=== PATIENT | female | born 1960 | race Caucasian/White ===

== ENCOUNTER 2016-11-28 19:26 | Emergency (ER) | payer OTHER ==
[~2016-11-28] VITALS: Ht 165.1 cm; Wt 82.5 kg
[~2016-11-28 19:26] MED LIST: ADVAIR 100-501 EACH INH; ALENDRONATE SOD70 MG PO; AZATHIOPRINE50 MG PO; BUDESONIDE EC3 MG PO; DELZICOL400 MG PO; DICYCLOMINE HCL10 MG PO; FLUOXETINE HCL20 M1 PO; HYDROCODON-ACE1 EA10 PO; KEFLEX500 MG PO; MONTELUKAST SOD10 MG PO; NICODERM CQ1 EAC1 TD; NITROFURANTOIN100 M1 PO; NORCO 5-325 TA1 EACH PO; OMEPRAZOLE20 MG PO; PEG-3350 WITH4000 ML PO; PREDNISONE10 MG PO; PREDNISONE20 MG PO; PRILOSEC20 MG PO; PYRIDIUM100 MG PO; PYRIDIUM200 MG PO; SINGULAIR10 MG PO; VENTOLIN HFA18 GM INH; ZOFRAN ODT4 MG PO
[2016-11-28] MEDS ORDERED: BUDESONIDE EC3 MG PO (19:37)
[2016-11-28] MEDS ORDERED: AZATHIOPRINE50 MG PO (19:38)
[2016-11-28] MEDS ORDERED: NORCO 5-325 TA1 EACH PO (20:48)
== END 2016-11-28 21:19 | disposition home or self-care (01) ==
LOC: ED 19:26
DX: S82.61XA Displaced fracture of lateral malleolus of right fibula, initial encounter for closed fracture (principal); J44.9 Chronic obstructive pulmonary disease, unspecified; F31.9 Bipolar disorder, unspecified; F17.200 Nicotine dependence, unspecified, uncomplicated; Z90.710 Acquired absence of both cervix and uterus; Z90.49 Acquired absence of other specified parts of digestive tract; Z90.89 Acquired absence of other organs; Z91.048 Other nonmedicinal substance allergy status; Z79.899 Other long term (current) drug therapy; X58.XXXA Exposure to other specified factors, initial encounter
CPT/HCPCS: 73610; 99283

== ENCOUNTER 2018-11-17 10:20 | Inpatient (IN) | payer OTHER ==
[~2018-11-17] VITALS: Ht 165.1 cm; Wt 88.0 kg
[~2018-11-17 10:20] MED LIST changes: +ADVAIR 250-501 EACH INH; +ASACOL HD800 MG PO; +DICYCLOMINE HCL20 MG PO
[2018-11-25] MEDS ORDERED: D-20002000 UNIT PO (11:00)
[2018-11-25] MEDS ORDERED: VITAMIN B-121000 MCG PO (11:00)
[2018-11-25] MEDS ORDERED: DELZICOL400 M1 PO (11:03)
[2018-11-25] MEDS ORDERED: DICYCLOMINE HCL20 MG PO (11:04)
[2018-11-25] MEDS ORDERED: GAS RELIEF80 MG PO (11:05)
[2018-11-25] MEDS ORDERED: PROBIOTIC1 EAC1 PO (11:06)
[2018-11-25] MEDS ORDERED: OMEPRAZOLE20 MG PO (11:06)
[2018-11-25] MEDS ORDERED: VENTOLIN HFA18 GM INH (11:07)
--- NOTE | 2018-12-02 06:31 | OR ---
[facility] [address], [place] [address] Signed DATE OF OPERATION: 12/01/2018 SURGEON: Nazanin Champion MD PREOPERATIVE DIAGNOSES: 1. Crohn disease. 2. 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 POSTOPERATIVE DIAGNOSES: 1. Crohn disease. 2. Distal ileal stricture x2. PROCEDURES PERFORMED: Small bowel resection with end-to-end small bowel anastomosis, hand-sewn in 2 layers with Vicryl suture. ESTIMATED BLOOD LOSS: None. FINDINGS: Kevin has Crohn disease of her terminal ileum. The ileocecal valve and cecum were quite healthy. However, the distal ileum probably over 15 inches or so, has the classic thickened mesentery with the fat wrapping on the small bowel and then just on the proximal end at 15 cm, she had two sequential strictures. Small bowel was just slightly dilated proximal to that. These were all chronic. Chronically dilated small bowel had very little fat wrapping in the mesentery was not thickened. When we transected the ileum on the distal portion, there was still about 2 cm of stricture remaining, so we took an additional 2.5 to 3 cm length of the ileum to completely excise that stricture and then we performed our anastomosis, hand-sewn in 2 layers with absorbable Vicryl suture. INDICATIONS: Kevin is a 58-year-old female who feels like she probably had Crohn disease clear back to when she was a teenager. In 2014, she spent time in the hospital with inflammation of the terminal ileum. She was very close to having a right colectomy at that time. She has continued on her mesalamine and has overall been doing much better. However, the last 4 to 6 months, she has had tremendous left mid quadrant and left lower quadrant crampy abdominal pain. It is worse with solid foods. She cut down the pasta in liquids and it has been helping the last few months. She had been to her primary care provider. A CT scan with oral and IV contrast was performed. She has a 4 cm segment what was Electronically Signed By: NAZANIN CHAMPION MD 12/02/18 0631 PATIENT NAME: KEVIN ORNELAS OPERATIVE REPORT DATE OF : 64 REPORT #: [id number] PHYSICIAN: NAZANIN CHAMPION MD PCP: ROWAN BUCK MD REPORT IS CONFIDENTIAL AND NOT TO BE RELEASED WITHOUT AUTHORIZATION [facility] [address], [place] [address] Signed believed to be her jejunum in the left mid quadrant to the left lower quadrant of her abdomen. It was showed a thickened bowel wall and the lumen was only 5 mm in diameter. Small intestine was slightly dilated proximal to the stricture. This was all consistent with her symptoms. Consequently, her primary care provider asked to see me with respect to the above. I met with Kevin and her in the office. I had a long discussion regarding her current circumstances and the findings. We decided this was chronic and she needed to go the operating room for a small bowel resection. She also explained to me that her grandmother had Crohn disease. I reviewed with Kevin and her the anatomy of the small bowel in the office. We reviewed small bowel resections. We decided we would use absorbable suture given her Crohn disease. However, pertaining ollie are certainly acceptable. I explained to Kevin and her this would not relieve her of her Crohn disease completely. In fact, she could need additional resections in the future. We reviewed the expected intraoperative and postoperative course. There is risk to the surgery including, but not limited to bleeding, infection, scarring, change in contour of the skin, anastomotic stricture and/or leakage, incisional hernias, and other unforeseen comorbidities. They had expressed understanding and wished to proceed. I had met with Kevin and her in our preop area. We went through this once again. After this, we proceeded to surgery. PROCEDURE NOTE: Kevin was taken in the operating room and placed in the supine position under general endotracheal tube anesthesia. She was given a tap block by our anesthesia provider with ultrasound guidance. A Shore catheter was inserted without difficulty with return of clear yellow urine. She was given preoperative antibiotics along with subcutaneous heparin. SCDs were utilized. She was then prepped and draped in the usual sterile fashion. We then made a standard periumbilical incision with the help of the 20 blade knife. This was carried down through the tissues with the help of the cautery. We entered the abdomen without any difficulty whatsoever. She had little if any in the way of any adhesions that we could ascertain. We could easily see the slightly dilated small bowel came into the distal ileum and we could see the two sequential strictures 6 to 8 cm apart. As we traveled down the terminal ileum beyond that, then the chronic changes from the Crohn disease were more pronounced. There was thickening to the mesentery and fat wrapping around small bowel. This went all the way down next to the ileocecal valve. However, ileocecal valve seems to be actually very healthy. Cecum was quite healthy. The cecum was somewhat mobile. She does have a very healthy small noninvolved retrocecal appendix. We did leave that in place. Rather than to perform a formal right colectomy, we decided we would do a sequential small bowel resection. We used a MICAELA stapler to divide the ileum on the healthy proximal side and then what we thought was the beyond the stricture. We then divided the mesentery between Pean clamps and 0 Vicryl ties. We used several 2-0 Vicryl stick ties to control some bleeding on the edge of the mesentery which was common with the small bowel mesentery. We brought the two pieces of small bowel end-to-end and used 3-0 interrupted Vicryl sutures to Electronically Signed By: NAZANIN CHAMPION MD 12/02/18 0631 PATIENT NAME: KEVIN ORNELAS OPERATIVE REPORT DATE OF : 64 REPORT #: [id number] PHYSICIAN: NAZANIN CHAMPION MD PCP: ROWAN BUCK MD REPORT IS CONFIDENTIAL AND NOT TO BE RELEASED WITHOUT AUTHORIZATION [facility] [address], [place] [address] Signed bring the back wall of the serosa together. There was a bit of a size discrepancy between the slightly dilated proximal small bowel and slightly chronically smaller involved distal small bowel. We therefore removed the ollie and created a small Cheatle slit may be a centimeter or so in length. When we looked, we realized we still had a little bit of stricture left may be 2 cm at most in length. Consequently, we could not simply extend the Cheatle slit and we decided to go ahead and remove those Vicryl sutures with a #15 blade knife. We used a GI stapler for the third time to remove another 3 cm or so of the ileum and divided that mesentery with Pean clamps and 0 Vicryl ties once again. That was passed off the field. We did place a silk stitch on the proximal portion of the initial specimen. They were opened on the back table by our circulating nurse and pictures were taken for photodocumentation. After this, we once again proceeded with an end-to-end anastomosis with a 1 cm Cheatle slit. A back row was performed with interrupted 2-0 Vicryl sutures. The mucosa was then reapproximated circumferentially with running 2-0 Vicryl sutures. The anterior serosal layer was closed with interrupted 2-0 Vicryl sutures. This gave us an excellent circumferential anastomosis and was palpably patent between my index finger and thumb. The mesenteric rent was then closed with a running 0 Vicryl suture. The area was irrigated and suctioned out until clear. The bowel was returned to the abdomen. The mesentery was closed with interrupted [id number] #1 PDS sutures. The wound was irrigated and suctioned out until clear. We brought the dermis together with interrupted 3-0 subcuticular Monocryl sutures. The skin was reapproximated with ollie. Dry gauze and paper tape were used over the incision. After this, Kevin was awakened from her anesthesia, extubated in the OR, and taken to recovery room in stable condition. Nazanin Champion MD ALB/MODL /[id number] cc: MD Marshal Bhatia MD Andrew L Bower, MD Electronically Signed By: NAZANIN CHAMPION MD 12/02/18 0631 PATIENT NAME: KEVIN ORNELAS OPERATIVE REPORT DATE OF : 64 REPORT #: [id number] PHYSICIAN: NAZANIN CHAMPION MD PCP: ROWAN BUCK MD REPORT IS CONFIDENTIAL AND NOT TO BE RELEASED WITHOUT AUTHORIZATION [facility] [address], [place] [address] Signed Copies: ROWAN BUCK MD, JAMES MD BOWER, ANDREW L MD ~ Electronically Signed By: NAZANIN CHAMPION MD 12/02/18 0631 PATIENT NAME: KEVIN ORNELAS OPERATIVE REPORT DATE OF : 64 REPORT #: [id number] PHYSICIAN: NAZANIN CHAMPION MD PCP: ROWAN BUCK MD REPORT IS CONFIDENTIAL AND NOT TO BE RELEASED WITHOUT AUTHORIZATION
[2018-12-06] MEDS ORDERED: NORCO 5-325 TA1 EACH PO (12:03)
--- NOTE | 2018-12-06 16:10 | PATH ---
[facility] [address] [facility] [place] [address] Signed SPECIMEN(S): A MID JEJUNUM SPECIMEN(S): B DISTAL JEJUNUM SPECIMEN SOURCE: A. MID JEJUNUM B. DISTAL JEJUNUM CLINICAL HISTORY: Crohn's disease. FINAL PATHOLOGIC DIAGNOSIS: A. Mid jejunum, segmental excision: - Active chronic inflammatory bowel disease with ulceration consistent with Crohn's disease. - Proximal margin of excision: No microscopic pathologic diagnosis. - Distal margin of excision: Minimal to mild active chronic mucosal inflammation. B. Distal jejunum, segmental excision: - Mild to moderate active chronic Crohn's disease. - No perforation present. - Margins show focal mucosal inflammation and submucosal fibrosis without complete transmural involvement. LJA:cml:C2NR MICROSCOPIC EXAMINATION: A. Sections of distal resection margin reveal the mucosa surface to be un-ulcerated. There is minimal to mild active chronic mucosal inflammation. There is patchy extension of plasma cells, lymphocytes and infrequent eosinophils in the submucosa and the muscularis. No fibrosis is present. Sections of proximal margin are unremarkable. Sections of the ulcerated area reveal full-thickness mucosal necrosis with the base of the ulceration covered by fibrinous debris infiltrated with moderate numbers of acute inflammatory cells which extend down to, but not through the muscularis. Focal submucosal necrosis is present. There is no evidence of malignancy or atypia. B. Sections of distal jejunum reveal an area of ulceration and adjacent mucosa with mild to moderate active chronic inflammation extending down into submucosa, with a small focal submucosal abscess present along with areas of submucosal fibrosis consistent with Crohn's PATIENT NAME: KEVIN ORNELAS PATHOLOGY DATE OF : 64 REPORT #: [id number] PHYSICIAN: HUAN AREVALO PCP: ROWAN BUCK MD REPORT IS CONFIDENTIAL AND NOT TO BE RELEASED WITHOUT AUTHORIZATION [facility] [address] [place], [place] [address] Signed disease. No perforation is present. The margins show focal mild chronic and subacute inflammation in the mucosa, as well as mild submucosal fibrosis. The muscularis largely is not involved. LJA:cml GROSS DESCRIPTION: Two specimens are received in two containers, labeled "RC." A. The specimen, labeled "RC, mid jejunum," is received in formalin and consists of one unoriented segment of small bowel that has been previously opened and measures 10.5 cm in length and has an average internal circumference of 3.5 cm. A suture identifies the proximal margin. The serosal surface is pink and smooth with a red granular tissue at the distal resection margin. Upon opening the mucosal surface is yellow-prince and finely granular with focal pink ulcerations, which are collectively 1.6 cm from the proximal resection margin, and abuts the distal resection margin. The distal resection margin is inked blue. The bowel wall has an average thickness of 0.7 cm. No areas of perforation are grossly identified. Spiritual Advisor sections are submitted in four cassettes. Cassette summary: (A1) Distal resection margin, perpendicular (margin inked blue) (A2) Proximal resection margin, shave (A3-A4) Ulcerated areas of mucosa. B. The specimen, labeled "RC, distal jejunum," is received in formalin and consists of one previously opened segment of small bowel that is 3.6 cm in length and has an average internal circumference of 2.5 cm. The serosal surface is pink and focally congested. The mucosal surface is pink and finely granular with a 1.9 x 1.2 cm pink ulcerated area that is 0.6 cm from the closest resection margin. The closest resection margin is inked blue. The bowel wall ranges in thickness from 0.3 cm up to 0.9 cm. Spiritual Advisor sections are submitted in three cassettes. Cassette summary: (B1-B2) Ulcerated area to closest resection margin, perpendicular (margin inked blue) (B3) Opposite resection margin, shave. FB (under the direct supervision of a pathologist) The Gross Description was prepared using a voice recognition system. The report was reviewed for accuracy; however, sound-alike word errors, addition and/or deletions may occur. If there is any PATIENT NAME: KEVIN ORNELAS PATHOLOGY DATE OF : 64 REPORT #: [id number] PHYSICIAN: HUAN AREVALO PCP: ROWAN BUCK MD REPORT IS CONFIDENTIAL AND NOT TO BE RELEASED WITHOUT AUTHORIZATION [facility] [address] [place] [id number] Signed question about this report, please contact Client Services. PERFORMING LABORATORY: The technical component was performed by [employer], [address] [place] [id number] (Creative Writing Teacher: Judith Mcdonnell MD; CLIA# [id number]). [facility], [address] [address] (Creative Writing Teacher: Eduin Keys MD; CLIA# [id number]). Diagnostician: Eduin Keys MD Pathologist Electronically Signed 12/06/2018 Copies: ~ PATIENT NAME: KEVIN ORNELAS PATHOLOGY DATE OF : 64 REPORT #: [id number] PHYSICIAN: HUAN PATHOLOGY PCP: ROWAN BUCK MD REPORT IS CONFIDENTIAL AND NOT TO BE RELEASED WITHOUT AUTHORIZATION
--- NOTE | 2018-12-07 07:24 | DS ---
[facility] [address] [place], [place] [address] Signed ADMISSION DATE: 12/01/2018 DISCHARGE DATE: 12/06/2018 FINAL DIAGNOSES: 1. Distal ileal small bowel resection x1. 2. Chronic Crohn disease. PROCEDURE: Small bowel resection x1 (distal ileum). HISTORY OF PRESENT ILLNESS: Kevin is a 58-year-old female, who has had Crohn disease, probably back to when she was a teenager. However in 2014, she spent time in the hospital with quite a bit of inflammation in the terminal ileum. They got better and she has maintained herself quite nicely on her mesalamine. However, she developed a stricture in what was thought to be the jejunum. It was just to the left of the umbilicus on CT scan. The lumen was only about 5 mm in diameter. She was having very classic partial small bowel obstruction symptoms with crampy abdominal pain. She has learned to convert herself over to soft and liquid food that helped. However, the symptoms persisted, so she was asked to see me as a local general surgeon. HOSPITAL COURSE: We brought Kevin into the hospital on 12/01/2018, and underwent a small laparotomy and we found two sequential strictures in the terminal ileum. She has chronic fat wrapping in the terminal ileum, but the small bowel was actually pretty soft. We resected and sewed it end-to-end with absorbable Vicryl suture. She has done well both intraop and postop. She is now on a low residue diet and taking her chronic medications. She has had lots of flatus and several bowel movements. Abdominal exam is benign. The incisions are unremarkable. Due to her progress, we are going to be discharging her to home with her . DISCHARGE PLANS AND MEDICATIONS: Kevin will be discharged home with a prescription for Willard 5/325 tablets, 1 to 2 tablets p.o. q.6 hours p.r.n. for severe postop pain. We will dispense #25 tablets with no refills. She can use Tylenol, ibuprofen, or Naprosyn as needed for bzcu-oy-[id number] postoperative pain. She can purchase that [id number]. She can continue her chronic medications at home. I have advised her to stay on a low residue diet for the time being. We are going to remove one half the ollie today. We will see her back in the office in 5 to 7 days for followup. She should not do any heavy pushing, pulling, or lifting over about 20 pounds. She can certainly perform her activities of daily living including walking up and down stairs and showering and bathing as usual. She is Electronically Signed By: NAZANIN CHAMPION MD 12/07/18 0724 PATIENT NAME: KEVIN ORNELAS DISCHARGE SUMMARY DATE OF : 64 REPORT #: [id number] PHYSICIAN: NAZANIN CHAMPION MD PCP: ROWAN BUCK MD REPORT IS CONFIDENTIAL AND NOT TO BE RELEASED WITHOUT AUTHORIZATION [address] [address] Signed not to work currently and she should not drive while on narcotics. She and her have expressed understanding and agreed with above plan. Nazanin Champion MD ALB/MODL /[id number] cc: MD Marshal Hardwick, MD Rowan Buck MD Copies: NAZANIN CHAMPION MD, JAMES MD REDDY, LOHITH VEERAPPA MD ~ Electronically Signed By: NAZANIN CHAMPION MD 12/07/18 0724 PATIENT NAME: KEVIN ORNELAS DISCHARGE SUMMARY DATE OF : 64 REPORT #: [id number] PHYSICIAN: NAZANIN CHAMPION MD PCP: ROWAN BUCK MD REPORT IS CONFIDENTIAL AND NOT TO BE RELEASED WITHOUT AUTHORIZATION
== END 2018-12-06 12:45 | disposition home or self-care (01) | DRG 331 ==
LOC: DSVR 12-01 08:40 → MS 12-01 09:00
PROVIDERS: ADMIT Colon & Rectal Surgery
PROC: 0DTB0ZZ Resection of Ileum, Open Approach (ICD-10-PCS; principal; 2018-12-01 09:30)
PROC: 3E0T3BZ Introduction of Anesthetic Agent into Peripheral Nerves and Plexi, Percutaneous Approach (ICD-10-PCS; 2018-12-01 09:30)
DX: K50.018 Crohn's disease of small intestine with other complication (principal); G89.18 Other acute postprocedural pain; J44.9 Chronic obstructive pulmonary disease, unspecified; R73.03 Prediabetes; F17.210 Nicotine dependence, cigarettes, uncomplicated; E66.9 Obesity, unspecified; E53.8 Deficiency of other specified B group vitamins; E55.9 Vitamin D deficiency, unspecified; Z68.32 Body mass index [BMI] 32.0-32.9, adult; Z79.51 Long term (current) use of inhaled steroids; Z79.899 Other long term (current) drug therapy
CPT/HCPCS: 00790; 76942; 88307; 94640; 94760; 94762; 99406; C9113; J0131; J0690; J1100; J1170; J1644; J1650; J1885; J2405; J2704; J2795; J3010; J7120; J7121

== ENCOUNTER 2018-12-15 00:33 | Emergency (ER) | payer OTHER ==
[~2018-12-15] VITALS: Ht 165.1 cm; Wt 88.0 kg
[~2018-12-15 00:33] MED LIST changes: +D-20002000 UNIT PO; +DELZICOL400 M1 PO; +GAS RELIEF80 MG PO; +PROBIOTIC1 EAC1 PO; +VITAMIN B-121000 MCG PO
== END 2018-12-15 01:14 | disposition home or self-care (01) ==
LOC: ED 00:33
DX: M25.511 Pain in right shoulder (principal); M25.512 Pain in left shoulder; M54.2 Cervicalgia; F17.200 Nicotine dependence, unspecified, uncomplicated; Z91.048 Other nonmedicinal substance allergy status
CPT/HCPCS: 99283

== ENCOUNTER 2018-12-15 09:51 | Inpatient (IN) | payer OTHER ==
[~2018-12-15] VITALS: Ht 165.1 cm; Wt 93.4 kg
--- OUTSIDE RECORDS SUMMARY | 2018-12-15 10:44 | XMS ---
PreManage Notification: KEVIN ORNELAS Security Survey And Mapping Technician Events No recent Security Events currently on file CRITERIA MET - [facility] - 2 Visits in 30 Days CARE PROVIDERS Misbah Keys Treatment Current MD PHONE: Unknown Jose Luis has no Care Guidelines for this patient. ERe VISIT COUNT (12 MO.) 3 [facility] TOTAL 3 NOTE: Visits indicate total known visits. ED/UCC VISIT TRACKING (12 MO.) 12/15/2018 09:51 [facility] TYPE: Emergency 12/15/2018 00:34 [facility] TYPE: Emergency COMPLAINT: - BODY ACHES 10/15/2018 19:34 [facility] TYPE: Emergency COMPLAINT: - ABODMINAL PAIN DIAGNOSES: - Acquired absence of other specified parts of digestive tract - Other mcfp (current) drug therapy - Acquired absence of both cervix and uterus - Lower abdominal pain, unspecified - Other nonmedicinal substance allergy status - Nicotine dependence, unspecified, uncomplicated - Other chronic pain INPATIENT VISIT TRACKING (12 MO.) 12/01/2018 08:40 [facility] TYPE: Medical Surgical COMPLAINT: - LAPAROTOMY SMALL BOWEL RESECTION DIAGNOSES: - Body mass index (BMI) 32.0-32.9, adult - Prediabetes - Deficiency of other specified B group vitamins - Vitamin D deficiency, unspecified - Chronic obstructive pulmonary disease, unspecified - Other mcfp (current) drug therapy - Obesity, unspecified - Chronic obstructive pulmonary disease, unspecified - Obesity, unspecified - Other acute postprocedural pain - Body mass index (BMI) 32.0-32.9, adult - Nicotine dependence, cigarettes, uncomplicated - skilled nursing (current) use of inhaled steroids - Crohn's disease of small intestine with intestinal obstruction - Other rodent exterminator (current) drug therapy - skilled nursing (current) use of inhaled steroids - Nicotine dependence, cigarettes, uncomplicated - Crohn's disease of small intestine with other complication - Vitamin D deficiency, unspecified - Deficiency of other specified B group vitamins - Prediabetes - Other acute postprocedural pain [email or web address]
--- NOTE | 2018-12-15 17:58 | EKG ---
[facility] [address] [facility] [place] [address] Signed Sinus tachycardia Nonspecific ST abnormality Abnormal ECG When compared with ECG of 25-NOV-2018 11:28, Vent. rate has increased BY [address] now depressed in Anterior leads Confirmed by KASANDRA BENNETT MD ([id number]) on 12/15/2018 5:57:50 PM Electronically Signed By: KASANDRA BENNETT MD 12/15/18 1758 PATIENT NAME: KEVIN ORNELAS Electrocardiogram DATE OF : 64 PHYSICIAN: KASANDRA BENNETT MD REPORT #: [id number] REPORT IS CONFIDENTIAL AND NOT TO BE RELEASED WITHOUT AUTHORIZATION
--- NOTE | 2018-12-17 16:20 | PATH ---
[facility] [address] [place], [place] [address] Signed SPECIMEN(S): A TERMINAL ILEUM SPECIMEN(S): B ADDITIONAL ILEUM SPECIMEN SOURCE: A. TERMINAL ILEUM B. ADDITIONAL ILEUM CLINICAL HISTORY: History Crohn's, anastomosis leak, silk stitch proximal. Small bowel obstruction. FINAL PATHOLOGIC DIAGNOSIS: A. Terminal ileum, resection: - Anastomosis: Perforation with adjacent tissues with acute and chronic inflammation with features consistent with Crohn's disease. - Mucosa ileum proximal and distal to anastomosis: Crohn's disease with mucosal involvement, superficial ulceration, focal fibrosis and transmural inflammation. - Serosal surfaces: Peritonitis. - Two lymph nodes: Benign with reactive features. B. Ileum, additional resection: - "Transmural defect": - Mucosa: unremarkable. - Submucosa: Mild fibrosis and scattered acute and chronic inflammation. - Muscularis: Multiple areas of infiltration of acute and chronic inflammatory cells. - Serosa: Peritonitis. - Proximal and distal margins of excision: - Mucosa: Intact without significant inflammation. - Submucosa: Edema, mild fibrosis. - Muscularis: Scattered chronic inflammatory cells, rare acute inflammatory cells. - Serosa: Peritonitis. LJA:cml:C2NR MICROSCOPIC EXAMINATION: Histologic sections of all submitted blocks are examined by light microscopy. PATIENT NAME: KEVIN ORNELAS PATHOLOGY DATE OF : 64 REPORT #: [id number] PHYSICIAN: INCYTE PATHOLOGY PCP: ROWAN BUCK MD REPORT IS CONFIDENTIAL AND NOT TO BE RELEASED WITHOUT AUTHORIZATION [facility] [address] [place], [place] [address] Signed These findings, together with the gross examination, support the pathologic diagnosis. GROSS DESCRIPTION: Two specimens are received in two containers, labeled "RC." A. The specimen, labeled "RC, terminal ileum," is received in formalin and consists of a 38.2 cm in length segment of small bowel, with a 6.2 cm thick mesentery. There is a suture at one and that is designated as proximal. 14.2 cm from the proximal end there is an anastomosis. Proximal to the anastomosis the small bowel is approximately 7.5 cm in circumference, and distal to the anastomosis the small bowel is approximately 2.2 cm in circumference. The serosa proximal to the anastomosis is dusky and smooth, and the mucosa is prince-pink with regular unremarkable folds. The serosa distal to the anastomosis is prince-pink and smooth and the mucosa is prince-pink and smooth with focal hemorrhagic and ulcerated areas. The dusky area of the bowel abuts the proximal margin and the ulcerating mucosa abuts the distal margin. At the anastomosis site there is a transmural defect that is surrounded by a prince-white serosal exudate. There are three dark brown possible lymph nodes identified, ranging from 0.5-0.8 cm in greatest dimension. Cassette summary: (A1) anastomosis with transmural defect and exudate. (A2) proximal margin en face. (A3) distal margin en face. (A4) mucosa proximal to anastomosis and one intact lymph node. (A5-A6) mucosa distal to anastomosis with one lymph node per cassette. B. The specimen, labeled "RC, additional ileum," is received in formalin and consists of a 9.1 cm in length x 5.8 cm in circumference segment of small bowel, with a suture at one end that is designated as proximal. Attached to the specimen is an up to 3.3 cm thick mesentery. 1.1 cm from the proximal margin there is a 3.7 x 0.4 cm transmural defect. The serosa of the specimen is dark brown, dusky and smooth. The mucosa is prince with regular unremarkable folds. No lesions or lymph nodes are grossly identified. Cassette summary: (B1) proximal margin en face (B2) distal margin en face (B3) transmural defect AM (under the direct supervision of a pathologist) PATIENT NAME: KEVIN ORNELAS PATHOLOGY DATE OF : 64 REPORT #: [id number] PHYSICIAN: HUAN AREVALO PCP: ROWAN BUCK MD REPORT IS CONFIDENTIAL AND NOT TO BE RELEASED WITHOUT AUTHORIZATION [facility] [address] [place], [place] [address] Signed The Gross Description was prepared using a voice recognition system. The report was reviewed for accuracy; however, sound-alike word errors, addition and/or deletions may occur. If there is any question about this report, please contact Client Services. PERFORMING LABORATORY: The technical component was performed by [facility], [address] [place] [id number] (Bit Bender: Judith Mcdonnell MD; CLIA# [id number]). [facility] [address] [address] (Bit Bender: Eduin Keys MD; CLIA# [id number]). Diagnostician: Eduin Keys MD Pathologist Electronically Signed 12/17/2018 Copies: ~ PATIENT NAME: KEVIN ORNELAS PATHOLOGY DATE OF : 64 REPORT #: [id number] PHYSICIAN: HUAN PATHOLOGY PCP: ROWAN BUCK MD REPORT IS CONFIDENTIAL AND NOT TO BE RELEASED WITHOUT AUTHORIZATION
[2018-12-22] MEDS ORDERED: NORCO 10-325 T1 EACH PO (07:51)
--- NOTE | 2018-12-22 10:56 | OR ---
[facility] [address] [place], [place] [address] Signed DATE OF OPERATION: 12/15/2018 SURGEON: Nazanin Champion MD PREOPERATIVE DIAGNOSES: 1. Small bowel perforation at anastomosis. 2. Partial small bowel obstruction anastomosis. 3. Chronic Crohn disease. 4. Mild acute malnutrition. POSTOPERATIVE DIAGNOSES: 1. Small bowel perforation at anastomosis. 2. Partial small-bowel obstruction anastomosis. 3. Chronic Crohn disease. 4. Mild acute malnutrition. PROCEDURES PERFORMED: 1. Placement of left femoral central venous catheter with ultrasound guidance. 2. Small bowel resection (terminal ileum-20 inches) with end ileostomy. INPUT AND OUTPUT: In was 4 of L of crystalloid, out was 150 mL of blood and 800 mL of urine over 2.5 hours. FINDINGS: Kevin had a micro perforation 1 cm up onto the side of the bowel away from the mesenteric side. INDICATIONS: Kevin is a 58-year-old female who has had years of Crohn disease affecting her terminal ileum. She has been maintained well on mesalamine. However, she developed a stricture, chronic this affected area of terminal ileum. We taken her to the operating room about 15 days ago for an elective small bowel resection involving two sequential strictures. We brought the bowel back together end-to-end with interrupted Vicryl suture given the fact she has Crohn disease. She did well both intraop and postop. In fact, I just saw her couple days ago in the office. She is doing quite well. However, last night, she had acute onset of abdominal pain and came to emergency room. She was evaluated and discharged back to home. Her pain was worsening, so they called the ambulance and came back to the emergency room. The new ER doctor coming on shift had called me and I explained to him her current situation. Our greatest concern obvious would be a perforation at the anastomosis. Consequently, we asked for laboratory work Electronically Signed By: NAZANIN CHAMPION MD 12/16/18 5426 Electronically Signed By: NAZANIN CHAMPION MD 12/21/18 0518 Electronically Signed By: NAZANIN CHAMPION MD 12/22/18 1108 PATIENT NAME: KEVIN ORNELAS OPERATIVE REPORT DATE OF : 64 REPORT #: [id number] PHYSICIAN: NAZANIN CHAMPION MD PCP: ROWAN BUCK MD REPORT IS CONFIDENTIAL AND NOT TO BE RELEASED WITHOUT AUTHORIZATION [facility] [address] [place], [place] [address] scan of abdomen and pelvis. Sure enough, the white count is normal but her neutrophils 82. The lactic acid was quite high at 7.7 with an albumin of 3.7. The CT scan of abdomen and pelvis showed a moderate amount of free air and fluid in the abdomen, some inflammatory changes concerning for a perforated small bowel. I was in the operating room, once I finished and went into the emergency room and I could tell that she had moderate abdominal distention and was septic. She has had some mottling in her legs. She already had two peripheral IVs and received 3 L of IV fluids along with the cefepime and Flagyl. We found that the potassium was low at 2.5 and we had ordered 40 mEq of the potassium. She finished that while we were in the OR and repeat potassium shows her at 2.9. I tried to place a right femoral triple-lumen catheter and I could easily feel the pulse. I actually entered the femoral vein three times. We never could get the wire to feed and we abandoned that approach and tried the left subclavian vein with Trendelenburg position and again we could not find the subclavian vein whatsoever. We therefore abandoned our attempts in the ER to place a central venous catheter. We checked a chest x-ray and there was no pneumothorax or other complication of the chest. I explained to Kevin and her obviously her current situation. With our plans, take her directly from the ER over the operating room. The plan was to repeat the laparotomy and most likely resect the small bowel and more than likely she would end up with at least an ileostomy temporarily until things get here, we can reverse at a later date. I explained to Kevin and her that she is quite sick and we were quite concerned. Kevin and her both agreed that she is a full code and if she were on the ventilator and so forth back, she would defer decision making to her . I explained them there is risk to the surgery including, but not limited to bleeding, infection, scarring, change in contour of the skin, damage to bowel, recurrent bowel leak or issues with the ileostomy as well as other unforeseen comorbidities including . They had expressed understanding and wished to proceed. PROCEDURE NOTE: Kevin was taken into the operating room and placed in the supine position. Our anesthesia staff placed a left arterial line with a good waveform. We were able to keep her mean arterial pressures in the 70s. A Shore catheter had been inserted in the emergency room with return of clear yellow urine. She had already had an NG tube placed in the emergency room over 500 mL of bilious gastric fluid had been evacuated. After this, I used the ultrasound to place the left femoral triple-lumen catheter. The area had been prepped and draped in the usual sterile fashion. She was already placed under general endotracheal tube anesthesia at that point. Therefore, no local anesthetic was used. We were able to watch the needle passed directly underneath the skin into the vein itself. Even then it was a bit difficult, it took a few minutes before we finally got the nonpulsatile blood return with easy passage of the wire. We rechecked the position of the wire with the ultrasound and then dilated the tract without difficulty. The triple-lumen catheter was inserted and all three ports were able to draw and flush quite readily. The catheter was held down on the skin with interrupted silk sutures. Electronically Signed By: NAZANIN CHAMPION MD 12/16/18 1447 Electronically Signed By: NAZANIN CHAMPION MD 12/21/18 0518 Electronically Signed By: NAZANIN CHAMPION MD 12/22/18 1108 PATIENT NAME: KEVIN ORNELAS OPERATIVE REPORT DATE OF : 64 REPORT #: [id number] PHYSICIAN: NAZANIN CHAMPION MD PCP: ROWAN BUCK MD REPORT IS CONFIDENTIAL AND NOT TO BE RELEASED WITHOUT AUTHORIZATION [facility] [address] [place], [place] [address] Signed Dressing was applied per nursing staff. After this, I went out and completely rescrubbed and re-gowned as well as our nurse. The abdomen was then prepped and draped in the usual sterile fashion. We opened the midline incision sharply and then used the cautery to come through the fascia and remove her previous PDS sutures. We extended the incision about 3 cm cephalad. We entered the abdomen without difficulty and of course it was full of the typical turbid fluid consistent with a bowel perforation. We brought up the small bowel and I looked at the anastomosis and she had a very tiny perforation 1 or 2 mm about a centimeter up onto the side of the small bowel away from the mesenteric side. We then took some time to copiously irrigate and suction out the abdomen with warm antibiotic saline solution until clear. Initially pushed a little bit of the small bowel contents back in the stomach, but we felt this is going to be too much and since we could feel particulate matter in the small bowel, we felt this was not going to suction well through her NG tube. Consequently, went back and I divided the terminal ileum right next to the ileocecal valve with our linear stapler. We then chose an area proximal to the anastomosis on the ileum and we divided that also with a linear stapler. The mesentery to the dissection of small bowel was divided between Pean clamps and 0 Vicryl ties. We used several 2-0 Vicryl stick ties to over-sew some small bleeders. We found that the mesentery was a bit short and we really did not feel comfortable we could bring up the ileostomy at that point. We went ahead and took an additional short section of ileum and again we divided the mesentery between Pean clamps and 0 Vicryl ties. That then gave us sufficient length to bring the ileum up through the abdominal wall. We went ahead and removed the corner of the staple line and we placed that into our kidney basin and we very carefully and slowly evacuated the full length of that small bowel from the ligament of Treitz all the way down and all the liquid light brown particulate stool matter was evacuated along with multiple small pills that apparently she takes after every meal according to her and all the air was evacuated. We then oversewed that with a couple of interrupted pntgyo-op-vnrgo silk sutures. We then copiously irrigated out the abdomen again with warm antibiotic saline solution and felt that was quite secure. The course of her appendix remained in place. We then used a Esme clamp just lateral slightly inferior to the umbilicus over the rectus muscle and we grabbed the skin and we used our 20 blade knife to remove a [place] of skin. No more than 2 cm in diameter, probably less than that. Some of the subcutaneous fat was excised with a cautery and then we simply made a vertical slit on the anterior fascia, the muscle and then made a similar vertical slit in the posterior fascia, so we could bring the small bowel up through this. We brought the small bowel down on its natural sweep and brought it up vertically straight above the area of the mesentery that we divided and it came to quite nicely without any tension whatsoever. We then returned the rest of small bowel to the abdomen and brought the omentum down and over that area. The midline fascia was then closed with interrupted rgosjk-cx-efiub #1 PDS sutures. The wound was irrigated and suctioned out until clear. We brought the dermis together with interrupted 3-0 Monocryl subcuticular stitches. The skin edges were reapproximated with ollie. After this, the ileostomy was matured with a three-point stitch technique Electronically Signed By: NAZANIN CHAMPION MD 12/16/18 1447 Electronically Signed By: NAZANIN CHAMPION MD 12/21/18 0518 Electronically Signed By: NAZANIN CHAMPION MD 12/22/18 1108 PATIENT NAME: KEVIN ORNELAS OPERATIVE REPORT DATE OF : 64 REPORT #: [id number] PHYSICIAN: NAZANIN CHAMPION MD PCP: ROWAN BUCK MD REPORT IS CONFIDENTIAL AND NOT TO BE RELEASED WITHOUT AUTHORIZATION [facility] [address] [place], [place] [address] Signed using 3-0 Vicryl sutures. This gave a nice [place] to the ileostomy. We had divided that off sharply with the scissors and it was quite pink and healthy in bled quite nicely from the edges. We then placed our ostomy appliance over this. Dry gauze and tape were applied over the incision. Kevin was left intubated in stable but serious condition and we transported over to the ICU currently. In the meantime, I have reviewed all this with her as well. Nazanin Champion MD ALB/MODL /[id number] cc: MD Rowan Hardwick MD Copies: NAZANIN CHAMPION MD, LOHITH VEERAPPA MD ~ Electronically Signed By: NAZANIN CHAMPION MD 12/16/18 1447 Electronically Signed By: NAZANIN CHAMPION MD 12/21/18 0518 Electronically Signed By: NAZANIN CHAMPION MD 12/22/18 1108 PATIENT NAME: KEVIN ORNELAS OPERATIVE REPORT DATE OF : 64 REPORT #: [id number] PHYSICIAN: NAZANIN CHAMPION MD PCP: ROWAN BUCK MD REPORT IS CONFIDENTIAL AND NOT TO BE RELEASED WITHOUT AUTHORIZATION
--- NOTE | 2018-12-22 15:36 | DS ---
[facility] [address] [place] [address] Signed ADMISSION DATE: 12/15/2018 DISCHARGE DATE: 12/22/2018 FINAL DIAGNOSES: 1. Small bowel perforation. 2. Crohn disease. PROCEDURES: 1. Small bowel resection. 2. Ileostomy. HISTORY OF PRESENT ILLNESS: Kevin is a 58-year-old female who came 2 weeks prior to this admission due to 2 sequential strictures DICTATION ENDS HERE Nazanin Champion MD ALB/MODL /[id number] Copies: ~ Electronically Signed By: NAZANIN CHAMPION MD 12/22/18 1536 PATIENT NAME: KEVIN ORNELAS DISCHARGE SUMMARY DATE OF : 64 REPORT #: [id number] PHYSICIAN: NAZANIN CHAMPION MD PCP: ROWAN BUCK MD REPORT IS CONFIDENTIAL AND NOT TO BE RELEASED WITHOUT AUTHORIZATION
--- NOTE | 2018-12-22 15:36 | DS ---
[facility] [address] [place], [place] [address] Signed ADMISSION DATE: 12/15/2018 DISCHARGE DATE: 12/22/2018 FINAL DIAGNOSES: 1. Small bowel perforation. 2. Crohn disease. PROCEDURE: Small bowel resection and ileostomy. HISTORY OF PRESENT ILLNESS: Kevin is a 58-year-old female with a long history of Crohn disease. She is maintained on mesalamine. She is known to have a fairly long stricture in the terminal ileum, probably 20 cm long. She developed two sequential strictures on the proximal end of that requiring small bowel resection about 2 weeks prior to this admission. She has been doing well, in fact had been in office followup 2 days prior to this admission, and was doing fine. However, she developed abrupt pain and ended up coming to emergency room and had a small bowel perforation next to the anastomosis. Whether that was simply not healed or the Vicryl suture dissolved is hard to know for sure. She had been admitted as above. HOSPITAL COURSE: Kevin was admitted as above and started on her resuscitation and her IV fluids. We took her to the operating room directly from the emergency room for her small bowel resection. We took out the 20 cm or so of the terminal ileum. We then created an ileostomy in the right lower quadrant. Her abdomen was copiously irrigated out until clear DICTATION ENDS HERE MD EUSEBIO Hardwick/AMBIKAL /[id number] Electronically Signed By: NAZANIN CHAMPION MD 12/22/18 1536 PATIENT NAME: KEVIN ORNELAS DISCHARGE SUMMARY DATE OF : 64 REPORT #: [id number] PHYSICIAN: NAZANIN CHAMPION MD PCP: ROWAN BUCK MD REPORT IS CONFIDENTIAL AND NOT TO BE RELEASED WITHOUT AUTHORIZATION [address] [address] Signed Copies: ~ Electronically Signed By: NAZANIN CHAMPION MD 12/22/18 1536 PATIENT NAME: KEVIN ORNELAS DISCHARGE SUMMARY DATE OF : 64 REPORT #: [id number] PHYSICIAN: NAZANIN CHAMPION MD PCP: ROWAN BUCK MD REPORT IS CONFIDENTIAL AND NOT TO BE RELEASED WITHOUT AUTHORIZATION
--- NOTE | 2018-12-22 15:36 | DS ---
[facility] [address] [place], [place] [address] Signed ADMISSION DATE: 12/15/2018 DISCHARGE DATE: 12/22/2018 FINAL DIAGNOSES: 1. Small bowel perforation. 2. Crohn disease. PROCEDURES: 1. Small bowel resection. 2. Ileostomy. HISTORY OF PRESENT ILLNESS: Kevin is a 58-year-old female with a long history of Crohn disease, maintained on mesalamine. She had two sequential strictures in the ileum requiring a resection about 2 weeks prior to this admission. She office followup and then she developed significant acute abdominal pain, came to our emergency room. She had what appeared to be a small bowel perforation with air and fluid in the abdomen. HOSPITAL COURSE: I met with Kevin and her in the ER and we started her resuscitation, antibiotics, and so forth. She was taken directly to the operating room and underwent resection of the terminal ileum and creation of an ileostomy. We washed out her entire abdomen. We maintained her on cefepime and Flagyl throughout the hospital stay. She came through an expected postoperative course and has done quite well. Her fevers have resolved, white counts resolved, and she is now eating a regular diet. We have had the nurses help her several times now with the ileostomy care. We have made arrangements for Home Health as well. Her incision is healing nicely and we are going to remove all the ollie today. The abdomen is completely benign and the ileostomy is pink, moist, and functioning. DISCHARGE PLANS AND MEDICATIONS: Kevin is going to be discharged to home with a prescription for [place] 10/325 one tablet p.o. q.6 hours p.r.n. pain; we will dispense 30 tablets with no refills. She is welcome to use some Tylenol, ibuprofen, or Naprosyn for xpdb-od-wdhbywtp pain; she can purchase that vjeg-htz-uhiuuzk. She is going to resume all her chronic medications as she has done here in the hospital. She can continue a regular diet. She can perform her activities of daily living including walking up and down stairs and showering and bathing as usual. We have made arrangements for the [facility] care team to come out and see her because she is a new ileostomy patient. [place] 25 [place] from the hospital and for her to come in out of town would be excessive. I will see her back in Electronically Signed By: NAZANIN CHAMPION MD 12/22/18 1536 PATIENT NAME: KEVIN ORNELAS DISCHARGE SUMMARY DATE OF : 64 REPORT #: [id number] PHYSICIAN: NAZANIN CHAMPION MD PCP: ROWAN BUCK MD REPORT IS CONFIDENTIAL AND NOT TO BE RELEASED WITHOUT AUTHORIZATION [address] [address] Signed my office in about 5-7 days for followup. She has expressed her understanding and agrees to above plan. MD EUSEBIO Hardwick/AMBIKAL /[id number] cc: MD Nazanin Mendoza MD Lohith Veerappa Reddy, MD Copies: JAIME LAM MD,ROWAN ZAIDI MD, MD ~ Electronically Signed By: NAZANIN CHAMPION MD 12/22/18 1536 PATIENT NAME: KEVIN ORNELAS DISCHARGE SUMMARY DATE OF : 64 REPORT #: [id number] PHYSICIAN: NAZANIN CHAMPION MD PCP: ROWAN BUCK MD REPORT IS CONFIDENTIAL AND NOT TO BE RELEASED WITHOUT AUTHORIZATION
== END 2018-12-22 12:30 | disposition home health service (06) | DRG 853 ==
LOC: ED 09:51 → DSVR 13:23 → CCU 16:43 → MS 12-18 18:00
PROVIDERS: ADMIT Colon & Rectal Surgery
PROC: 0DBB0ZZ Excision of Ileum, Open Approach (ICD-10-PCS; principal; 2018-12-15 14:00)
PROC: 0D1B0Z4 Bypass Ileum to Cutaneous, Open Approach (ICD-10-PCS; 2018-12-15 14:00)
PROC: 02HV33Z Insertion of Infusion Device into Superior Vena Cava, Percutaneous Approach (ICD-10-PCS; 2018-12-18)
PROC: 3E02340 Introduction of Influenza Vaccine into Muscle, Percutaneous Approach (ICD-10-PCS; 2018-12-18)
DX: A41.4 Sepsis due to anaerobes (principal); K65.9 Peritonitis, unspecified; K63.1 Perforation of intestine (nontraumatic); K50.012 Crohn's disease of small intestine with intestinal obstruction; E87.2 Acidosis; E44.1 Mild protein-calorie malnutrition; J44.9 Chronic obstructive pulmonary disease, unspecified; F31.9 Bipolar disorder, unspecified; E83.51 Hypocalcemia; F17.210 Nicotine dependence, cigarettes, uncomplicated; M19.90 Unspecified osteoarthritis, unspecified site; R73.9 Hyperglycemia, unspecified; Z23 Encounter for immunization; E87.6 Hypokalemia; E83.42 Hypomagnesemia; E83.39 Other disorders of phosphorus metabolism; T50.905A Adverse effect of unspecified drugs, medicaments and biological substances, initial encounter; Y92.239 Unspecified place in hospital as the place of occurrence of the external cause; Z68.32 Body mass index [BMI] 32.0-32.9, adult; Z79.899 Other long term (current) drug therapy
CPT/HCPCS: 00790; 31720; 36569; 36600; 36620; 71045; 74177; 80048; 80053; 80061; 81001; 82803; 83036; 83605; 83735; 84100; 84134; 85025; 85610; 85730; 87040; 87076; 87077; 87185; 88307; 90688; 93005; 93010; 94002; 94003; 94640; 94760; 96361; 97110; 97116; 97162; 97530; 99285-25; 99406; C9113; J0610; J0692; J1100; J1170; J1644; J1815; J1885; J2250; J2370; J2405; J2704; J3010; J3430; J3475; J3480; J7030; J7060; J7120; J7121; Q9967

== ENCOUNTER 2019-01-08 17:13 | Observation (INO) | payer OTHER ==
[~2019-01-08] VITALS: Ht 165.1 cm; Wt 77.1 kg
[~2019-01-08 17:13] MED LIST changes: +NORCO 10-325 T1 EACH PO
--- OUTSIDE RECORDS SUMMARY | 2019-01-08 17:18 | XMS ---
PreManage Notification: KEVIN ORNELAS Security Authorization Nurse Events No recent Security Events currently on file CRITERIA MET - [facility] - Has Care Guidelines - PDMP - [facility] - 2 Visits in 30 Days CARE PROVIDERS ROWAN BUCK Internal Medicine 12/16/2018-[facility] STACI PHONE: [phone] Misbah Keys MD PHONE: Unknown Jose Luis has no Care Guidelines for this patient. Care History Medical/Surgical 12/16/2018 [facility] - Patient is currently established with [facility]. If patient is seen in the ED during business hours. Please contact CHWs at [facility]. Care Recommendation: This patient has had 5 or more Emergency Department visits in the last 12 months.\T\nbsp; Patient requires education on the scope and purpose of the ED as an acute care provider not a Primary Care Provider and should not be utilized for chronic conditions.\T\nbsp; These are guidelines and the provider should exercise clinical judgment when providing care. E.D. VISIT COUNT (12 MO.) [address] [facility] TOTAL 4 NOTE: Visits indicate total known visits. ED/UCC VISIT TRACKING (12 MO.) 01/08/2019 17:15 [facility] [place] TYPE: Emergency COMPLAINT: - MULTIPLE COMPLAINTS 12/15/2018 09:51 [facility] [place] TYPE: Emergency 12/15/2018 00:34 [facility] [place] TYPE: Emergency COMPLAINT: - BODY ACHES DIAGNOSES: - Pain in left shoulder - Nicotine dependence, unspecified, uncomplicated - Pain in right shoulder - Other nonmedicinal substance allergy status - Cervicalgia - Lower abdominal pain, unspecified 10/15/2018 19:34 [facility] [place] TYPE: Emergency COMPLAINT: - ABODMINAL PAIN DIAGNOSES: - Acquired absence of other specified parts of digestive tract - Other care home (current) drug therapy - Acquired absence of both cervix and uterus - Lower abdominal pain, unspecified - Other nonmedicinal substance allergy status - Nicotine dependence, unspecified, uncomplicated - Other chronic pain INPATIENT VISIT TRACKING (12 MO.) 12/15/2018 13:23 [facility] [place] TYPE: Medical Surgical COMPLAINT: - SMALL BOWEL OBSTRUCTION DIAGNOSES: - Other care home (current) drug therapy - Perforation of intestine (nontraumatic) - Encounter for immunization - Sepsis due to anaerobes Sepsis du - Unsp intestnl obst, unsp as to partial versus complete obst - Nicotine dependence, unspecified, uncomplicated - Hypocalcemia - Adverse effect of unsp drug/meds/biol subst, init - Adverse effect of unsp drug/meds/biol subst, init - Nicotine dependence, cigarettes, uncomplicated - Hyperglycemia, unspecified - Unspecified osteoarthritis, unspecified site - Unspecified osteoarthritis, unspecified site - Hypomagnesemia - Other disorders of phosphorus metabolism - Bipolar disorder, unspecified - Other care home (current) drug therapy - Encounter for immunization - Acidosis - Crohn's disease of small intestine w intestinal obstruction - Hypokalemia - Mild protein-calorie malnutrition - Hypocalcemia - Peritonitis, unspecified - Other disorders of phosphorus metabolism - Sepsis due to anaerobes Sepsis du - Body mass index (BMI) 32.0-32.9, adult - Peritonitis, unspecified - Chronic obstructive pulmonary disease, unspecified - Hyperglycemia, unspecified - Unsp place in hospital as place - Nicotine dependence, cigarettes, uncomplicated - Bipolar disorder, unspecified - Mild protein-calorie malnutrition - Body mass index (BMI) 32.0-32.9, adult - Perforation of intestine (nontraumatic) - Unsp place in hospital as place - Crohn's disease of small intestine w intestinal obstruction - Chronic obstructive pulmonary disease, unspecified - Hypokalemia - Hypomagnesemia - Acidosis 12/01/2018 08:40 [facility] [place] TYPE: Medical Surgical COMPLAINT: - LAPAROTOMY SMALL BOWEL RESECTION DIAGNOSES: - Body mass index (BMI) 32.0-32.9, adult - Prediabetes - Deficiency of other specified B group vitamins - Vitamin D deficiency, unspecified - Chronic obstructive pulmonary disease, unspecified - Other care home (current) drug therapy - Obesity, unspecified - Chronic obstructive pulmonary disease, unspecified - Obesity, unspecified - Other acute postprocedural pain - Body mass index (BMI) 32.0-32.9, adult - Nicotine dependence, cigarettes, uncomplicated - care home (current) use of inhaled steroids - Crohn's disease of small intestine w intestinal obstruction - Other care home (current) drug therapy - 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
--- NOTE | 2019-01-08 21:05 | NUR ---
PT ARRIVED VIA STRETCHER, VS TAKEN AND ENTERED. PT IS ORIENTED TO THE ROOM AND CALL LIGHT. COMPLETING ADMISSION HX WITH PT AT THIS TIME.
--- NOTE | 2019-01-08 21:29 | NUR ---
got pt bowl of soup
--- NOTE | 2019-01-08 21:57 | NUR ---
PATIENT ARRIVED TO THE FLOOR VIA STRETCHER. JONG RN IN ROOM TO COMPLETE ADMISSION. ASSESEMENT COMPLETED. PATIENT DENIES ANY COMMENTS, QUESTIONS OR CONCERNS. SUZANNAT IS REQUESTING SOUP. PATIENT PROVIDED WITH SOUP BY CONFIGURATION TECHNICIAN. PATIENT DENIES ANY PAIN OR NAUSEA. CALL LIGHT IN REACH.
--- NOTE | 2019-01-08 21:59 | NUR ---
ENTERED ROOM TO FIX BEEPING IV PUMP, IT IS NOW INFUSING FINE. SBA PT TO RESTROOM AND BACK TO BED. SHE DENIES FURTHER NEEDS. CALL LIGHT IS CLOSE.
--- NOTE | 2019-01-08 23:26 | NUR ---
RT PLACED PATIENT ON CPOX PER THIS RNS REQUEST. PATIENT IS RESTING IN BED. PATIENT DENIES ANY PAIN OR SOB. NO NEEDS NOTED. CALL LIGHT IN REACH.
--- NOTE | 2019-01-08 23:32 | NUR ---
SBA PT FROM TOILET AND BK TO BED, REFILLED WATER, PUT I.V. WRIST BRACES ON, TURNED OUT LIGHT,
--- NOTE | 2019-01-09 01:45 | NUR ---
ASST C/ 2AM VITALS/I&Os, EMPTIED PTs OSTIMY BAG, SBA PT TO TOILET/BK TO BED
--- NOTE | 2019-01-09 01:50 | NUR ---
PATIENTS VITALS TAKEN AND RECORDED. PATIENT DENIES ANY PAIN OR SOB. PATIENT REMAINS ON RA. PATIENTS INTAKE AND OUPUT RECORDED. PATIENT ASSISTED TO THE RESTROOM BYT DIRECTOR OF NUCLEAR MEDICINE. PATIENT IS A SBA. PATIENT DENIES ANY SOB WITH ACTIVITY. PATIENT WAS ABLE TO VOID. PATIENT IS BACK IN BED RESTING. NO FURTHER NEEDS NOTED. CALL LIGHT IN REACH.
--- NOTE | 2019-01-09 02:10 | NUR ---
PATIENT IS RESTING IN BED WATCHING TV. PATIENT GIVEN JELLO PER ORDER. PATIENT DENIES ANY SOB. 96 OXYGEN SATURATION AND 95 HR NOTED. PATIENT DENIES ANY SOB. NO NEEDS NOTED. CALL LIGHT REACH.
--- NOTE | 2019-01-09 02:45 | NUR ---
PROVIDED PT WITH CRANBERRY JUICE FROM THE KITCHEN
--- NOTE | 2019-01-09 03:47 | NUR ---
PATIENT IS RESTING IN BED WATCHING TV. PATIENT DENIES ANY NEEDS. CPOX READINGS ARE WNL. CALL LIGHT IN REACH.
--- NOTE | 2019-01-09 05:13 | NUR ---
PATIENT RESTED ON AND OFF SINCE ARRIVING TO THE FLOOR. PATIENT IS ON A REGULAR DIET TOLERATING IT WELL, AND NO NAUSEA NOTED. PATIENT IS A SBA. PATIENT IS ON RA AND CPOX IN USE. PATIENT HAS DENIED ANY SOB. PATIENT HAS OSTOMY BAG TO MID LOWER RIGHT QUADRANT. PATIENT HAS MID ABD INCISION THAT IS C/D/I, OPEN TO AIR AND WELL APPROXIMATED. PATIENT IS AAOX3 AND USES CALL LIGHT APPROPRIATELY.
--- NOTE | 2019-01-09 05:45 | NUR ---
ASST RN IN OSTIMY CHANGE, SBA PT FROM TOILET TO BED, VITALS/I&Os ARE DONE
--- NOTE | 2019-01-09 06:02 | NUR ---
PATIENTS VITALS TAKEN AND RECORDED. PATIENTS OSTOMY BAG HAS COME LOOSE. PATIENTS OSTOMY BAG REPLASED AND SITE CLEANED. PATIENTS VITALS TAKEN AND RECORDED. INTAKE AND OUTPUT RECORDED. MORNING MEDICATIONS GIVEN PER ORDER. PATIENT DENIES ANY FURTHER NEEDS CALL LIGHT IN REACH.
--- NOTE | 2019-01-09 07:46 | NUR ---
PT A&OX4. PT ON RA, RESP EVEN AND NON LABORED. PT DENIES PAIN AT THIS TIME. COLOSTOMY BAG INTACT. OLD MIDLINE INCISION IS HEALED. PT DENIES NEEDS AT THIS TIME. PT REPORTING SHE IS READY TO GO HOME. PERSONAL SUPPLIES AND CALL LIGHT WITHIN REACH.
--- NOTE | 2019-01-09 07:50 | NUR ---
CALL LIGHT ANSWERED. PATIENT RESTING IN BED. IN ROOM. PATIENT'S BREAKFAST ORDERED. COFFEE GIVEN. CALL LIGHT WITHIN REACH. NO OTHER NEEDS AT THIS TIME
--- NOTE | 2019-01-09 08:28 | NUR ---
PATIENT IS IN SBA WENT TO RESTROOM, PATIENT EMPTIED HER OSTOMY BAG
--- NOTE | 2019-01-09 10:01 | NUR ---
PATIENT SITTING UP IN BED. IN ROOM. VITAL SIGNS AND I&O DONE. CALL LIGHT WITHIN REACH. NO OTHER NEEDS AT THIS TIME
[2019-01-09] MEDS ORDERED: ELIQUIS5 MG PO (11:41)
--- NOTE | 2019-01-09 12:50 | NUR ---
Patient is discharged with new RX for Eliquis, called in to [facility]. We are sending home tonight & tomorrow mornings doses, as [facility] will not be able to fill in full until tomorrow morning. Patient is now taking 10mg BID & she understands when she is to decrease dose to 5mg BID. Dr Glover authorized one month of Eliquis, patient will follow-up with PCP for additional fill.
== END 2019-01-09 13:45 | disposition home or self-care (01) ==
LOC: ED 17:13 → MS 19:15
PROVIDERS: ADMIT Student in an Organized Health Care Education/Training Program
DX: I26.99 Other pulmonary embolism without acute cor pulmonale (principal); K50.90 Crohn's disease, unspecified, without complications; F31.9 Bipolar disorder, unspecified; J44.9 Chronic obstructive pulmonary disease, unspecified; F17.210 Nicotine dependence, cigarettes, uncomplicated; R73.03 Prediabetes; R00.0 Tachycardia, unspecified; E83.52 Hypercalcemia; R91.1 Solitary pulmonary nodule; Z93.2 Ileostomy status; Z79.899 Other long term (current) drug therapy; Z79.891 Long term (current) use of opiate analgesic; Z79.51 Long term (current) use of inhaled steroids
CPT/HCPCS: 36415; 71046; 71260; 80048; 80053; 81001; 82306; 82310; 82652; 83735; 83880; 83970; 84484; 85025; 85379; 94640; 94760; 94762; 96360; 96361; 96374; 97161; 99285-25; G0378; J3475; J7040; J7121; Q9967

== ENCOUNTER 2019-01-18 15:11 | Emergency (ER) | payer OTHER ==
[~2019-01-18] VITALS: Ht 165.1 cm; Wt 74.4 kg
[~2019-01-18 15:11] MED LIST changes: +ELIQUIS5 MG PO
--- OUTSIDE RECORDS SUMMARY | 2019-01-18 15:14 | XMS ---
PreManage Notification: KEVIN ORNELAS Security Router Machine Operator Events No recent Security Events currently on file CRITERIA MET - [facility] - Has Care Guidelines - [facility] - 2 Visits in 30 Days CARE PROVIDERS ROWAN BUCK Internal Medicine 12/16/2018-[facility] PHONE: [phone] Misbah Keys Current PHONE: Unknown Jose Luis has no Care Guidelines for this patient. Care History Medical/Surgical 01/10/2019 [facility] Patient has scheduled appt with PCP 01/14/2019 at 4:00pm. 12/16/2018 [facility] - Patient is currently established with [facility]. If patient is seen in the ED during business hours. Please contact CHWs at [facility]. Care Recommendation: This patient has had 5 or more Emergency Department visits in the last 12 months.\T\nbsp; Patient requires education on the scope and purpose of the ED as an acute care provider not a Primary Care Provider and should not be utilized for chronic conditions.\T\nbsp; These are guidelines and the provider should exercise clinical judgment when providing care. Chas VISIT COUNT (12 MO.) 5 [facility] TOTAL 5 NOTE: Visits indicate total known visits. ED/UCC VISIT TRACKING (12 MO.) 01/18/2019 15:12 [facility] [place] TYPE: Emergency COMPLAINT: - FAST HEART RATE, LABORED BREATHING 01/08/2019 17:15 [facility] [place] TYPE: Emergency COMPLAINT: - MULTIPLE COMPLAINTS 12/15/2018 09:[address] [facility] [place] [facility]: Emergency 12/15/2018 00:[address] [facility] [place] TYPE: Emergency COMPLAINT: - BODY ACHES DIAGNOSES: - Pain in left shoulder - Nicotine dependence, unspecified, uncomplicated - Pain in right shoulder - Other nonmedicinal substance allergy status - Cervicalgia - Lower abdominal pain, unspecified 10/15/2018 19:[address] [facility] [place] TYPE: Emergency COMPLAINT: - ABODMINAL PAIN DIAGNOSES: - Acquired absence of other specified parts of digestive tract - Other nursing education consultant (current) drug therapy - Acquired absence of both cervix and uterus - Lower abdominal pain, unspecified - Other nonmedicinal substance allergy status - Nicotine dependence, unspecified, uncomplicated - Other chronic pain INPATIENT VISIT TRACKING (12 MO.) 01/08/2019 19:15 [facility] [place] TYPE: Observation COMPLAINT: - PULMONARY EMBOLISM DIAGNOSES: - Nicotine dependence, cigarettes, uncomplicated - Tachycardia, unspecified - Other nursing education consultant (current) drug therapy - Bipolar disorder, unspecified - Ileostomy status - Prediabetes - Chronic obstructive pulmonary disease, unspecified - Solitary pulmonary nodule - market consultant (current) use of opiate analgesic - Crohn's disease, unspecified, without complications - Palpitations - Other pulmonary embolism without acute cor pulmonale - Hypercalcemia - market consultant (current) use of inhaled steroids 12/15/2018 13:23 [facility] [place] TYPE: Medical Surgical COMPLAINT: - SMALL BOWEL OBSTRUCTION DIAGNOSES: - Other m[facility]p (current) drug therapy - Perforation of intestine [...] metabolism - Bipolar disorder, unspecified - Other [facility] (current) drug therapy - Encounter for immunization [...] Chronic obstructive pulmonary disease, unspecified - Other nursing education consultant (current) drug therapy - Obesity, unspecified - Chronic obstructive pulmonary disease, unspecified - Obesity, unspecified - Other acute postprocedural pain - Body mass index (BMI) 32.0-32.9, adult - Nicotine dependence, cigarettes, uncomplicated - [facility] (current) use of inhaled steroids - Crohn's disease of small intestine w intestinal obstruction - Other nursing education consultant (current) drug therapy - market consultant (current) use of inhaled steroids - Nicotine dependence, cigarettes, uncomplicated - Crohn's disease of small intestine with other complication - Vitamin D deficiency, unspecified - Deficiency of other specified B group vitamins - Prediabetes - Other acute postprocedural pain [email or web address]
--- NOTE | 2019-01-18 20:21 | EKG ---
[facility] [address] [place], [place] [address] Signed Sinus tachycardia Otherwise normal ECG When compared with ECG of 15-DEC-2018 10:02, ST no longer depressed in Anterior leads Confirmed by ROWAN BUCK MD ([id number]) on 01/18/2019 8:21:02 PM Electronically Signed By: ROWAN BUCK MD 01/18/192020 PATIENT NAME: KEVIN ORNELAS ANAT Electrocardiogram DATE OF : 64 PHYSICIAN: ROWAN BUCK MD REPORT #: [id number] REPORT IS CONFIDENTIAL AND NOT TO BE RELEASED WITHOUT AUTHORIZATION
== END 2019-01-18 17:27 | disposition home or self-care (01) ==
LOC: ED 15:11
DX: R00.0 Tachycardia, unspecified (principal); F31.9 Bipolar disorder, unspecified; F17.200 Nicotine dependence, unspecified, uncomplicated; J44.9 Chronic obstructive pulmonary disease, unspecified; Z91.048 Other nonmedicinal substance allergy status; Z79.899 Other long term (current) drug therapy
CPT/HCPCS: 80053; 81001; 85025; 93005; 93010; 99285-25; J7030

== ENCOUNTER 2019-08-10 11:14 | Inpatient (IN) | payer OTHER ==
[~2019-08-10] VITALS: Ht 165.1 cm; Wt 70.8 kg
--- OUTSIDE RECORDS SUMMARY | ~2019-08-10 | XMS | Encounter Summary ---
Demographics + + + | Address | [address] | | | [place] [address] | + + + | Home Phone | | + + + | Preferred Language | Unknown | + + + | Marital Status | | + + + | Confucianist Affiliation | 1027 | + + + | Race | Unknown | + + + | Ethnic Group | Unknown | + + + Author + + + | Author | [facility] | | | and [place] | + + + | Organization | [facility] | | | and [place] | + + + | Address | Unknown | + + + | Phone | Unavailable | + + + Support + + +---------+ + | Name | Relationship | Address | Phone | + + +---------+ + | Bang Pineda | ECON | Unknown | | + + +---------+ + Care Team Providers + +------+ + | Care Logistics Vice President Name | Role | Phone | + +------+ + | Merle Meng MD | PCP | | + +------+ + Encounter Details +--------+ + + + + | Date | Type | Department | Care Team | Description | +--------+ + + + + | 09/01/ | Imaging | [facility] | Provider, | | | 2019 | Exam | [facility] | MD [facility] [address] | | | | | IMAGING [address] | | | | | [place] | [place] [address] | | | | | [place] [address] | | | | | | [phone] | | | +--------+ + + + + Social History + + + +--------+------+ | Tobacco Use | Types | Packs/Day | Years | Date | | | | | Used | | + + + +--------+------+ | Current Every Day | Cigarettes | 0.5 | | | | Smoker | | | | | + + + +--------+------+ + +---+---+---+ | Smokeless Tobacco: | | | | | Never Used | | | | + +---+---+---+ + + +---------+ + | Alcohol Use | Drinks/Week | oz/Week | Comments | + + +---------+ + | No | | | | + + +---------+ + + + + | Sex Assigned at | Date Recorded | | | | + + + | Not on file | | + + + documented as of this encounter Plan of Treatment +--------+---------+ + + + | Date | Type | Specialty | Care Team | Description | +--------+---------+ + + + | 11/01/ | Office | Pulmonology | Kannan, | | | 2020 | Visit | | Anushka Shook, | | | | | | MD [address] | | | | | | [place], | | | | | | [place] [address] | | | | | | [phone] | | | | | | | | +--------+---------+ + + + documented as of this encounter Procedures + +--------+ + + + | Procedure Name | Priori | Date/Time | Associated Diagnosis | Comments | | | ty | | | | + +--------+ + + + | XR CHEST 2 VIEWS | Routin | 08/09/2019 | | Results for this | | | e | 12:00 AM | | procedure are in the | | | | PDT | | results section. | + +--------+ + + + documented in this encounter Results XR Chest 2 Vws (08/09/2019 12:00 AM PDT) + + | Specimen | + + | | + + + + + | Narrative | Performed At | + + + | External films for comparison only | [facility] | | | | | No results will be in the chart. | | + + + + +---------+ + + | Performing | Address | City/State/Zipcode | Phone Number | | Organization | | | | + +---------+ + + | [facility] | | | | + +---------+ + + documented in this encounter Visit Diagnoses Not on filedocumented in this encounter"
--- OUTSIDE RECORDS SUMMARY | ~2019-08-10 | XMS | Encounter Summary ---
Demographics + + + | Address | [address] | | | [place] [address] | + + + | Home Phone | | + + + | Preferred Language | Unknown | + + + | Marital Status | | + + + | Episcopalian Affiliation | 1027 | + + + | Race | Unknown | + + + | Ethnic Group | Unknown | + + + Author + + + | Author | [facility] | | | and [place] | + + + | Organization | [facility] | | | and [...] Team Providers + +------+ + | Care Party Plan Demonstrator Name | Role | Phone | + +------+ + | Merle Meng MD | PCP | | + +------+ + Reason for Visit + + + | Reason | Comments | + + + | Medication Refill | | + + + Encounter Details +--------+--------+ + + + | Date | Type | Department | Care Team | Description | +--------+--------+ + + + | 11/11/ | Refill | [facility] [place] | [place], | Medication Refill | | 2015 | | GASTROENTEROLOGY | BREN [address] | | | | | [address] [place] | [address] | | | | | [address] [place], [place] | [place], [place] | | | | | [address] | [address] | | | | | [phone] | | | +--------+--------+ + + + Social History + + + +--------+------+ | Tobacco Use | Types | Packs/Day | Years | Date | | | | | Used | | + + + +--------+------+ | Current Every Day | Cigarettes | | | | | Smoker | | [...] Shook, | | | | | | [address] | | | | | | [place], | | | | | | [place] [id number] | | | | | | [phone] | | | | | | | | +--------+---------+ + + + documented as of this encounter Visit Diagnoses Not on filedocumented in this encounter"
--- OUTSIDE RECORDS SUMMARY | ~2019-08-10 | XMS | Encounter Summary ---
Demographics + + + | Address | [address] | | | [place] [address] | + + + | Home Phone | | + + + | Preferred Language | Unknown | + + + | Marital Status | | + + + | Amish Affiliation | 1027 | + + + | Race | Unknown | + + + | Ethnic Group | Unknown | + + + Author + + + | Author | [facility] | | | and [place] | + + + | Organization | [facility] | | | and [...] Team Providers + +------+ + | Care High School Social Studies Tutor Name | Role | Phone | + +------+ + PCP | Unavailable | + +------+ + Encounter Details +--------+ + + + + | Date | Type | Department | Care Team | Description | +--------+ + + + + | 05/21/ | Hospital | [facility] | Fatemeh Louis MD | | | 2011 | Encounter | [facility] | [address] [place] [address] | | | | | [address] [place] | [place] | | | | | [place] | [address] | | | | | [address] | | | | | | [phone] | | | +--------+ + + + + Social History + +-------+ +--------+------+ | Tobacco Use | Types | Packs/Day | Years | Date | | | | | Used | | + +-------+ +--------+------+ | Never Assessed | | | | | + +-------+ +--------+------+ + + + | Sex Assigned at [...] | Pulmonology | Kannan, | | | 2019 | Visit | | Anushka Shook, | | | | | | [address] | | | | | | [place], | | | | | | [place] [address] | | | | | | [phone] | | | | | | | | +--------+---------+ + + + documented as of this encounter Visit Diagnoses Not on filedocumented in this encounter"
--- OUTSIDE RECORDS SUMMARY | ~2019-08-10 | XMS | Encounter Summary ---
Demographics + + + | Address | [address] | | | [place] [address] | + + + | Home Phone | | + + + | Preferred Language | Unknown | + + + | Marital Status | | + + + | Jew Affiliation | 1027 | + + + | Race | Unknown | + + + | Ethnic Group | Unknown | + + + Author + + + | Author | [facility] | | | and [place] | + + + | Organization | [facility] | | | [...] Team Providers + +------+ + | Care Wigs Salesperson Name | Role | Phone | + +------+ + | Shanthi Nelson MD | PCP | | + +------+ + Reason for Visit + + + | Reason | Comments | + + + | Medication Refill | | + + + Encounter Details +--------+--------+ + + + | Date | Type | Department | Care Team | Description | +--------+--------+ + + + | 09/14/ | Refill | [facility] [place] | [facility], | Medication Refill | | 2015 | | GASTROENTEROLOGY | [address]EN [address] | | | | | [address] [place] | [address] | | | | | [address] [place], [place] | [place], [place] | | | | | [address] | [address] | | | | | [phone] | | | +--------+--------+ + + + [...] + + documented as of this encounter Miscellaneous Notes Telephone Encounter - Sailaja Ryan RN - 09/14/2014 3:10 PM PDTReceived electronic requ est for Delzicol 400 mg 2 cap 3 times per day before meals. Last refill:04/03/14, #180, 2 refills Last office visit:03/20/14 Charisse (06/05/14 no show) Next office visit:not scheduled at this time. documented in this en counter Plan of Treatment +--------+---------+ + + + | Date | Type | Specialty | Care Team | Description | +--------+---------+ + + + | 11/01/ | Office | Pulmonology | Kannna, | | | 2019 | Visit | | Anushka Shook, | | | | | | MD [address] | | | | | | [place], | | | | | | [place] [address] | | | | | | [phone] | | | | | | | | +--------+---------+ + + + documented as of this encounter Visit Diagnoses Not on filedocumented in this encounter"
--- OUTSIDE RECORDS SUMMARY | ~2019-08-10 | XMS | Encounter Summary ---
Demographics + + + | Address | [address] | | | [place] [address] | + + + | Home Phone | | + + + | Preferred Language | Unknown | + + + | Marital Status | | + + + | Orthodoxy Affiliation | 1027 | + + + | Race | Unknown | + + + | Ethnic Group | Unknown | + + + Author + + + | Author | [facility] | | | and [place] | + + + | Organization | [facility] | | | [...] Team Providers + +------+ + | Care Processing Archivist Name | Role | Phone | + +------+ + PCP | Unavailable | + +------+ + Encounter Details +--------+ + + + + | Date | Type | Department | Care Team | Description | +--------+ + + + + | 08/19/ | Hospital | [facility] | Dyan, | | | 2011 | Encounter | HOSPITAL MED SURG | Dawit Rubio, | | | | | [address] [place] | [address] | | | | | [place] | [place] | | | | | [address] | [address] | | | | | [phone] | | | | | | | | +--------+ + + + [...] documented as of this encounter Miscellaneous Notes Op Note - Dawit Kelsey MD - 2011 12:31 PM PDT PROCEDURE REPORT DATE OF PROCEDURE: 2011. PREOP DIAGNOSIS: History of Crohn's disease. POSTOP DIAGNOSIS: History of Crohn's disease. PROCEDURE PERFORMED: Colonoscopy with random biopsies. SURGEON: Dawit Kelsey MD. INDICATIONS: A 50-year-old female in need of followup colonoscopy due to the history of Crohn's disease. Plan was made for elective exam. FINDINGS: Essentially no gross evidence of Crohn's disease or any colitis. Terminal ileum could not be intubated. ANESTHESIA: Conscious sedation. BLOOD LOSS: Minimal. COMPLICATIONS: None. SPECIMENS: Multiple colon biopsies. PROCEDURE: With the patient in the left lateral recumbent position under IV sedation the scope was pas sed easily up to the entire length of the colon to the cecal pit which was confirmed with id entification of left appendiceal orifice and ileocecal valve. I attempted to intubate the ileocecal valve but had significant difficulty. It did not appea r to be inflamed but just difficult in terms of anatomic positioning. Slow withdrawal of th e scope did not reveal any significant findings. There was no colitis grossly noted. I did take random biopsies throughout the colon. No polyps were seen. No diverticulosis or other issue was noted. The patient tolerated the procedure well. PLAN: Plan will be for routine followup colonoscopy with her history of Crohn's disease. Cc: Anni Moulton MD [facility] Signed and Approved by: DAWIT KELSEY MD 08/22/2011 11:15:00 documented in this encounter Plan of Treatment +--------+---------+ + + + | Date | Type | Specialty | Care Team | Description | +--------+---------+ + + + | 11/01/ | Office | Pulmonology | Kannan, | | | 2019 | Visit | | Anushka Shook, | | | | | | MD [address] | | | | | | [place], | | | | | | [place] [address] | | | | | | [phone] | | | | | | | | +--------+---------+ + + + documented as of this encounter Visit Diagnoses Not on filedocumented in this encounter"
--- OUTSIDE RECORDS SUMMARY | ~2019-08-10 | XMS | Encounter Summary ---
Demographics + + + | Address | [address] | | | [place] [address] | + + + | Home Phone | | + + + | Preferred Language | Unknown | + + + | Marital Status | | + + + | Religion Affiliation | 1027 | + + + | Race | Unknown | + + + | Ethnic Group | Unknown | + + + Author + + + | Author | [facility] | | | and [place] | + + + | Organization | [facility] | | | [...] Team Providers + +------+ + | Care Chucking And Boring Machine Operator Name | Role | Phone | + +------+ + PCP | Unavailable | + +------+ + Encounter Details +--------+ + + + + | Date | Type | Department | Care Team | Description | +--------+ + + + + | 07/27/ | Hospital | [facility] | Fatemeh Louis MD | | | 2011 | Encounter | HOSPITAL OBSTETRICS | [address] | | | | | [address] [place] | [place] | | | | | [place] | [address] | | | | | [address] | | | | | | [phone] | | | +--------+ + + + [...] [place], | | | | | | [place] [address] | | | | | | [phone] | | | | | | | | +--------+---------+ + + + documented as of this encounter Visit Diagnoses Not on filedocumented in this encounter"
--- OUTSIDE RECORDS SUMMARY | ~2019-08-10 | XMS | Encounter Summary ---
Demographics + + + | Address | [address] | | | [place] [address] | + + + | Home Phone | | + + + | Preferred Language | Unknown | + + + | Marital Status | | + + + | Oriental Orthodox Affiliation | 1027 | + + + | Race | Unknown | + + + | Ethnic Group | Unknown | + + + Author + + + | Author | [facility] | | | and [place] | + + + | Organization | [facility] | | | and [...] Team Providers + +------+ + | Care Motor Power Connector Name | Role | Phone | + +------+ + | Shanthi Nelson MD | PCP | | + +------+ + Encounter Details +--------+ + + + + | Date | Type | Department | Care Team | Description | +--------+ + + + + | 12/09/ | Abstract | [facility] | [facility], | | | 2013 | | GASTROENTEROLOGY | BREN [address] | | | | | [address] | [address] | | | | | [address] [place] | [place] | | | | | [address] | [address] | | | | | [phone] | | | +--------+ + + + + Social History + + + +--------+------+ | Tobacco Use | Types | Packs/Day | Years | Date | | | | | Used | | + + + +--------+------+ | Current Every Day | Cigarettes | | | | | Smoker | | | | | + + + +--------+------+ + + +---------+ + | Alcohol Use | Drinks/Week | oz/Week | Comments | + + +---------+ + | Not Asked | | | | + + +---------+ [...] | | | | | | [place] [address] | | | | | | [phone] | | | | | | | | +--------+---------+ + + + documented as of this encounter Procedures + +--------+ + + + | Procedure Name | Priori | Date/Time | Associated Diagnosis | Comments | | | ty | | | | + +--------+ + + + | EXTERNAL LAB: CBC | Routin | 11/10/2013 | | Results for this | | | e | 10:00 PM | | procedure are in the | | | | PDT | | results section. | + +--------+ + + + | EXTERNAL LAB: AST | Routin | 11/10/2013 | | Results for this | | | e | 10:00 PM | | procedure are in the | | | | PDT | | results section. | + +--------+ + + + | EXTERNAL LAB: ALT | Routin | 11/10/2013 | | Results for this | | | e | 10:00 PM | | procedure are in the | | | | PDT | | results section. | + +--------+ + + + | EXTERNAL LAB: EGFR | Routin | 11/10/2013 | | Results for this | | | e | 10:00 PM | | procedure are in the | | | | PDT | | results section. | + +--------+ + + + | EXTERNAL LAB: | Routin | 11/10/2013 | | Results for this | | CREATININE | e | 10:00 PM | | procedure are in the | | | | PDT | | results section. | + +--------+ + + + | CBC WITH | Routin | 11/10/2013 | | Results for this | | DIFFERENTIAL | e | 10:00 PM | | procedure are in the | | | | PDT | | results section. | + +--------+ + + + | COMPREHENSIVE | Routin | 11/10/2013 | | Results for this | | METABOLIC PANEL | e | 10:00 PM | | procedure are in the | | | | PDT | | results section. | + +--------+ + + + documented in this encounter Results CBC with Differential (11/10/2013 10:00 PM PDT) + + + + + + | Component | Value | Ref Range | Performed | Pathologist | | | | | At | Signature | + + + + + + | RBC | 4.69 | 10*6/uL | | | + + + + + + | MCV | 94.0 | fL | | | + + + + + + | MCH | 34.1 (A) | 27.1 - 32.3 pg | | | + + + + + + | MCHC | 36.4 | % | | | + + + + + + | RDW-CV | 13.3 | % | | | + + + + + + | Absolute | 3.93 | 10*3/uL | | | | Neutrophils | | | | | + + + + + + | Absolute | 1.71 | 10*3/uL | | | | Lymphocytes | | | | | + + + + + + | Absolute | 0.55 | 10*3/uL | | | | Monocytes | | | | | + + + + + + | Absolute | 0.08 | 10*3/uL | | | | Eosinophils | | | | | + + + + + + | Absolute | 0.10 | 10*3/uL | | | | Basophils | | | | | + + + + + + | % Segmented | 62.5 (A) | 29.0 - 49.0 % | | | | | | | | | | Neutrophils | | | | | + + + + + + | % | 27.2 (A) | 3.0 - 13.0 % | | | | Lymphocytes | | | | | + + + + + + | % Monocytes | 8.8 | % | | | + + + + + + | % | 1.3 | % | | | | Eosinophils | | | | | + + + + + + | % Basophils | 0.2 | % | | | + + + + + + | Erythrocyte | 13 | 0 mm/hr | | | | | | | | | | Sedimentati | | | | | | on Rate | | | | | + + + + + + + + | Specimen | + + | Blood specimen | | (specimen) | + + Comprehensive Metabolic Panel (11/10/2013 10:00 PM PDT) + +---------+ + + + | Component | Value | Ref Range | Performed | Pathologist | | | | | At | Signature | + +---------+ + + + | Albumin | 4.0 | g/dL | [facility] | | | | | [facility] | [facility] | [facility] | | | | [facility] - | | | | | | [facility]ORY | | + +---------+ + + + | Alkaline | 203 (A) | 33 - 151 U/L | [facility] | | | Phosphatase | | | [facility] | | | [facility] | | [facility] | | | | | | [facility] - | | | | | | LABORATORY | | + +---------+ + + + | Na | 137 | mmol/L | [facility] | | | | | [facility] | | | | | | [facility] | | | | | [facility] - | | | | | | LAB[facility]ATORY | | + +---------+ + + + | K | 4.0 | mmol/L | [facility] | | | [facility] | [facility] | | | | | | [facility] | | | | | [facility] - | | | | | | LAB[facility]ATORY | | + +---------+ + + + | Cl | 104 | mmol/L | [facility] | | | | | [facility] | | | | | | [facility] | | | | | [facility] - | | | | | | LAB[facility]ATORY | | + +---------+ + + + | CO2 | 28 | mmol/L | [facility] | | | | | [facility] | | | | | | [facility] | | | | | | [facility] - | | | | | | LAB[facility]ATORY | | + +---------+ + + + | Anion Gap | 5 (A) | 7 - 16 mmol/L | [facility] | | | | | [facility] | | | | | | [facility] | | | | | [facility] - | | | | | | LAB[facility]ATORY | | + +---------+ + + + | Glucose | 100 | mg/dL | [facility] | | | | | | [facility] | | | | | | [facility] | | | | | [facility] - | | | | | | LAB[facility]ATORY | | + +---------+ + + + | Calcium | 10.6 | 5.0 - 26.0 | [facility] | | | | | mg/dL | [facility] | | | [facility] | | [facility] | | | | | | [facility] - | | | | | | LABORATORY | | + +---------+ + + + | BUN | 6 | mg/dL | [facility] | | | | | | [facility] | | | | | | [facility] | | | | | | [facility] - | | | | | | LAB[facility]ATORY | | + +---------+ + + + | BUN/Creatin | 7.5 | | [facility] | | | ine Ratio | | | [facility] | | | | | | [facility] | | | | | | [facility] - | | | | | | LABORATORY | | + +---------+ + + + | Bilirubin | 0.4 | mg/dL | [facility] | | | Total | | | [facility] | | | | | | [facility] | | | | | | [facility] - | | | | | | LAB[facility]ATORY | | + +---------+ + + + | Total | 7.5 | g/dL | [facility] | | | Protein | | | [facility] | | | | | | [facility] | | | | | | [facility] - | | | | | | LABORATORY | | + +---------+ + + + | Lipase | 127 | U/L | [facility] | | | | | | [facility] | | | | | | [facility] | | | | | [facility] - | | | | | | LABORATORY | | + +---------+ + + + + + | Specimen | + + | Blood specimen | | (specimen) | + + + + + + + | Performing | Address | City/State/Zipcode | Phone Number | | Organization | | | | + + + + + | [facility] | [address] | [place] | | | [facility] | | [address], [facility] | | | - LABORATORY | | | | + + + + + External Lab: CBC (11/10/2013 10:00 PM PDT) + + + + + + | Component | Value | Ref Range | Performed | Pathologist | | | | | At | Signature | + + + + + + | WBC, | 6.3 | 4.3 - 10.4 | EXTERNAL | | | External | | | LAB | | + + + + + + | HGB, | 16.0 (A) | 12.4 - 15.7 | EXTERNAL | | | External | | | LAB | | + + + + + + | HCT, | 43.9 | 37.7 - 47 | EXTERNAL | | | External | | | LAB | | + + + + + + | PLT, | 154 | 150 - 450 | EXTERNAL | | | External | | | LAB | | + + + + + + + + | Resulting Agency Comment | + + | [facility] | + + + +---------+ + + | Performing | Address | City/State/Zipcode | Phone Number | | Organization | | | | + +---------+ + + | EXTERNAL LAB | | | | + +---------+ + + External Lab: PEDRO (11/10/2013 10:00 PM PDT) + +-------+ + + + | Component | Value | Ref Range | Performed | Pathologist | | | | | At | Signature | + +-------+ + + + | AST, | 17 | 38 | EXTERNAL | | | External | | | LAB | | + +-------+ + + + + + | Specimen | + + | Blood specimen | | (specimen) | + + + + | Resulting Agency Comment | + + | [facility] | + + + +---------+ + + | Performing | Address | City/State/Zipcode | Phone Number | | Organization | | | | + +---------+ + + | EXTERNAL LAB | | | | + +---------+ + + External Lab: ALT (11/10/2013 10:00 PM PDT) + +-------+ + + + | Component | Value | Ref Range | Performed | Pathologist | | | | | At | Signature | + +-------+ + + + | ALT, | 30 | 14 - 59 | EXTERNAL | | | External | | | LAB | | + +-------+ + + + + + | Specimen | + + | Blood specimen | | (specimen) | + + + + | Resulting Agency Comment | + + | [facility] | + + + +---------+ + + | Performing | Address | City/State/Zipcode | Phone Number | | Organization | | | | + +---------+ + + | EXTERNAL LAB | | | | + +---------+ + + External Lab: eGFR (11/10/2013 10:00 PM PDT) + +-------+ + + + | Component | Value | Ref Range | Performed | Pathologist | | | | | At | Signature | + +-------+ + + + | eGFR, | >60 | 60 - 99,999 | EXTERNAL | | | External | | | LAB | | + +-------+ + + + | eGFR, | | | EXTERNAL | | | | | | LAB | | | [place]ese, | | | | | | External | | | | | + +-------+ + + + + + | Specimen | + + | Blood specimen | | (specimen) | + + + + | Resulting Agency Comment | + + | [facility] | + + + +---------+ + + | Performing | Address | City/State/Zipcode | Phone Number | | Organization | | | | + +---------+ + + | EXTERNAL LAB | | | | + +---------+ + + External Lab: Creatinine (11/10/2013 10:00 PM PDT) + +-------+ + + + | Component | Value | Ref Range | Performed | Pathologist | | | | | At | Signature | + +-------+ + + + | Creatinine, | 0.8 | 0.6 - 1.3 | EXTERNAL | | | External | | | LAB | | + +-------+ + + + + + | Specimen | + + | Blood specimen | | (specimen) | + + + + | Resulting Agency Comment | + + | [facility] | + + + +---------+ + + | Performing | Address | City/State/Zipcode | Phone Number | | Organization | | | | + +---------+ + + | EXTERNAL LAB | | | | + +---------+ + + documented in this encounter Visit Diagnoses Not on filedocumented in this encounter"
--- OUTSIDE RECORDS SUMMARY | ~2019-08-10 | XMS | Encounter Summary ---
Demographics + + + | Address | [address] | | | [place] [address] | + + + | Home Phone | | + + + | Preferred Language | Unknown | + + + | Marital Status | | + + + | Anabaptist Affiliation | 1027 | + + + | Race | Unknown | + + + | Ethnic Group | Unknown | + + + Author + + + | Author | [facility] | | | and [place] | + + + | Organization | [facility] | | | [...] Team Providers + +------+ + | Care Counter Former Name | Role | Phone | + +------+ + PCP | Unavailable | + +------+ + Encounter Details +--------+ + + + + | Date | Type | Department | Care Team | Description | +--------+ + + + + | 02/17/ | [facility] | [facility] | [place], | | | 2011 | Encounter | [facility] | Anni Cleaning MD [address] | | | | | [facility] [address] | [facility] [address] | | | | | [address] [facility], | [place] | | | | | [place] [address] | [address] | | | | | [phone] | [phone] | | | | | | | [...] [place], | | | | | | [place] [address] | | | | | | [phone] | | | | | | | | +--------+---------+ + + + documented as of this encounter Visit Diagnoses Not on filedocumented in this encounter"
--- OUTSIDE RECORDS SUMMARY | ~2019-08-10 | XMS | Encounter Summary ---
Demographics + + + | Address | [address] | | | [place] [address] | + + + | Home Phone | | + + + | Preferred Language | Unknown | + + + | Marital Status | | + + + | Anabaptist Affiliation | 1027 | + + + | Race | Unknown | + + + | Ethnic Group | Unknown | + + + Author + + + | Author | [facility] | | | and [place] | + + + | Organization | [facility] | | | [...] Team Providers + +------+ + | Care Senior System Operator Name | Role | Phone | + +------+ + | Merle Meng MD | PCP | | + +------+ + Encounter Details +--------+ + + + + | Date | Type | Department | Care Team | Description | +--------+ + + + + | 11/07/ | Orders Only | [facility] | Michelle, | | | 2016 | | CARDIOLOGY [place] | MD [address] | | | | | [address] | [place], | | | | | [place] | [place] [address] | | | | | [place] | [phone] | | | | | [address] | | | | | | [phone] | | | +--------+ + + + [...] | | | | | | [place] [address] | | | | | | [phone] | | | | | | | | +--------+---------+ + + + documented as of this encounter Procedures + +--------+ + + + | Procedure Name | Priori | Date/Time | Associated Diagnosis | Comments | | | ty | | | | + +--------+ + + + | NM MYOCARDIAL | Routin | 11/08/2015 | | Results for this | | PERFUSION MULT SPECT | e | 3:36 PM | | procedure are in the | | | | PDT | | results section. | + +--------+ + + + documented in this encounter Results NM Myocardial Perfusion Mult SPECT (11/08/2015 3:36 PM PDT) + + | Specimen | + + | | + + + + + | Impressions | Performed At | + + + | Probably normal study. No evidence of ischemia or infarction. Area | | | in the inferior lateral wall is more likely artifact in the absence of | | | wall motion abnormalities LVEF 71 % Average exercise tolerance. No | | | chest pain. Evidence of No ischemic ECG changes Sellers Treadmill | | | Score is 5.5 ( low risk) No previous test for comparison | | | | | + + + + + + | Narrative | Performed At | + + + | [facility] [address], [address], [place], [place] | | | [phone] NUCLEAR TREADMILL STRESS TEST ? Test Date: | | | 11/08/2015 Name: Noy Pineda : 1960 | | | Ordering MD: Young Oconnell MD History: 55 year old female being | | | evaluated for chest pain Rest Data: HR: 65 bmp BP: 113/82 | | | Patient's predicted maximum HR: 167 bmp Patient's predicted 85% | | | maximum HR: 142 bmp Baseline ECG: Normal ECG. Sinus rhythm, heart | | | rate 65. Stress Data: Exercise time: 05:31 METS: 7.00 Peak HR: | | | 150 bpm Peak BP: 111/80 RPP: [id number] Patient stopped due to: fatigue | | | and shortness of breath Chest pain: none Stress ECG: Evidence of no | | | ischemic ECG changes Myocardial Perfusion: Images are sub-optimal | | | (but interpretable) for interpretation. Sub-optimal due to motion | | | Moderate sized perfusion defect in the inferior lateral wall, moderate | | | in severity, extending from the apex to the base, fixed. More likely | | | related to diaphragmatic attenuation. SSS: 7 SRS: 7 SDS: 0 TID: 0.90 | | | Gated Images: Rest EDV: 77 mL Rest ESV: 30 mL Rest EF: 61 % | | | Stress EDV: 68 mL Stress ESV: 20 mL Stress EF: 71 % No evidence of | | | regional wall motion abnormality Procedure: Martín protocol. 11.3 | | | mCi of 99m Tc Myoview was given intravenously for rest images. 34.4 | | | mCi of 99m Tc Myoview was given intravenously for stress images at | | | 04:21minutes. Effective Dose Equivalent 15.7 mSv | | + + + + + | Procedure Note | + + | Sidney Rad Conversion - 10/28/2018 10:35 PM PDT [facility] [id number] | | [address] , [place], [phone] NUCLEAR TREADMILL STRESS TEST?Test Date: | | 11/08/2015Name: Nato PinedaOB: 1960MRN: [id number] MD: Young Oconnell MD | | History:55 year old female being evaluated for chest pain Rest Data:HR: 65 bmp BP: | | 113/82Patient's predicted maximum HR: 167 bmpPatient's predicted 85% maximum HR: 142 | | bmpBaseline ECG: Normal ECG. Sinus rhythm, heart rate 65. Stress Data:Exercise time: | | 05:31 METS: 7.00Peak HR: 150 bpm Peak BP: 111/80 RPP: [id number] stopped due to: | | fatigue and shortness of breathChest pain: noneStress ECG: Evidence of no ischemic ECG | | changes Myocardial Perfusion:Images are sub-optimal (but interpretable) for | | interpretation.Sub-optimal due to motionModerate sized perfusion defect in the inferior | | lateral wall, moderate in severity, extending from the apex to the base, fixed. More | | likely related to diaphragmatic attenuation.SSS: 7 SRS: 7 SDS: 0 TID: 0.90 Gated | | Images:Rest EDV: 77 mL Rest ESV: 30 mL Rest EF: 61 %Stress EDV: 68 mL Stress ESV: 20 mL | | Stress EF: 71 %No evidence of regional wall motion abnormality Procedure: Martín | | protocol.11.3 mCi of 99m Tc Myoview was given intravenously for rest images.34.4 mCi of | | 99m Tc Myoview was given intravenously for stress images at 04:21minutes.Effective Dose | | Equivalent 15.7 mSv IMPRESSION: Probably normal study.No evidence of ischemia or | | infarction. Area in the inferior lateral wall is more likely artifact in the absence of | | wall motion abnormalitiesLVEF 71 %Average exercise tolerance.No chest pain.Evidence of | | No ischemic ECG changesDuke Treadmill Score is 5.5 ( low risk)No previous test for | | comparison | |Stress Data: | |Exercise time: 05:31 METS: 7.00 | |Peak HR: 150 bpm Peak BP: 111/80 RPP: [id number] | |Patient stopped due to: fatigue and shortness of breath | |Chest pain: none | |Stress ECG: Evidence of no ischemic ECG changes | | | |Myocardial Perfusion: | |Images are sub-optimal (but interpretable) for interpretation. | |Sub-optimal due to motion | |Moderate sized perfusion defect in the inferior lateral wall, moderate in severity, extendi ng from the apex to the base, fixed. More likely related to diaphragmatic attenuation. | |SSS: 7 SRS: 7 SDS: 0 TID: 0.90 | | | |Gated Images: | |Rest EDV: 77 mL Rest ESV: 30 mL Rest EF: 61 % | |Stress EDV: 68 mL Stress ESV: 20 mL Stress EF: 71 % | |No evidence of regional wall motion abnormality | | | |Procedure: Martín protocol. | |11.3 mCi of 99m Tc Myoview was given intravenously for rest images. | |34.4 mCi of 99m Tc Myoview was given intravenously for stress images at 04:21minutes. | |Effective Dose Equivalent 15.7 mSv | | | |IMPRESSION: | |Probably normal study. | |No evidence of ischemia or infarction. Area in the inferior lateral wall is more likely art ifact in the absence of wall motion abnormalities | |LVEF 71 % | |Average exercise tolerance. | |No chest pain. | |Evidence of No ischemic ECG changes | |Sellers Treadmill Score is 5.5 ( low risk) | |No previous test for comparison | | | | | + + documented in this encounter Visit Diagnoses Not on filedocumented in this encounter"
--- OUTSIDE RECORDS SUMMARY | ~2019-08-10 | XMS | Encounter Summary ---
Demographics + + + | Address | [address] | | | [place] [address] | + + + | Home Phone | | + + + | Preferred Language | Unknown | + + + | Marital Status | | + + + | Buddhism Affiliation | 1027 | + + + | Race | Unknown | + + + | Ethnic Group | Unknown | + + + Author + + + | Author | [facility] | | | and [place] | + + + | Organization | [facility] | | | and [...] Team Providers + +------+ + | Care Fruit Worker Name | Role | Phone | + +------+ + | Merle Meng MD | PCP | | + +------+ + Reason for Referral Diagnostic/Screening (Emergency) +--------+--------+ + + + + | Status | Reason | Specialty | Diagnoses / | Referred By | Referred To | | | | | Procedures | Contact | Contact | +--------+--------+ + + + + | Closed | | Radiology | Diagnoses | Kannan, | [facility] [address] | | | | | Incidental | Anushka | [address] | | | | | pulmonary | MD Bouchra | [place] | | | | | nodule, | 1100 | [address] | | | | | greater than | [address] | Phone: | | | | | or equal to | [place] | [phone] | | | | | 8mm | [place] | Fax: | | | | | Procedures | [address] | [phone] | | | | | CT Guided | Phone: | | | | | | Biopsy Lung | [phone] | | | | | | Or | Fax: | | | | | | Mediastinum | [phone] | | +--------+--------+ + + + + Reason for Visit +---------+--------+ + | Reason | Onset | Comments | | | Date | | +---------+--------+ + | Results | 08/15/ | | | | 2020 | | +---------+--------+ + Encounter Details +--------+ + + + + | Date | Type | Department | Care Team | Description | +--------+ + + + + | 08/15/ | Telephone | [facility] | Kannan, | Results | | 2019 | | PULMONOLOGY [address] | Anushka Shook, | | | | | [address] | [address] | | | | | [facility] [place] | [place], | | | | | [address] | [place] [address] | | | | | [phone] | [phone] | | | | | | | [...] this encounter Miscellaneous Notes Telephone Encounter - Anushka Brunner MD - 08/16/2019 10:[address] of the chest with her -ZOË nodule has increased in size compared to last image, and given he r clinical history, is suspicious for malignancy. CT guided biopsy will be next step. She un derstands this, and is agreeable to get this done. However, she will also undergo ileostomy repair/takedown on August 25. Will send referral to IR to see if this can be done before her major surgery. Of note, she is NOT on anticoagulation anymore (stopped Apixiban in June). Anushka Brunner MD Pulmonary and Critical Care Medicine [facility] [address], [facility] [place] [address] documente d in this encounter Plan of Treatment +--------+---------+ [...] | | | | | | [place] [address] | | | | | | [phone] | | | | | | | | +--------+---------+ + + + documented as of this encounter Results CT Guided Biopsy Lung Or Mediastinum (08/25/2019 10:03 AM PDT) + + | Specimen | + + | | + + + + + | Impressions | Performed At | + + + | Successful left upper lobe pulmonary nodule biopsy. The patient | [facility] | | will be admitted observation. There is a small asymptomatic left | | | apical pneumothorax at the end of the procedure. Signed by: | | | Dilcia Balderas, [place] Sign Date/Time: 08/25/2019 11:18 AM | | + + + + + + | Narrative | Performed At | + + + | CT GUIDED LUNG MASS BIOPSY CLINICAL INFORMATION: Enlarging | [facility] | | left upper lung nodule, suspicious for malignancy COMPARISON: | | | [facility] (04/27/2019); [facility] (01/08/2019); PROCEDURE: The risks, | | | benefits and alternatives were discussed with the patient; consent | | | was obtained and placed in the patient's chart. The risks included | | | but were not limited to bleeding, infection, non-diagnostic sample | | | and pneumothorax. The patient was placed in the CT scanner and | | | imaging was obtained through the chest. A reproducible target was | | | demonstrated. The skin overlying the lung mass was localized and | | | marked. The skin was sterilely prepped and draped in the usual | | | fashion. Local lidocaine was administered in the skin and underlying | | | tissues, and a tiny dermatotomy was made. Under CT guidance, a 20 | | | gauge coaxial needle system was used to obtain 4 core biopsies of the | | | target lesion. An on-site pathologist the patient tolerated the | | | procedure well without complication. Conscious sedation was | | | administered. The nurse administered fentanyl and Versed during the | | | examination and monitored blood pressure, heart rate, and pulse | | | oximeter. Physician intraservice time of 20 minutes. At least one | | | of the following CT dose optimization techniques were used: Automated | | | exposure control; Adjustment of mA and/or kV according to patient | | | size; Use of iterative reconstruction technique. FINDINGS: | | | Initial CT examination again demonstrates spiculated left upper lobe | | | pulmonary nodule. Subsequent images demonstrate biopsy device | | | positioned within the nodule. Final image shows expected | | | postprocedural hemorrhage with small pneumothorax. | | + + + + + | Procedure Note | + + | Sidney, Rad Results In - 08/25/2019 11:22 AM PDT | | CT GUIDED LUNG MASS BIOPSY | | | | CLINICAL INFORMATION: | | Enlarging left upper lung nodule, suspicious for malignancy | | | | COMPARISON: | | [facility] (04/27/2019); [facility] (01/08/2019); | | | | PROCEDURE: | | The risks, benefits and alternatives were discussed with the patient; | | consent was obtained and placed in the patient's chart. The risks | | included but were not limited to bleeding, infection, non-diagnostic | | sample and pneumothorax. | | | | The patient was placed in the CT scanner and imaging was obtained | | through the chest. A reproducible target was demonstrated. The skin | | overlying the lung mass was localized and marked. The skin was | | sterilely prepped and draped in the usual fashion. Local lidocaine was | | administered in the skin and underlying tissues, and a tiny dermatotomy | | was made. Under CT guidance, a 20 gauge coaxial needle system was used | | to obtain 4 core biopsies of the target lesion. An on-site pathologist | | the patient tolerated the procedure well without complication. | | | | Conscious sedation was administered. The nurse administered fentanyl | | and Versed during the examination and monitored blood pressure, heart | | rate, and pulse oximeter. Physician intraservice time of 20 minutes. | | | | At least one of the following CT dose optimization techniques were | | used: Automated exposure control; Adjustment of mA and/or kV according | | to patient size; Use of iterative reconstruction technique. | | | | FINDINGS: | | Initial CT examination again demonstrates spiculated left upper lobe | | pulmonary nodule. Subsequent images demonstrate biopsy device | | positioned within the nodule. Final image shows expected | | postprocedural hemorrhage with small pneumothorax. | | | | IMPRESSION: | | Successful left upper lobe pulmonary nodule biopsy. | | | | The patient will be admitted observation. There is a small | | asymptomatic left apical pneumothorax at the end of the procedure. | | | | | | | | Signed by: [place], [place] Ha | | Sign Date/Time: 08/25/2019 11:18 AM | + + + +---------+ + + | Performing | Address | City/State/Zipcode | Phone Number | | Organization | | | | + +---------+ + + | [facility] | | | | + +---------+ + + documented in this encounter Visit Diagnoses + + | Diagnosis | + + | Incidental pulmonary nodule, greater than or equal to 8mm - Primary Solitary | | pulmonary nodule | + + documented in this encounter"
--- OUTSIDE RECORDS SUMMARY | ~2019-08-10 | XMS | Encounter Summary ---
Demographics + + + | Address | [address] | | | [place] [address] | + + + | Home Phone | | + + + | Preferred Language | Unknown | + + + | Marital Status | | + + + | Alevism Affiliation | 1027 | + + + | Race | Unknown | + + + | Ethnic Group | Unknown | + + + Author + + + | Author | [facility] | | | and [place] | + + + | Organization | [facility] | | | and [...] Team Providers + +------+ + | Care Limerock Tower Loader Name | Role | Phone | + +------+ + | Shanthi Nelson MD | PCP | | + +------+ + Encounter Details +--------+ + + + + | Date | Type | Department | Care Team | Description | +--------+ + + + + | 12/09/ | Abstract | [facility] [place] | [facility], | | | 2013 | | GASTROENTEROLOGY | [address] | | | | | [address] | [address] | | | | | [address] [place] | [place] | | | | | [address] | [address] | | | | | [phone] | | | +--------+ + + + [...] | | | | | | [place] [address] | | | | | | [phone] | | | | | | | | +--------+---------+ + + + documented as of this encounter Visit Diagnoses Not on filedocumented in this encounter"
--- OUTSIDE RECORDS SUMMARY | ~2019-08-10 | XMS | Encounter Summary ---
Demographics + + + | Address | [address] | | | [place] [address] | + + + | Home Phone | | + + + | Preferred Language | Unknown | + + + | Marital Status | | + + + | Scientologist Affiliation | 1027 | + + + | Race | Unknown | + + + | Ethnic Group | Unknown | + + + Author + + + | Author | [facility] | | | and [place] | + + + | Organization | [facility] | | | and [...] Team Providers + +------+ + | Care Bed Placement Coordinator Name | Role | Phone | + +------+ + PCP | Unavailable | + +------+ + Encounter Details +--------+ + + + + | Date | Type | Department | Care Team | Description | +--------+ + + + + | 10/25/ | Hospital | [facility] | Fatemeh Louis MD | | | 2012 | Encounter | HOSPITAL LABORATORY | [address] [place] | | | | | [address] [place] | [place] | | | | | [place] | [address] | | | | | [address] | | | | | | [phone] | | | +--------+ + + + [...] [place], | | | | | | [place] [address] | | | | | | [phone] | | | | | | | | +--------+---------+ + + + documented as of this encounter Visit Diagnoses Not on filedocumented in this encounter"
--- OUTSIDE RECORDS SUMMARY | ~2019-08-10 | XMS | Encounter Summary ---
Demographics + + + | Address | [address] | | | [place] [address] | + + + | Home Phone | | + + + | Preferred Language | Unknown | + + + | Marital Status | | + + + | Hoahaoism Affiliation | 1027 | + + + | Race | Unknown | + + + | Ethnic Group | Unknown | + + + Author + + + | Author | [facility] | | | and [place] | + + + | Organization | [facility] | | [...] Team Providers + +------+ + | Care Elementary School Professional Name | Role | Phone | + [...] | MED CTR EXTERNAL | [address] | | | | | IMAGING [address] | [address] | | | | | [place] | [place] [address] | | | | | [place] [address] | | | | | | [phone] | | | +--------+ + + + [...] | | | | | | [place] [address] | | | | | | [phone] | | | | | | | | +--------+---------+ + + + documented as of this encounter Procedures + +--------+ + + + | Procedure Name | Priori | Date/Time | Associated Diagnosis | Comments | | | ty | | | | + +--------+ + + + | XR CHEST 1 VIEW | Routin | 12/16/2018 | | Results for this | | | e | 12:00 AM | | procedure are in the | | | | PDT | | results section. | + +--------+ + + + documented in this encounter Results XR Chest 1 Vw (12/16/2018 12:00 AM PDT) + + | Specimen [...]
--- OUTSIDE RECORDS SUMMARY | ~2019-08-10 | XMS | Encounter Summary ---
Demographics + + + | Address | [address] | | | [place] [address] | + + + | Home Phone | | + + + | Preferred Language | Unknown | + + + | Marital Status | | + + + | Anabaptist Affiliation | 1027 | + + + | Race | Unknown | + + + | Ethnic Group | Unknown | + + + Author + + + | Author | [facility] | | | and [place] | + + + | Organization | [facility] | | [...] Team Providers + +------+ + | Care Rn Otolaryngology Name | Role | Phone | + +------+ + PCP | Unavailable | + +------+ + Encounter Details +--------+ + + + + | Date | Type | Department | Care Team | Description | +--------+ + + + + | 05/01/ | [facility] | [facility] | Brian Stephen | | | 2013 | Encounter | HOSPITAL EMERGENCY | MD [address] | | | | | [address] | [facility] | | | | | [address] [place] | [place] [address] | | | | | [address] | [phone] | | | | | [phone] | | | +--------+ + + + [...] | | | | | | [place] [id number] | | | | | | [phone] | | | | | | | | +--------+---------+ + + + documented as of this encounter Visit Diagnoses Not on filedocumented in this encounter"
--- OUTSIDE RECORDS SUMMARY | ~2019-08-10 | XMS | Encounter Summary ---
Demographics + + + | Address | [address] | | | [place] [address] | + + + | Home Phone | | + + + | Preferred Language | Unknown | + + + | Marital Status | | + + + | Denominational Affiliation | 1027 | + + + | Race | Unknown | + + + | Ethnic Group | Unknown | + + + Author + + + | Author | [facility] | | | and [place] | + + + | Organization | [facility] | | [...] Team Providers + +------+ + | Care Assembler Installer General Name | Role | Phone | + +------+ + | Shanthi Nelson MD | PCP | | + +------+ + Reason for Visit +--------+--------+ + | Reason | Onset | Comments | | | Date | | +--------+--------+ + | Other | 05/16/ | | | | 2014 | | +--------+--------+ + Encounter Details +--------+--------+ + + + | Date | Type | Department | Care Team | Description | +--------+--------+ + + + | 05/16/ | Refill | [facility] [place] | [place], | Other | | 2014 | | GASTROENTEROLOGY | [address] | | | | | [address] [place] | [address] | | | | | [address] [place], [place] | [place], [place] | | | | | [address] | [address] | | | | | [phone] | | | +--------+--------+ + + + [...] this encounter Miscellaneous Notes Telephone Encounter - Kaylah Puente Master of Arts - 05/16/2014 4:40 PM PDTLeft mess age for patient to return call regarding Budesonide instructions. elephone Encounter - Queta Cruz ARNP - 05/16/2014 9:13 AM PDTPlease call to determine how patient is feeling. Thi s is not a permanent medication. If she should begin a taper of the medication. She is to ta ke 2 caps (6 mg) for 7 days then 1 cap (3 mg) for 7 days. She is then to stop medication. Co ntinue all other medications. Thank you documented in t his encounter Plan of Treatment +--------+---------+ + + + | Date | Type | Specialty | Care Team | Description | +--------+---------+ + + + | 11/01/ | Office | Pulmonology | Kannan, | | | 2019 | Visit | | Anushka hSook, | | | | | | MD [address] | | | | | | [place], | | | | | | [place] [address] | | | | | | [phone] | | | | | | | | +--------+---------+ + + + documented as of this encounter Visit Diagnoses Not on filedocumented in this encounter"
--- OUTSIDE RECORDS SUMMARY | ~2019-08-10 | XMS | Encounter Summary ---
Demographics + + + | Address | [address] | | | [place] [address] | + + + | Home Phone | | + + + | Preferred Language | Unknown | + + + | Marital Status | | + + + | Islam Affiliation | 1027 | + + + | Race | Unknown | + + + | Ethnic Group | Unknown | + + + Author + + + | Author | [facility] | | | and [place] | + + + | Organization | [facility] | | | and [...] Team Providers + +------+ + | Care Poultry Packer Name | Role | Phone | + [...] | MED CTR EXTERNAL | [address] | | | | | IMAGING [address] | [address] | | | | | [place] | [place] [address] | | | | | [place] [address] | | | | | | [phone] | | | +--------+ + + + [...] | | | | | | [place] [address] | | | | | | [phone] | | | | | | | | +--------+---------+ + + + documented as of this encounter Procedures + +--------+ + + + | Procedure Name | Priori | Date/Time | Associated Diagnosis | Comments | | | ty | | | | + +--------+ + + + | XR CHEST 1 VIEW | Routin | 12/15/2018 | | Results for this | | | e | 12:10 AM | | procedure are in the | | | | PDT | | results section. | + +--------+ + + + documented in this encounter Results XR Chest 1 Vw (12/15/2018 12:10 AM PDT) + + | Specimen | [...]
--- OUTSIDE RECORDS SUMMARY | ~2019-08-10 | XMS | Encounter Summary ---
Demographics + + + | Address | [address] | | | [place] [address] | + + + | Home Phone | | + + + | Preferred Language | Unknown | + + + | Marital Status | | + + + | Gnosticism Affiliation | 1027 | + + + | Race | Unknown | + + + | Ethnic Group | Unknown | + + + Author + + + | Author | [facility] | | | and [place] | + + + | Organization | [facility] | | [...] Team Providers + +------+ + | Care Tissue Rewinder Name | Role | Phone | + +------+ + | Shanthi Nelson MD | PCP | | + +------+ + Encounter Details +--------+ + + + + | Date | Type | Department | Care Team | Description | +--------+ + + + + | 08/17/ | [facility] | [facility] | Andreina Burroughs | | | 2014 | Encounter | HOSPITAL EMERGENCY | ROSELIA [address] | | | | | CENTER [address] | [address] [place], | | | | | [address] [place], [place] | [place] [address] | | | | | [address] | [phone] | | | | | [phone] | | | +--------+ + + + [...] + + documented as of this encounter Medications at Time of Discharge + + + +---------+ + + | Medication | Sig | Dispensed | Refills | Start | End Date | | | | | | Date | | + + + +---------+ + + | omeprazole | Take 1 capsule by | 60 | 2 | 01/26/20 | | | (PRILOSEC) 20 mg | mouth 2 times daily. | capsule | | 14 | | | capsule | | | | | | + + + +---------+ + + | albuterol | Inhale 2 puffs into | | 0 | | | | (VENTOLIN HFA) 90 | the lungs 4 times | | | | 9 | | mcg/puff inhaler | daily. | | | | | + + + +---------+ + + | alendronate | Take 70 mg by mouth | | 0 | | | | (FOSAMAX) 70 mg | every 7 days. | | | | 0 | | tablet | | | | | | + + + +---------+ + + | azaTHIOprine | TAKE ONE TABLET BY | 60 | 0 | 05/20/19 | | | (IMURAN) 50 mg | MOUTH DAILY FOR | tablet | | 15 | 0 | | tablet | SEVEN DAYS. HAVE | | | | | | | LABS DRAWN THEN | | | | | | | INCREASE TO TWO | | | | | | | TABLETS DAILY( | | | | | | | LONG NO EVIDENCE | | | | | | | OF PANCREATITIS) | | | | | + + + +---------+ + + | beclomethasone | Inhale 1 puff into | | 0 | | | | (QVAR) 80 mcg/puff | the lungs 2 times | | | | 0 | | inhaler | daily. | | | | | + + + +---------+ + + | budesonide | Take 2 capsules by | 21 | 0 | 05/17/19 | | | (ENTOCORT EC) 3 mg | mouth every morning. | capsule | | 15 | 0 | | 24 hr capsule | | | | | | + + + +---------+ + + | DELZICOL [address] | TAKE TWO CAPSULES BY | 180 | 2 | 04/03/19 | | | capsule | MOUTH THREE TIMES | capsule | | 15 | 5 | | | DAILY BEFORE MEALS | | | | | + + + +---------+ + + | dicyclomine | TAKE ONE CAPSULE BY | 120 | 2 | 05/01/19 | | | (BENTYL) 10 mg | MOUTH FOUR TIMES | capsule | | 15 | 0 | | capsule | DAILY | | | | | + + + +---------+ + + | montelukast | Take 10 mg by mouth | | 0 | | | | (SINGULAIR) 10 mg | nightly. | | | | 0 | | tablet | | | | | | + + + +---------+ + + | ondansetron | Take 4 mg by mouth | | 0 | | | | (ZOFRAN) 4 mg tablet | every 8 hours as | | | | 0 | | | needed. | | | | | + + + +---------+ + + documented as of this encounter [...] | | | | | | [place] [address] | | | | | | [phone] | | | | | | | | +--------+---------+ + + + documented as of this encounter Procedures + +--------+ + + + | Procedure Name | Priori | Date/Time | Associated Diagnosis | Comments | | | ty | | | | + +--------+ + + + | XR FOOT RIGHT 3 + VW | Routin | 08/17/2014 | | Results for this | | | e | 6:15 PM | | procedure are in the | | | | PDT | | results section. | + +--------+ + + + documented in this encounter Results XR Foot Right 3 + Vw (08/17/2014 6:15 PM PDT) + + | Specimen | + + | | + + + + + | Narrative | Performed At | + + + | ORIGINAL FOOT, THREE-VIEW RIGHT: CLINICAL | | | STATEMENT: Foot pain, fell. REPORT: On the oblique view and | | | lateral projection the cuboid bone demonstrates an atypical | | | configuration. Somewhat of an overlap appearance is noted on the | | | obliue and lateral projection. The remaining visualized bony | | | structures appear within normal limits. IMPRESSION: Atypical | | | appearance of the cuboid bone which could relate to overlap of normal | | | anatomy although a fracture could result in similar appearance. | | | Recommend correlation with clinical evaluation. If there is | | | concern for midfoot acute process, CT or MRI recommended. Findings | | | discussed with Dr. Mason at the time of dictation. The study is | | | dictated at 0701 hours. Read | | | By: CLAUDE BARBOSA MD Released By: CLAUDE BARBOSA MD Date: | | | 08/18/2014 14:03 | | + + + + + | Procedure Note | + + | Sidney, Rad Results In - 01/14/2017 7:33 PM PST ORIGINAL FOOT, THREE-VIEW RIGHT: | | CLINICAL STATEMENT:Foot pain, fell. REPORT:On the oblique view and lateral projection | | the cuboid bone demonstrates an atypical configuration. Somewhat of an overlap | | appearance is noted on the obliue and lateral projection. The remaining visualized bony | | structures appear within normal limits. IMPRESSION:Atypical appearance of the cuboid | | bone which could relate to overlap of normal anatomy although a fracture could result in | | similar appearance. Recommend correlation with clinical evaluation. If there is | | concern for midfoot acute process, CT or MRI recommended. Findings discussed with | | Isabella at the time of dictation. The study is dictated at 0701 hours. Job | | #: [id number] Read By: CLAUDE BARBOSA MD Released By: GLORIA WALTONate: | | 08/18/2014 14:03 | |IMPRESSION: | |Atypical appearance of the cuboid bone which could relate to overlap of normal anatomy alth ough a fracture could result in similar appearance. Recommend correlation with clinical wilberto luation. If there is concern for midfoot acute process, CT or MRI | |recommended. Findings discussed with Dr. Mason at the time of dictation. The study is dict ated at 0701 hours. | | | | | | | | | | | |Read By: CLAUDE BARBOSA MD | | | |Released By: CLAUDE BARBOSA MD | |Date: 08/18/2014 14:03 | | | | | + + documented in this encounter Visit Diagnoses Not on filedocumented in this encounter"
--- OUTSIDE RECORDS SUMMARY | ~2019-08-10 | XMS | Encounter Summary ---
Demographics + + + | Address | [address] | | | [place] [address] | + + + | Home Phone | | + + + | Preferred Language | Unknown | + + + | Marital Status | | + + + | Rastafari Affiliation | 1027 | + + + | Race | Unknown | + + + | Ethnic Group | Unknown | + + + Author + + + | Author | [facility] | | | and [place] | + + + | Organization | [facility] | | | and [place] | + [...] Team Providers + +------+ + | Care Gravity Manager Name | Role | Phone | + +------+ + PCP | Unavailable | + +------+ + Encounter Details +--------+ + + + + | Date | Type | Department | Care Team | Description | +--------+ + + + + | 05/18/ | Hospital | [facility] | Fatemeh Louis MD | | | 2012 | Encounter | HOSPITAL OBSTETRICS | [address] [place] | | | | | [address] [place] | [place] | | | | | [place] | [address] | | | | | [address] | | | | | | [phone] | | | +--------+ + + + [...] [place], | | | | | | [place] [address] | | | | | | [phone] | | | | | | | | +--------+---------+ + + + documented as of this encounter Visit Diagnoses Not on filedocumented in this encounter"
--- OUTSIDE RECORDS SUMMARY | ~2019-08-10 | XMS | Encounter Summary ---
Demographics + + + | Address | [address] | | | [place] [address] | + + + | Home Phone | | + + + | Preferred Language | Unknown | + + + | Marital Status | | + + + | Anglican Affiliation | 1027 | + + + | Race | Unknown | + + + | Ethnic Group | Unknown | + + + Author + + + | Author | [facility] | | | and [place] | + + + | Organization | [facility] | | | and [...] Team Providers + +------+ + | Care Ambulatory Care Coordinator Name | Role | Phone | + +------+ + PCP | Unavailable | + +------+ + Encounter Details +--------+ + + + + | Date | Type | Department | Care Team | Description | +--------+ + + + + | 02/17/ | Hospital | [facility] | [place], | | | 2011 | Encounter | HOSP[facility] XRAY [address] | Anni Cleaning MD [address] | | | | | [address] [place] | Located Within [facility] | | | | | [place] | [place] | | | | | [address] | [address] | | | | | [phone] | [phone] | | | | | | | [...] [place], | | | | | | [place] [address] | | | | | | [phone] | | | | | | | | +--------+---------+ + + + documented as of this encounter Visit Diagnoses Not on filedocumented in this encounter"
--- OUTSIDE RECORDS SUMMARY | ~2019-08-10 | XMS | Encounter Summary ---
Demographics + + + | Address | [address] | | | [place] [address] | + + + | Home Phone | | + + + | Preferred Language | Unknown | + + + | Marital Status | | + + + | Episcopal Affiliation | 1027 | + + + | Race | Unknown | + + + | Ethnic Group | Unknown | + + + Author + + + | Author | [facility] | | | and [place] | + + + | Organization | [facility] | | | and [...] Team Providers + +------+ + | Care Catering Manager Name | Role | Phone | + +------+ + PCP | Unavailable | + +------+ + Encounter Details +--------+ + + + + | Date | Type | Department | Care Team | Description | +--------+ + + + + | 07/01/ | Hospital | [facility] | Fatemeh Louis MD | | | 2012 | Encounter | HOSPITAL OBSTETRICS | [address] | | | | | [address] [place] | [place] | | | | | [place] | [address] | | | | | [address] | | | | | | [phone] | | | +--------+ + + + [...] [place], | | | | | | [place] [address] | | | | | | [phone] | | | | | | | | +--------+---------+ + + + documented as of this encounter Visit Diagnoses Not on filedocumented in this encounter"
--- OUTSIDE RECORDS SUMMARY | ~2019-08-10 | XMS | Encounter Summary ---
Demographics + + + | Address | [address] | | | [place] [address] | + + + | Home Phone | | + + + | Preferred Language | Unknown | + + + | Marital Status | | + + + | Mormon Affiliation | 1027 | + + + | Race | Unknown | + + + | Ethnic Group | Unknown | + + + Author + + + | Author | [facility] | | | and [place] | + + + | Organization | [facility] | | | [...] Team Providers + +------+ + | Care Hops Farmworker Name | Role | Phone | + +------+ + | Merle Meng MD | PCP | | + +------+ + Reason for Visit + + + | Reason | Comments | + + + | Crohn's Disease | | + + + Evaluate & Treat (Routine) +--------+ + + + + + | Status | Reason | Specialty | Diagnoses / | Referred By | Referred To | | | | | Procedures | Contact | Contact | +--------+ + + + + + | Closed | Specialty | Gastroenterol | Diagnoses | Meng, | Michaela, | | | Services | ogy | Crohn's | Merle Hernandez MD | Niranjan Evans MD | | | Required | | disease of | [address] | [address] | | | | | small | [address] | [address] | | | | | intestine | [place], | [place], [place] | | | | | without | [place] [address] | [address] Phone: | | | | | complication | Phone: | [phone] | | | | | s ([facility]) | [phone] | Fax: | | | | | | Fax: | [phone] | | | | | | [phone] | | +--------+ + + + + + Encounter Details +--------+---------+ + + + | Date | Type | Department | Care Team | Description | +--------+---------+ + + + | 04/05/ | Office | [facility] | Niranjan Jennings | Gastroesophageal | | 2020 | Visit | GASTROENTEROLOGY | MD Nathan [address] | reflux disease, | | | | [address] | [place] [address] | esophagitis presence | | | | [place] | [phone] | not specified | | | | [address] | | (Primary Dx); | | | | [phone] | | Crohn's disease with | | | | | | other complication, | | | | | | unspecified | | | | | | gastrointestinal | | | | | | tract location (HCC) | +--------+---------+ + + + Social History + + [...] + + documented as of this encounter Last Filed Vital Signs + + + + + | Vital Sign | Reading | Time Taken | Comments | + + + + + | Blood Pressure | 115/78 | 04/05/2019 3:13 PM | | | | | PST | | + + + + + | Pulse | 62 | 04/05/2019 3:13 PM | | | | | PST | | + + + + + | Temperature | - | - | | + + + + + | Respiratory Rate | - | - | | + + + + + | Oxygen Saturation | - | - | | + + + + + | Inhaled Oxygen | - | - | | | Concentration | | | | + + + + + | Weight | 66.7 kg (147 lb) | 04/05/2019 3:13 PM | | | | | PST | | + + + + + | Height | 165.1 cm (5' 5") | 04/05/2019 3:13 PM | | | | | PST | | + + + + + | Body Mass Index | 24.46 | 04/05/2019 3:13 PM | | | | | PST | | + + + + + documented in this encounter Progress Notes Niranjan Jennings MD - 04/05/2019 3:20 PM PST Subjective: Chief Complaint Patient presents with Crohn's Disease Patient ID: Noy Pineda is a 58 y.o. female who presents for initiation of care in this [facility] for Crohn's disease. Patient was diagnosed with Crohn's over 40 years ago. She reports disease has been confined to the terminal ileum and not in the colon. She was previously o n Asacol. However, the last few months she had to have surgical resection. She had a right hemicolectomy and had to have emergency revision of this because of sepsis. She now has an ileostomy. Plan for the ileostomy, per the patient, is to reverse it in about 6 months. S he states that her effluent from her ostomy been stable. No blood. No significant abdomina l pain. She denies any rashes, joint issues, or jaundice. HPI Past Medical History: Diagnosis Date Abdominal pain Anxiety Asthma Bipolar disorder (HCC) Cholelithiasis Colitis COPD (chronic obstructive pulmonary disease) (HCC) Crohn disease (HCC) 1991 Crohn's disease of large intestine with unspecified complications (HCC) Excessive or frequent menstruation Gait disturbance GERD (gastroesophageal reflux disease) Iron deficiency anemia secondary to blood loss (chronic) Memory loss Neuropathy Restless legs syndrome (RLS) Seasonal allergies Small bowel obstruction (HCC) secondary to crohn's ileitis-2005; small bowel obstruction-11/2014 Vitamin D deficiency Patient Active Problem List Diagnosis Date Noted POA Attention to ileostomy 03/15/2019 Unknown 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/2019 Unknown Chest pain 10/12/2015 Unknown Dental abscess 07/02/2015 Unknown Health care maintenance 02/08/2015 Unknown Tobacco dependence 02/08/2015 Unknown Dysphagia 12/26/2013 Unknown Crohn's disease 12/22/2013 Unknown GERD (gastroesophageal reflux disease) 12/22/2013 Unknown Tobacco use 12/22/2013 Unknown Regional enteritis of unspecified site 12/22/2013 Unknown Esophageal reflux 12/22/2013 Unknown Tobacco use disorder 12/22/2013 Unknown Dysmenorrhea 08/10/2012 Unknown Abnormal vaginal bleeding 02/18/2012 Unknown COPD (chronic obstructive pulmonary disease) 02/18/2012 Unknown Crohn's disease of small and large intestines with complication 02/18/2012 Unknown Iron deficiency anemia 02/18/2012 Unknown Bronchitis 01/02/2012 Unknown Past Surgical History: Procedure Laterality Date ADENOIDECTOMY BLADDER SUSPENSION 08/17/2012 CHOLECYSTECTOMY 1998 COLONOSCOPY 04/02/2015 low grade inflammatory change of the colon and rectum unable to intubate ileum, Dr. Lucero DEXA BONE DENSITY APPENDICULAR SKELETON 12/2013 Emmanuel Rhonde DILATION AND CURETTAGE OF UTERUS 09/2011 EGD AND COLONOSCOPY 12/26/2013 EGD / COLONOSCOPY; Laterality: N/A; Surgeon: Karan Toledo MD; Location: [facility] CIRILO AND BSO 08/17/2012 TONSILLECTOMY 1968 Family History Problem Relation Age of Onset Heart disease Mother No known problems Father Cancer Paternal Grandfather Diabetes Maternal Grandmother Hypertension Maternal Grandmother Crohn's disease Maternal Grandmother Bipolar disorder Other No known problems Maternal Grandfather No known problems Paternal Grandmother Social History Socioeconomic History Marital status: Spouse name: Bang Pineda Number of children: Not on file Years of education: Not on file Highest education level: Not on file Occupational History Comment: Not Employed Tobacco Use Smoking status: Current Every Day Smoker Packs/day: 0.50 Types: Cigarettes Smokeless tobacco: Never Used Substance and Sexual Activity Alcohol use: No Drug use: No Current Outpatient Medications Medication Sig Dispense Refill albuterol (VENTOLIN HFA) 90 mcg/puff inhaler Inhale 2 puffs into the lungs every 4 hour s as needed. beclomethasone (QVAR) 80 mcg/puff inhaler Inhale 1 puff into the lungs 2 times daily. cholestyramine (QUESTRAN) 4 g packet cyanocobalamin (VITAMIN B-12) 1000 MCG tablet dicyclomine (BENTYL) 10 mg capsule TAKE ONE CAPSULE BY MOUTH FOUR TIMES DAILY 120 capsu le 2 ELIQUIS 5 MG tablet fluticasone-salmeterol (ADVAIR, WIXELA INHUB) 250-50 mcg/puff diskus inhaler Inhale 1 p uff into the lungs 2 times daily. omeprazole (PRILOSEC) 20 mg capsule Take 1 capsule by mouth 2 times daily. (Patient javi ing differently: Take 40 mg by mouth every morning (before breakfast).) 60 capsule 2 ondansetron (ZOFRAN) 4 mg tablet Take 4 mg by mouth every 8 hours as needed. probiotic capsule Take 1 capsule by mouth 2 times daily. No current facility-administered medications for this visit. Current Outpatient Medications on File Prior to Visit Medication Sig Dispense Refill albuterol (VENTOLIN HFA) 90 mcg/puff inhaler Inhale 2 puffs into the lungs every 4 hour s as needed. beclomethasone (QVAR) 80 mcg/puff inhaler Inhale 1 puff into the lungs 2 times daily. cholestyramine (QUESTRAN) 4 g packet cyanocobalamin (VITAMIN B-12) 1000 MCG tablet dicyclomine (BENTYL) 10 mg capsule TAKE ONE CAPSULE BY MOUTH FOUR TIMES DAILY 120 capsu le 2 ELIQUIS 5 MG tablet fluticasone-salmeterol (ADVAIR, WIXELA INHUB) 250-50 mcg/puff diskus inhaler Inhale 1 p uff into the lungs 2 times daily. omeprazole (PRILOSEC) 20 mg capsule Take 1 capsule by mouth 2 times daily. (Patient javi ing differently: Take 40 mg by mouth every morning (before breakfast).) 60 capsule 2 ondansetron (ZOFRAN) 4 mg tablet Take 4 mg by mouth every 8 hours as needed. probiotic capsule Take 1 capsule by mouth 2 times daily. No current facility-administered medications on file prior to visit. Allergies Allergen Reactions Adhesive & Tape Other (See Comments) Review of Systems Constitutional: Positive for fatigue. Negative for activity change, appetite change, chills , diaphoresis, fever and unexpected weight change. HENT: Negative for ear pain, mouth sores, nosebleeds, sore throat, trouble swallowing and v oice change. Eyes: Negative for pain, redness and visual disturbance. Respiratory: Negative for cough, choking, chest tightness, shortness of breath and wheezing . Cardiovascular: Negative for chest pain, palpitations and leg swelling. Gastrointestinal: Positive for abdominal distention and abdominal pain. Negative for anal b leeding, blood in stool, constipation, diarrhea, nausea, rectal pain and vomiting. Endocrine: Positive for polydipsia. Negative for cold intolerance and heat intolerance. Genitourinary: Negative for difficulty urinating, dysuria, frequency, hematuria, urgency an d vaginal bleeding. Musculoskeletal: Negative for arthralgias, back pain, gait problem, joint swelling, myalgia s, neck pain and neck stiffness. Skin: Negative for color change, rash and wound. Allergic/Immunologic: Negative for environmental allergies, food allergies and immunocompro mised state. Neurological: Negative for dizziness, tremors, seizures, syncope, weakness, light-headednes s and headaches. Hematological: Negative for adenopathy. Does not bruise/bleed easily. Psychiatric/Behavioral: Negative for agitation, behavioral problems, confusion, dysphoric m ood, hallucinations and suicidal ideas. The patient is not nervous/anxious. Objective: Physical Exam Vitals: 04/05/19 1513 BP: 115/78 Pulse: 62 Weight: 66.7 kg (147 lb) Height: 1.651 m (5' 5") Body mass index is 24.46 kg/m. Gen: NAD, appears well-developed CV: Regular Lungs: Upper airway congestion, No respiratory distress. Abd: Ileostomy right lower, mild abdominal tenderness, +BS, no masses or organomegaly, no r ebound, no guarding Extremities: Within normal limits, no amputations, normal range of motion Head: Normocephalic. Mouth/Throat: Oropharynx is clear and moist and mucous membranes are normal Eyes: Conjunctivae and EOM are normal Skin: Warm, moist, intact Neuro: Intact and symmetric grossly Psychiatric: Normal mood and affect, behavior is normal, judgment and thought content shabbir l. Lab Results Component Value Date WBC 6.2 03/20/2014 HGB 16.4 (H) 03/20/2014 HCT 47.9 (H) 03/20/2014 MCV 99.6 03/20/2014 PLT 138 (L) 03/20/2014 Lab Results Component Value Date NA 136 02/27/2014 ALKPHOS 170 02/27/2014 BILITOT 0.4 11/10/2013 CREA 0.8 02/27/2014 LIPASE 132 02/27/2014 ALBUMIN 3.6 02/27/2014 No results found for: INR, PROTIME Assessment and Plan: Crohn's disease -Diagnosed over 40 years ago -Located in the terminal ileum -Recent ileocecectomy with end ileostomy -She is currently doing fairly well after her recent surgical interventions -She is having a lot of pain with Asacol because it is not dissolving before passing throug h the ileostomy. -Recommend switch to budesonide 3 mg daily. Prescription sent -She reports it is been quite a while since her last colonoscopy -Rather than perform it now, I recommend that we performed in about 3 months. This will be around the time that they are planning ostomy reversal and this will give him a better idea of her disease at the time of reversal. -Natural history, treatment options, etc. of Crohn's disease discussed -Discussed preventative measures including flu shot and multivitamin Thank you for allowing me to participate in the care of this patient. Please don't hesitat e to call with any questions. Niranjan Jennings MD [facility] Gastroenterology 04/05/2019 This progress note was dictated using emoquo voice recognition software. Document was revie wed at time of dictation but [id number] errors may be present. Please call with any quest ions or clarifications. documented in is encounter Plan of Treatment +--------+---------+ + + + | Date | Type | Specialty | Care Team | Description | +--------+---------+ + + + | 11/01/ | Office | Pulmonology | [facility], | | | 2019 | Visit | | Anushka Shook, | | | | | | MD [address] | | | | | | [place], | | | | | | [place] [address] | | | | | | [phone] | | | | | | | | +--------+---------+ + + + documented as of this encounter Visit Diagnoses + + | Diagnosis | + + | Gastroesophageal reflux disease, esophagitis presence not specified - Primary | + + | Crohn's disease with other complication, unspecified gastrointestinal tract location | | (HCC) | + + documented in this encounter
--- OUTSIDE RECORDS SUMMARY | ~2019-08-10 | XMS | Encounter Summary ---
Demographics + + + | Address | [address] | | | [place] [address] | + + + | Home Phone | | + + + | Preferred Language | Unknown | + + + | Marital Status | | + + + | Evangelical Affiliation | 1027 | + + + | Race | Unknown | + + + | Ethnic Group | Unknown | + + + Author + + + | Author | [facility] | | | and [place] | + + + | Organization | [facility] | | [...] Team Providers + +------+ + | Care Army Senior Officer Name | Role | Phone | + [...] | MED CTR EXTERNAL | MD [address] | | | | | IMAGING [address] | [address] | | | | | [address] | [place] [address] | | | | | [place] [address] | | | | | | [phone] | | | +--------+ + + + [...] | | | | | | [place] [address] | | | | | | [phone] | | | | | | | | +--------+---------+ + + + documented as of this encounter Procedures + +--------+ + + + | Procedure Name | Priori | Date/Time | Associated Diagnosis | Comments | | | ty | | | | + +--------+ + + + | XR CHEST 1 VIEW | Routin | 12/18/2018 | | Results for this | | | e | 12:05 AM | | procedure are in the | | | | PDT | | results section. | + +--------+ + + + documented in this encounter Results XR Chest 1 Vw (12/18/2018 12:05 AM PDT) + + | Specimen | [...]
--- OUTSIDE RECORDS SUMMARY | ~2019-08-10 | XMS | Encounter Summary ---
Demographics + + + | Address | [address] | | | [place] [address] | + + + | Home Phone | | + + + | Preferred Language | Unknown | + + + | Marital Status | | + + + | Episcopal Affiliation | 1027 | + + + | Race | Unknown | + + + | Ethnic Group | Unknown | + + + Author + + + | Author | [facility] | | | and [place] | + + + | Organization | [facility] | | | [...] Providers + +------+ + | Care Poultry Service Technician Name | Role | Phone | + +------+ + | Merle Meng MD | PCP | | + +------+ + Reason for Visit Evaluate & Treat (Routine) + +--------+ + + + + | Status | Reason | Specialty | Diagnoses / | Referred By | Referred To | | | | | Procedures | Contact | Contact | + +--------+ + + + + | Authorizatio | | Pulmonology | Diagnoses | [place], | [place], | | n not | | | Solitary | Merle Hernandez MD | Anushka | | Required | | | pulmonary | [address] | MD Bouchra | | | | | nodule | [address] | [address] | | | | | | [place] | [address] | | | | | | [place] [address] | [place], [place] | | | | | | Phone: | [address] Phone: | | | | | | [phone] | [phone] | | | | | | Fax: | Fax: | | | | | | [phone] | [phone] | + +--------+ + + + + Encounter Details +--------+---------+ + + + | Date | Type | Department | Care Team | Description | +--------+---------+ + + + | 04/06/ | Office | [facility] | [place]annan, | Incidental pulmonary | | 2020 | Visit | PULMONOLOGY [address] | Anushka Shook, | nodule, greater | | | | [place] | MD [address] | than or equal to 8mm | | | | [place] | [place], | (Primary Dx); | | | | [address] | [place] [address] | Asthma with COPD | | | | [phone] | [phone] | (chronic obstructive | | | | | | pulmonary disease) | | | | | | ([facility]); Personal | | | | | | history of tobacco | | | | | | use, presenting | | | | | | hazards to health; | | | | | | History of pulmonary | | | | | | embolism; Crohn's | | | | | | disease of small and | | | | | | large intestines | | | | | | with complication | | | | | | ([facility]) | +--------+---------+ + + + Social History [...] + + + | Blood Pressure | 110/77 | 04/06/2019 2:24 PM | | | | | PST | | + + + + + | Pulse | 83 | 04/06/2019 2:24 PM | | | | | PST | | + + + + + | Temperature | 36.3 C (97.3 F) | 04/06/2019 2:24 PM | | | | | PST | | + + + + + | Respiratory Rate | - | - | | + + + + + | Oxygen Saturation | 99% | 04/06/2019 2:24 PM | | | | | PST | | + + + + + | Inhaled Oxygen | - | - | | | Concentration | | | | + + + + + | Weight | 66.2 kg (146 lb) | 04/06/2019 2:24 PM | | | | | PST | | + + + + + | Height | 165.1 cm (5' 5") | 04/06/2019 2:24 PM | | | | | PST | | + + + + + | Body Mass Index | 24.3 | 04/06/2019 2:24 PM | | | | | PST | | + + + + + documented in this encounter Progress Anushka Landry MD - 04/06/2019 2:30 PM PSTFormatting of this note might be d ifferent from the original. Subjective Patient ID: Noy Pineda is a 58 y.o. female with anxiety, bipolar disorder, GERD, R LS, history of bowel obstruction due to Crohn's post ileocecetomy and ileostomy insertion, h istory of post surgical PE on Eliquis, chronic allergic rhinitis, COPD, referred to us due t o pulmonary nodules. HPI Ms Pineda is sent to our clinic for a ZOË nodule concerning for malignancy. This was noted o n a CT of the chest done for the purpose of monitoring a recent history of acute post surgic al PE. She had a recent history of PE after undergoing a colectomy and ileostomy formation. She has Crohn's disease, and this was thought to be the reason for her perforated bowel. She is not usually short of breath, but has cough and phlegm daily. Sputum is clear these days, and she denies hemoptysis. She reports that she has had respiratory issues since she was a child, and was thought to have asthma. She also had chronic seasonal allergies, as well as h ay fever. She has had dysphagia in the past but denies overt aspiration. She denies active r eflux. She has no chest pains, orthopnea, PNDs, or pedal edema. She is active at home, and t ypically exercises during good weather. She has good energy usually, and she denies signific ant weight loss (had weight loss associated with surgery). She is on Advair 250-50 mcg BID, prn albuterol HFA. She is not on oxygen supplementation. SOCIAL HISTORY She is an active smoker, less than a pack a day for 42 years. She has always been a housewi fe. She has dogs, and no other animals at home. The following elements of the patient's history were reviewed and updated as appropriate. T hey are available elsewhere in the patient record. allergies, current medications, past fam rosanna history, past medical history, past social history, past surgical history and problem li st Review of Systems Constitutional: Negative for fatigue, fever and unexpected weight change. HENT: Positive for congestion, postnasal drip and rhinorrhea. Negative for sore throat, tro uble swallowing and voice change. Respiratory: Positive for cough and wheezing. Negative for apnea, choking, shortness of serena ath and stridor. Cardiovascular: Negative for chest pain, palpitations and leg swelling. Gastrointestinal: Negative for abdominal pain, constipation, diarrhea, nausea and vomiting. Genitourinary: Negative for difficulty urinating. Musculoskeletal: Positive for arthralgias. Negative for back pain, gait problem, joint swel ling, myalgias and neck pain. Skin: Negative for rash. Neurological: Negative for dizziness. Psychiatric/Behavioral: Negative for sleep disturbance. All other systems reviewed and are negative. Past Medical History: Diagnosis Date Abdominal pain [...] ileitis-2005; small bowel obstruction-11/2014 Vitamin D deficiency Past Surgical History: Procedure Laterality Date ADENOIDECTOMY BLADDER SUSPENSION 08/17/2012 CHOLECYSTECTOMY 1998 COLONOSCOPY 04/02/2015 low grade inflammatory change of the colon and rectum unable to intubate ileum, Dr. Lucero DEXA BONE DENSITY APPENDICULAR SKELETON 12/2013 Emmanuel Rhonde DILATION AND CURETTAGE OF UTERUS 09/2011 EGD AND COLONOSCOPY 12/26/2013 EGD / COLONOSCOPY; Laterality: N/A; Surgeon: Karan Toledo MD; Location: [facility] MEDICAL PROCEDURE UNIT [facility] 08/17/2012 TONSILLECTOMY 1968 Objective BP 110/77 | Pulse 83 | Temp 36.3 C (97.3 F) (Oral) | Ht 1.651 m (5' 5") | Wt 66.2 k g (146 lb) | SpO2 99% | BMI 24.30 kg/m Physical Exam Vital signs reviewed. Oxygen saturation noted at 99% on ambient air GENERAL: pleasant, cooperative, oriented, not in distress, smells of tobacco. HEENT: pink conjunctiva, anicteric sclerae, moist oral mucosae and without any lesions, nor mal appearing nasal mucosae; no JVD; MALAMPATTI 3; no thyromegaly; no cervicolymphadenopathi es CVS: PMI non displaced, NRRR, S1 and S2, no murmurs/gallops/rubs CHEST: Examination of the chest showed a mild kyphosis. LUNGS: Normal effort, Equal in expansion, resonant to percussion, decreased breath sounds d iffusely, with scattered wheezing today ABDOMEN: Flabby abdomen with an intact ostomy in place, NABS, non-tender on palpation, Trau be's space intact, liver span normal, no masses palpated EXTREMITIES: good distal pulses, no cyanosis, no edema, no clubbing, no nail abnormalities NEURO: awake and oriented, gait normal, no focal neurologic deficits LABORATORY AND IMAGING Pulmonary Function Test: None to review FEV1 FVC FEV1/FVC TLC RV/TLC DLCO PET CT done on 02/02/19 Mild FDG upatake within ZOË nodule that measures 11 mm. No adenopathy. Assessment /Plan 1. Incidental pulmonary nodule, greater than or equal to 8mm Ms Pineda is a 58 yr old woman who was found to have a 11 mm nodule in the ZOË. A PET CT don e in Jan 2019 did not show any avid uptake. However, given her increased risk for lung cance r, it is important to continue watching this closely. I will request for a repeat CT of the chest through [facility] this Apr. I will call them once I have reviewed the images. If th e nodule is bigger, I would then recommend pursuing a CT guided biopsy, as this would then b e more reflective of a malignancy. - CT Chest wo Contrast; Future 2. Asthma with COPD (chronic obstructive pulmonary disease) (HCC) Continue Advair 250-50 mcg BID, and prn albuterol. She is not symptomatic apart from a fadia y cough. 3. Personal history of tobacco use, presenting hazards to health I have encouraged her to completely stop smoking. Risk for lung cancer is elevated and we w ould have to continue being vigilant about this. 4. History of pulmonary embolism She is on anticoagulation for a history of PE. Her post surgical state and active smoking i ncrease her risk for clotting. In addition, occult malignancy can predispose to clotting. 5. Crohn's disease of small and large intestines with complication (HCC) She is under the care of Dr Jennings. Started recently on Budesonide. Thank you for allowing us to participate in this patient's care. A return visit has been re quested/scheduled in 3 months for routine follow up. I will be in touch with them once I hav e the CT images which will be done this Apr. The patient was instructed to call our clinic f or any questions, and for any concerns regarding worsening dyspnea, cough or change in sputu m production. We will see the patient sooner than the recommended follow up date, if with a ny worsening of symptoms. Anushka Brunner MD Pulmonary and Critical Care Medicine [facility] [address] [facility] [place] [address] documente d in this encounter Plan of Treatment +--------+---------+ + + + | Date | Type | Specialty | Care Team | Description | +--------+---------+ + + + | 11/01/ | Office | Pulmonology | [place], | | | 2019 | Visit | | Anushka Shook, | | | | | | MD [address] | | | | | | [facility] | | | | | | [place] [address] | | | | | | [phone] | | | | | | | | +--------+---------+ + + + documented as of this encounter Visit Diagnoses + + | Diagnosis | + + | Incidental pulmonary nodule, greater than or equal to 8mm - Primary Solitary | | pulmonary nodule | + + | Asthma with COPD (chronic obstructive pulmonary disease) (HCC) Chronic obstructive | | asthma, unspecified | + + | Personal history of tobacco use, presenting hazards to health | + + | History of pulmonary embolism Personal history of pulmonary embolism | + + | Crohn's disease of small and large intestines with complication (HCC) | + + documented in this encounter
--- OUTSIDE RECORDS SUMMARY | ~2019-08-10 | XMS | Encounter Summary ---
Demographics + + + | Address | [address] | | | [place] [address] | + + + | Home Phone | | + + + | Preferred Language | Unknown | + + + | Marital Status | | + + + | Yazidi Affiliation | 1027 | + + + [...] Team Providers + +------+ + | Care Foundation Engineer Name | Role | Phone | + +------+ + PCP | Unavailable | + +------+ + Encounter Details +--------+ + + + + | Date | Type | Department | Care Team | Description | +--------+ + + + + | 01/21/ | Hospital | [facility] | Fatemeh Louis MD | | | 2012 | Encounter | [facility] | [address] | | | | | [address] | [place] | | | | | [place] | [address] | | | | | [address] | | | | | | [phone] | | | +--------+ + + + [...] | | | | | | [place] [address] | | | | | | [phone] | | | | | | | | +--------+---------+ + + + documented as of this encounter Visit Diagnoses Not on filedocumented in this encounter"
--- OUTSIDE RECORDS SUMMARY | ~2019-08-10 | XMS | Encounter Summary ---
Demographics + + + | Address | [address] | | | [place] [address] | + + + | Home Phone [...] + | Author | [facility] | | | and [place] | + + + | Organization | [facility] | | | and [...] Team Providers + +------+ + | Care Electrician Journeyman Wireman Name | Role | Phone | + +------+ + PCP | Unavailable | + +------+ + Encounter Details +--------+ + + + + | Date | Type | Department | Care Team | Description | +--------+ + + + + | 07/14/ | Hospital | [facility] | Fatemeh Louis MD | | | 2012 | Encounter | [facility] X[facility] | [address] | | | | | [address] | [place] | | | | | [place] | [address] | | | | | [address] | | | | | | [phone] | | | +--------+ + + + [...] [place], | | | | | | [place] [address] | | | | | | [phone] | | | | | | | | +--------+---------+ + + + documented as of this encounter Visit Diagnoses Not on filedocumented in this encounter"
--- OUTSIDE RECORDS SUMMARY | ~2019-08-10 | XMS | Encounter Summary ---
Demographics + + + | Address | [address] | | | [place] [address] | + + + | Home Phone | | + + + | Preferred Language | Unknown | + + + | Marital Status | | + + + | Catholic Affiliation | 1027 | + + + | Race | Unknown | + + + | Ethnic Group | Unknown | + + + Author + + + | Author | [facility] | | | and [place] | + + + | Organization | [facility] | | | and [...] Team Providers + +------+ + | Care Fare Register Repairer Name | Role | Phone | + +------+ + | Merle Meng MD | PCP | | + +------+ + Reason for Referral Diagnostic/Screening (Routine) + +--------+ + + + + | Status | Reason | Specialty | Diagnoses / | Referred By | Referred To | | | | | Procedures | Contact | Contact | + +--------+ + + + + | Authorizatio | | | Diagnoses | [place], | [facility] | | n not | | | Asthma with | Anushka | HOSPITAL | | Required | | | COPD | MD [address]ouch[address] | [address] | | | | | (chronic | [address] | | | | | obstructive | [address] | [place] | | | | | pulmonary | [place] | [address] | | | | | disease) | [place], [place] | Phone: | | | | | (HCC) | [address] | [phone] | | | | | Procedures | Phone: | Fax: | | | | | Pulmonary | [phone] | [phone] | | | | | function | Fax: | | | | | | test | [phone] | | + +--------+ + + + + Diagnostic/Screening (Emergency) +--------+--------+ + + + + | Status | Reason | Specialty | Diagnoses / | Referred By | Referred To | | | | | Procedures | Contact | Contact | +--------+--------+ + + + + | Closed | | | Diagnoses | [place], | [facility] | | | [facility] | [facility] | MD [address] | [address] | | | | | nodule, | [address] | [address] [place] | | | | | greater than | [address] | [place], [place] | | | | | or equal to | [place] | [address] | | | | | 8mm | [place], [place] | Phone: | | | | | Procedures | [address] | [phone] | | | | | CT Chest wo | Phone: | Fax: | | | | | Contrast | [phone] | [phone] | | | | | | Fax: | | | | | | | [phone] | | +--------+--------+ + + + + Reason for Visit Evaluate & Treat [...] | | | | | nodule | [address] | [address] | | | | | | [address] | | | | | | [place] [address] | [place] | | | | | | Phone: | [address] Phone: | | | | | | [phone] | [phone] | | | | | | Fax: | Fax: | | | | | | [phone] | [phone] | + +--------+ + + + + Encounter Details +--------+ + + + + | Date | Type | Department | Care Team | Description | +--------+ + + + + | 07/13/ | Virtual | [facility] | [place]an, | Incidental pulmonary | | 2019 | Office | PULMONOLOGY [address] | Anushka Shook, | nodule, greater | | | Visit | [place] [address] | MD [address] | than or equal to 8mm | | | | [place] | [place], | (Primary Dx); | | | | [address] | [place] [address] | Asthma with COPD | | | | [phone] | [phone] | (chronic obstructive | | | | | | pulmonary disease) | | | | | | ([facility]); Personal | | | | | [...] complication | | | | | | (HCC) | +--------+ + + + + Social [...] | | | + +---+---+---+ + + | Tobacco Cessation: Ready to Quit: Yes; Counseling Given: Yes | + + + + +---------+ + | Alcohol Use | Drinks/Week | oz/Week | Comments | + + +---------+ + | No | | | | + + +---------+ + + + + | Sex Assigned at | Date Recorded | | | | + + + | Not on file | | + + + documented as of this encounter Progress Anushka Landry MD - 07/14/2019 2:30 PM PDTFormatting of this note might be d ifferent from the original. This exam was initially conducted via a secure 256-bit AES encrypted bidirectional video Shizzlron. Service was provided [id number] with the patient via interactive videoconferencing Video start time 1440 Video end time 1500 Total time (in minutes) including non [id number] time (reviewing records, documentation, etc..) 30 You have chosen to receive care through the use of telemedicine. Telemedicine enables healt care providers at different locations to provide safe, effective and convenient care throu gh the use of technology. As with any health care service, there are risks associated with t he use of telemedicine, including equipment failure, poor image resolution and information s ecurity issues. Do you understand the risks and benefits of telemedicine as I have explained them to you? " Yes" Have your questions regarding telemedicine been answered? "Yes" Participant is currently at home Do you consent to the use of telemedicine in your medical care today? Yes. Last question, I need to confirm where are you physically located right now? Answer: Patient confirms they are located in a state where Anushka Lanza M D am licensed. Subjective Patient ID: Noy Pineda is a [...] HFA. She is not on oxygen supplementation. Interval History Noy is here via a video visit. She reports that she has done well, and has not had any wo rsening of her cough. She also denies being short of breath. She has adhered to social dista ncing, and has only left her home to do the groceries, about every 2 weeks. She denies chest pains, orthopnea, or PNDs. She has eaten well and has denied weight loss. Her energy is goo d. She is on Advair 250-50 mcg BID, and prn albuterol -she has been compliant with this. She c ontinues to smoke about a half a pack a day. She says that she is trying. She reportedly has been taken off oral anticoagulation last week of June. SOCIAL HISTORY She is an active smoker, [...] Small bowel obstruction (HCC) secondary to crohn's ileitis-2006; small bowel obstruction-11/2014 Vitamin D deficiency Past Surgical History: Procedure Laterality Date ADENOIDECTOMY BLADDER SUSPENSION 08/17/2012 CHOLECYSTECTOMY 1999 COLONOSCOPY 04/02/2015 low grade inflammatory change of the colon and rectum unable to intubate ileum, Dr. Lucero DEXA BONE DENSITY APPENDICULAR SKELETON 12/2013 Emmanuel Rhondkristin DILATION AND CURETTAGE OF UTERUS 09/2011 EGD AND COLONOSCOPY 12/26/2013 EGD / COLONOSCOPY; Laterality: N/A; Surgeon: Karan Toledo MD; Location: [facility] MEDICAL PROCEDURE UNIT [facility] 08/17/2012 TONSILLECTOMY 1968 Objective There were no vitals taken for this visit. Physical Exam GENERAL: pleasant, cooperative, oriented, not in distress, speaks in full sentences NEURO: awake and oriented, no focal neurologic deficits LABORATORY AND IMAGING Pulmonary Function Test: None to review FEV1 FVC FEV1/FVC TLC RV/TLC DLCO PET CT done on 02/02/19 Mild FDG upatake within ZOË nodule that measures 11 [address]. [address] chest done on 04/27/19 reviewed Unchanged ZOË spiculated nodule 11x13 mm in size, slight tethering of the pleura. NO eviden ce of hilar or mediastinal nodules. Assessment /Plan 1. Incidental pulmonary nodule, greater than or equal to 8mm Ms Pineda is a 59 yr old woman who was found to have a 11 mm nodule in the ZOË pm a CT done in January 2019. A PET CT also done in Jan 2019 did not show any avid uptake. Repeat CT don e in Apr 2019 did not show any increase in size, and no evidence of lymph node metastases. G iven its size and how she is at high risk for developing pulmonary malignancy, I have recomm ended that she undergoes another CT of the chest this month (sent as stat to [facility]), for a 3 month follow up. If this shows that it continues to not grow, we can lengthen survei llance imaging to six months. - CT Chest wo Contrast; Future 2. Asthma with COPD (chronic obstructive pulmonary disease) (HCC) Continue Advair 250-50 mcg BID, and prn albuterol. She is not symptomatic apart from a fadia y cough. A baseline PFT was requested today (also through [facility]). - Pulmonary function test; Future 3. Personal history of tobacco use, presenting hazards to health I have encouraged her to completely stop smoking. Risk for lung cancer is elevated and we w ould have to continue being vigilant about this. 4. History of pulmonary embolism She is off anticoagulation now. Continue to be vigilant about its recurrence. 5. Crohn's disease of small and large intestines with complication (HCC) She is under the care of Dr Jennings. Currently without signs of active disease -she has been taken off oral Budesonide. Thank you for allowing us to participate in this patient's care. A return visit has been re quested/scheduled in 3-4 months for routine follow up. I will be in touch with them once I h ave the CT images which will be done this Apr. The patient was instructed to call our clinic for any questions, and for any concerns regarding worsening dyspnea, cough or change in spu sonia production. We will see the patient sooner than the recommended follow up date, if with any worsening of symptoms. Anushka Brunner MD Pulmonary and Critical Care Medicine [facility]/[address] , [place] [address] documente d in this encounter Miscellaneous Notes Addendum Note - Anushka Brunner MD - 07/14/2019 2:30 PM PDT Addended by: ANUSHKA UMANZOR on: 08/10/2019 04:16 PM Modules accepted: Orders documen robert in this encounter Plan of Treatment +--------+---------+ [...] [place], | | | | | | [place] [address] | | | | | | [phone] | | | | | | | | +--------+---------+ + + + + +---------+--------+ + + | Name | Type | Priori | Associated Diagnoses | Order Schedule | | | | ty | | | + +---------+--------+ + + | CT Chest wo Contrast | Imaging | STAT | Incidental | Expected: | | | | | pulmonary nodule, | 07/14/2019, Expires: | | | | | greater than or | 07/13/2020 | | | | | equal to 8mm | | + +---------+--------+ + + | Pulmonary function | PFT | Routin | Asthma with COPD | Expected: | | test | | e | (chronic obstructive | 08/11/2019, Expires: | | | | | pulmonary disease) | 08/09/2020 | | | | | (HCC) | | + +---------+--------+ + + documented as of this encounter [...]
--- OUTSIDE RECORDS SUMMARY | ~2019-08-10 | XMS | Encounter Summary ---
Demographics + + + | Address | [address] | | | [place] [address] | + + + | Home Phone | | + + + | Preferred Language | Unknown | + + + | Marital Status | | + + + | Taoism Affiliation | 1027 | + + + | Race | Unknown | + + + | Ethnic Group | Unknown | + + + Author + + + | Author | [facility] | | | and [place] | + + + | Organization | [facility] | | [...] Team Providers + +------+ + | Care Audio/Video Engineer Name | Role | Phone | + +------+ + | Shanthi eNlson MD | PCP | | + +------+ + Reason for Visit +--------+--------+ + | Reason | Onset | Comments | | | Date | | +--------+--------+ + | Other | 02/27/ | | | | 2013 | | +--------+--------+ + Encounter Details +--------+ + + + + | Date | Type | Department | Care Team | Description | +--------+ + + + + | 02/27/ | Telephone | [facility] [place] | [place], | Other | | 2013 | | GASTROENTEROLOGY | [facility] [address] [address] | | | | | [address] | [address] | | | | | [address] [place], [place] | [place], [place] | | | | | [address] | [address] | | | | | [phone] | | | +--------+ + + + [...] Telephone Encounter - Kaylah Puente Master of [employer] - 02/27/2014 4:35 PM PSTSpoke to patient, told her labs and imaging are normal. She can start taking 2 Imuran a day. Patient verbalized understanding.Electronically signed by Master Liu of [employer] at 02/27 4:37 PM PSTTelephone Encounter - Kaylah Puente Master of [employer] - 02/27/2014 4:2 5 PM PSTSpoke to patient, she is feeling the same as she did when she was in the office. No fever, chills or any more pain than she was already having. We received the labs, I will lelo Mcqueen with results and get back to patient. elephone Encounter - Kaylah Puente, Master of Art [employer] - 02/27/2014 3:20 PM PSTSpoke to patient, told her we haven't received labs yet. Will lelo l her when we have results. Patient verbalized understanding. elephone Encounter - Monica Carlyn - 02/27/2014 3:11 PM PSTPatient called in stating she had her labs done today and would like to know if Charisse got the results. She is wanting to know if she needs to keep taking the pill s that Charisse prescribed. Please give her a call back. documented in this encounter Plan of Treatment +--------+---------+ + + + | Date | Type | Specialty | Care Team | Description | +--------+---------+ + + + | 11/01/ | Office | Pulmonology | [facility], | | | 2019 | Visit | | Anushka Shook, | | | | | | MD [address] | | | | | | [place], | | | | | | [place] [address] | | | | | | [phone] | | | | | | | | +--------+---------+ + + + documented as of this encounter Visit Diagnoses Not on filedocumented in this encounter"
--- OUTSIDE RECORDS SUMMARY | ~2019-08-10 | XMS | Encounter Summary ---
Demographics + + + | Address | [address] | | | [place] [address] | + + + | Home Phone | | + + + | Preferred Language | Unknown | + + + | Marital Status | | + + + | Church Affiliation | 1027 | + + + | Race | Unknown | + + + | Ethnic Group | Unknown | + + + Author + + + | Author | [facility] | | | and [place] | + + + | Organization | [facility] | | [...] Team Providers + +------+ + | Care Supervisor [place] Name | Role | Phone | + +------+ + | Shanthi Nelson MD | PCP | | + +------+ + Encounter Details +--------+ + + + + | Date | Type | Department | Care Team | Description | +--------+ + + + + | 02/27/ | Hospital | [facility] | [facility], | | | 2013 | Encounter | HOSPITAL LABORATORY | [facility] [address] | | | | | [address] [place] | [place] [facility] [address] | | | | | [place] | [place] | | | | | [address] | [address] | | | | | [phone] | | | +--------+ + + + [...] + +---------+ + + | azaTHIOprine | Take 1 tab daily for | 60 | 2 | 02/21/20 | | | (IMURAN) 50 mg | 7 days. Have labs | tablet | | 14 | 5 | | tablet | drawn. Then increase | | | | | | | to 2 tabs daily (as | | | | | | | long as no evidence | | | | | | | of pancreatitis) | | | | | + + + +---------+ + + | beclomethasone | Inhale 1 puff into | | 0 | | | | (QVAR) 80 mcg/puff | the lungs 2 times | | | | 0 | | inhaler | daily. | | | | | + + + +---------+ + + | budesonide | Take 3 capsules by | 90 | 2 | 02/21/20 | | | (ENTOCORT EC) 3 mg | mouth Daily. | capsule | | 14 | 5 | | 24 hr capsule | | | | | | + + + +---------+ + + | dicyclomine | Take 1 capsule by | 120 | 2 | 01/26/20 | | | (BENTYL) 10 mg | mouth 4 times daily. | capsule | | 14 | 5 | | capsule | | | | | | + + + +---------+ + + | mesalamine | Take 2 capsules by | 180 | 2 | 12/14/19 | | | (DELZICOL) [address] | mouth 3 times daily | capsule | | 14 | 5 | | capsule | (before meals). | | | | | + + [...] | | | | | | [place] [address] | | | | | | [phone] | | | | | | | | +--------+---------+ + + + documented as of this encounter Procedures + +--------+ + + + | Procedure Name | Priori | Date/Time | Associated Diagnosis | Comments | | | ty | | | | + +--------+ + + + | LIPASE | Routin | 02/27/2014 | | Results for this | | | e | 1:27 PM | | procedure are in the | | | | PST | | results section. | + +--------+ + + + | AMYLASE | Routin | 02/27/2014 | | Results for this | | | e | 1:27 PM | | procedure are in the | | | | PST | | results section. | + +--------+ + + + | COMPREHENSIVE | Routin | 02/27/2014 | | Results for this | | METABOLIC PANEL | e | 1:27 PM | | procedure are in the | | | | PST | | results section. | + +--------+ + + + documented in this encounter Results Amylase (02/27/2014 1:27 PM PST) + +-------+ + + + | Component | Value | Ref Range | Performed | Pathologist | | | | | At | Signature | + +-------+ + + + | Amylase | 30 | 25 - 115 U/L | EXTERNAL | | | | | | LAB | | + +-------+ + + + + + | Specimen | + + | | + + + +---------+ + + | Performing | Address | City/State/Zipcode | Phone Number | | Organization | | | | + +---------+ + + | EXTERNAL LAB | | | | + +---------+ + + Lipase (02/27/2014 1:27 PM PST) + +-------+ + + + | Component | Value | Ref Range | Performed | Pathologist | | | | | At | Signature | + +-------+ + + + | Lipase | 132 | 73 - 393 U/L | EXTERNAL | | | | | | LAB | | + +-------+ + + + + + | Specimen | + + | | + + + +---------+ + + | Performing | Address | City/State/Zipcode | Phone Number | | Organization | | | | + +---------+ + + | EXTERNAL LAB | | | | + +---------+ + + Comprehensive Metabolic Panel (02/27/2014 1:27 PM PST) + +-------+ + + + | Component | Value | Ref Range | Performed | Pathologist | | | | | At | Signature | + +-------+ + + + | Sodium | 136 | 132 - 143 | EXTERNAL | | | | | mmol/L | LAB | | + +-------+ + + + | Potassium | 3.8 | 3.3 - 4.9 | EXTERNAL | | | | | mmol/L | LAB | | + +-------+ + + + | Cl | 105 | 95 - 108 mmol/L | EXTERNAL | | | | | | LAB | | + +-------+ + + + | CO2 | 24 | 23 - 34 mmol/L | EXTERNAL | | | | | | LAB | | + +-------+ + + + | Anion Gap | 7 | 7 - 16 | EXTERNAL | | | | | | LAB | | + +-------+ + + + | Calcium | 10.3 | 8.3 - 10.0 | EXTERNAL | | | | | mg/dL | LAB | | + +-------+ + + + | Glucose | 149 | 70 - 110 mg/dL | EXTERNAL | | | | | | LAB | | + +-------+ + + + | BUN, Bld | 7 | 5 - 26 mg/dL | EXTERNAL | | | | | | LAB | | + +-------+ + + + | Creatinine | 0.8 | 0.6 - 1.3 mg/dL | EXTERNAL | | | | | | LAB | | + +-------+ + + + | BUN/Creatin | 8.8 | 7.0 - 24.0 | EXTERNAL | | | ine Ratio | | RATIO | LAB | | + +-------+ + + + | GFR | 60 | >=60 | EXTERNAL | | | ESTIMATE | | mL/min/1.73m2 | LAB | | | (REF) | | | | | + +-------+ + + + | Bilirubin, | 0.3 | <=1.2 mg/dL | EXTERNAL | | | Total | | | LAB | | + +-------+ + + + | Protein, | 7.3 | 6.6 - 8.5 g/dL | EXTERNAL | | | Total | | | LAB | | + +-------+ + + + | Albumin | 3.6 | 3.0 - 4.5 g/dL | EXTERNAL | | | | | | LAB | | + +-------+ + + + | Alkaline | 170 | 46 - 116 U/L | EXTERNAL | | | Phosphatase | | | LAB | | + +-------+ + + + | ALT, | 25 | 14 - 59 U/L | EXTERNAL | | | External | | | LAB | | + +-------+ + + + | AST, | 12 | <=38 U/L | EXTERNAL | | | External | | | LAB | | + +-------+ + + + + + | Specimen | + + | | + + + +---------+ + + | Performing | Address | City/State/Zipcode | Phone Number | | Organization | | | | + +---------+ + + | EXTERNAL LAB | | | | + +---------+ + + documented in this encounter Visit Diagnoses Not on filedocumented in this encounter"
--- OUTSIDE RECORDS SUMMARY | ~2019-08-10 | XMS | Encounter Summary ---
Demographics + + + | Address | [address] | | | [place] [address] | + + + | Home Phone | | + + + | Preferred Language | Unknown | + + + | Marital Status | | + + + | Moravian Affiliation | 1027 | + + + | Race | Unknown | + + + | Ethnic Group | Unknown | + + + Author + + + | Author | [facility] | | | and [place] | + + + | Organization | [facility] | | | [...] Team Providers + +------+ + | Care Dot Compliance Manager Name | Role | Phone | [...] Description | +--------+--------+ + + + | 05/01/ | Refill | [facility] [place] | [place], | Medication Refill | | 2015 | | GASTROENTEROLOGY | [facility] [address] [address] | | | | | [address] [place] | [address] | | | | | [address] [place], [place] | [place], [place] | | | | | [address] | [address] | | | | | [phone] | | | +--------+--------+ + + + [...] [place], | | | | | | [place] [address] | | | | | | [phone] | | | | | | | | +--------+---------+ + + + documented as of this encounter Visit Diagnoses Not on filedocumented in this encounter"
--- OUTSIDE RECORDS SUMMARY | ~2019-08-10 | XMS | Encounter Summary ---
Demographics + + + | Address | [address] | | | [place] [address] | + + + | Home Phone | | + + + | Preferred Language | Unknown | + + + | Marital Status | | + + + | Cheondoism Affiliation | 1027 | + + + | Race | Unknown | + + + | Ethnic Group | Unknown | + + + Author + + + | Author | [facility] | | | and [place] | + + + | Organization | [facility] | | [...] Team Providers + +------+ + | Care Car Checker Name | Role | Phone | + +------+ + | Merle Meng MD | PCP | | + +------+ + Reason for Referral Diagnostic/Screening (Routine) +--------+--------+ + + + + | Status | Reason | Specialty | Diagnoses / | Referred By | Referred To | | | | | Procedures | Contact | Contact | +--------+--------+ + + + + | Closed | | | Diagnoses | David, | [facility] | | | | | Malignant | MD Eron | [facility] | | | | | neoplasm of | [address] | | | | | upper lobe, | ST | MEDICAL | | | | | left | [place], | C[address] | | | | | bronchus or | [place] [address] | [place] | | | | | lung (HCC) | Phone: | Saqib Cerrato, | | | | | Procedures | [phone] | [place] [address] | | | | | PET CT Skull | Fax: | Phone: | | | | | Base To Mid | [phone] | [phone] | | | | | Thigh | | Fax: | | | | | | | [phone] | +--------+--------+ + + + + Reason for Visit Diagnostic/Screening (Routine) +--------+--------+ + + + + | Status | Reason | Specialty | Diagnoses / | Referred By | Referred To | | | | | Procedures | Contact | Contact | +--------+--------+ + + + + | Closed | | | Diagnoses | David, | [facility] | | | | | Malignant | MD Eron | [facility] | | | | | neoplasm of | [address] [place] | | | | | upper lobe, | ST | MEDICAL | | | | | left | [place], | CENTER [address] | | | | | bronchus or | [place] [address] | [place] | | | | | lung (HCC) | Phone: | Saqib Cerrato, | | | | | Procedures | [phone] | [place] [address] | | | | | PET CT Skull | Fax: | Phone: | | | | | Base To Mid | [phone] | [phone] | | | | | Thigh | | Fax: | | | | | | | [phone] | +--------+--------+ + + + + Encounter Details +--------+ + + + + | Date | Type | Department | Care Team | Description | +--------+ + + + + | 09/07/ | Hospital | [facility] | Eron Hernandez MD | Malignant neoplasm | | 2020 | Encounter | MED CTR PET SCAN | [address] | of upper lobe, left | | | | [address] [place] | [place] [address] | bronchus or lung | | | | [place] [address] | [phone] | (HCC) | | | | [phone] | | | +--------+ + + + [...] + + documented as of this encounter Functional Status + + + + | Functional Status | Response | Date of Assessment | + + + + | Are you deaf or do you have serious | No | 08/26/2019 | | difficulty hearing? | | | + + + + | Are you blind or do you have serious | No | 08/26/2019 | | difficulty seeing, even when wearing | | | | glasses? | | | + + + + | Do you have serious difficulty walking or | No | 08/26/2019 | | climbing stairs? (5 years old or older) | | | + + + + | Do you have difficulty dressing or bathing? | No | 08/26/2019 | | (5 years old or older) | | | + + + + | Because of a physical, mental, or emotional | No | 08/26/2019 | | condition, do you have difficulty doing | | | | errands alone such as visiting a doctor's | | | | office or shopping? [15 years old or | | | | older)] | | | + + + + + + + + | Cognitive Status | Response | Date of Assessment | + + + + | Because of a physical, mental, or emotional | No | 08/26/2019 | | condition, do you have serious difficulty | | | | concentrating, remembering, or making | | | | decisions? (5 years old or older) | | | + + + + documented as of this encounter Medications at Time of Discharge + + + +---------+ + + | Medication | Sig | Dispensed | Refills | Start | End Date | | | | | | Date | | + + + +---------+ + + | albuterol | Inhale 2 puffs into | | 0 | 10/11/ | | | (VENTOLIN HFA) 90 | the lungs every 4 | | | 16 | | | mcg/puff inhaler | hours as needed. | | | | | + + + +---------+ + + | budesonide | Take 1 capsule by | 30 | 11 | 04/05/19 | | | (ENTOCORT EC) 3 mg | mouth every morning. | capsule | | 20 | 1 | | 24 hr | | | | | | | capsuleIndications: | | | | | | | Crohn's disease with | | | | | | | other complication, | | | | | | | unspecified | | | | | | | gastrointestinal | | | | | | | tract location (HCC) | | | | | | + + + +---------+ + + | cyanocobalamin | | | 0 | 07/13/19 | | | (VITAMIN B-12) 1,000 | | | | 20 | | | mcg/mL injection | | | | | | + + + +---------+ + + | | Inhale 1 puff into | | 0 | | | | fluticasone-salmeter | the lungs 2 times | | | | | | ol (ADVAIRABIELA | daily. | | | | | | INHUB) 250-50 | | | | | | | mcg/puff diskus | | | | | | | inhaler | | | | | | + + + +---------+ + + | [id number] 64 MG EC | 3 times daily. | | 0 | 07/12/19 | | | tablet | | | | 20 | | + + + +---------+ + + | omeprazole | Take 1 capsule by | 60 | 2 | 01/26/20 | | | (PRILOSEC) 20 mg | mouth 2 times daily. | capsule | | 14 | | | capsule | | | | | | + + + +---------+ + + | potassium chloride | 2 times daily. | | 0 | 07/13/19 | | | (MICRO-K) 10 mEq CR | | | | 20 | | | capsule | | | | | | + + + +---------+ + + | probiotic capsule | Take 1 capsule by | | 0 | | | | | mouth 2 times daily. | | | | | + [...] | | | | | | [place] [address] | | | | | | [phone] | | | | | | | | +--------+---------+ + + + documented as of this encounter Procedures + +--------+ + + + | Procedure Name | Priori | Date/Time | Associated Diagnosis | Comments | | | ty | | | | + +--------+ + + + | PET CT SKULL BASE TO | Routin | 09/08/2019 | Malignant neoplasm | Results for this | | MID THIGH | e | 11:30 AM | of upper lobe, left | procedure are in the | | | | PDT | bronchus or lung | results section. | | | | | (HCC) | | + +--------+ + + + documented in this encounter Results PET CT Skull Base To Mid Thigh (09/08/2019 11:30 AM PDT) + + | Specimen | + + | | + + + + + | Impressions | Performed At | + + + | There is a spiculated, mildly hypermetabolic nodule in the left | [facility] | | apex corresponding to the known malignancy. No evidence for | | | metastatic disease. Electronically signed by Marshal Liz MD | | | 09/08/2019 2:29 PM | | + + + + + + | Narrative | Performed At | + + + | Exam: PET CT | [facility] | | SKULL BASE TO MID THIGH dated 09/08/2019 8:30 AM History: Malignant | | | neoplasm of upper lobe, left bronchus or lung (HCC) Comparison: PET/CT | | | from an outside institution 02/02/2019. Chest CT08/15/2019. Technique: | | | PET/CT imaging was performed from the skull base throughthe proximal | | | thighs following the uneventful intravenousadministration of 11.45 | | | millicuries of F-18 FDG. The glucose at thetime of injection is 94 | | | mg/dL. Injection time is 9:23 AM and scanstart time is 10:22 AM. | | | Attenuation corrected, nonattenuationcorrected, and PET/CT fused | | | data are reviewed on a multiple modalityworkstation. A low-dose CT | | | is utilized for attenuation correction andlocalization. This should | | | not substitute for a diagnostic CT whenclinically warranted. Dose: CT | | | DI = 5.29 mGy; DLP = 467.81 mGy-cm Findings: PET/CT: Mediastinal | | | background max SUV = 2.63 (image 81). Liver background max SUV = 3.7 | | | (image 132). There is hypermetabolic activity associated with the | | | biopsiedspiculated nodule in the left upper lobe. This has a maximum | | | SUV of4.06 (image 66). The remainder of the metabolic activity is | | | physiologic as seen withinthe base of the brain, oropharyngeal soft | | | tissues, heart, mediastinum,liver, spleen, kidneys and collecting | | | system. Additional activity isalso seen non focally throughout the | | | musculoskeletal system andgastrointestinal tract. INCIDENTALS: There | | | is a right lower quadrant ileostomy. There is a aninfraumbilical area | | | of rectus diastases and a fat-containing hernia. | | |Mediastinal background max SUV = 2.63 (image 81). | | | | | |Liver background max SUV = 3.7 (image 132). | | | | | |There is hypermetabolic activity associated with the biopsied | | |spiculated nodule in the left upper lobe. This has a maximum SUV of | | |4.06 (image 66). | | | | | | The remainder of the metabolic activity is physiologic as seen within | | |the base of the brain, oropharyngeal soft tissues, heart, mediastinum, | | |liver, spleen, kidneys and collecting system. Additional activity is | | |also seen non focally throughout the musculoskeletal system and | | |gastrointestinal tract. | | | | | |INCIDENTALS: There is a right lower quadrant ileostomy. There is a an | | |infraumbilical area of rectus diastases and a fat-containing hernia. | | | | | + + + + + | Procedure Note | + + | [place], [id number] - 09/08/2019 2:34 PM PDT Exam: PET CT SKULL BASE TO MID THIGH dated | | 09/08/2019 8:30 AMHistory: Malignant neoplasm of upper lobe, left bronchus or lung | | (HCC)Comparison: PET/CT from an outside institution 02/02/2019. Chest | | CT08/15/2019.Technique: PET/CT imaging was performed from the skull base throughthe | | proximal thighs following the uneventful intravenousadministration of 11.45 millicuries | | of F-18 FDG. The glucose at thetime of injection is 94 mg/dL. Injection time is 9:23 | | AM and scanstart time is 10:22 AM. Attenuation corrected, nonattenuationcorrected, and | | PET/CT fused data are reviewed on a multiple modalityworkstation. A low-dose CT is | | utilized for attenuation correction andlocalization. This should not substitute for a | | diagnostic CT whenclinically warranted.Dose: CT DI = 5.29 mGy; DLP = 467.81 | | mGy-cmFindings:PET/CT: Mediastinal background max SUV = 2.63 (image 81).Liver background | | max SUV = 3.7 (image 132).There is hypermetabolic activity associated with the | | biopsiedspiculated nodule in the left upper lobe. This has a maximum SUV of4.06 (image | | 66). The remainder of the metabolic activity is physiologic as seen withinthe base of | | the brain, oropharyngeal soft tissues, heart, mediastinum,liver, spleen, kidneys and | | collecting system. Additional activity isalso seen non focally throughout the | | musculoskeletal system andgastrointestinal tract.INCIDENTALS: There is a right lower | | quadrant ileostomy. There is a aninfraumbilical area of rectus diastases and a | | fat-containing hernia.IMPRESSION: There is a spiculated, mildly hypermetabolic nodule in | | the left apexcorresponding to the known malignancy.No evidence for metastatic | | disease.Electronically signed by Marshal Liz MD 09/08/2019 2:29 PM | |PET/CT: | | | |Mediastinal background max SUV = 2.63 (image 81). | | | |Liver background max SUV = 3.7 (image 132). | | | |There is hypermetabolic activity associated with the biopsied | |spiculated nodule in the left upper lobe. This has a maximum SUV of | |4.06 (image 66). | | | | The remainder of the metabolic activity is physiologic as seen within | |the base of the brain, oropharyngeal soft tissues, heart, mediastinum, | |liver, spleen, kidneys and collecting system. Additional activity is | |also seen non focally throughout the musculoskeletal system and | |gastrointestinal tract. | | | |INCIDENTALS: There is a right lower quadrant ileostomy. There is a an | |infraumbilical area of rectus diastases and a fat-containing hernia. | | | |IMPRESSION: | | | |There is a spiculated, mildly hypermetabolic nodule in the left apex | |corresponding to the known malignancy. | | | |No evidence for metastatic disease. | | | |Electronically signed by Marshal Liz MD 09/08/2019 2:29 PM | + + + +---------+ + + | Performing | Address | City/State/Zipcode | Phone Number | | Organization | | | | + +---------+ + + | [facility] | | | | + +---------+ + + documented in this encounter Visit Diagnoses + + | Diagnosis | + + | Malignant neoplasm of upper lobe, left bronchus or lung (HCC) | + + documented in this encounter Administered Medications + +--------+ + +------+------+ | Medication Order | MAR | Action | Dose | Rate | Site | | | Action | Date | | | | + +--------+ + +------+------+ | fluorine-18 FDG injection 11.45 | Given | 09/08/19 | 11.45 | | | | millicurie 11.45 millicurie, | | 20 9:23 | millicur | | | | Intravenous, ONCE, [facility] 09/08/19 at | | AM PDT | ies | | | | 0930, For 1 dose | | | | | | + +--------+ + +------+------+ +---+---+ | | | +---+---+ documented in this encounter"
--- OUTSIDE RECORDS SUMMARY | ~2019-08-10 | XMS | Encounter Summary ---
Demographics + + + | Address | [address] | | | [place] [address] | + + + | Home Phone | | + + + | Preferred Language | Unknown | + + + | Marital Status | | + + + | Anabaptist Affiliation | 1027 | + + + | Race | Unknown | + + + | Ethnic Group | Unknown | + + + Author + + + | Author | [facility] | | | and [place] | + + + | Organization | [facility] | | | [...] Team Providers + +------+ + | Care Sky Line Yarder Name | Role | Phone | + +------+ + | Merle Meng MD | PCP | | + +------+ + Encounter Details +--------+ + + + + | Date | Type | Department | Care Team | Description | +--------+ + + + + | 12/13/ | Abstract | [facility] [place] | Provider, | | | 2018 | | PHYSIATRY [address] | [address] | | | | | [address] | [address] [place] | | | | | [place] | [place] [address] | | | | | [address] | | | | | | [phone] | | | +--------+ + + + [...] | 2019 | Visit | | Anushka Sohok, | | | | | | MD [address] | | | | | | [place], | | | | | | [place] [address] | | | | | | [phone] | | | | | | | | +--------+---------+ + + + documented as of this encounter Visit Diagnoses Not on filedocumented in this encounter"
--- OUTSIDE RECORDS SUMMARY | ~2019-08-10 | XMS | Encounter Summary ---
Demographics + + + | Address | [address] | | | [place] [address] | + + + | Home Phone | | + + + | Preferred Language | Unknown | + + + | Marital Status | | + + + | Synagogue Affiliation | 1027 | + + + | Race | Unknown | + + + | Ethnic Group | Unknown | + + + Author + + + | Author | [facility] | | | and [place] | + + + | Organization | [facility] | | [...] Team Providers + +------+ + | Care Hydrometeorological Technician Name | Role | Phone | + +------+ + | Merle Meng MD | PCP | | + +------+ + Reason for Visit Diagnostic/Screening (Emergency) +--------+--------+ + + + + | Status | Reason | Specialty | Diagnoses / | Referred By | Referred To | | | | | Procedures | Contact | Contact | +--------+--------+ + + + + | Closed | | Radiology | Diagnoses | Kannan, | [facility] [address] | | | | | Incidental | Anushka | [address] | | | | | pulmonary | MD Bouchra | [place] | | | | | nodule, | [address] | [address] | | | | | greater than | [address] | Phone: | | | | | or equal to | [place] [address] | [phone] | | | | | 8mm | [place] | Fax: | | | | | Procedures | [address] | [phone] | | | | | CT Guided | Phone: | | | | | | Biopsy Lung | [phone] | | | | | | Or | Fax: | | | | | | Mediastinum | [phone] | | +--------+--------+ + + + + Encounter Details +--------+ + + + + | Date | Type | Department | Care Team | Description | +--------+ + + + + | 08/21/ | Hospital | [facility] | Kannan, | Canceled (OTHER) | | 2020 | Encounter | [facility] | Anushka Shook, | | | | | [address] | MD [address] | | | | | [place], [place] | [place], | | | | | [address] | [place] [address] | | | | | [phone] | [phone] | | | | | | | | | | | | Roosevelt Balderas | | | | | | MD [address] | | | | | | [address] | | | | | | [place] [address] | | | | | | [phone] | | | | | | | | | | | | 3, [facility] Rad Nurse | | +--------+ + + + + [...] | | | | | | [address] | | | | | | [place], | | | | | | [place] [address] | | | | | | [phone] | | | | | | | | +--------+---------+ + + + documented as of this encounter Visit Diagnoses Not on filedocumented in this encounter"
--- OUTSIDE RECORDS SUMMARY | ~2019-08-10 | XMS | Clinical Summary ---
Demographics + + + | Address | [address] | | | [place] [address] | + + + | Home Phone | | + + + | Preferred Language | Unknown | + + + | Marital Status | | + + + | Synagogue Affiliation | 1027 | + + + | Race | Unknown | + + + | Ethnic Group | Unknown | + + + Author + + + | Author | [facility] | | | and [place] | + + + | Organization | [facility] | | | [...] Team Providers + +------+ + | Care Hardware Designer Name | Role | Phone | + +------+ + | Merle Meng MD | PCP | | + +------+ + Allergies + + + + + + | Active Allergy | Reactions | Severity | Noted | Comments | | | | | Date | | + + + + + + | Adhesive & Tape | Other (See Comments) | High | 02/11/20 | | | | | | 19 | | + + + + + + Medications + + + +---------+------+------+-------+ | Medication | Sig | Dispensed | Refills | Star | End | Statu | | | | | | t | Date | s | | | | | | Date | | | + + + +---------+------+------+-------+ | omeprazole | Take 1 capsule by | 60 | 2 | 01/07 | | Activ | | (PRILOSEC) 20 mg | mouth 2 times daily. | capsule | | 11/26 | | e | | capsule | | | | 14 | | | + + + +---------+------+------+-------+ +---+ + | | Additional | | | InformationPatient | | | taking differently: | | | 40 mg Oral DAILY | | | BEFORE BREAKFAST, | | | Informant: Other, | | | Reported on | | | 12/13/2018 5:10 PM | +---+ + + + +---------+----+------+------+-------+ | probiotic capsule | Take 1 capsule by | | 0 | | | Activ | | | mouth 2 times daily. | | | | | e | + + +---------+----+------+------+-------+ | | Inhale 1 puff into | | 0 | | | Activ | | fluticasone-salmeter | the lungs 2 times | | | | | e | | ol (ADVAIRABIELA | daily. | | | | | | | INHUB) 250-50 | | | | | | | | mcg/puff diskus | | | | | | | | inhaler | | | | | | | + + +---------+----+------+------+-------+ | albuterol | Inhale 2 puffs into | | 0 | 08/0 | | Activ | | (VENTOLIN HFA) 90 | the lungs every 4 | | | 5/20 | | e | | mcg/puff inhaler | hours as needed. | | | 16 | | | + + +---------+----+------+------+-------+ | budesonide | Take 1 capsule by | 30 | 11 | 01/2 | 01/2 | Activ | | (ENTOCORT EC) 3 mg | mouth every morning. | capsule | | 8/20 | 7/20 | e | | 24 hr | | | | 20 | 21 | | | capsuleIndications: | | | | | | | | Crohn's disease with | | | | | | | | other complication, | | | | | | | | unspecified | | | | | | | | gastrointestinal | | | | | | | | tract location (HCC) | | | | | | | + + +---------+----+------+------+-------+ | cyanocobalamin | | | 0 | 05/0 | | Activ | | (VITAMIN B-12) 1,000 | | | | 6/20 | | e | | mcg/mL injection | | | | 20 | | | + + +---------+----+------+------+-------+ | potassium chloride | 2 times daily. | | 0 | 05/0 | | Activ | | (MICRO-K) 10 mEq CR | | | | 6/20 | | e | | capsule | | | | 20 | | | + + +---------+----+------+------+-------+ | [id number] 64 MG EC | 3 times daily. | | 0 | 05/0 | | Activ | | tablet | | | | 5/20 | | e | | | | | | 20 | | | + + +---------+----+------+------+-------+ | ondansetron | Take 4 mg by mouth | | 0 | | 06/1 | Disco | | (ZOFRAN) 4 mg tablet | every 8 hours as | | | | 9/20 | ntinu | | | needed. | | | | 20 | ed | + + +---------+----+------+------+-------+ | ELIQUIS 5 MG | | | 0 | 12/0 | 06/1 | Disco | | tablet | | | | 3/20 | 9/20 | ntinu | | | | | | 19 | 20 | ed | + + +---------+----+------+------+-------+ | cholestyramine | | | 0 | 12/0 | 06/1 | Disco | | (QUESTRAN) 4 g | | | | 4/20 | 9/20 | ntinu | | packet | | | | 19 | 20 | ed | + + +---------+----+------+------+-------+ Active Problems + + + | Problem | Noted Date | + + + | Incidental pulmonary nodule, greater than or equal to 8mm | 04/06/2019 | + + + | History of pulmonary embolism | 04/06/2019 | + + + | Attention to ileostomy | 03/15/2019 | + + + | Stricture of small intestine | 02/10/2019 | + + + | Chest pain | 10/12/2015 | + + + + + | Overview: Last Assessment & Plan: | | ER records reviewed. Will set patient up for a stress test. | + + + + + | Dental abscess | 07/02/2015 | + + + + + | Overview: Last Assessment & Plan: Have filled out paperwork | | for tooth extraction. I see no red flags for patient to proceed | | with this surgery. | + + + + + | Health care maintenance | 02/08/2015 | + + + + + | Overview: Last Assessment & Plan: Immunizations UTD after | | today. Have ordered mammogram. Patient to follow up in 6 months | | given chronic conditions, or sooner if other concerns arise. | + + + + + | Tobacco dependence | 02/08/2015 | + + + + + | Overview: Last Assessment & Plan: Doing well with chantix. | | Continue at higher dose and follow up in 1-2 months. | + + + + + | Dysphagia | 12/26/2013 | + + + | Crohn's disease | 12/22/2013 | + + + | GERD (gastroesophageal reflux disease) | 12/22/2013 | + + + | Tobacco use | 12/22/2013 | + + + | Regional enteritis of unspecified site | 12/22/2013 | + + + + + | Overview: ICD-10 Record update | + + + + + | Esophageal reflux | 12/22/2013 | + + + | Personal history of tobacco use, presenting hazards to health | 12/22/2013 | + + + | Dysmenorrhea | 08/10/2012 | + + + | Abnormal vaginal bleeding | 02/18/2012 | + + + | Asthma with COPD (chronic obstructive pulmonary disease) | 02/18/2012 | + + + | Crohn's disease of small and large intestines with complication | 02/18/2012 | + + + + + | Overview: Last Assessment & Plan: | | Patient to follow up with specialist | + + + + + | Iron deficiency anemia | 02/18/2012 | + + + | Bronchitis | 01/02/2012 | + + + Encounters +--------+ + + + + | Date | Type | Specialty | Care Team | Description | +--------+ + + + + | 09/07/ | Hospital | Radiology | Eron Hernandez MD | Malignant neoplasm | | 2020 | Encounter | | | of upper lobe, left | | | | | | bronchus or lung | | | | | | (HCC) | +--------+ + + + + | 09/01/ | Imaging | Radiology | Provider, | | | 2019 | Exam | | HistoricalMD | | +--------+ + + + + | 09/01/ | Imaging | Radiology | Provider, | | | 2019 | Exam | | MD Kulwinder | | +--------+ + + + + | 09/01/ | Imaging | Radiology | Provider, | | | 2019 | Exam | | MD Kulwinder | | +--------+ + + + + | 08/31/ | Imaging | Radiology | Provider, | | | 2019 | Exam | | MD Kulwinder | | +--------+ + + + + | 08/29/ | Telephone | Pulmonology | Kannan, | Results, Pathology | | 2019 | | | Anushka Shook, | | | | | | | | +--------+ + + + + | 08/24/ | Hospital | Internal Medicine | Kannan, | Incidental pulmonary | | 2019 - | Encounter | | Anushka Shook, | nodule, greater | | | | | Shoaib Muñoz | than or equal to 8mm | | 08/25/ | | | MD Delonte | | 2019 | | | Roosevelt Balderas | | | | | | MD [address], [facility] | | | | | | Rad Nurse | | | | | | Radiologist, [facility] [address] | | +--------+ + + + + | 08/21/ | Hospital | Radiology | Kannan, | Canceled (OTHER) | 2019 | Encounter | | Anushka Shook, | | | | | | Roosevelt Tavares | | | | | | MD [address], [facility] [place] [facility] | | | | | | Iker Keenan | | +--------+ + + + + | 08/18/ | Telephone | Radiology | Eboni Arreola, | | 2019 | | | RN | | +--------+ + + + + | 08/15/ | Telephone | Radiology | Hiwot Iqbal | | 2019 | | | JEAN-PIERRE Mo | | +--------+ + + + + | 08/15/ | Telephone | Pulmonology | Olivier Brunner Results | 2019 | | | Anushka Shook, | | | | | | | | +--------+ + + + + | 07/13/ | Virtual | Pulmonology | Kannan, | Incidental pulmonary | | 2020 | Office | | Anushka Shook, | nodule, greater | | | Visit | | MD | than or equal to 8mm | | | | | | (Primary Dx); | | | | | | Asthma with COPD | | | | | | (chronic obstructive | | | | | | pulmonary disease) | | | | | | ([facility]); Personal | | | | | | [...] complication | | | | | | ([facility]) | +--------+ + + + + from Last 3 Months Immunizations + + + + | Name | Administration Dates | Next Due | + + + + | INFLUENZA PF | 12/18/2018 | | | QUAD(PED/ADOL/ADULT) | | | | ,PSKT or VIAL | | | + + + + | INFLUENZA PF | 04/23/2016 | | | TRIVALENT(PED/ADOL/A | | | | DULT), PSKT | | | + + + + | INFLUENZA TRIV | 02/21/2015 | | | W/PRES(PED/ADOL/ADUL | | | | T),MULTIDOSE | | | + + + + | PNEUMOCOCCAL | 04/23/2016 | | | CONJUGATE 13-VALENT | | | | (PCV13) | | | + + + + | PNEUMOCOCCAL | 02/21/2015, 04/04/2011 | | | POLYSACCHARIDE | | | | 23-VALENT (PPSV23) | | | + + + + | TDAP, (ADOL/ADULT) | 02/21/2015 | | + + + + Family History + + +------+ + | Medical History | Relation | Name | Comments | + + +------+ + | No known problems | Father | | | + + +------+ + | No known problems | Maternal | | | | | Grandfath | | | | | er | | | + + +------+ + | Crohn's disease | Maternal | | | | | Grandmoth | | | | | er | | | + + +------+ + | Diabetes | Maternal | | | | | Grandmoth | | | | | er | | | + + +------+ + | Hypertension | Maternal | | | | | Grandmoth | | | | | er | | | + + +------+ + | Heart disease | Mother | | | + + +------+ + | Bipolar disorder | Other | | | + + +------+ + | Cancer | Paternal | | | | | Grandfath | | | | | er | | | + + +------+ + | No known problems | Paternal | | | | | Grandmoth | | | | | er | | | + + +------+ + + +------+ + + | Relation | Name | Status | Comments | + +------+ + + | Father | | | | + +------+ + + | Maternal Grandfather | | | | + +------+ + + | Maternal Grandmother | | | | + +------+ + + | Mother | | | | + +------+ + + | Other | | | Children | + +------+ + + | Paternal Grandfather | | | | + +------+ + + | Paternal Grandmother | | | | + +------+ + + Social History + + + [...] on file | | + + + Last Filed Vital Signs + + + + + | Vital Sign | Reading | Time Taken | Comments | + + + + + | Blood Pressure | 110/74 | 08/26/2019 4:24 PM | | | | | PDT | | + + + + + | Pulse | 83 | 08/26/2019 4:24 PM | | | | | PDT | | + + + + + | Temperature | 36.7 C (98 F) | 08/26/2019 4:24 PM | | | | | PDT | | + + + + + | Respiratory Rate | 18 | 08/26/2019 4:24 PM | | | | | PDT | | + + + + + | Oxygen Saturation | 95% | 08/26/2019 4:24 PM | | | | | PDT | | + + + + + | Inhaled Oxygen | - | - | | | Concentration | | | | + + + + + | Weight | 70.6 kg (155 lb 10.3 | 08/26/2019 4:12 AM | | | | oz) | PDT | | + + + + + | Height | 165.1 cm (5' 5") | 08/25/2019 6:04 PM | | | | | PDT | | + + + + + | Body Mass Index | 25.9 | 08/25/2019 6:04 PM | | | | | PDT | | + + + + + Plan of Treatment +--------+---------+ + + + [...] | | | | | | [place] [id number] | | | | | | [phone] | | | | | | | | +--------+---------+ + + + + + + + + | Health Maintenance | Due Date | Last | Comments | | | | Done | | + + + + + | Hepatitis C | | | | | Screening | 3 | | | + + + + + | Cervical Cancer | | | | | Screening (Pap) | 3 | | | + + + + + | Vaccine: Zoster (1 | | | | | of 2) | 3 | | | + + + + + | Breast Cancer | | | | | Screening | 8 | | | + + + + + | Vaccine: Influenza | | 12/19/19 | | | (#1) | 0 | 19, | | | | | 04/23/19 | | | | | 17, | | | | | 02/22/20 | | | | | 15 | | + + + + + | Colorectal Cancer | | 12/27/19 | | | Screening | 4 | 14, | | | (Colonoscopy) | | 12/27/19 | | | | | 14 | | + + + + + | Vaccine: | | 02/22/20 | | | Dtap/Tdap/Td (2 - | 5 | 15 | | | Td) | | | | + + + + + | Vaccine: | Completed | 04/23/19 | | | Pneumococcal 19-64 | | 17, | | | | | 02/22/20 | | | | | 15, | | | | | 04/04/19 | | | | | 12 | | + + + + + Procedures + +--------+ + + + | [...] +--------+ + + + | XR CHEST EXPIRATION | [facility] | 08/26/2019 | | Results for this | | ONLY | | 2:01 PM | | procedure are in the | | | | PDT | | results section. | + +--------+ + + + | XR CHEST EXPIRATION | [facility] | 08/26/2019 | | Results for this | | ONLY | | 9:44 AM | | procedure are in the | | | | PDT | | results section. | + +--------+ + + + | XR CHEST EXPIRATION | Routin | 08/26/2019 | | Results for this | | ONLY | e | 7:50 AM | | procedure are in the | | | | PDT | | results section. | + +--------+ + + + | XR CHEST EXPIRATION | Routin | 08/25/2019 | | Results for this | | ONLY | e | 8:29 PM | | procedure are in the | | | | PDT | | results section. | + +--------+ + + + | CT GUIDED CHEST TUBE | Routin | 08/25/2019 | | Results for this | | PLACEMENT | e | 3:35 PM | | procedure are in the | | | | PDT | | results section. | + +--------+ + + + | XR CHEST EXPIRATION | STAT | 08/25/2019 | | Results for this | | ONLY | | 12:43 PM | | procedure are in the | | | | PDT | | results section. | + +--------+ + + + | XR CHEST EXPIRATION | STAT | 08/25/2019 | | Results for this | | ONLY | | 11:08 AM | | procedure are in the | | | | PDT | | results section. | + +--------+ + + + | CT GUIDED BIOPSY | STAT | 08/25/2019 | Incidental | Results for this | | LUNG OR MEDIASTINUM | | 10:03 AM | pulmonary nodule, | procedure are in the | | | | PDT | greater than or | results section. | | | | | equal to 8mm | | + +--------+ + + + | SURGICAL PATHOLOGY | Routin | 08/25/2019 | | Results for this | | EXAM | e | 9:44 AM | | procedure are in the | | | | PDT | | results section. | + +--------+ + + + | PROTIME INR | STAT | 08/25/2019 | | Results for this | | | | 8:24 AM | | procedure are in the | | | | PDT | | results section. | + +--------+ + + + | CBC WITH | STAT | 08/25/2019 | | Results for this | | DIFFERENTIAL | | 8:11 AM | | procedure are in the | | | | PDT | | results section. | + +--------+ + + + | CT GUIDED BIOPSY | Routin | 08/25/2019 | | Results for this | | LUNG OR MEDIASTINUM | e | 12:00 AM | | procedure are in the | | | | PDT | | results section. | + +--------+ + + + | IMAGING REPORT - | | 08/15/2019 | | Results for this | | EXTERNAL SCAN | | 12:00 AM | | procedure are in the | | | | PDT | | results section. | + +--------+ + + + | CT CHEST WO CONTRAST | Routin | 08/15/2019 | | Results for this | | | e | 12:00 AM | | procedure are in the | | | | PDT | | results section. | + +--------+ + + + | XR CHEST 2 VIEWS | Routin | 08/11/2019 | | Results for this | | [...] section. | + +--------+ + + + from Last [address] Skull Base To Mid [...] Procedure Note | + + | Sidney, [id number] - 09/08/2019 2:34 PM PDT Exam: PET [...] | | | + +---------+ + + XR Chest Expiration Only (08/26/2019 2:01 PM PDT)Only the most recent of 6 results within the time period is included. + + | Specimen | + + | | + + + + + | Impressions | Performed At | + + + | 1. Stable 7 mm left apical pneumothorax post removal of the pigtail | [facility] | | catheter post left upper lobe lung nodule biopsy. Signed | | | by: Dilcia Huertas, Vj Sign Date/Time: 08/26/2019 2:37 PM | | + + + + + + | Narrative | Performed At | + + + | CHEST INSPIRATION OR EXPIRATION ONLY CLINICAL INFORMATION: | [facility] | | Post chest tube removal. COMPARISON: XR CHEST EXPIRATION ONLY | | | (08/26/2019); XR CHEST EXPIRATION ONLY (08/26/2019); XR CHEST | | | EXPIRATION ONLY (08/25/2019); FINDINGS: AP portable expiration | | | film at 1354 hours, compared with 0936 hours same day. Removal of | | | the pigtail catheter. Persistent 7 mm left apical pneumothorax. | | | Nodule in nodular infiltrate in the lateral left upper lobe again | | | noted. Perhaps minimal strandy atelectasis in the lateral left | | | costophrenic sulcus. Right lung is clear. Heart size is normal. | | + + + + + | Procedure Note | + + | Sidney, Rad Results In - 08/26/2019 2:40 PM PDT | | CHEST INSPIRATION OR EXPIRATION ONLY | | | | CLINICAL INFORMATION: | | Post chest tube removal. | | | | COMPARISON: | | XR CHEST EXPIRATION ONLY (08/26/2019); XR CHEST EXPIRATION ONLY | | (08/26/2019); XR CHEST EXPIRATION ONLY (08/25/2019); | | | | FINDINGS: | | AP portable expiration film at 1354 hours, compared with 0936 hours | | same day. | | | | Removal of the pigtail catheter. Persistent 7 mm left apical | | pneumothorax. Nodule in nodular infiltrate in the lateral left upper | | lobe again noted. Perhaps minimal strandy atelectasis in the lateral | | left costophrenic sulcus. Right lung is clear. Heart size is normal. | | | | IMPRESSION: | | 1. Stable 7 mm left apical pneumothorax post removal of the pigtail | | catheter post left upper lobe lung nodule biopsy. | | | | | | | | | | Signed by: Dilcia Huertas, Vj | | Sign Date/Time: 08/26/2019 2:37 PM | + + + +---------+ + + | Performing | Address | City/[facility] | Phone Number | | Organization | | | | + +---------+ + + | [facility] | | | | + +---------+ + + CT Guided Chest Tube Placement (08/25/2019 3:35 PM PDT) + + | Specimen | + + | | + + + + + | Impressions | Performed At | + + + | Successful CT-guided left chest tube placement. The patient's | [facility] | | chest tube should remain on wall suction overnight. A chest | | | radiograph be obtained on the morning of 08/26/2019. Signed | | | by: Dilcia Balderas, [place] Sign Date/Time: 08/25/2019 4:17 PM | | + + + + + + | Narrative | Performed At | + + + | CT GUIDED LEFT CHEST TUBE PLACEMENT CLINICAL INFORMATION: | [facility] | | Enlarging, symptomatic, post-biopsy left pneumothorax COMPARISON: | | | XR CHEST EXPIRATION ONLY (08/25/2019); XR CHEST EXPIRATION ONLY | | | (08/25/2019); CT GUIDED BIOPSY LUNG OR MEDIASTINUM (08/25/2019); | | | PROCEDURE: The risks, benefits and alternatives were discussed with | | | the patient; consent was obtained and placed in the patient's chart. | | | The risks included but were not limited to bleeding, infection, organ | | | injury, lung collapse and . The patient was then brought to | | | the procedure room and placed in the supine position where the chest | | | wall was sterilely prepped and draped in the usual fashion. Maximum | | | sterile barrier techniques taken and all staff present in the room | | | performed hand hygiene prior to the procedure. Local anesthetic was | | | administered. A small incision was then made with an 11 blade. An | | | 18 gauge Hawkin's needle was then utilized to puncture the pleural | | | cavity. A 0.035 wire was then positioned into the pleural space | | | through the catheter. Serial dilatation was performed to 10 [place]ian | | | and a 10 [place]ian locking pigtail catheter was then formed in the | | | pleural space and secured to the skin. Fluid was obtained and the | | | catheter was withdrawn after completing the drainage. There were no | | | immediate complications following the procedure. At least one of | | | the following CT dose optimization techniques were used: Automated | | | exposure control; Adjustment of mA and/or kV according to patient | | | size; Use of iterative reconstruction technique. FINDINGS: CT | | | demonstrated the pneumothorax. Post procedure imaging showed | | | complete resolution of the pneumothorax. | | + + + + + | Procedure Note | + + | Sidney, Rad Results In - 08/25/2019 4:20 PM PDT | | CT GUIDED LEFT CHEST TUBE PLACEMENT | | | | CLINICAL INFORMATION: | | Enlarging, symptomatic, post-biopsy left pneumothorax | | | | COMPARISON: | | XR CHEST EXPIRATION ONLY (08/25/2019); XR CHEST EXPIRATION ONLY | | (08/25/2019); CT GUIDED BIOPSY LUNG OR MEDIASTINUM (08/25/2019); | | | | PROCEDURE: | | The risks, benefits and alternatives were discussed with the patient; | | consent was obtained and placed in the patient's chart. The risks | | included but were not limited to bleeding, infection, organ injury, | | lung collapse and . | | | | The patient was then brought to the procedure room and placed in the | | supine position where the chest wall was sterilely prepped and draped | | in the usual fashion. Maximum sterile barrier techniques taken and all | | staff present in the room performed hand hygiene prior to the | | procedure. Local anesthetic was administered. A small incision was then | | made with an 11 blade. An 18 gauge Hawkin's needle was then utilized | | to puncture the pleural cavity. A 0.035 wire was then positioned into | | the pleural space through the catheter. Serial dilatation was performed | | to 10 [place]ian and a 10 [place]ian locking pigtail catheter was then formed | | in the pleural space and secured to the skin. | | | | Fluid was obtained and the catheter was withdrawn after completing the | | drainage. There were no immediate complications following the procedure. | | | | At least one of the following CT dose optimization techniques were | | used: Automated exposure control; Adjustment of mA and/or kV according | | to patient size; Use of iterative reconstruction technique. | | | | FINDINGS: | | CT demonstrated the pneumothorax. Post procedure imaging showed | | complete resolution of the pneumothorax. | | | | IMPRESSION: | | Successful CT-guided left chest tube placement. | | | | The patient's chest tube should remain on wall suction overnight. A | | chest radiograph be obtained on the morning of 08/26/2019. | | | | | | | | Signed by: Dilcia Balderas Matthew | | Sign Date/Time: 08/25/2019 4:17 PM | + + + +---------+ + + | Performing | Address | City/State/Zipcode | Phone Number | | Organization | | | | + +---------+ + + | [facility] | | | | + +---------+ + + CT Guided Biopsy Lung Or Mediastinum (08/25/2019 10:03 AM PDT)Only the most recent of 2 res ults within the time period is included. + + | Specimen | + + [...] | | | | | Signed by: Dilcia Balderas Matthew | | Sign Date/Time: 08/25/2019 11:18 AM | + + + +---------+ + + | Performing | Address | City/State[facility] | Phone Number | | Organization | | | | + +---------+ + + | [facility] | | | | + +---------+ + + Surgical Pathology Exam (08/25/2019 9:44 AM PDT) + + | Specimen | + + | Tissue - Entire | | upper lobe of left | | lung (body | | structure) | + + + + + | Narrative | Performed At | + + + | SPECIMEN(S): A | [facility] | | LEFT UPPER LOBE NODULE LUNG SPECIMEN SOURCE:A. LEFT UPPER LOBE NODULE | [facility] | | LUNG CLINICAL HISTORY:Left upper lobe nodule. 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 See comment. Results of | | | immunohistochemical stains reveal the following:- POSITIVE: TTF-1, | | | Napsin A, CK7.- NEGATIVE: P63. COMMENT:The results of | | | immunohistochemical stains are those of a primary pulmonary | | | adenocarcinoma. Control slides stained appropriately positive. Case | | | discussed with Dr. Merle Meng on 08/30/2019. As part of [facility] | [facility]' Quality Improvement Program, this case was reviewed by | | | another member of our pathology staff. TWK:DDF:emb:C1NR MICROSCOPIC | | | EXAMINATION:Histologic sections of all submitted blocks are examined | | | by light microscopy. These findings, together with the gross | | | examination, support the pathologic diagnosis. GROSS DESCRIPTION:The | | | specimen, labeled "RC, left upper lobe nodule," is received fresh for | | | intraprocedural consult and consists of five core fragments of | | | brown-prince tissue measuring up to 0.3 cm. Intraprocedural touchprep | | | was performed by Dr. Brunson to assess specimen adequacy. The results | | | were communicated to the radiologist as follows: Core #1: Appears | | | adequate The cores are inked blue and submitted in cassettes | | | (A1-A2).AC (under the direct supervision of a pathologist) The Gross | | | Description was prepared using a voice recognition system. The | | | report was reviewed for accuracy; however, sound-alike word errors, | | | addition and/or deletions may occur. If there is anyquestion about | | | this report, please contact Client Services. ADDITIONAL | | | NOTES:Immunohistochemical and/or in situ hybridization studies were | | | performed on this case with the appropriate positive controls that | | | react as expected. This test was developed and its | | | performancecharacteristics determined by [facility]. It has | | | not been cleared or approved by the U.S. Food and Drug Administration. | | | The FDA has determined that such clearance or approval is | | | notnecessary. This test is used for clinical purposes. It should | | | not be regarded as investigational or for research. [facility] | | [facility] is certified under the Clinical Laboratory | | | ImprovementAmendments of 1988 (CLIA) as qualified to perform high | | | complexity clinical laboratory testing. PERFORMING LABORATORY:The | | | technical component was performed by [facility], [address] [place] [address] | | | [place] [address] (Clarifier Operator: Judith Mcdonnell MD; CLIA# | | | [id number]).Professional interpretation was performed by [facility] | | | [facility], | | | [place] [address] (Clarifier Operator: Ben Tracey M.D.; CLIA#: | | | [id number]). Diagnostician: Rudy Brunson | | | MDPathologistElectronically Signed 08/30/2019 | | |The technical component was performed by [facility], [address] [place] [address] (Clarifier Operator: Judith Mcdonnell MD; CLIA# [id number]). | | |Professional interpretation was performed by [facility], [address] [address] (Clarifier Operator: Ben Tracey M.D.; CLIA#: [id number]). | | | | | |Diagnostician: Rudy Brunson MD | | |Pathologist | | |Electronically Signed 08/30/2019 | | | | | | | | + + + + +---------+ + + | Performing | Address | City/State/Zipcode | Phone Number | | Organization | | | | + +---------+ + + | [facility] | | | | | [facility] | | | | + +---------+ + + Protime INR (08/25/2019 8:24 AM PDT) + + + + + + | Component | Value | Ref Range | Performed | Pathologist | | | | | At | Signature | + + + + + + | INR | 1.0Comment: REFERENCE | | [facility] | | | | RANGE:0.9 - 1.2 | | LABORATORY | | | | NON-ANTICOAGULATED2.0 | | | | | | - 3.0 ALL OTHER | | | | | | THERAPEUTIC | | | | | | INDICATIONS2.5 - 3.5 | | | | | | MECHANICAL HEART VALVES, | | | | | | RECURRENT OR SYSTEMIC | | | | | | EMBOLISMTesting | | | | | | performed at [facility] | | | | | | [address];[place] | | | | | | [address] | | | | + + + + + + + + | Specimen | + + | Blood | + + + + + + + | Performing | Address | City/State/Zipcode | Phone Number | | Organization | | | | + + + + + | [facility] | [address] | [place] [address] | [phone] | + + + + + CBC with Differential (08/25/2019 8:11 AM PDT) + + + + + + | Component | Value | Ref Range | Performed | Pathologist | | | | | At | Signature | + + + + + + | WBC | 4.92 | 3.80 - 11.00 | [facility] | | | | | K/uL | LABORATORY | | + + + + + + | Red Blood | 3.78 | 3.70 - 5.10 | [facility] | | | Cells | | M/uL | LABORATORY | | + + + + + + | Hemoglobin | 12.7 | 11.3 - 15.5 | [facility] | | | | | g/dL | LABORATORY | | + + + + + + | Hematocrit | 36.9 | 34.0 - 46.0 % | [facility] | | | | | | LABORATORY | | + + + + + + | MCV | 97.6 | 80.0 - 100.0 fl | [facility] | | | | | | LABORATORY | | + + + + + + | MCH | 33.6 | 27.0 - 34.0 pg | [facility] | | | | | | LABORATORY | | + + + + + + | MCHC | 34.4 | 32.0 - 35.5 | [facility] | | | | | g/dL | LABORATORY | | + + + + + + | RDW-SD | 45.3 | 37 - 53 fl | [facility] | | | | | | LABORATORY | | + + + + + + | Platelet | 139 (L) | 150 - 400 K/uL | [facility] | | | Count | | | LABORATORY | | + + + + + + | MPV | 9.5Comment: NO NORMAL | fl | [facility] | | | | RANGE ESTABLISHED | | LABORATORY | | + + + + + + | Diff Type | AUTOMATED | | [facility] | | | | | | LABORATORY | | + + + + + + | % nRBC | 0.0 | 0 /100WBC | [facility] | | | | | | LABORATORY | | + + + + + + | % | 52.90 | % | [facility] | | | Neutrophils | | | LABORATORY | | + + + + + + | IMMATURE | 0.20 | % | [facility] | | | GRANULOCYTE | | | LABORATORY | | + + + + + + | % | 36.60 | % | [facility] | | | Lymphocytes | | | LABORATORY | | + + + + + + | Monocyte % | 8.30 | % | [facility] | | | | | | LABORATORY | | + + + + + + | Eosinophils | 1.40 | % | [facility] | | | % | | | LABORATORY | | + + + + + + | Basophils % | 0.60 | % | [facility] | | | | | | LABORATORY | | + + + + + + | Neutrophils | 2.60 | 1.90 - 7.40 | [facility] | | | , Absolute | | K/uL | LABORATORY | | + + + + + + | IMMATURE | 0.01Comment: NOTE NEW | 0.00 - 0.07 | [facility] | | | GRANS AB | REFERENCE RANGE | K/uL | LABORATORY | | + + + + + + | Absolute | 1.80 | 1.00 - 3.90 | [facility] | | | Lymphocytes | | K/uL | LABORATORY | | + + + + + + | Absolute | 0.41 | 0.00 - 0.80 | [facility] | | | Monocytes | | K/uL | LABORATORY | | + + + + + + | Eosinophils | 0.07 | 0.00 - 0.50 | [facility] | | | , Absolute | | K/uL | LABORATORY | | + + + + + + | Basophils, | 0.03Comment: Testing | 0.00 - 0.10 | [facility] | | | Absolute | performed at [facility] | K/uL | LABORATORY | | | | [address];[place], [place] | | | | | | [address] | | | | + + + + + + + + | Specimen | + + | Blood | + + + + + + + | Performing | Address | City/State/Zipcode | Phone Number | | Organization | | | | + + + + + | [facility] | [address] | [place] [address] | [phone] | + + + + + IMAGING REPORT - EXTERNAL SCAN (08/15/2019 12:00 AM PDT) + + + | Narrative | Performed At | + + + | Ordered by an | | | unspecified provider. | | + + + CT Chest wo Contrast (08/15/2019 12:00 AM PDT) + + | Specimen [...] | | | + +---------+ + + XR Chest 2 Vws (08/11/2019 12:00 AM PDT)Only the most recent of 2 results within the time rashad alexander is included. + + | Specimen | + + [...] | | | + +---------+ + + from Last 3 Months Insurance + +--------+ +--------+ +---------+--------+ | Payer | Benefi | Subscriber | Effect | Phone | Address | Type | | | t Plan | ID | jeronimo | | | | | | / | | Dates | | | | | | Group | | | | | | + +--------+ +--------+ +---------+--------+ | [employer] | [employer] | [id number] | 09/08/19 | [phone] | | Medica | | MEDICAID HMO | HEALTH | | 20-Pre | 1 | | id | | | MDCD | | sent | | | | | | [place] | | | | | | + +--------+ +--------+ +---------+--------+ | [employer] | [employer] | [id number] | 02/22/ | [phone] | | Medica | | MEDICAID HMO | HEALTH | | 2019-P | 1 | | id | | | MDCD | | resent | | | | | | [place] | | | | | | + +--------+ +--------+ +---------+--------+ + +--------+ +--------+ + + | Guarantor Name | Accoun | Relation to | Date | Phone | Billing Address | | | t Type | Patient | of | | | | | | | | | | + +--------+ +--------+ + + | Noy Pineda | Person | Self | [birth year] | [address] | | | al/Fam | | 1961 | [phone] | [place] [address] | | | [place] | | | 9 (Home) | | + +--------+ +--------+ + + | Noy Pineda | Person | Self | [birth year] | | [address] | | | al/Fam | | 1961 | [phone] | [place] [address] | | | [place] | | | 9 (Home) | | + +--------+ +--------+ + + Advance Directives + + + + + | Type | Date Recorded | Patient | Explanation | | | | Personal Vehicle Advisor | | + + + + + | Power of | | | | | Supervisor Instrument Maintenance | | | | + + + + + | Advance | 02/09/2014 10:39 | | | | Directive | AM | | | + + + + + + + + + + | Code Status | Date | Date | Comments | | | Activated | Inactivated | | + + + + + | Full Code | 08/25/2019 | 08/26/2019 | | | | 9:15 PM | 6:59 PM | | + + + + +
--- OUTSIDE RECORDS SUMMARY | ~2019-08-10 | XMS | Encounter Summary ---
Demographics + + + | Address | [address] | | | [place] [address] | + + + | Home Phone | | + + + | Preferred Language | Unknown | + + + | Marital Status | | + + + | Christian Affiliation | 1027 | + + + [...] Team Providers + +------+ + | Care Personal Property Assessor Name | Role | Phone | + +------+ + PCP | Unavailable | + +------+ + Encounter Details +--------+ + + + + | Date | Type | Department | Care Team | Description | +--------+ + + + + | 07/08/ | Hospital | [facility] | Fatemeh Louis MD | | | 2012 | Encounter | [facility]OSP[facility] GENER[facility] OP | [address] | | | | | CONVERSION | [address] [place] | | | | | [address] | [address] | | | | | [place] | | | | | | [place] | | | | | | [address] | | | | | | [phone] | | | +--------+ + + + [...] | | | | | | [place] [address] | | | | | | [phone] | | | | | | | | +--------+---------+ + + + documented as of this encounter Visit Diagnoses Not on filedocumented in this encounter"
--- OUTSIDE RECORDS SUMMARY | ~2019-08-10 | XMS | Encounter Summary ---
Demographics + + + | Address | [address] | | | [place] [address] | + + + | Home Phone | | + + + | Preferred Language | Unknown | + + + | Marital Status | | + + + | Amish Affiliation | 1027 | + + + | Race | Unknown | + + + | Ethnic Group | Unknown | + + + Author + + + | Author | [facility] | | | and [place] | + + + | Organization | [facility] | | | [...] Team Providers + +------+ + | Care Quality Control Technician Name | Role | Phone | + +------+ + PCP | Unavailable | + +------+ + Encounter Details +--------+ + + + + | Date | Type | Department | Care Team | Description | +--------+ + + + + | 11/10/ | Hospital | [facility] | [facility] | | | 2013 | Encounter | [facility] EMERGENCY | [address] | | | | | [address] | [address] [place] | | | | | [place] | [place] [address] | | | | | [address] | [phone] | | | | | [phone] | | | +--------+ + + + [...] | | | | | | [place], | | | | | | [place] [address] | | | | | | [phone] | | | | | | | | +--------+---------+ + + + documented as of this encounter Procedures + +--------+ + + + | Procedure Name | Priori | Date/Time | Associated Diagnosis | Comments | | | ty | | | | + +--------+ + + + | CBC W/AUTO | STAT | 11/10/2013 | | Results for this | | DIFFERENTIAL | | 9:49 PM | | procedure are in the | | | | PDT | | results section. | + +--------+ + + + | SEDIMENTATION RATE | STAT | 11/10/2013 | | Results for this | | | | 9:49 PM | | procedure are in the | | | | PDT | | results section. | + +--------+ + + + | LIPASE | STAT | 11/10/2013 | | Results for this | | | | 9:49 PM | | procedure are in the | | | | PDT | | results section. | + +--------+ + + + | COMPREHENSIVE | STAT | 11/10/2013 | | Results for this | | METABOLIC PANEL | | 9:49 PM | | procedure are in the | | | | PDT | | results section. | + +--------+ + + + documented in this encounter Results Sedimentation Rate (11/10/2013 9:49 PM PDT) + +-------+ + + + | Component | Value | Ref Range | Performed | Pathologist | | | | | At | Signature | + +-------+ + + + | Erythrocyte | 13 | <=30 mm/h | EXTERNAL | | | | | | LAB | | | Sedimentati | | | | | | on Rate | | | | | + +-------+ + + + + + | Specimen | + + | | + + + +---------+ + + | Performing | Address | City/State/Zipcode | Phone Number | | Organization | | | | + +---------+ + + | EXTERNAL LAB | | | | + +---------+ + + Lipase (11/10/2013 9:49 PM PDT) + +-------+ + + + | Component | Value | Ref Range | Performed | Pathologist | | | | | At | Signature | + +-------+ + + + | Lipase | 127 | 73 - 393 U/L | EXTERNAL [...] | | | + +---------+ + + CBC w/ Auto Differential (11/10/2013 9:49 PM PDT) + +-------+ + + + | Component | Value | Ref Range | Performed | Pathologist | | | | | At | Signature | + +-------+ + + + | WBC | 6.3 | 4.3 - 10.4 | EXTERNAL | | | | | 1000/mm3 | LAB | | + +-------+ + + + | RBC | 4.69 | 4.12 - 5.30 | EXTERNAL | | | | | mil/mm3 | LAB | | + +-------+ + + + | HGB, | 16 | 12.4 - 15.7 | EXTERNAL | | | External | | g/dL | LAB | | + +-------+ + + + | HCT, | 43.9 | 37.7 - 47.0 % | EXTERNAL | | | External | | | LAB | | + +-------+ + + + | MCV | 94 | 82 - 97 fl | EXTERNAL | | | | | | LAB | | + +-------+ + + + | MCH | 34.1 | 27.1 - 32.3 pg | EXTERNAL | | | | | | LAB | | + +-------+ + + + | MCHC | 36.4 | 32.0 - 36.9 | EXTERNAL | | | | | g/dL | LAB | | + +-------+ + + + | RDW-CV | 13.3 | <=17.0 % | EXTERNAL | | | | | | LAB | | + +-------+ + + + | RDW-SD | 44.2 | 34.0 - 57.0 fL | EXTERNAL | | | | | | LAB | | + +-------+ + + + | Platelet | 154 | 150 - 450 | EXTERNAL | | | Count | | 1000/mm3 | LAB | | | Plasma | | | | | + +-------+ + + + | MPV | 9.8 | 9.4 - 12.3 FL | EXTERNAL | | | | | | LAB | | + +-------+ + + + | % Segmented | 62.5 | 42.0 - 76.0 % | EXTERNAL | | | | | | LAB | | | Neutrophils | | | | | + +-------+ + + + | % | 27.2 | 29.0 - 49.0 % | EXTERNAL | | | Lymphocytes | | | LAB | | + +-------+ + + + | % Monocytes | 8.8 | 3.0 - 13.0 % | EXTERNAL | | | | | | LAB | | + +-------+ + + + | % | 1.3 | 0.0 - 7.0 % | EXTERNAL | | | Eosinophils | | | LAB | | + +-------+ + + + | % Basophils | 0.2 | 0.0 - 2.0 % | EXTERNAL | | | | | | LAB | | + +-------+ + + + | Absolute | 3.93 | 2.50 - 8.50 | EXTERNAL | | | Neutrophils | | 1000/mm3 | LAB | | + +-------+ + + + | Absolute | 1.71 | 1.00 - 3.80 | EXTERNAL | | | Lymphocytes | | 1000/mm3 | LAB | | + +-------+ + + + | Absolute | 0.55 | 0.00 - 0.80 | EXTERNAL | | | Monocytes | | 1000/mm3 | LAB | | + +-------+ + + + | Absolute | 0.08 | 0.00 - 0.70 | EXTERNAL | | | Eosinophils | | 1000/mm3 | LAB | | + +-------+ + + + | Absolute | 0.01 | 0.00 - 0.20 | EXTERNAL | | | Basophils | | 1000/mm3 | LAB | | + +-------+ + + + | SLIDE | NO | | EXTERNAL | | | REVIEWED | | | LAB | | + +-------+ + + + + + | Specimen | + + | | + + + +---------+ + + | Performing | Address | City/State/Zipcode | Phone Number | | Organization | | | | + +---------+ + + | EXTERNAL LAB | | | | + +---------+ + + Comprehensive Metabolic Panel (11/10/2013 9:49 PM PDT) + +-------+ + + + | Component | Value | Ref Range | Performed | Pathologist | | | | | At | Signature | + +-------+ + + + | Sodium | 137 | 132 - 143 | EXTERNAL | | | | | mmol/L | LAB | | + +-------+ + + + | Potassium | 4 | 3.3 - 4.9 | EXTERNAL | | | | | mmol/L | LAB | | + +-------+ + + + | Cl | 104 | 95 - 108 mmol/L | EXTERNAL | | | | | | LAB | | + +-------+ + + + | CO2 | 28 | 23 - 34 mmol/L | EXTERNAL | | | | | | LAB | | + +-------+ + + + | Anion Gap | 5 | 7 - 16 | EXTERNAL | | | | | | LAB | | + +-------+ + + + | Calcium | 10.6 | 8.3 - 10.0 | EXTERNAL | | | | | mg/dL | LAB | | + +-------+ + + + | Glucose | 100 | 70 - 110 mg/dL | EXTERNAL | | | | | | LAB | | + +-------+ + + + | BUN, Bld | 6 | 5 - 26 mg/dL | EXTERNAL | | | | | | LAB | | + +-------+ + + + | Creatinine | 0.8 | 0.6 - 1.3 mg/dL | EXTERNAL | | | | | | LAB | | + +-------+ + + + | BUN/Creatin | 7.5 | 7.0 - 24.0 | EXTERNAL | | | ine Ratio | | RATIO | LAB | | + +-------+ + + + | GFR | 60 | >=60 | EXTERNAL | | | ESTIMATE | | mL/min/1.73m2 | LAB | | | (REF) | | | | | + +-------+ + + + | Bilirubin, | 0.4 | <=1.2 mg/dL | EXTERNAL | | | Total | | | LAB | | + +-------+ + + + | Protein, | 7.5 | 6.6 - 8.5 g/dL | EXTERNAL | | | Total | | | LAB | | + +-------+ + + + | Albumin | 4 | 3.0 - 4.5 g/dL | EXTERNAL | | | | | | LAB | | + +-------+ + + + | Alkaline | 203 | 33 - 151 U/L | EXTERNAL | | | Phosphatase | | | LAB | | + +-------+ + + + | ALT, | 30 | 14 - 59 U/L | EXTERNAL | | | External | | | LAB | | + +-------+ + + + | AST, | 17 | <=38 U/L | EXTERNAL | | [...]
--- OUTSIDE RECORDS SUMMARY | ~2019-08-10 | XMS | Encounter Summary ---
Demographics + + + | Address | [address] | | | [place] [address] | + + + | Home Phone | | + + + | Preferred Language | Unknown | + + + | Marital Status | | + + + | Restorationist Affiliation | 1027 | + + + [...] Team Providers + +------+ + | Care Cashier Payments Received Name | Role | Phone | + +------+ + | Shanthi Nelson MD | PCP | | + +------+ + Reason for Visit +---------+--------+ + | Reason | Onset | Comments | | | Date | | +---------+--------+ + | Results | 03/20/ | lab | | | 2014 | | +---------+--------+ + Encounter Details +--------+ + + + + | Date | Type | Department | Care Team | Description | +--------+ + + + + | 03/20/ | Telephone | [facility] [place] | [facility], | Results (lab) | | 2014 | | GASTROENTEROLOGY | [address] | | | | | [address] [place] | [address] | | | | | [address] [place], [place] | [place], [place] | | | | | [address] | [address] | | | | | [phone] | | | +--------+ + + + [...] this encounter Miscellaneous Notes Telephone Encounter - Sunil Puente Master of Arts - 03/21/2014 8:56 AM PSTTried lelo ling again, can't get through. Will send a letter. elephone Encounter - Sunil Puente Master of Arts - 03/20/2014 4:55 PM PSTTried to call again, could not get through.Electronically s igned by Master Liu of Arts at 03/20/2014 4:56 PM PSTTelephone Encounter - Sunil Perdomo Master of Arts - 03/20/2014 2:50 PM PSTTried calling patient with result s. Could not get through. Will try later. elephone Encounter - Sunil Puente Master of Arts - 03/20/2014 2:49 PM PSTMessage copied by SUNIL PUENTE on ThuMar 20, 2014 6589 ------ Message from: FRANCISCO AREVALO Created: ThuMar 20, 2014 1240 Please call and advise inflammatory markers are within normal limits. Continued medic ation as prescribed. documented in this encounter Plan of Treatment [...] | | | | | | [place] [address] | | | | | | [phone] | | | | | | | | +--------+---------+ + + + documented as of this encounter Visit Diagnoses Not on filedocumented in this encounter"
--- OUTSIDE RECORDS SUMMARY | ~2019-08-10 | XMS | Encounter Summary ---
Demographics + + + | Address | [address] | | | [place] [address] | + + + | Home Phone [...] + + | Author | [facility] | | | and [place] | + + + | Organization | [facility] | | | [...] Team Providers + +------+ + | Care Applications Architect Name | Role | Phone | + +------+ + PCP | Unavailable | + +------+ + Encounter Details +--------+ + + + + | Date | Type | Department | Care Team | Description | +--------+ + + + + | 08/05/ | Hospital | [facility] | Andrea Reese | | | 2012 | Encounter | [facility] INFUSION | [address] | | | | | [address] | [address] [place] | | | | | [address] [place] | [place] | | | | | [address] | [address] | | | | | [phone] | [phone] | | | | | | | [...] [place], | | | | | | [place] [address] | | | | | | [phone] | | | | | | | | +--------+---------+ + + + documented as of this encounter Visit Diagnoses Not on filedocumented in this encounter"
--- OUTSIDE RECORDS SUMMARY | ~2019-08-10 | XMS | Encounter Summary ---
Demographics + + + | Address | [address] | | | [place] [address] | + + + | Home Phone | | + + + | Preferred Language | Unknown | + + + | Marital Status | | + + + | Rastafarian Affiliation | 1027 | + + + | Race | Unknown | + + + | Ethnic Group | Unknown | + + + Author + + + | Author | [facility] | | | and [place] | + + + | Organization | [facility] | | | [...] Team Providers + +------+ + | Care Fuel Efficient Aircraft Designer Name | Role | Phone | + +------+ + | Shanthi Nelson MD | PCP | | + +------+ + Encounter Details +--------+ + + + + | Date | Type | Department | Care Team | Description | +--------+ + + + + | 01/25/ | Hospital | [facility] | [facility], | Crohn's disease, | | 2013 | Encounter | [facility] | [address] | other complication | | | | [address] [place] | [address] [place] [address] | ([facility]) (Primary Dx) | | | | [place] | [place] | | | | | [address] | [id number] | | | | | [phone] | | | +--------+ + + + [...] | | | | | | [place] [address] | | | | | | [phone] | | | | | | | | +--------+---------+ + + + documented as of this encounter Procedures + +--------+ + + + | Procedure Name | Priori | Date/Time | Associated Diagnosis | Comments | | | ty | | | | + +--------+ + + + | LACTOFERRIN, FECAL, | Routin | 01/25/2014 | Crohn's disease, | Results for this | | QUAL | e | 10:21 AM | other complication | procedure are in the | | | | PST | ([facility]) | results section. | + +--------+ + + + | CAMPYLOBACTER | Routin | 01/25/2014 | Crohn's disease, | Results for this | | AG,QUAL | e | 10:18 AM | other complication | procedure are in the | | | | PST | ([facility]) | results section. | + +--------+ + + + | CULTURE, STOOL | Routin | 01/25/2014 | Crohn's disease, | Results for this | | RESULT | e | 10:18 AM | other complication | procedure are in the | | | | PST | ([facility]) | results section. | + +--------+ + + + | CALPROTECTIN, STOOL | Routin | 01/25/2014 | Crohn's disease, | Results for this | | | e | 10:18 AM | other complication | procedure are in the | | | | PST | ([facility]) | results section. | + +--------+ + + + | SHIGATOXIN 1 AND 2 | Routin | 01/25/2014 | Crohn's disease, | Results for this | | | e | 10:18 AM | other complication | procedure are in the | | | | PST | ([facility]) | results section. | + +--------+ + + + | OVA AND PARASITE | Routin | 01/25/2014 | Crohn's disease, | Results for this | | EXAMINATION | e | 10:18 AM | other complication | procedure are in the | | | | PST | ([facility]) | results section. | + +--------+ + + + | GIARDIA AG, EIA, | Routin | 01/25/2014 | Crohn's disease, | Results for this | | STOOL | e | 10:18 AM | other complication | procedure are in the | | | | PST | ([facility]) | results section. | + +--------+ + + + | CLOSTRIDIUM | Routin | 01/25/2014 | Crohn's disease, | Results for this | | DIFFICILE A AND B | e | 10:18 AM | other complication | procedure are in the | | EIA | | PST | ([facility]) | results section. | + +--------+ + + + | CULTURE, STOOL | Routin | 01/25/2014 | Crohn's disease, | Results for this | | | e | 10:18 AM | other complication | procedure are in the | | | | PST | ([facility]) | results section. | + +--------+ + + + documented in this encounter Results Lactoferrin, Fecal, Qual (01/25/2014 10:21 AM PST) + + + + + + | Component | Value | Ref Range | Performed | Pathologist | | | | | At | Signature | + + + + + + | Lactoferrin | Positive (A) | Negative | [facility] | | | , Qual | | | [facility] | | | | | | MEDICAL | | | | | | CENTER - | | | | | | LABORATORY | | + + + + + + + + | Specimen | + + | Stool - Stool | | specimen (specimen) | + + + + + + + | Performing | Address | City/State/Zipcode | Phone Number | | Organization | | | | + + + + + | [facility] | [address] | [place] | [phone] | | [facility] | | [address] | | | - LABORATORY | | | | + + + + + | [facility] | [address] | [place], [place] | | | [facility] | | [address], [facility] | | | - LABORATORY | | | | + + + + + Campylobactor AndersQual (01/25/2014 10:18 AM PST) + + + + + + | Component | Value | Ref Range | Performed | Pathologist | | | | | At | Signature | + + + + + + | Campylobact | Negative | | [facility] | | | er AG, Qual | | | [facility] | | | | | | MEDICAL | | | | | | CENTER - | | | | | | LABORATORY | | + + + + + + + + | Specimen | + + | Stool - Stool | | specimen (specimen) | + + + + + + + | Performing | Address | City/State/Zipcode | Phone Number | | Organization | | | | + + + + + | [facility] | [address] | [place] | [phone] | | [facility] | | [address] | | | - LABORATORY | | | | + + + + + | [facility] | [address] | [place], [place] | | | [facility] | | [address], [facility] | | | - LABORATORY | | | | + + + + + Culture, Stool Result (01/25/2014 10:18 AM PST) + + + + + + | Component | Value | Ref Range | Performed | Pathologist | | | | | At | Signature | + + + + + + | Culture | No Salmonella, Shigella, | | [facility] | | | | Aeromonas, Pleisiomonas | | [facility] | | | | or Yersinia isolated | | MEDICAL | | | | | | CENTER - | | | | | | LABORATORY | | + + + + + + | Culture | 4+ Usual FloraComment: | | [facility] | | | | Consistent with usual | | [facility] | | | | enteric javi. | | MEDICAL | | | | | | CENTER - | | | | | | LABORATORY | | + + + + + + + + | Specimen | + + | Stool - Stool | | specimen (specimen) | + + + + + + + | Performing | Address | City/State/Zipcode | Phone Number | | Organization | | | | + + + + + | [facility] | [address] | [place] | [phone] | | [facility] | | [address] | | | - LABORATORY | | | | + + + + + | [facility] | [address] | [place] | | | [facility] | | [address] | | | - LABORATORY | | | | + + + + + Shigatoxin 1 and 2 (01/25/2014 10:18 AM PST) + + + + + + | Component | Value | Ref Range | Performed | Pathologist | | | | | At | Signature | + + + + + + | Shigatoxin | Negative | Negative | [facility] | | | 1 | | | [facility] | | | | | | MEDICAL | | | | | | CENTER - | | | | | | LABORATORY | | + + + + + + | Shigatoxin | Negative | Negative | [facility] | | | 2 | | | [facility] | | | | | | MEDICAL | | | | | | CENTER - | | | | | | LABORATORY | | + + + + + + + + | Specimen | + + | Stool - Stool | | specimen (specimen) | + + + + + + + | Performing | Address | City/State/Zipcode | Phone Number | | Organization | | | | + + + + + | [facility] | [address] | [place], [place] | [phone] | | [facility] | | [address] | | | - LABORATORY | | | | + + + + + | [facility] | [address] | [place], [place] | | | [facility] | | [address], [facility] | | | - LABORATORY | | | | + + + + + Calprotectin, Stool (01/25/2014 10:18 AM PST) + + + + + + | Component | Value | Ref Range | Performed | Pathologist | | | | | At | Signature | + + + + + + | CALPROTECTI | 70 (H)Comment: | <51 ug/g | [facility] | | | N FECAL | Interpretive | | [facility] | | | | Information: | | | | | | Calprotectin, Fecal50 | | | | | | ug/g or less: | | | | | | Dkuyae18-852 ug/g: | | | | | | Borderline | | | | | | elevated, test should be | | | | | | re-evaluatedin 4-6 | | | | | | weeks.121 ug/g or | | | | | | greater: Abnormal, | | | | | | suggestive of | | | | | | inflammatory | | | | | | boweldisease | | | | | | (IBD).Testing Performed: | | | | | | [facility], [address], | | | | | | [place] [address] | | | | + + + + + + + + | Specimen | + + | Stool specimen | | (specimen) | + + + + + + + | Performing | Address | City/State/Zipcode | Phone Number | | Organization | | | | + + + + + | [facility] | [address] | [place] [address] | [phone] | + + + + + Ova and Parasite Examination (01/25/2014 10:18 AM PST) + + + + + + | Component | Value | Ref Range | Performed | Pathologist | | | | | At | Signature | + + + + + + | O/P IDENT | See CommentsComment: | | [facility] | | | | Accession No. | | [facility] | | | | | | | | | | [id number] | | | | | | Source | | | | | | StoolResult | | | | | | | | | | | | No Ova or | | | | | | Parasites seen | | | | | | | | | | | | This test | | | | | | will not detect | | | | | | Cyclospora, | | | | | | | | | | | | | | | | | | Cryptosporidium or | | | | | | Isospora. For | | | | | | | | | | | | those | | | | | | organisms refer to | | | | | | Coccidia | | | | | | | | | | | | Stain (test | | | | | | code CRYSM). | | | | + + + + + + | O/P REPORT | Report Status | | [facility] | | | STAT | Final | | [facility] | | | | 01/26/2014Comment: | | | | | | Testing Performed: | | | | | | [facility] | | | | | | [facility], [address] | | | | | | [place] [address] | | | | + + + + + + + + | Specimen | + + | Stool specimen | | (specimen) - Stool | + + + + + | Narrative | Performed At | + + + | Source: >stool | [facility] | | | [facility] | + + + + + + + + | Performing | Address | City/State/Zipcode | Phone Number | | Organization | | | | + + + + + | [facility] | [address] | [place] [address] | [phone] | + + + + + Giardia Ag, EIA, Stool (01/25/2014 10:18 AM PST) + + + + + + | Component | Value | Ref Range | Performed | Pathologist | | | | | At | Signature | + + + + + + | Giardia | Negative | Negative | [facility] | | | Antigen, | | | [facility] | | | Stool | | | MEDICAL | | | | | | CENTER - | | | | | | LABORATORY | | + + + + + + + + | Specimen | + + | Stool - Stool | | specimen (specimen) | + + + + + + + | Performing | Address | City/State/Zipcode | Phone Number | | Organization | | | | + + + + + | [facility] | [address] | [place] | [phone] | | [facility] | | [address] | | | - LABORATORY | | | | + + + + + | [facility] | [address] | [place], [place] | | | [facility] | | [address] | | | - LABORATORY | | | | + + + + + Clostridium difficile A and B EIA (01/25/2014 10:18 AM PST) + + + + + + | Component | Value | Ref Range | Performed | Pathologist | | | | | At | Signature | + + + + + + | Clostridium | Negative | Negative | [facility] | | | Diff | | | [facility] | | | | | | MEDICAL | | | | | | CENTER - | | | | | | LABORATORY | | + + + + + + + + | Specimen | + + | Stool - Stool | | specimen (specimen) | + + + + + | Narrative | Performed At | + + + | Test not recommended for infants less than 2 years of age due to | [facility] | | high asymptomatic carriage. | [facility] | | | MEDICAL CENTER | | | - LABORATORY | + + + + + + + + | Performing | Address | City/State/Zipcode | Phone Number | | Organization | | | | + + + + + | [facility] | [address] | [place], [place] | [phone] | | [facility] | | [address] | | | - LABORATORY | | | | + + + + + | [facility] | [address] | [place], [place] | | | [facility] | | [address] [place] [address] | | | - LABORATORY | | | | + + + + + documented in this encounter Visit Diagnoses + + | Diagnosis | + + | Crohn's disease, other complication - Primary | + + documented in this encounter"
--- OUTSIDE RECORDS SUMMARY | ~2019-08-10 | XMS | Encounter Summary ---
Demographics + + + | Address | [address] | | | [place] [address] | + + + | Home Phone | | + + + | Preferred Language | Unknown | + + + | Marital Status | | + + + | Cheondoism Affiliation | 1027 | + + + | Race | Unknown | + + + | Ethnic Group | Unknown | + + + Author + + + | Author | [facility] | | | and [place] | + + + | Organization | [facility] | | | [...] Team Providers + +------+ + | Care Streetcar Operator Name | Role | Phone | + +------+ + PCP | Unavailable | + +------+ + Encounter Details +--------+ + + + + | Date | Type | Department | Care Team | Description | +--------+ + + + + | 01/01/ | [facility] | [facility] | Conversion | | | 2011 | Encounter | [facility] | Transaction, | | | | | [facility] | Provider Unknown | | | | | [address] [facility], | | | | | | [place] [address] | (Fax) | | | | | [phone] | | | +--------+ + + + [...] Description | +--------+---------+ + + + | 08/26/ | Office | Pulmonology | Kannan, | | | 2019 | Visit | | Anushka Shook, | | | | | | MD [address] | | | | | | [place], | | | | | | [place] [address] | | | | | | [phone] | | | | | | | | +--------+---------+ + + + documented as of this encounter Visit Diagnoses Not on filedocumented in this encounter"
--- OUTSIDE RECORDS SUMMARY | ~2019-08-10 | XMS | Encounter Summary ---
Demographics + + + | Address | [address] | | | [place] [address] | + + + | Home Phone | | + + + | Preferred Language | Unknown | + + + | Marital Status | | + + + | Methodist Affiliation | 1027 | + + + | Race | Unknown | + + + | Ethnic Group | Unknown | + + + Author + + + | Author | [facility] | | | and [place] | + + + | Organization | [facility] | | | and [place] | + + + | Address | Unknown | + + + | Phone | Unavailable | + + + Support + + +---------+ + | Name | Relationship | Address | Phone | + + +---------+ + | Bagn Pineda | ECON | Unknown | | + + +---------+ + Care Team Providers + +------+ + | Care Plan Coordinator Name | Role | Phone | + +------+ + | Shanthi Nelson MD | PCP | | + +------+ + Reason for Visit +--------+--------+ + | Reason | Onset | Comments | | | Date | | +--------+--------+ + | Other | 07/18/ | | | | 2014 | | +--------+--------+ + Encounter Details +--------+ + + + + | Date | Type | Department | Care Team | Description | +--------+ + + + + | 07/18/ | Telephone | [facility] [place] | [place], | Other | | 2014 | | GASTROENTEROLOGY | [address] | | | | | [address] | [address] [place] | | | | | [address] [place], [place] | [place], [place] | | | | | [address] | [address] | | | | | [phone] | | | +--------+ + + + [...] Telephone Encounter - Kaylah Puente Master of [employer] - [facility]18[facility]2014 [facility]. Told them patient needs to be seen in office. She was a no show for last apt on 06/05/14. The apt was for review of medica tions. d ocumented in this encounter Plan of Treatment +--------+---------+ [...] [place], | | | | | | [place] [address] | | | | | | [phone] | | | | | | | | +--------+---------+ + + + documented as of this encounter Visit Diagnoses Not on filedocumented in this encounter"
--- OUTSIDE RECORDS SUMMARY | ~2019-08-10 | XMS | Encounter Summary ---
Demographics + + + | Address | [address] | | | [place] [address] | + + + | Home Phone [...] Team Providers + +------+ + | Care Mold Making Supervisor Name | Role | Phone | + +------+ + | Shanthi Nelson MD | PCP | | + +------+ + Reason for Referral Evaluate & Treat (Routine) +--------+ + + + + + | Status | Reason | Specialty | Diagnoses / | Referred By | Referred To | | | | | Procedures | Contact | Contact | +--------+ + + + + + | Closed | Specialty | Gastroenterol | Diagnoses | | Tre, | | | Services | ogy | Crohn's | Anthony, | Karan Ragsdale MD | | | Required | | disease, | [place], | [address] | | | | | other | TEAM [address] | [address] | | | | | complication | [address] | [address] [place] | | | | | GERD | [address] | [place], [place] | | | | | (gastroesoph | [place], | [address] Phone: | | | | | ageal reflux | [place] [address] | [phone] | | | | | disease) | Phone: | Fax: | | | | | Tobacco use | [phone] | [phone] | | | | | Procedures | Fax: | | | | | | [place] | [phone] | | | | | | ESOPHAGOGAST | | | | | | | RODUODENOSCO | | | | | | | PY TRANSORAL | | | | | | | DIAGNOSTIC | | | | | | | [place] EDG | | | | | | | TRANSORAL | | | | | | | BIOPSY | | | | | | | SINGLE/MULTI | | | | | | | PLE [place] | | | | | | | COLONOSCOPY, | | | | | | | DIAGNOSTIC | | | | | | | OK | | | | | | | COLONOSCOPY, | | | | | | | BIOPSY [place] | | | | | | | COLONOSCOPY, | | | | | | | REMV | | | | | | | LESN,SNARE | | | +--------+ + + + + + Reason for Visit +--------+ + | Reason | Comments | +--------+ + | Other | crohn's | +--------+ + Evaluate & Treat (Routine) +--------+--------+ + + + + | Status | Reason | Specialty | Diagnoses / | Referred By | Referred To | | | | | Procedures | Contact | Contact | +--------+--------+ + + + + | Closed | | Nurse | Diagnoses | Montee, | Anthony, | | | | Practitioner | Regional | Shanthi Romeo MD | [place], | | | | / | enteritis of | [address] | [address] | | | | Gastroenterol | unspecified | [address], | [address] | | | | ogy | site | [place] [address] | [address] | | | | | Crohns/pt/mo | Phone: | ADELINA SAHU, | | | | | da/yvette/ | [phone] | [place] [address] | | | | | Adán Raza in | Fax: | Phone: | | | | | loren | [phone] | [phone] | | | | | GI | | Fax: | | | | | Procedures | | [phone] | | | | | NEW PATIENT | | | +--------+--------+ + + + + Encounter Details +--------+---------+ + + + | Date | Type | Department | Care Team | Description | +--------+---------+ + + + | 12/13/ | Office | [facility] [place] | [place], | Crohn's disease, | | 2013 | Visit | GASTROENTEROLOGY | BREN Birch [address] | other complication | | | | [address] | [address] | (HCC) (Primary Dx); | | | | [address] [place], [place] | [place], [place] | GERD | | | | [address] | [address] | (gastroesophageal | | | | [phone] | | reflux disease); | | | | | | Tobacco use | +--------+---------+ + + + Social History [...] + | Tobacco Cessation: Ready to Quit: No; Counseling Given: Yes | + + + [...] + + + | Blood Pressure | 140/82 | 12/13/2013 9:25 AM | | | | | PDT | | + + + + + | Pulse | 72 | 12/13/2013 9:25 AM | | | | | PDT | | + + + + + | Temperature | 36.2 C (97.1 F) | 12/13/2013 9:25 AM | | | | | PDT | | + + + + + | Respiratory Rate | 16 | 12/13/2013 9:25 AM | | | | | PDT | | + + + + + | Oxygen Saturation | - | - | | + + + + + | Inhaled Oxygen | - | - | | | Concentration | | | | + + + + + | Weight | 91.6 kg (202 lb) | 12/13/2013 9:25 AM | | | | | PDT | | + + + + + | Height | 166.4 cm (5' 5.5") | 12/13/2013 9:25 AM | | | | | PDT | | + + + + + | Body Mass Index | 33.1 | 12/13/2013 9:25 AM | | | | | PDT | | + + + + + documented in this encounter Progress Notes Queta CruzBREN - 12/13/2013 9:38 AM PDTFormatting of this note might be differe nt from the original. Noy Pineda is a 53 y.o. female referred by Shanthi Nelson for evaluation and treatment of Crohn's disease. History of present illness: Patient was diagnosed with Crohn's disease about 20 years ago. She has been treated with Prednisone and was on Asacol. She stopped Asacol about 5 years ag o due to cost. Was recently placed on Prednisone 40 mg daily for 2 weeks prior to starting t o Asacol 800 mg bid due to recent symptoms. States that her "attacks" in the past were due to food getting stuck in the junction of sma ll and large intestines. This "flare" has been causing intermittent pain to low back. When " food is stuck" she states that her back vibrates and cramping sensation that is painful. Com plains of diarrhea all the time. Has about 5-10 BM daily. Has history of small bowel stricture not requiring surgery. Complains of increased joint pains and mouths sores behind front teeth. Denies rashes. Notes dysphagia. Has started choking on pills, food, and liquids. Feels like food and liqui ds get stuck in upper esophagus. Got severely anemic prior to hysterectomy in 08/2012. Denies further problems with anemia s blaze hysterectomy. Last colonoscopy was about 3 years ago in [place]. Notes some increased acid reflux. Reflux has worsened recently since "flare". No Known Allergies Past Medical History Diagnosis Date Crohn disease (HCC) 1991 GERD (gastroesophageal reflux disease) Seasonal allergies Restless legs syndrome (RLS) Iron deficiency anemia secondary to blood loss (chronic) Excessive or frequent menstruation Anxiety Past Surgical History Procedure Date Tonsillectomy Cholecystectomy 1998 Dilation and curettage of uterus 09/2011 Adenoidectomy Hysterectomy, total abdominal 08/17/2012 Bladder suspension 08/17/2012 Family History Problem Relation Age of Onset Cancer Paternal Grandfather Diabetes Maternal Grandmother Hypertension Maternal Grandmother Crohn's disease Maternal Grandmother Bipolar disorder Other children History Social History Marital Status: Spouse Name: N/A Number of Children: N/A Years of Education: N/A Occupational History Not on file. Social History Main Topics Smoking status: Current Every Day Smoker Types: Cigarettes Smokeless tobacco: Never Used Alcohol Use: No Drug Use: No Sexually Active: Not on file Other Topics Concern Not on file Social History Narrative No narrative on file Review of systems: Constitutional:Denies any fevers, chills, or unintentional weight loss. Eyes:Denies using glaucoma eye drops. Denies dry, burning, painful eyes Respiratory: Complains of constant coughing, wheezing, and shortness of breath. Gastrointestinal: Complains of diarrhea, bloody stools, nausea and vomiting, hemorrhoids, h eartburn, abdominal pain, and dysphagia. Denies constipation or hematemesis. Skin: Denies rashes Neurological: Complains of memory difficulties, numbness and tingling, muscle weakness, and frequent bothersome headaches. Denies paralysis or seizures. ENT: Complains of hearing loss, ringing in buzzing in ears, and hayfever. Denies the use o f hearing aids, constantly runny nose, nasal obstruction, dentures, or hoarseness for greate r than one month. Cardiovascular: Complains of bothersome ankle swelling. Denies chest pain pressure or hear t palpitations. : Complains of frequent nocturnal urination. Musculoskeletal:Denies swollen joints, painful back, or painful joints. Psychiatric:Denies depression and anxiety Endocrine:Denies enlarged thyroid Heme/lymph: Complains of anemia. Denies much lymph glands. Physical exam: General: well developed, well nourished, in no acute distress. Head: normocephalic and atraumatic Eyes: Sclera clear Mouth: MMM Lungs: Clear to auscultate bilaterally and throughout Heart: regular rate and rhythm Abdomen: Soft, diffusely tender to palpation, non distended, bowel tones positive times 4 quadra nts, negative Fitch's sign, negative rebound tenderness, no guarding, no hepatosplenomegaly palpated. Rectal: Will be done prior to procedure Msk: symmetrical with no deformity, with normal posture and gait, normal strength. Extremities: no clubbing, cyanosis, edema, or deformity noted Neurologic: no focal deficits, cranial nerves II-XII grossly intact Skin: intact without lesions or rashes. Psych: alert and cooperative; normal mood and affect; normal attention span and concentration. Abstract on 12/09/2013 Component Date Value Range Status Creatinine, External 11/10/2013 0.8 0.6 - 1.3 Final eGFR, External 11/10/2013 >60 60 - [id number] Final ALT, External 11/10/2013 30 14 - 59 Final AST, External 11/10/2013 17 38 Final WBC, External 11/10/2013 6.3 4.3 - 10.4 Final HGB, External 11/10/2013 16.0* 12.4 - 15.7 Final HCT, External 11/10/2013 43.9 37.7 - 47 Final PLT, External 11/10/2013 154 150 - 450 Final ALBUMIN 11/10/2013 4.0 Final ALK PHOS 11/10/2013 203* 33 - 151 U/L Final NA 11/10/2013 137 Final K 11/10/2013 4.0 Final CL 11/10/2013 104 Final CO2 11/10/2013 28 Final ANION GAP 11/10/2013 5* 7 - 16 mmol/L Final GLUCOSE 11/10/2013 100 Final CALCIUM 11/10/2013 10.6 5.0 - 26.0 mg/dL Final BUN 11/10/2013 6 Final BUN/Creatinine Ratio 11/10/2013 7.5 Final BILIRUBIN TOTAL 11/10/2013 0.4 Final Total protein 11/10/2013 7.5 Final LIPASE 11/10/2013 127 Final RBC 11/10/2013 4.69 Final MCV 11/10/2013 94.0 Final MCH 11/10/2013 34.1* 27.1 - 32.3 pg Final MCHC 11/10/2013 36.4 Final RDW 11/10/2013 13.3 Final NEUTROPHILS ABS 11/10/2013 3.93 Final LYMPHOCYTES ABS 11/10/2013 1.71 Final MONOCYTES ABS 11/10/2013 0.55 Final EOSINOPHILS ABS 11/10/2013 0.08 Final BASOPHILS ABS 11/10/2013 0.10 Final NEUTROPHILS % 11/10/2013 62.5* 29.0 - 49.0 % Final LYMPHOCYTES % 11/10/2013 27.2* 3.0 - 13.0 % Final MONOCYTES % 11/10/2013 8.8 Final EOSINOPHILS % 11/10/2013 1.3 Final BASOPHILS % 11/10/2013 0.2 Final ESR 11/10/2013 13 0 mm/hr Final Abdominal series with PA chest x-ray 11/10/2013: No acute abnormality is identified Colonoscopy with random biopsies by Dr. Zaidi 2011: Postoperative diagnosis: - History of Crohn's disease - No gross evidence of Crohn's disease or any colitis. - Terminal ileum could not be intubated. Pathology 2011: Random colon biopsies: - Focal hyperplastic change. - No chronic or active colitis. - No dysplasia. CT abdomen and pelvis with contrast 03/26/2011: Impression: 1 A dilated loop of small bowel is present with mild circumferential wall thickening evide nt at the small bowel loop. No distinct transition point is identified; however, there is a small amount of mesenteric edema adjacent to the small bowel. The finding is compatible wi th partial obstruction and/or delay in transit. The finding may relate to the patient's cli nical history of Crohn's disease. 2. Transitional vertebrae, lowest non-rib bearing vertebrae. This finding can be associat ed with back pain. 3. The patient is status post cholecystectomy. 4. The uterus is enlarged and heterogeneous myometrial appearance compatible with fibroid uterus. Endometrial with his 14 mm. In a patient who continues to have menses, this findin g is within normal limits. If the patient is postmenopausal, the endometrium is thickened. Recommend correlation with clinical history. The patient is postmenopausal, pelvic ultraso und recommended for further evaluation. Assessment: 1. Crohn's disease, other complication (HCC) Amb[facility] ) 2. GERD (gastroesophageal reflux disease) Ambulatory referral to Gastroenterology([facility]) 3. Tobacco use Ambulatory referral to Gastroenterology([facility]) Plan: IBD diagnosis: Patient was diagnosed with inflammatory bowel disease about 20 years ago. L ast colonoscopy was 2-3 years ago. Due for repeat endoscopy procedure now. Patient to have EGD and colonoscopy for further evaluation. The procedural techniques, risk s, indications, and alternatives were discussed. Among the risks, are perforation, bleeding , infection, allergic/adverse reactions to medications, and cardiovascular complications. E ach of these could result in hospitalization, additional procedures (including surgery), or other life threatening complications. Patient verbalized understanding. Risk factors to col o-rectal cancer discussed with patient including smoking, obesity, excessive red meat ingest ion, advancing age and first degree family relative with history of colo-rectal cancer discu ssed with patient. Patient to call with any questions or concerns prior to procedure. IBD therapy: Patient is currently taking Asacol. Changes to medications include increasing Asacol from bid to tid. IBD flare prevention: Discussed the avoidance of NSAID, avoidance of antibiotics without cl early documented bacterial infection, and avoidance of tobacco. Bone health: Recommend baseline DEXA scans PCP. It is known that extensive steroid use is found to cause osteoporosis. Depending on the results of DEXA scan, the patient may benefit from calcium, vitamin D, or bisphosphonate supplementation, as well as examination to evalu ate improvement in bone density. Nutrition: Do to our climate in the [facility], recommend periodic vitamin D testin g by PCP. If small bowel Crohn's disease present, patient also may benefit from periodic mo nitoring of B12, ferritin, folate, and zinc. Healthcare maintenance: Recommend annual flu shots. Pneumovax every 5 years to reduce the risk of severe pneumonia. Recommend annual skin examinations by PCP or dermatology. Immunosuppressive therapy: While on immunosuppressive therapy, recommend CBC every 3 months . Reproductive health: Patient has had hysterectomy. Nicotine abuse: Highly encouraged patient to discontinue all nicotine and tobacco products. Discussed how this has been shown to worsen underlying inflammatory bowel diseases. Will follow up with results. Patient is to call with any question or concerns. Any fevers, chills, chest pain, SOB or other serious symptoms patient is to call the office or go to ER . Cc: Shanthi Nelson This note was dictated using voice recognition software. Please contact me if there are an y questions regarding its content. documented in t his encounter Miscellaneous Notes Miscellaneous - LAWSONJOAN REA FRANSISCA - 12/13/2013 12:00 AM PDT documented in this encounter Plan of Treatment +--------+---------+ + + + | Date | Type | Specialty | Care Team | Description | +--------+---------+ + + + | 11/01/ | Office | Pulmonology | [facility], | | | 2020 | Visit | | Anushka Shook, | | | | | | [address] | | | | | | [place], | | | | | | [place] [address] | | | | | | [phone] | | | | | | | | +--------+---------+ + + + + + +--------+ + + | Name | Type | Priori | Associated Diagnoses | Order Schedule | | | | ty | | | + + +--------+ + + | Ambulatory referral | Outpatient | Routin | Crohn's disease, | Expected: | | to | Referral | e | other complication | 12/26/2013, Expires: | | Gastroenterology([facility] | | | (HCC) GERD | 12/13/2014 | | ds) | | | (gastroesophageal | | | | | | reflux disease) | | | | | | Tobacco use | | + + +--------+ + + documented as of this encounter Visit Diagnoses + + | Diagnosis | + + | Crohn's disease, other complication - Primary | + + | GERD (gastroesophageal reflux disease) Esophageal reflux | + + | Tobacco use Tobacco use disorder | + + documented in this encounter
--- OUTSIDE RECORDS SUMMARY | ~2019-08-10 | XMS | Encounter Summary ---
Demographics + + + | Address | [address] | | | [place] [address] | + + + | Home Phone | | + + + | Preferred Language | Unknown | + + + | Marital Status | | + + + | Congregation Affiliation | 1027 | + + + [...] Team Providers + +------+ + | Care Can Labeler Name | Role | Phone | + [...] Description | +--------+--------+ + + + | 05/19/ | Refill | [facility] [place] | [place], | Medication Refill | | 2015 | | GASTROENTEROLOGY | [facility] [address] [address] | | | | | [address] [place] | [address] | | | | | [address] [place], [place] | [place], [place] | | | | | [address] | [address] | | | | | [phone] | | | +--------+--------+ + + + [...] [place], | | | | | | [place] [address] | | | | | | [phone] | | | | | | | | +--------+---------+ + + + documented as of this encounter Visit Diagnoses Not on filedocumented in this encounter"
--- OUTSIDE RECORDS SUMMARY | ~2019-08-10 | XMS | Encounter Summary ---
Demographics + + + | Address | [address] | | | [place] [address] | + + + | Home Phone | | + + + | Preferred Language | Unknown | + + + | Marital Status | | + + + | Latter Day Affiliation | 1027 | + + + | Race | Unknown | + + + | Ethnic Group | Unknown | + + + Author + + + | Author | [facility] | | | and [place] | + + + | Organization | [facility] | | [...] Team Providers + +------+ + | Care Tool And Die Manager Name | Role | Phone | + +------+ + PCP | Unavailable | + +------+ + Encounter Details +--------+ + + + + | Date | Type | Department | Care Team | Description | +--------+ + + + + | / | Hospital | [facility] | Fatemeh Louis MD | | | 2011 | Encounter | [facility] | [address] | | | | | [address] [place] | [place] | | | | | [place] | [address] | | | | | [address] | | | | | | [phone] | | | +--------+ + + + [...] | | | | | | [place] [address] | | | | | | [phone] | | | | | | | | +--------+---------+ + + + documented as of this encounter Visit Diagnoses Not on filedocumented in this encounter"
--- OUTSIDE RECORDS SUMMARY | ~2019-08-10 | XMS | Encounter Summary ---
Demographics + + + | Address | [address] | | | [place] [address] | + + + | Home Phone | | + + + | Preferred Language | Unknown | + + + | Marital Status | | + + + | Temple Affiliation | 1027 | + + + | Race | Unknown | + + + | Ethnic Group | Unknown | + + + Author + + + | Author | [facility] | | | and [place] | + + + | Organization | [facility] | [...] Team Providers + +------+ + | Care Durable Medical Equipment Repairer Name | Role | Phone | + +------+ + PCP | Unavailable | + +------+ + Encounter Details +--------+ + + + + | Date | Type | Department | Care Team | Description | +--------+ + + + + | 09/16/ | Hospital | [facility] | Andrea Reese | | | 2012 | Encounter | [facility] | [address] | | | | | CENTER [address] | [address] [place] | | | | | [address] [place] | [place] | | | | | [address] | [address] | | | | | [phone] | [phone] | | | | | | | [...] | | | | | | [place] [address] | | | | | | [phone] | | | | | | | | +--------+---------+ + + + documented as of this encounter Visit Diagnoses Not on filedocumented in this encounter"
--- OUTSIDE RECORDS SUMMARY | ~2019-08-10 | XMS | Encounter Summary ---
Demographics + + + | Address | [address] | | | [place] [address] | + + + | Home Phone | | + + + | Preferred Language | Unknown | + + + | Marital Status | | + + + | Hinduism Affiliation | 1027 | + + + | Race | Unknown | + + + | Ethnic Group | Unknown | + + + Author + + + | Author | [facility] | | | and [place] | + + + | Organization | [facility] | | | [...] Team Providers + +------+ + | Care Leather Dresser Name | Role | Phone | + [...] + + | Closed | Specialty | Physical | Diagnoses | Henry, | Yohannes Figueroa | | | Services | Medicine and | Bilateral | Yohannes Landrum MD | Dale Landrum MD [address] | | | Required | Rehabilitatio | hand | [address] | | | | n | numbness | [address] | [place], | | | | | Procedures | [place], | [place] [address] | | | | | [place] | [place] [address] | Phone: | | | | | &/SENS | Phone: | [phone] | | | | | NRV CNDJ | [phone] | Fax: | | | | | PRECONF | Fax: | [phone] | | | | | [place]TR[place] | [phone] | | | | | | DC NEEDLE | | | | | | | EMG EA | | | | | | | EXTREMITY | | | | | | | W/PARASPINL | | | | | | | AREA LIMITED | | | | | | | DOS | | | | | | | 04/04/19 BUE | | | | | | | NCS/EMG | | | +--------+ + + + + + Reason for Visit + + + | Reason | Comments | + + + | New Patient | NCS consult | + + + Evaluate & Treat (Routine) +--------+--------+ + + + + | Status | Reason | Specialty | Diagnoses / | Referred By | Referred To | | | | | Procedures | Contact | Contact | +--------+--------+ + + + + | Closed | | Physical | Diagnoses | Meng, | Figueroa, Yohannes | | | | Medicine and | Neuropathy | Merle Hernandez MD | Dale Landrum MD [address] | | | | Rehabilitatio | | [address] | [address] | | | | n | | [address] | [place], | | | | | | [place], | [place] [address] | | | | | | [place] [address] | Phone: | | | | | | Phone: | [phone] | | | | | | [phone] | Fax: | | | | | | Fax: | [phone] | | | | | | [phone] | | +--------+--------+ + + + + Encounter Details +--------+---------+ + + + | Date | Type | Department | Care Team | Description | +--------+---------+ + + + | 02/10/ | Office | [facility] | Beverley Figueroaradha Landrum, | Bilateral hand | | 2019 | Visit | PHYSIATRY [address] | MD [address] | numbness (Primary | | | | [address] | [place], [place] | Dx); Weakness of | | | | [place], [place] | [address] | both hands; | | | | [address] | | Paresthesia of lower | | | | [phone] | | extremity; Chronic | | | | | | bilateral low back | | | | | | pain with bilateral | | | | | | sciatica | +--------+---------+ + + + Social History [...] + + + | Blood Pressure | 92/60 | 02/10/2019 11:26 AM | | | | | PST | | + + + + + | Pulse | - | - | | + [...] + + + + | Weight | 69.9 kg (154 lb) | 02/10/2019 11:26 AM | | | | | PST | | + + + + + | Height | 165.1 cm (5' 5") | 02/10/2019 11:26 AM | | | | | PST | | + + + + + | Body Mass Index | 25.63 | 02/10/2019 11:26 AM | | | | | PST | | + + + + + documented in this encounter Patient Instructions Patient Instructions Libby Peng CMA - 02/10/2019 11:20 AM PSTX-rays have been request ed. Please go to the x-ray department after your appointment to complete these x-rays. The results of your x-rays will be reviewed at your next appointment. If your x-rays demonstra te any emergent results, the clinic will contact you. Please attend your scheduled nerve conduction study and EMG appointment. Nerve conduction studies and EMG require a great deal of time to complete. If you will be unable to make your appointment please contact the clinic at least one full business day steven or to your appointment . Missed appoints without cancellation will only be re scheduled once. Children under the age of 13 are not permitted in the room during the nerve study. If acco mpanied by children under the age of 13, they will need an adult to supervise them, while th ey wait in the lobby. Prior to your appointment wash the skin with soap and water. This is to remove any of the natural oils on the skin which may interfere with the completion of the study. Please do not wear any lotion prior to the study as lotion may also interfere with the comp letion of the study. When attending your study please bring appropriate attire. If you are having a study of th e upper extremities please bring a short sleeve shirt to wear during the study. If you are having a study of the lower extremities please bring shorts to wear during the study. At the time of your study, please remind the physician if you are taking any blood thinning medications such as Coumadin, or heparin. At the time of your study, please remind the physician if you have an implanted electronic device such as a pacemaker. documented in this encounter Progress Notes Yohannes Figueroa MD - 02/10/2019 11:20 AM PSTFormatting of this note might be different fro m the original. Physical Medicine & Rehabilitation Consult Referring Provider: Merle Meng MD Date of Service: 02/10/19 Patient ID: Noy Pineda is a 58 y.o. female with bilateral hand numbness. HPI Noy Pineda reports that she started having numbness in the all four extremities ab out 10 years ago. Her symptoms have been worsening overtime. She reports neck pain. She rate her neck pain as 5 on a numerical pain scale. Her upper extremity numbness is continuous. Her upper extremity numbness is strongest over the 1st digit of the right hand in which is continuous. Noy Pineda reports intermittent numbness in the second and fourth digit bilaterally. Her upper extremity numbness is exacerbated by: talking on the phone and cooking. Her upper extremity numbness is reduced by: nothing Her numbness does wake her from sleep. Noy Pineda reports weakness. She describe her upper extremity weakness as "contin uous ." She reports dropping objects. She reports back pain. She rate her back pain as 6 on a numerical pain scale. Her lower extremity paraesthesia is continuous. Her lower extremity paraesthesia is strongest bilaterally . Her lower extremity paraesthesia is exacerbated by: standing, walking, sitting down, lying down, bending and nothing. Her lower extremity paraesthesia is reduced by: nothing. Her reports paraesthesia that started in the toes and is ascending. Noy Pineda reports weakness. Noy Pineda reports taking blood thinning medications such as Coumadin or heparin. She denies having implanted electronic device such as a pacemaker. She denies a history of diabetes. She denies a history of thyroid disease. She denies a history of rheumatoid arthritis. She reports a history of chemical exposure. She denies a history of frequent alcohol consumption. Noy Pineda reports that they have not had previous nerve conduction study. Past Medical History Past Medical History: Diagnosis Date Abdominal pain Anxiety Asthma Bipolar disorder (HCC) Colitis COPD (chronic obstructive pulmonary disease) (HCC) Crohn disease (HCC) 1991 Crohn's disease of large intestine with unspecified complications (HCC) Excessive or frequent menstruation Gait disturbance GERD (gastroesophageal reflux disease) Iron deficiency anemia secondary to blood loss (chronic) Memory loss Neuropathy Restless legs syndrome (RLS) Seasonal allergies Small bowel obstruction (HCC) secondary to crohn's ileitis-2005; small bowel obstruction-11/2014 Vitamin D deficiency Past Surgical History Past Surgical History: Procedure Laterality Date ADENOIDECTOMY BLADDER SUSPENSION 08/17/2012 CHOLECYSTECTOMY 1999 COLONOSCOPY 04/02/2015 low grade inflammatory change of the colon and rectum unable to intubate ileum, Dr. Lucero DEXA BONE DENSITY APPENDICULAR SKELETON 12/2013 Emmanuel Angeles DILATION AND CURETTAGE OF UTERUS 09/2011 EGD AND COLONOSCOPY 12/26/2013 EGD / COLONOSCOPY; Laterality: N/A; Surgeon: Karan Toledo MD; Location: [facility] CIRILO AND BSO 08/17/2012 TONSILLECTOMY 1968 Family History: Family History Problem Relation Age of Onset Heart disease Mother No known problems Father Cancer Paternal Grandfather Diabetes Maternal Grandmother Hypertension Maternal Grandmother Crohn's disease Maternal Grandmother Bipolar disorder Other No known problems Maternal Grandfather No known problems Paternal Grandmother Social History: Social History Socioeconomic History Marital status: Spouse name: Bang Pineda Number of children: Not on file Years of education: Not on file Highest education level: Not on file Occupational History Comment: Not Employed Tobacco Use Smoking status: Current Every Day Smoker Packs/day: 0.50 Types: Cigarettes Smokeless tobacco: Never Used Substance and Sexual Activity Alcohol use: No Drug use: No Allergies: Allergies Allergen Reactions Adhesive & Tape Other (See Comments) Medications: Outpatient Encounter Medications as of 02/10/2019 Medication Sig Dispense Refill albuterol (VENTOLIN HFA) 90 mcg/puff inhaler Inhale 2 puffs into the lungs every 4 hour s as needed. alendronate (FOSAMAX) 70 mg tablet Take 70 mg by mouth every 7 days. azaTHIOprine (IMURAN) 50 mg tablet TAKE ONE TABLET BY MOUTH DAILY FOR SEVEN DAYS. HAVE LABS DRAWN THEN INCREASE TO TWO TABLETS DAILY( LONG NO EVIDENCE OF PANCREATITIS) 60 tab let 0 beclomethasone (QVAR) 80 mcg/puff inhaler Inhale 1 puff into the lungs 2 times daily. budesonide (ENTOCORT EC) 3 mg 24 hr capsule Take 2 capsules by mouth every morning. 21 capsule 0 cholestyramine (QUESTRAN) 4 g packet cyanocobalamin (VITAMIN B-12) 1000 MCG tablet dicyclomine (BENTYL) 10 mg capsule TAKE ONE CAPSULE BY MOUTH FOUR TIMES DAILY 120 capsu le 2 dicyclomine (BENTYL) 20 MG tablet ELIQUIS 5 MG tablet fluticasone-salmeterol (ADVAIR, WIXELA INHUB) 250-50 mcg/puff diskus inhaler Inhale 1 p uff into the lungs 2 times daily. mesalamine (DELZICOL) [address] capsule Take 2 capsules by mouth 3 times daily (before meals). 180 capsule 0 montelukast (SINGULAIR) 10 mg tablet Take 10 mg by mouth nightly. omeprazole (PRILOSEC) 20 mg capsule Take 1 capsule by mouth 2 times daily. (Patient jvai ing differently: Take 40 mg by mouth every morning (before breakfast).) 60 capsule 2 ondansetron (ZOFRAN) 4 mg tablet Take 4 mg by mouth every 8 hours as needed. probiotic capsule Take 1 capsule by mouth 2 times daily. No facility-administered encounter medications on file as of 02/10/2019. Review of Systems:ROS GENERALLY: + fever, + night sweats, no anemia, no fatigue, no recent profound weight [place] es. EYES: No eye problems, + use of corrective lenses, no eye injury, + double vision, no blin dness. EARS, NOSE, AND THROAT: No changes in taste or smell, + hearing difficulty, + ringing in t he ears, no ear drainage, + dizziness, no voice changes, + difficulty swallowing, no signifi cant snoring, no sleep apnea, + sinus problems, + major dental work. NEUROLOGICALLY: + numbness/pain of arms, + numbness/pain of legs, + awake with numbness/pa in, + weakness, + muscle aching, + coordination difficulty, + change in walk, no head injury , no neck injury, no back injury, + pain in neck, + pain in back, no stroke, no fainting spe lls, no loss of consciousness, + tremor/shaking, + seizures, + headaches, + migraine, + lukas ry loss, + speech difficulty, + confusion and + numbness of face. PSYCHIATRIC: No depression, + difficulty sleeping, +anxiety, no bipolar disorder, no psyc hotic episodes. CARDIOVASCULAR: No heart attacks, no heart murmur, no heart fluttering, no chest pain, no ankle swelling. LUNG DISEASE: No shortness of breath, no cough, no tuberculosis, no bloody cough, no asth ma, no emphysema/COPD. GASTROINTESTINAL: No bowel disease, no nausea or vomiting, no rectal bleeding, no constipa tion, no stool incontinence, no liver disease, no gallbladder disease, no abdominal pain, no ulcers. KIDNEY DISEASE: No urinary frequency, no painful or difficult urination, no incontinence. ENDOCRINE: No diabetes, no thyroid disease, no osteopenia or osteoporosis, no breast drain age. SKIN: No breast lumps, no skin changes, no rashes, no itches. HEMATOLOGIC/LYMPHATIC: No enlarged lymph nodes, no easy or unusual bleeding, no personal h istory of cancer. RHEUMATOLOGIC: No joint arthritis, no rheumatoid arthritis. Vitals: 02/10/19 1126 BP: 92/60 PainSc: 5 PainLoc: Back Objective Physical Exam: General Appearance: Alert and Oriented to person, place, time and situation, no distress. Posture of anterior sagittal shift and thoracic kyphosis. HEENT: PERRL, conjunctiva clear, no scleral icterus, EOM's intact Neck: Spurling's test negative bilaterally Heart: Regular Rate and Rhythm Lungs: No audible wheezing or crackles. Abdomen: Non-distended Back: Symmetric Extremities: No clubbing, cyanosis or edema in all four extremities Neurological: Cranial Nerves: Intact Speech: Normal Sensory: subjective decreased sensation left L5 dermatome. Atrophy of thenar eminence bilaterally Motor: Normal 5/5 strength in both upper extremities including biceps, triceps, wrist dorsiflexion , finger abduction. 4 hand installer helper bilaterally Normal 5/5 strength in both lower extremities with hip flexion, L knee flexion, knee extens ion, ankle dorsiflexion, and ankle plantar flexion R 4 knee flexion Reflexes: 2+ normal and symmetric over the biceps, triceps, and brachioradialis of both upper extremi ties. 2+ normal and symmetric over the patella and Achilles of both lower extremities. Tinel's test positive over the median nerve at both wrists. Phalen's test was positive bilaterally Database: No new imaging is available for review. Assessment 1. Bilateral hand numbness 2. Weakness of both hands 3. Paresthesia of lower extremity 4. Chronic bilateral low back pain with bilateral sciatica Plan 1. The differential diagnosis for Noy Pineda's symptoms included, but are not hernandez ited to: carpal tunnel syndrome and radial neuropathy. Noy Pineda's clinical prese ntation is most consistent with carpal tunnel bilaterally and right radial neuropathy versus carpal tunnel versus both. In review of Noy Pineda lower extremity symptoms NCS/EM G of lower extremities may provide low yield. Noy Pineda lower extremities are most consistent with lumbar radiculitis. Noy Pineda has persisting right thumb numbness. Query radial neuropathy. 90 MIN BU E NCS/EMG to evaluate origin of numbness. Evaluating for R radial neuropathy and screening o f BUE for carpal tunnel syndrome 2. Today we reviewed that the nerve study will hopefully help us localize the origin of s ymptoms. We discussed that if carpal tunnel syndrome is discovered, that the nerve study ca n help determine if the carpal tunnel syndrome is mild, moderate or severe. We discussed th at if carpal tunnel is mild the treatments tend to be conservative such as antiinflammatorie s, hand therapy, wrist splints and sometimes steroid injection. We discussed that moderate and severe carpal tunnel syndrome generally require surgical release. We discussed that wit h severe carpal tunnel syndrome there may be permanent damage to the nerve that does not res olve despite adequate surgical release. We discussed natural progress of carpal tunnel synd rosendo. We reviewed that carpal tunnel if left untreated, tends to get progressively worse ov er time. We discussed that if severe carpal tunnel syndrome is left untreated that the amou nt of permanent nerve damage can get worse leading to worse disability. Today we discussed how to prepare for nerve conduction study and EMG. We discussed not wea ring lotion and bringing a short sleeve shirt to wear. We discussed the process of the test , which involves small shocks to the nerves and that the study may include pin sticks, witho ut shock into the muscles. 3. Today we discussed possible risk factors and correlating diagnosis associated with carpa l tunnel. We discussed that an individual with diabetes is approximately 6 times more likely to develop carpal tunnel. If completed NCS demonstrates carpal tunnel syndrome will likely consider having diagnostic diabetic testing with a 2 hour glucose. Noy Pineda den ies history of diabetes. 4. We discussed that it only takes approximately 30 minutes of pressure on a nerve to cause nerve damage, but may take approximately 6 weeks of proper alignment and no pressure on the nerve to allow for healing. Noy Pineda reports use of wrist splints in the past. 5. In regards to back pain order for lumbar xray was placed today to evaluate for lumbar sp ondylosis or instability contributing to paresthesia and weakness. Today we reviewed treatme nt options for low back pain including physical therapy, medication treatment options, lumba r steroid injections and last resort surgery. Noy Pineda declines referral for phys ical therapy at this time due to living in an area with heavy snow falls in the winter time. 6. Noy Pineda will return to the clinic for nerve conduction study and EMG to wilberto wilkerson for the differential diagnosis above. In summary, Noy Pineda has intermittent paresthesia in the toes of both feet. She has chronic low back pain. With intermittent symptoms it is very unlikely that she has per ipheral neuropathy. It is most likely that she has lumbar radiculopathy. She has weakness and subjective sensory changes in the left leg most consistent with lumbar radiculopathy. S he does not need lower extremity nerve study at this time. She will have lumbar x-ray and w as offered physical therapy for her low back. If she has persisting low back pain and leg s ymptoms in the future, after physical therapy, lumbar MRI is recommended. Noy rodriguez is not sure she can start PT for her back at this time. She is concerned about winter brendan floyd from her home to [place]. She declines PT referral but plans to talk to her PCP for PT referral, at a time of year when she feels more ready. She would also benefit from PT to reduce thoracic kyphosis and improve neck and upper back posture. Noy Pineda has intermittent hand numbness. Her history, physical exam and clinica l presentation is most consistent with bilateral carpal tunnel syndrome. She is using carpa l tunnel wrist splints and encouraged to continue night time use of her splints. She will r eturn to the clinic for bilateral upper extremity nerve study to screen for carpal tunnel sy ndrome. She did not have any evidence of cervical radiculopathy on exam. If she has carpal tunnel syndrome on nerve study we will likely request labs to screen for diabetes. She als o reports constant numbness over the radial distribution of her right thumb, that started af ter recent hospitalization and IV placement. We will evaluate for radial nerve neuropathy i n the right hand. We discussed that treatment recommendations for carpal tunnel syndrome wi ll be based off of nerve conduction study results. We discussed that if she had right radia l nerve injury from IV placement, that she may have improvement over time, maximal improveme nt usually by 18 months after the nerve injury, but how much improvement, if any, cannot be guaranteed. Thank you for allowing me to be involved in the care of your patient. If you have any ques tions regarding the care of your patient please don't hesitate to call. Approximately 60 minutes was spent face to face with Noy Pineda, over half of whic h was spent formulating and discussing their medical treatment plan. I, Yohannes Figueroa MD personally performed the services described in this documentation, as scribed by in my presence, Libby Peng CMA and are both accurate and complete. Yohannes Figueroa MD - 02/10/2019 Cc: Merle Meng MD documented in this en counter Plan of [...] | | | | | | [place] [id number] | | | | | | [phone] | | | | | | | | +--------+---------+ + + + + +---------+--------+ + + | Name | Type | Priori | Associated Diagnoses | Order Schedule | | | | ty | | | + +---------+--------+ + + | XR Lumbar Spine 4 + | Imaging | Routin | Paresthesia of | Expected: | | Vw | | e | lower extremity | 02/10/2019, Expires: | | | | | Chronic bilateral | 02/10/2020 | | | | | low back pain with | | | | | | bilateral sciatica | | + +---------+--------+ + + + + +--------+ + + | Name | Type | Priori | Associated Diagnoses | Order Schedule | | | | ty | | | + + +--------+ + + | * [facility] [place] | Outpatient | Routin | Bilateral hand | Ordered: 02/10/2019 | | Physiatry - AMB | Referral | e | numbness | | | Referral | | | | | + + +--------+ + + documented as of this encounter Visit Diagnoses + + | Diagnosis | + + | Bilateral hand numbness - Primary Disturbance of skin sensation | + + | Weakness of both hands | + + | Paresthesia of lower extremity Disturbance of skin sensation | + + | Chronic bilateral low back pain with bilateral sciatica | + + documented in this encounter
--- OUTSIDE RECORDS SUMMARY | ~2019-08-10 | XMS | Encounter Summary ---
Demographics + + + | Address | [address] | | | [place] [address] | + + + | Home Phone | | + + + | Preferred Language | Unknown | + + + | Marital Status | | + + + | Samaritan Affiliation | 1027 | + + + | Race | Unknown | + + + | Ethnic Group | Unknown | + + + Author + + + | Author | [facility] | | | and [place] | + + + | Organization | [facility] | | | [...] Team Providers + +------+ + | Care Second Grade Teacher Name | Role | Phone | + +------+ + | Shanthi Nelson MD | PCP | | + +------+ + Reason for Visit + + + | Reason | Comments | + + + | Follow-up | | + + + Evaluate & Treat (Routine) +--------+--------+ + + + + | Status | Reason | Specialty | Diagnoses / | Referred By | Referred To | | | | | Procedures | Contact | Contact | +--------+--------+ + + + + | Closed | | Nurse | Diagnoses | [place], | [place], | | | | Practitioner | Regional | Shanthi Romeo MD | [place], | | | | / | enteritis of | [address] | [address] | | | | Gastroenterol | unspecified | [address], | [address] | | | | ogy | site | [place] [address] | [address] | | | | | follow up | Phone: | ADELINA SAHU, | | | | | imaging/pt/m | [phone] | [place] [address] | | | | | francisco javier | Fax: | Phone: | | | | | Procedures | [phone] | [phone] | | | | | OFFICE VISIT | | Fax: | | | | | REGULAR | | [phone] | +--------+--------+ + + + + Encounter Details +--------+---------+ + + + | Date | Type | Department | Care Team | Description | +--------+---------+ + + + | 02/20/ | Office | [facility] [place] | [facility], | Crohn's disease, | | 2013 | Visit | GASTROENTEROLOGY | [address] | with intestinal | | | | [address] [place] | [address] | obstruction (HCC) | | | | [address] [place], [place] | [place], [place] | (Primary Dx); | | | | [address] | [address] | Tobacco use; | | | | [phone] | | Abdominal pain, | | | | | | right lower quadrant | +--------+---------+ + + + Social History [...] + + + | Blood Pressure | 120/84 | 02/20/2014 8:15 AM | | | | | PST | | + + + + + | Pulse | 76 | 02/20/2014 8:15 AM | | | | | PST | | + + + + + | Temperature | 36.4 C (97.6 F) | 02/20/2014 8:15 AM | | | | | PST | | + + + + + | Respiratory Rate | 18 | 02/20/2014 8:15 AM | | | | | PST | | + + + + + | Oxygen Saturation | - | - | | + + + + + | Inhaled Oxygen | - | - | | | Concentration | | | | + + + + + | Weight | 90.9 kg (200 lb 8 | 02/20/2014 8:15 AM | | | | oz) | PST | | + + + + + | Height | 165.1 cm (5' 5") | 02/20/2014 8:15 AM | | | | | PST | | + + + + + | Body Mass Index | 33.36 | 02/20/2014 8:15 AM | | | | | PST | | + + + + + documented in this encounter Patient Instructions Patient Instructions Queta Cruz ARNP - 02/20/2014 8:40 AM PST Patient Education Azathioprine Oral tablet Azathioprine Sodium Solution for injection Azathioprine Oral tablet What is this medicine? AZATHIOPRINE (ay za THYE oh preen) suppresses the immune system. It is used to prevent orga n rejection after a transplant. It is also used to treat rheumatoid arthritis. This medicine may be used for other purposes; ask your health care provider or pharmacist i f you have questions. What should I tell my health care provider before I take this medicine? They need to know if you have any of these conditions: infection kidney disease liver disease an unusual or allergic reaction to azathioprine, other medicines, lactose, foods, dyes, or preservatives or trying to get breast feeding How should I use this medicine? Take this medicine by mouth with a full glass of water. Follow the directions on the prescr iption label. Take your medicine at regular intervals. Do not take your medicine more often than directed. Continue to take your medicine even if you feel better. Do not stop taking ex cept on your doctor's advice. Talk to your landman regarding the use of this medicine in children. Special care may be needed. Overdosage: If you think you have taken too much of this medicine contact a poison control center or emergency room at once. NOTE: This medicine is only for you. Do not share this medicine with others. What if I miss a dose? If you miss a dose, take it as soon as you can. If it is almost time for your next dose, ta ke only that dose. Do not take double or extra doses. What may interact with this medicine? Do not take this medicine with any of the following medications: mercaptopurine This medicine may also interact with the following medications: allopurinol aminosalicylates like sulfasalazine, mesalamine, balsalazide, and olsalazine leflunomide medicines called TRINITY inhibitors like benazepril, captopril, enalapril, fosinopril, quina pril, lisinopril, ramipril, and trandolapril mycophenolate sulfamethoxazole; trimethoprim vaccines warfarin This list may not describe all possible interactions. Give your health care provider a list of all the medicines, herbs, non-prescription drugs, or dietary supplements you use. Also t ell them if you smoke, drink alcohol, or use illegal drugs. Some items may interact with you r medicine. What should I watch for while using this medicine? Visit your doctor or health career development associate for regular checks on your progress. You will need frequent blood checks during the first few months you are receiving the medicine. If you get a cold or other infection while receiving this medicine, call your doctor or [facility] career development associate. Do not treat yourself. The medicine may increase your risk of getting an infection. Women should inform their doctor if they wish to become or think they might be pre gnant. There is a potential for serious side effects to an unborn child. Talk to your health career development associate or pharmacist for more information. Men may have a reduced sperm count while they are taking this medicine. Talk to your health career development associate for more information. This medicine may increase your risk of getting certain kinds of cancer. Talk to your docto r about healthy lifestyle choices, important screenings, and your risk. What side effects may I notice from receiving this medicine? Side effects that you should report to your doctor or health career development associate as soon as p ossible: allergic reactions like skin rash, itching or hives, swelling of the face, lips, or tong ue changes in vision confusion fever, chills, or any other sign of infection loss of balance or coordination severe stomach pain unusual bleeding, bruising unusually weak or tired vomiting yellowing of the eyes or skin Side effects that usually do not require medical attention (report to your doctor or health career development associate if they continue or are bothersome): hair loss nausea This list may not describe all possible side effects. Call your doctor for medical advice a bout side effects. You may report side effects to FDA at 4-758-TGD-7830. Where should I keep my medicine? Keep out of the reach of children. Store at room temperature between 15 and 25 degrees C (59 and 77 degrees F). Protect from l ight. Throw away any unused medicine after the expiration date. NOTE:This sheet is a summary. It may not cover all possible information. If you have questi ons about this medicine, talk to your doctor, pharmacist, or health care provider. Copyright 2014 Gold Standard documented in this encounter Progress Notes Mary CruzianBREN john - 02/20/2014 8:26 AM PSTFormatting of this note might be differe nt from the original. Noy Pineda is a 53 y.o. female here for followup stool studies, labs and MRI due to Crohn's disease. History of present illness: Patient continues to have abdominal pain especially on RLQ. She is having diarrhea, up to 4 -5 per day. She will wake up about 0400 or 0500 for bowel movements. Some dark stools. Denies neena blood in stool. Currently only taking Delzicol 400 mg, 2 tabs, three times daily. Denies rashes or mouth sores. Has had mouth sores in the past. Denies fevers or chills. She is juicing with small protein meals at night. No Known Allergies Past Medical History Diagnosis Date Crohn disease (HCC) 1991 GERD (gastroesophageal reflux disease) Seasonal allergies Restless legs syndrome (RLS) Iron deficiency anemia secondary to blood loss (chronic) Excessive or frequent menstruation Anxiety Past Surgical History Procedure Date Tonsillectomy Cholecystectomy 1998 Dilation and curettage of uterus 09/2011 Adenoidectomy Hysterectomy, total abdominal 08/17/2012 Bladder suspension 08/17/2012 Egd and colonoscopy 12/26/2013 EGD / COLONOSCOPY; Laterality: N/A; Surgeon: Karan Toledo MD; Location: [facility] Dexa bone density appendicular skeleton 12/2013 Emmanuel [place] Family History Problem Relation Age of Onset [...] any fevers, chills, or unintentional weight loss. Respiratory: Patient complains of recent upper respiratory infection. Gastrointestinal:Negative except as stated above. Cardiovascular:Denies chest pain, palpitations, or swelling to legs Physical exam: General: Alert and oriented, NAD Eyes: Sclera clear Mouth: Mucous membranes moist Extremities: No clubbing or edema Skin: Warm, dry, intact. No rashes noted Neuro: Cranial nerves 2-12 grossly intact. Psych: Appropriate mood and affect. Hospital Outpatient Visit on 01/25/2014 Component Date Value Range Status Clostridium Diff 01/25/2014 Negative Negative Final Giardia Antigen, Stool 01/25/2014 Negative Negative Final O/P IDENT 01/25/2014 See Comments Final Accession No. [id number] Specimen Source Stool Result No Ova or Parasites seen This test will not detect Cyclospora, Cryptosporidium or Isospora. For those organisms refer to Coccidia Stain (test code CRYSM). O/P REPORT STAT 01/25/2014 Report Status Final 01/26/2014 Final Testing Performed: [facility], [address], [place] [address] CALPROTECTIN FECAL 01/25/2014 70* <51 ug/g Final Interpretive Information: Calprotectin, Fecal 50 ug/g or less: Normal 51-120 ug/g: Borderline elevated, test should be re-evaluated in 4-6 weeks. 121 ug/g or greater: Abnormal, suggestive of inflammatory bowel disease (IBD). Testing Performed: [facility], [address], [place] [address] SHIGATOXIN I 01/25/2014 Negative Negative Final SHIGATOXIN II 01/25/2014 Negative Negative Final Culture 01/25/2014 No Salmonella, Shigella, Aeromonas, Pleisiomonas or Yersinia isolate d Final Culture 01/25/2014 4+ Usual Riddhi Final Consistent with usual enteric riddhi. Campylobacter AG, Qual 01/25/2014 Negative Final Lactoferrin, Qual 01/25/2014 Positive* Negative Final Abstract on 01/24/2014 Component Date Value Range Status Sodium, External 01/18/2014 140 132 - 143 Final Potassium, External 01/18/2014 4.1 3.6 - 5.1 Final Chloride, External 01/18/2014 106 95 - 112 Final Carbon Dioxide, External 01/18/2014 26 19 - 31 Final BUN, External 01/18/2014 >60 60 - 20663 Final WBC, External 01/18/2014 6.9 4.5 - 11 Final HGB, External 01/18/2014 16.6* 12 - 16 Final HCT, External 01/18/2014 46.2* 35 - 45 Final PLT, External 01/18/2014 130* 140 - 440 Final Neutrophils %, External 01/18/2014 67.9 39 - 80 Final Lymphocytes %, External 01/18/2014 21.7* 24 - 44 Final Monocytes %, External 01/18/2014 8.9 0 - 12 Final Eosinophils %, External 01/18/2014 1.1 0 - 6 Final RBC, External 01/18/2014 4.68 3.8 - 5.1 Final MCV, External 01/18/2014 99 81 - 99 Final RDW, External 01/18/2014 12 10.5 - 15 Final Calcium, External 01/18/2014 10.9* 8.4 - 10.2 Final Protein, Total, External 01/18/2014 7.2 6 - 8 Final Albumin, External 01/18/2014 4.7 3.5 - 5 Final Bilirubin, Total, External 01/18/2014 0.5 0 - 1.2 Final ALP, External 01/18/2014 130* 30 - 128 Final AST, External 01/18/2014 16 13 - 39 Final ALT, External 01/18/2014 20 7 - 52 Final Lipase, External 01/18/2014 <3 11 - 82 Final Glucose, External 01/18/2014 136* 70 - 100 Final MCH 01/18/2014 36.0* 27.0 - 33.0 pg Final MCHC 01/18/2014 36.0 Final BASOPHILS % 01/18/2014 0.4 Final BUN/Creatinine Ratio 01/18/2014 17.5 Final Globulin 01/18/2014 2.5 Final Albumin/Globulin Ratio 01/18/2014 1.9 Final ANION GAP 01/18/2014 12 Final MRI enterography with and without contrast 02/09/2014: IMPRESSION - 1. Multiple short segments of irregular bowel wall thickening and luminal narrowing in the distal ileum as discussed above. Just antegrade to this area a segment of mildly dilated bowel is present suggesting some degree of obstruction. Increased contrast enhancement in these thickened loops, but no other imaging features of active inflammation. No mesenteric adenopathy. 2. Post cholecystectomy, appendectomy and hysterectomy changes. Fatty infiltration of the liver. Assessment 1. Crohn's disease, with intestinal obstruction (HCC) partial obstruction on MRI 2. Tobacco use Patient and are to talk to Dr. Nelson about restarting Chantix at office visit 03/13. 3. Abdominal pain, right lower quadrant Plan: Discuss the results of labs, stool studies, and imaging. Advised patient that it appears s he has inflammation in the end of her small intestines. We will start patient on oral budesonide 9 mg daily for 4 weeks. Will also initiate Imuran . Discussed side effects of Imuran including possible pancreatitis. She is to have labs dr rodriguez in 7 days to ensure no evidence of pancreatitis. Advised if she develops left upper erin drant abdominal pain, jaundice, fevers, or chills she is to call the office immediately and stopped the Imuran. Will follow up with patient in 4 weeks to ensure symptoms are improving. Will discuss bud esonide taper at that time. Patient is to call with any question or concerns. Any fevers, chills, chest pain, SOB or o ther serious symptoms patient is to call the office or go to ER Cc: Shanthi Nelson This note was dictated using voice recognition software. Please contact me if there are an y questions regarding its content. documented in t his encounter Plan of Treatment +--------+---------+ + + + | Date | Type | Specialty | Care Team | Description | +--------+---------+ + + + | 11/01/ | Office | Pulmonology | [place], | | | 2019 | Visit | | Anushka Shook, | | | | | | [address] | | | | | | [place], | | | | | | [place] [address] | | | | | | [phone] | | | | | | | | +--------+---------+ + + + + +------+--------+ + + | Name | Type | Priori | Associated Diagnoses | Order Schedule | | | | ty | | | + +------+--------+ + + | Comprehensive | Lab | Routin | Crohn's disease, | Expected: 02/27/2014 | | Metabolic Panel | | e | with intestinal | (Approximate), | | | | | obstruction (HCC) | Expires: 06/20/2014 | | | | | Abdominal pain, | | | | | | right lower quadrant | | + +------+--------+ + + | Lipase | Lab | Routin | Crohn's disease, | Expected: 02/27/2014 | | | | e | with intestinal | (Approximate), | | | | | obstruction (HCC) | Expires: 06/20/2014 | | | | | Abdominal pain, | | | | | | right lower quadrant | | + +------+--------+ + + | Amylase | Lab | Routin | Crohn's disease, | Expected: 02/27/2014 | | | | e | with intestinal | (Approximate), | | | | | obstruction (HCC) | Expires: 06/20/2014 | | | | | Abdominal pain, | | | | | | right lower quadrant | | + +------+--------+ + + documented as of this encounter Visit Diagnoses + + | Diagnosis | + + | Crohn's disease, with intestinal obstruction - Primary | + + | Tobacco use Tobacco use disorder | + + | Abdominal pain, right lower quadrant | + + documented in this encounter
--- OUTSIDE RECORDS SUMMARY | ~2019-08-10 | XMS | Encounter Summary ---
Demographics + + + | Address | [address] | | | [place] [address] | + + + | Home Phone [...] Organization | [facility] | | | and [...] Team Providers + +------+ + | Care Blanket Washer Name | Role | Phone | + +------+ + PCP | Unavailable | + +------+ + Encounter Details +--------+ + + + + | Date | Type | Department | Care Team | Description | +--------+ + + + + | 04/12/ | Hospital | [facility] | Talia Monzon | | | 2012 | Encounter | [facility] | [place], [address] | | | | | [facility] [address] | [facility], [place] | | | | | [address] [facility], | [address] | | | | | [place] [address] | [phone] | | | | | [phone] | | | +--------+ + + + [...] [place], | | | | | | [place] [address] | | | | | | [phone] | | | | | | | | +--------+---------+ + + + documented as of this encounter Visit Diagnoses Not on filedocumented in this encounter"
--- OUTSIDE RECORDS SUMMARY | ~2019-08-10 | XMS | Encounter Summary ---
Demographics + + + | Address | [address] | | | [place] [address] | + + + | Home Phone | | + + + | Preferred Language | Unknown | + + + | Marital Status | | + + + | Jainism Affiliation | [id number] | + + + | Race | Unknown | + + + | Ethnic Group | Unknown | + + + Author + + + | Author | [facility] | | | and [place] | + + + | Organization | [facility] | | | and [...] Team Providers + +------+ + | Care Roller Engraver Name | Role | Phone | + +------+ + | Shanthi Nelson MD | PCP | | + +------+ + Reason for Visit Auth/Cert +--------+--------+ + + + + | Status | Reason | Specialty | Diagnoses / | Referred By | Referred To | | | | | Procedures | Contact | Contact | +--------+--------+ + + + + | Closed | | | Diagnoses | | | | | | | Regional | | | | | | | enteritis of | | | | | | | unspecified | | | | | | | site | | | | | | | Esophageal | | | | | | | reflux | | | | | | | Tobacco use | | | | | | | disorder | | | | | | | Tobacco use | | | | | | | disorder | | | | | | | [305.1] | | | | | | | Esophageal | | | | | | | reflux | | | | | | | [530.81] | | | | | | | Regional | | | | | | | enteritis of | | | | | | | unspecified | | | | | | | site ([facility]) | | | | | | | [555.9] | | | | | | | Procedures | | | | | | | EGD / | | | | | | | COLONOSCOPY | | | +--------+--------+ + + + + Encounter Details +--------+ + + + + | Date | Type | Department | Care Team | Description | +--------+ + + + + | 12/26/ | Hospital | [facility] | Karan Toledo, | Dysphagia (Primary | | 2013 | Encounter | [facility] | [address] | Dx); Crohn's | | | | [address] | [address] [place], | disease, with | | | | [place], [place] | [place] [address] | intestinal | | | | [address] | [phone] | obstruction (HCC); | | | | [phone] | | GERD | | | | | | (gastroesophageal | | | | | | reflux disease) | +--------+ + + + + Social [...] + + + | Blood Pressure | 122/78 | 12/26/2013 12:45 PM | | | | | PDT | | + + + + + | Pulse | 74 | 12/26/2013 12:45 PM | | | | | PDT | | + + + + + | Temperature | 36.6 C (97.9 F) | 12/26/2013 10:19 AM | | | | | PDT | | + + + + + | Respiratory Rate | 16 | 12/26/2013 12:45 PM | | | | | PDT | | + + + + + | Oxygen Saturation | 98% | 12/26/2013 12:45 PM | | | | | PDT | | + + + + + | Inhaled Oxygen | - | - | | | Concentration | | | | + + + + + | Weight | 90.7 kg (200 lb) | 12/26/2013 10:19 AM | | | | | PDT | | + + + + + | Height | 165.1 cm (5' 5") | 12/26/2013 10:19 AM | | | | | PDT | | + + + + + | Body Mass Index | 33.28 | 12/26/2013 10:19 AM | | | | | PDT | | + + + + + documented in this encounter Discharge Instructions Instructions Anni Hunter RN - 12/23/2013Formatting of this note might be diffe rent from the original. Patient Discharge Instructions after an Endoscopy Procedure You may resume your regular diet after discharge. Do not drive, operate machinery, make critical decisions or do activities that require co ordination or balance for 24hrs. Resume normal medications unless otherwise instructed. If biopsies were taken, the physician s office will contact you within 7-10 days. If a colonoscopy was performed, then you may continue to expel large amounts of air from your rectum. Please call the physician who did your procedure at [phone] if you have any questions or experience any of the following: Increasing abdominal pain, nausea, or vomiting. Chills and fever over 101F. New abdominal swelling or bloating. Signs of rectal bleeding (black or red stool. If you cannot get a hold of your physician, then call the [facility] [phone] . If necessary, report to the Emergency Department at [facility]. Quit smoking: If you smoke or have smoked within the last year, quitting is the most import ant thing you can do to protect and improve your health. Diagnosing Hemorrhoids To diagnose hemorrhoids, your doctor will rule out other problems and determine how bad you r hemorrhoids are. After the evaluation, your doctor will help you decide on a treatment missy n that s best for you. Medical History A medical history helps your doctor learn more about your symptoms and overall health. This often includes questions about your bowel habits and diet. You may also be asked how often you exercise and whether you take any medications. Be sure to mention if any members of your family have had cancer or polyps of the colon. Physical Exam During a physical exam, you ll be asked to lie on an exam table. You ll then be examine d for signs of swollen hemorrhoids and other problems. The exam takes just a few minutes. It is usually not painful. A visual exam is used to view the outer anal skin. A digital rectal exam is used to check for hemorrhoids or other problems in the anal can al. It is done using a lubricated gloved finger. An anoscopic exam is done using a special viewing tube called an anoscope. The scope hel ps your doctor view the anal canal. Grading Hemorrhoids Based on the physical exam, your doctor may assign a grade to internal hemorrhoids. The gra noemy are based on the severity of your symptoms. Grade I hemorrhoids do not protrude from the anus. They may bleed, but otherwise cause f ew symptoms. Grade II hemorrhoids protrude from the anus during bowel movements. They reduce back int o the anal canal when straining stops. Grade III hemorrhoids protrude on their own or with straining. They do not reduce by the mselves, but can be pushed back into place. Grade IV hemorrhoids protrude and cannot be reduced at all. They can also be painful and may require prompt treatment. and Hemorrhoids Many women develop hemorrhoids during and childbirth. This is likely caused by pr essure on the pelvis and by hormonal changes. In most cases, the hemorrhoids will eventually go away on their own. In the meantime, talk with your doctor about ways to help relieve you r symptoms. Other Anal Problems Below are common problems that can cause symptoms similar to hemorrhoids. Your doctor can e xplain your treatment options. A fissure is a small tear or crack in the lining of the anus. It can be caused by hard b owel movements, diarrhea, or inflammation in the rectal area. Fissures can bleed and cause p ainful bowel movements. An abscess is an infected gland in the anal canal. The infected area swells and often ca uses pain. A fistula is a pathway that may form when an anal abscess drains. The pathway may remain after the abscess is gone. Fistulas are not usually painful. But they can cause drainage wh ere the pathway meets the skin. [id number] [facility], [address] [place] [address], [place] [id number]. All rights reserve d. This information is not intended as a substitute for professional medical care. Always fo llow your healthcare professional's instructions. Gastritis (Adult) Gastritis is an irritation of the stomach lining. It can be acute (recent) or chronic (last ing a long time). Gastritis can be caused by overuse of alcohol or anti-inflammatory medicat ions (such as aspirin, ibuprofen, or prednisone). H pyloriinfection can also cause chronic gastritis. Gastritis can cause a dull ache or burning pain in the upper abdomen. Other symptoms includ e nausea, vomiting, loss of appetite, and belching or bloating. Blood in the vomit or stools (red or black) is a sign of bleeding in the stomach. This requires immediate medical attent ion. Tests for H pyloriare used to screen for bacterial infection. If no infection is found, g astritis can be treated by stopping the cause and treating with antacids plus an acid blocke r medication. If H pylori infection is found, antibiotics will also be prescribed. Persons 5 5 years and older may undergo other tests before treatment is started. Two common tests are used to evaluate your symptoms. An upper GI series is an x-ray taken a fter you drink a chalky liquid called barium. This coats the stomach and allows the doctor t o view any problems in the stomach on the x-ray. Another test is called endoscopy, during wh ich a long thin tube called an endoscope is passed down your throat to the stomach. A camera at the end of the scope allows the doctor to view inside the stomach to check the cause of your symptoms. Home Care: Take the prescribed acid qing medication for the full course of treatment even if you begin to feel better sooner. This medication can take up to several days to fully control y our symptoms. If you can t afford the prescribed medication, you can try aatf-sfl-xuuqrox acid blockers, such as Pepcid AC, Tagamet, Zantac, or Aciphex. If these do not relieve your symptoms, a stronger acid-qing can be tried, such as Prilosec OTC. If you have been prescribed an antibiotic to treat H pyloriinfection, finish the full course of medication. Do so even if you begin to feel better sooner. If you stop the medicat ion too soon, the infection can return and be harder to treat. You can use antacids, such as Tums, Rolaids, Mylanta, or Maalox, for pain. This will be useful the first few days after starting acid blockers when the blockers haven t started w orking yet. Follow the directions on the label. Liquid antacids may work better than tablets . Note that antacids can interfere with absorption of certain medications. Specifically, do not take Tagamet (cimetidine), Zantac (ranitidine), or Carafate (sucralfate) within 1 hour o f taking an antacid. Talk with your pharmacist if you have any questions. Symptoms of gastritis can be worsened by certain foods. Limit or avoid fatty, fried, and spicy foods, as well as coffee, chocolate, mint, and foods with high acid content such as t omatoes and citrus fruit and juices (orange, grapefruit, lemon). Avoid alcohol, caffeine, and tobacco, which can delay healing. Avoid aspirin and anti-inflammatory medications such as ibuprofen (Advil, Motrin) and na proxen (Naprosyn, Aleve). Acetaminophen (Tylenol) is safe to use. Do not take more than the amount listed on the label. Follow Up with your doctor, or as advised by our staff. Further testing may be needed. If you do not improve over the next 4 days, contact your doctor. If you had an x-ray, CT scan, or ECG (teresa ctrocardiogram), it will be reviewed by a specialist. You ll be notified of any new findin gs that affect your care. Get Prompt Medical Attention if any of the following occur: Stomach pain gets worse or moves to the lower right abdomen (appendix area) Chest pain appears or gets worse, or spreads to the back, neck, shoulder, or arm Frequent vomiting (can t keep down liquids) Blood in the stool or vomit (red or black in color) Feeling weak or dizzy, fainting, or trouble breathing Fever of 100.4F (38C) or higher, or as directed by your healthcare provider [phone] [facility], [address] [place] [address], [place] [id number]. All rights reserve d. This information is not intended as a substitute for professional medical care. Always fo llow your healthcare professional's instructions. documented in this encounter Medications at Time of Discharge [...] omeprazole | Take 1 capsule by | 30 | 2 | 12/14/19 | | | (PRILOSEC) 20 mg | mouth every morning | capsule | | 14 | 4 | | capsule | (before breakfast). | | | | | + + + +---------+ + + documented as of this encounter H&P Karan Barron MD - 12/26/2013 11:24 [facility] H[facility]ORY AND PHYSICAL UPDATE Pt. Name/Age/: Noy Pineda 53 y.o. 1960 Date of admission: 12/26/2013 The current H&P was reviewed. The patient was reexamined. Re-evaluation of the patient co nfirms the necessity for the scheduled procedure. No change has occurred in the patient s condition since the H&P was completed less than 30 days ago. Electronically signed by: Karan Toledo, 12/26/2013 11:24 [facility] ueta Cruz ARNP - 12/13/2013 9:38 AM PDT . Noy Pineda is a 53 y.o. female [...] colonoscopy was about 3 years ago in [place]. Notes some increased acid reflux. Reflux has [...] Final eGFR, External 11/10/2013 >60 60 - 27490 Final ALT, External 11/10/2013 30 14 - [...] disease, other complication (HCC) Ambulatory [facility] ) 2. GERD (gastroesophageal reflux disease) Ambulatory referral to Gastroenterology([facility]) 3. Tobacco use Ambulatory referral to Gastroenterology([facility]) Plan: IBD diagnosis: Patient was diagnosed with [...] Nutrition: Do to our climate in the [facility], recommend periodic vitamin D testin g by [...] its content. documented in t his encounter Procedure Notes ONBASE SCAN [facility] - 12/28/2013 12:00 AM PDTAssociated Order(s): PATHOLOGY - EXTERNAL SCANEle ctronically signed by stephanie [facility] at 12/28/2013 10:24 AM PDTONBASE SCAN [facility] - 12/26/2013 1 2:00 AM PDTAssociated Order(s): COLONOSCOPY 14 12:23 PM PDTONBASE SCAN [facility] - 12/26/2013 12:00 AM PDTAssociated Order(s): EGDElectronica lly signed by stephanie [facility] at 12/26/2013 12:18 PM PDTdocumented in this encounter Miscellaneous Notes Miscellaneous - ONBASE SCAN [facility] - 12/31/2013 12:00 AM PDT lan of Care - ONBASE SCAN [facility] - 12/27/2013 12:00 AM PDTElec tronically signed by stephanie [facility] at 12/27/2013 2:11 PM PDTMiscellaneous - [facility] - 12/27/2013 12:00 AM PDT e dation Documentation - Derrick Lauren RN - 12/26/2013 11:46 AM PDTGASTRITISElectroni karen signed by Derrick Lauren RN at 12/26/2013 11:47 AM PDTdocumented in this encoun ter Plan of Treatment +--------+---------+ + + + [...] [place], | | | | | | [place] [address] | | | | | | [phone] | | | | | | | | +--------+---------+ + + + documented as of this encounter Procedures + +--------+ + + + | Procedure Name | Priori | Date/Time | Associated Diagnosis | Comments | | | ty | | | | + +--------+ + + + | PATHOLOGY - EXTERNAL | | 12/28/2013 | | | | SCAN | | 12:00 AM | | | | | | PDT | | | + +--------+ + + + | EGD / COLONOSCOPY | | 12/26/2013 | Regional enteritis | | | | | 11:32 AM | of unspecified site | | | | | PDT | ([facility]) Esophageal | | | | | | reflux Tobacco use | | | | | | disorder | | + +--------+ + + + | EGD | Routin | 12/26/2013 | | Results for this | | | e | 11:28 AM | | procedure are in the | | | | PDT | | results section. | + +--------+ + + + | COLONOSCOPY | Routin | 12/26/2013 | | Results for this | | | e | 11:27 AM | | procedure are in the | | | | PDT | | results section. | + +--------+ + + + documented in this encounter Results EGD (12/26/2013 11:28 AM PDT) + + | Specimen | + + | | + + + + -+ | Narrative | Performed At | + + -+ | | [facility] | | GastroenterologyPatient Name: Noy Cee Date: 12/26/2013 | [facility] | | 11:28 AMMRN: [id number] #: [id number] of : | | | 1960Admit Type: AmbulatoryAge: 53Room: [facility] 02Gender: FemaleNote | | | Status: FinalizedAttending MD: Karan Toledo, [facility]rocedure: | | | Upper GI endoscopyIndications: DysphagiaProviders: | | | Karan Toledo MD, Derrick Lauren RN, Judi | | | Taco, TechnicianReferring MD: Shanthi | | | MD Leslie (Referring MD)Medicines: Cetacaine spray, | | | Fentanyl 100 micrograms IV, Midazolam 4 mg | | | IVComplications: No immediate complications.Procedure: | | | Pre-Anesthesia Assessment: - Prior to the procedure, a History | | | and Physical was performed, and patient medications and | | | allergies were reviewed. The patient is competent. The risks | | | and benefits of the procedure and the sedation options and | | | risks were discussed with the patient. All questions were | | | answered and informed consent was obtained. Patient identification and | | | proposed procedure were verified by the physician, the nurse | | | and the medical imaging technician in the endoscopy suite. Mental Status | | | Examination: alert and oriented. Airway Examination: Mallampati | | | Class II (the uvula but not tonsillar pillars visualized). | | | Respiratory Examination: clear to auscultation. CV Examination: | | | normal. Prophylactic Antibiotics: The patient does not require | | | prophylactic antibiotics. Prior Anticoagulants: The patient | | | has taken no previous anticoagulant or antiplatelet agents. ASA | | | Grade Assessment: II - A patient with mild systemic disease. After | | | reviewing the risks and benefits, the patient was deemed in | | | satisfactory condition to undergo the procedure. The anesthesia | | | plan was to use moderate sedation / analgesia (conscious | | | sedation). Immediately prior to administration of medications, | | | the patient was re-assessed for adequacy to receive sedatives. | | | The heart rate, respiratory rate, oxygen saturations, blood | | | pressure, adequacy of pulmonary ventilation, and response to | | | care were monitored throughout the procedure. The physical | | | status of the patient was re-assessed after the procedure. After | | | obtaining informed consent, the endoscope was passed under direct | | | vision. Throughout the procedure, the patient's blood pressure, | | | pulse, and oxygen saturations were monitored continuously. The | | | Endoscope was introduced through the mouth, and advanced to the | | | third part of duodenum. The upper GI endoscopy was | | | accomplished without difficulty. The patient tolerated the | | | procedure well.Findings: The examined duodenum was normal. | | | Biopsies were taken with a cold forceps for histology. | | | Diffuse mildly erythematous mucosa without bleeding was found in the | | | entire examined stomach. Biopsies were taken with a cold forceps | | | for histology. Abnormal motility was noted in the | | | esophagus. There are extra peristaltic waves of the esophageal | | | body. Tertiary peristaltic waves are noted. The exam of | | | the esophagus was otherwise normal. Biopsies were taken with a | | | cold forceps for histology.Impression: - Normal examined | | | duodenum. Biopsied. - Erythematous mucosa in the stomach. | | | Biopsied. - Esophageal motility disorder. - Biopsies were | | | taken with a cold forceps for histology.Recommendation: - | | | Discharge patient to home. - Await pathology results. - | | | Telephone GI clinic for pathology results in 2 weeks.Karan Tloedo, | | | MD12/26/2013 12:13 PMNumber of Addenda: 0Note Initiated On: | | | 12/26/2013 11:28 AMScope Withdrawal Time: 0 hours 0 minutes 0 seconds | | | Total Procedure Duration: 0 hours 5 minutes 46 seconds Scope In: | | | 11:41:48 AMScope Out: 11:47:34 AM [facility] | | | [place], [address] [place] [id number] | | |Impression: | | | - Normal examined duodenum. Biopsied. | | | - Erythematous mucosa in the stomach. Biopsied. | | | - Esophageal motility disorder. | | | - Biopsies were taken with a cold forceps for histology. | | |Recommendation: | | | - Discharge patient to home. | | | - Await pathology results. | | | - Telephone GI clinic for pathology results in 2 weeks. | | |Karan Toledo MD | | |12/26/2013 12:13 PM | | |Number of Addenda: 0 | | |Note Initiated On: 12/26/2013 11:28 AM | | |Scope Withdrawal Time: 0 hours 0 minutes 0 seconds | | |Total Procedure Duration: 0 hours 5 minutes 46 seconds | | |Scope In: 11:41:48 AM | | |Scope Out: 11:47:34 AM | | | [facility], [address] [place] [address] | | | [id number] | | + + -+ + + | Transcriptions | + + | WeiFransisca - 12/26/2013 12:00 AM PDT | + + + +---------+ + + | Performing | Address | City/State/Zipcode | Phone Number | | Organization | | | | + +---------+ + + | [facility] [place] | | | | + +---------+ + + COLONOSCOPY (12/26/2013 11:27 AM PDT) + + | Specimen | + + | | + + + + -+ | Narrative | Performed At | + + -+ | | [facility] | | GastroenterologyPatient Name: Noy Cee Date: 12/26/2013 | [place] | | 11:27 AMMRN: [id number] #: [id number] of : | | | 1960Admit Type: AmbulatoryAge: 53Room: [facility] 02Gender: FemaleNote | | | Status: FinalizedAttending MD: Karan Toledo, [facility]ITALrocedure: | | | ColonoscopyIndications: Crohn's disease of the small | | | bowel and colonProviders: Karan Toledo MD, Derrick | | | JEAN-PIERRE Lauren, Judi España, | | | TechnicianReferring MD: Shanthi Nelson MD (Referring | | | MD)Medicines: Midazolam 5 mg IV, in addition to medication | | | given at prior EGDComplications: No | | | immediate complications.Procedure: Pre-Anesthesia Assessment: | | | - Prior to the procedure, a History and Physical was performed, | | | and patient medications and allergies were reviewed. The | | | patient is competent. The risks and benefits of the procedure | | | and the sedation options and risks were discussed with the | | | patient. All questions were answered and informed consent was | | | obtained. Patient identification and proposed procedure were | | | verified by the physician, the nurse and the medical imaging technician in the | | | endoscopy suite. Mental Status Examination: alert and oriented. | | | Airway Examination: Mallampati Class II (the uvula but not | | | tonsillar pillars visualized). Respiratory Examination: clear to | | | auscultation. CV Examination: normal. Prophylactic Antibiotics: The | | | patient does not require prophylactic antibiotics. Prior | | | Anticoagulants: The patient has taken no previous anticoagulant | | | or antiplatelet agents. ASA Grade Assessment: II - A patient | | | with mild systemic disease. After reviewing the risks and | | | benefits, the patient was deemed in satisfactory condition to | | | undergo the procedure. The anesthesia plan was to use moderate | | | sedation / analgesia (conscious sedation). Immediately prior to | | | administration of medications, the patient was re-assessed for | | | adequacy to receive sedatives. The heart rate, respiratory | | | rate, oxygen saturations, blood pressure, adequacy of pulmonary | | | ventilation, and response to care were monitored throughout | | | the procedure. The physical status of the patient was | | | re-assessed after the procedure. After I obtained informed | | | consent, the scope was passed under direct vision. Throughout | | | the procedure, the patient's blood pressure, pulse, and oxygen | | | saturations were monitored continuously. The endoscope was | | | introduced through the anus and advanced to the ileocecal valve. The | | | colonoscopy was somewhat difficult due to a tortuous colon. | | | Successful completion of the procedure was aided by changing | | | the patient to a supine position. The patient tolerated the | | | procedure well. The quality of the bowel preparation was | | | good.Findings: The terminal ileum appeared normal. The scope | | | couldn't be advance into the TI but was visualized through the | | | ileocecal valve. Internal hemorrhoids were found during | | | retroflexion and were small. The exam was otherwise normal | | | throughout the examined colon. Biopsies were taken with a cold | | | forceps for histology.Impression: - The examined portion of the | | | ileum was normal. - Internal hemorrhoids. - Biopsies were | | | taken with a cold forceps for histology.Recommendation: - | | | Discharge patient to home. - Continue present medications. | | | - Await pathology results. - Telephone GI clinic for pathology | | | results in 2 weeks.Karan Toledo MD12/26/2013 12:18 PMNumber of | | | Addenda: 0Note Initiated On: 12/26/2013 11:27 AMScope Withdrawal Time: | | | 0 hours 6 minutes 25 seconds Total Procedure Duration: 0 hours 20 | | | minutes 13 seconds Scope In: 11:48:37 AMScope Out: 12:08:50 PM | | | [facility], [facility] [address] [place], [place] | | | [id number] | | | - Biopsies were taken with a cold forceps for histology. | | |Recommendation: | | | - Discharge patient to home. | | | - Continue present medications. | | | - Await pathology results. | | | - Telephone GI clinic for pathology results in 2 weeks. | | |Karan Toledo MD | | |12/26/2013 12:18 PM | | |Number of Addenda: 0 | | |Note Initiated On: 12/26/2013 11:27 AM | | |Scope Withdrawal Time: 0 hours 6 minutes 25 seconds | | |Total Procedure Duration: 0 hours 20 minutes 13 seconds | | |Scope In: 11:48:37 AM | | |Scope Out: 12:08:50 PM | | | [facility], [address] [place], [place] | | | [address] | | + + -+ + + | Transcriptions | + + | Fransisca Carvajal - 12/26/2013 12:00 AM PDT | + + + +---------+ + + | Performing | Address | City/State/Zipcode | Phone Number | | Organization | | | | + +---------+ + + | [facility] | | | | + +---------+ + + documented in this encounter Visit Diagnoses + + | Diagnosis | + + | Dysphagia - Primary Dysphagia, unspecified | + + | Crohn's disease, with intestinal obstruction | + + | GERD (gastroesophageal reflux disease) Esophageal reflux | + + documented in this encounter Administered Medications + +--------+ +---------+------+------+ | Medication Order | MAR | Action | Dose | Rate | Site | | | Action | Date | | | | + +--------+ +---------+------+------+ | wecxyhho-jgesgdpoaw-onefhoessu | Given | 12/27/19 | 1 spray | | | | (CETACAINE) spray PRN, Starting | | 14 11:35 | | | | | 12/26/13 at 1135 | | AM PDT | | | | + +--------+ +---------+------+------+ +---+---+ | | | +---+---+ + +-------+ +---------+---+---+ | fentaNYL injection PRN, Pain, | Given | 12/27/19 | 100 mcg | | | | Starting Mon /20/14 at 1138 | | 14 11:38 | | | | | | | AM PDT | | | | + +-------+ +---------+---+---+ +---+---+ | | | +---+---+ + +---------+ +---+-------+---+ | lactated ringers (LR) infusion | New Bag | 12/27/19 | | 100 | | | at 100 mL/hr, Intravenous, | | 14 11:16 | | mL/hr | | | CONTINUOUS, Starting Thu12/26/13 | | AM PDT | | | | | at 1130, Pre-op | | | | | | + +---------+ +---+-------+---+ +---+---+ | | | +---+---+ + +-------+ +------+---+---+ | midazolam (VERSED) 5 mg/mL | Given | 12/27/19 | 1 mg | | | | injection PRN, Anxiety, Starting | | 14 12:07 | | | | | 12/26/13 at 1140 | | PM PDT | | | | + +-------+ +------+---+---+ +-------+ +------+---+---+ | Given | 10/20/20 | 1 mg | | | | | 14 12:01 | | | | | | PM PDT | | | | +-------+ +------+---+---+ | Given | 10/20/20 | 1 mg | | | | | 14 11:56 | | | | | | AM PDT | | | | +-------+ +------+---+---+ +---+---+ | | | +---+---+ documented in this encounter
--- OUTSIDE RECORDS SUMMARY | ~2019-08-10 | XMS | Encounter Summary ---
Demographics + + + | Address | [address] | | | [place] [address] | + + + | Home Phone | | + + + | Preferred Language | Unknown | + + + | Marital Status | | + + + | Yarsanism Affiliation | 1027 | + + + | Race | Unknown | + + + | Ethnic Group | Unknown | + + + Author + + + | Author | [facility] | | | and [place] | + + + | Organization | [facility] | | | [...] Team Providers + +------+ + | Care Hatch Supervisor Name | Role | Phone | [...] | MED CTR EXTERNAL | [address] | | | | | [address] | [address] | | | | | [place] | [place] [address] | | | | | [place] [address] | | | | | | [phone] | | | +--------+ + + + [...] | | | | | | [place] [address] | | | | | | [phone] | | | | | | | | +--------+---------+ + + + documented as of this encounter Procedures + +--------+ + + + | Procedure Name | Priori | Date/Time | Associated Diagnosis | Comments | | | ty | | | | + +--------+ + + + | CT CHEST WO CONTRAST | Routin | 04/27/2019 | | Results for this | | | e | 12:00 AM | | procedure are in the | | | | PST | | results section. | + +--------+ + + + documented in this encounter Results CT Chest wo Contrast (04/27/2019 12:00 AM PST) + + | Specimen | + + [...]
--- OUTSIDE RECORDS SUMMARY | ~2019-08-10 | XMS | Encounter Summary ---
Demographics + + + | Address | [address] | | | [place] [address] | + + + | Home Phone | | + + + | Preferred Language | Unknown | + + + | Marital Status | | + + + | Mandaeism Affiliation | 1027 | + + + | Race | Unknown | + + + | Ethnic Group | Unknown | + + + Author + + + | Author | [facility] | | | and [place] | + + + | Organization | [facility] | | | and [...] Team Providers + +------+ + | Care Stage Setting Painter Apprentice Name | Role | Phone | + [...] | MED CTR EXTERNAL | [address] | | | | | IM[address] | [address] | | | | | [place] | [place] [address] | | | | | [place] [address] | | | | | | [phone] | | | +--------+ + + + [...] | | | | | MD [address] | | | | | | [place], | | | | | | [place] [address] | | | | | | [phone] | | | | | | | [...] this encounter Results XR Chest 2 Vws (08/11/2019 12:00 AM PDT) + + | Specimen [...]
--- OUTSIDE RECORDS SUMMARY | ~2019-08-10 | XMS | Encounter Summary ---
Demographics + + + | Address | [address] | | | [place] [address] | + + + | Home Phone | | + + + | Preferred Language | Unknown | + + + | Marital Status | | + + + | Temple Affiliation | 1027 | + + + | Race | Unknown | + + + | Ethnic Group | Unknown | + + + Author + + + | Author | [facility] | | | and [place] | + + + | Organization | [facility] | | | [...] Team Providers + +------+ + | Care Rope Making Machine Operator Name | Role | Phone | + +------+ + PCP | Unavailable | + +------+ + Encounter Details +--------+ + + + + | Date | Type | Department | Care Team | Description | +--------+ + + + + | 04/04/ | Hospital | [facility] | [place], | | | 2011 | Encounter | [facility] | Anni Cleaning MD [address] | | | | | [address] [place] | [facility] | | | | | [facility] [place] | [place] | | | | | [address] | [address] | | | | | [phone] | [phone] | | | | | | | [...] [place], | | | | | | [place] [address] | | | | | | [phone] | | | | | | | | +--------+---------+ + + + documented as of this encounter Visit Diagnoses Not on filedocumented in this encounter"
--- OUTSIDE RECORDS SUMMARY | ~2019-08-10 | XMS | Encounter Summary ---
Demographics + + + | Address | [address] | | | [place] [address] | + + + | Home Phone | | + + + | Preferred Language | Unknown | + + + | Marital Status | | + + + | Gnosticist Affiliation | 1027 | + + + [...] Providers + +------+ + | Care Poultry Culler Name | Role | Phone | + +------+ + PCP | Unavailable | + +------+ + Encounter Details +--------+ + + + + | Date | Type | Department | Care Team | Description | +--------+ + + + + | 08/16/ | Hospital | [facility] | Fatemeh Louis MD | | | 2012 | Encounter | HOSPITAL GENER[facility] OP | [address] | | | | | CONVERSION | [address] [place] | | | | | [address]PART[address] | [address] | | | | | [place] | | | | | | [facility] [place] | [place] | | | | | [address] | MD [address] | | | | | [phone] | [place] | | | | | | [place] [address] | | | | | | [phone] | | | | | | | [...] | | | | | | [place] [address] | | | | | | [phone] | | | | | | | | +--------+---------+ + + + documented as of this encounter Visit Diagnoses Not on filedocumented in this encounter"
--- OUTSIDE RECORDS SUMMARY | ~2019-08-10 | XMS | Encounter Summary ---
Demographics + + + | Address | [address] | | | [place] [address] | + + + | Home Phone | | + + + | Preferred Language | Unknown | + + + | Marital Status | | + + + | Latter Day Affiliation | 1027 | + + + | Race | Unknown | + + + | Ethnic Group | Unknown | + + + Author + + + | Author | [facility] | | | and [place] | + + + | Organization | [facility] | | | [...] Team Providers + +------+ + | Care Director International Name | Role | Phone | + [...] Description | +--------+--------+ + + + | 04/03/ | Refill | [facility] [place] | [place], | Medication Refill | | 2014 | | GASTROENTEROLOGY | [address] | | | | | [address] [place] | [address] | | | | | [address] [place], [place] | [place], [place] | | | | | [address] | [address] | | | | | [phone] | | | +--------+--------+ + + + [...] | | | | | | [place] [address] | | | | | | [phone] | | | | | | | | +--------+---------+ + + + documented as of this encounter Visit Diagnoses Not on filedocumented in this encounter"
--- OUTSIDE RECORDS SUMMARY | ~2019-08-10 | XMS | Encounter Summary ---
Demographics + + + | Address | [address] | | | [place] [address] | + + + | Home Phone [...] Team Providers + +------+ + | Care Paediatrician Name | Role | Phone | + [...] | | | | | | site ([facility]) | | | | | | | [...] Description | +--------+---------+ + + + | 12/26/ | Surgery | [facility] | Karan Toledo, | EGD / COLONOSCOPY | | 2013 | | MED CTR MP INTRA OP | MD [address] | | | | | [address] | [address], | | | | | [place] | [place] [address] | | | | | [address] | [phone] | | | | | [phone] | | | +--------+---------+ + + + Social History [...] the physician who did your procedure at [phone] if you have any questions or experience any of the following: Increasing abdominal pain, nausea, or vomiting. Chills and fever over 101F. New abdominal swelling or bloating. Signs of rectal bleeding (black or red stool. If you cannot get a hold of your physician, then call the [facility] [phone] . If necessary, report to the Emergency Department at [facility]. Quit smoking: If you smoke or have [...] wh ere the pathway meets the skin. [phone] Jackie [facility], [address] [place] [address], [place] [address]. All rights reserve d. This information is [...] afford the prescribed medication, you can try jiyh-yfj-ohzwdrl acid blockers, such as Pepcid AC, Tagamet, [...] or as directed by your healthcare provider [phone] Jackie Yepez, [address] [place] [address], [place] [address]. All rights reserve d. This information is [...] puff into | | 0 | | 01/29/202 | | (QVAR) 80 mcg/puff | the [...] Karan Barron MD - 12/26/2013 11:24 AM [facility] SURGICAL INTERIM HISTORY AND PHYSICAL [...] signed by: Karan Toledo, 12/26/2013 11:[address] [facility] ueta Cruz BREN - 12/13/2013 9:38 AM PDT . Noy [...] colonoscopy was about 3 years ago in [place]. Notes some increased acid reflux. Reflux has [...] Final eGFR, External 11/10/2013 >60 60 - 72483 Final ALT, External 11/10/2013 30 14 - [...] disease, other complication (HCC) Ambulatory referral to Gastroenterology([facility] ) 2. GERD (gastroesophageal reflux disease) Ambulatory referral to Gastroenterology([facility]) 3. Tobacco use Ambulatory referral to Gastroenterology([facility]) Plan: IBD diagnosis: Patient was diagnosed with [...] Nutrition: Do to our climate in the [facility], recommend periodic vitamin D testin g by [...] documented in t his encounter Procedure Notes ONJOAN SCAN [facility] - 12/28/2013 12:00 AM PDTAssociated Order(s): PATHOLOGY - EXTERNAL SCANEle ctronically signed by Fransisca Carvajal at 12/28/2013 10:24 AM PDTONBASE SCAN [facility] - 12/26/2013 1 2:00 AM PDTAssociated Order(s): COLONOSCOPY 14 12:23 PM PDTONBASE SCAN [facility] - 12/26/2013 12:00 AM PDTAssociated Order(s): EGDElectronica lly signed by [facility] at 12/26/2013 12:18 PM PDTdocumented in this encounter Miscellaneous Notes Miscellaneous - ONBASE SCAN [facility] - 12/31/2013 12:00 AM PDT lan of Care - ONBASE SCAN [facility] - 12/27/2013 12:00 AM PDTElec tronically signed by [facility] at 12/27/2013 2:11 PM PDTMiscellaneous - ONBASE SCAN [facility] - 12/27/2013 12:00 AM PDT [...] | | | | | | [place] | | | | | | [place] [address] | | | | | | [phone] | | | | | | | [...] | | | | | PDT | ([facility]) Esophageal | | | | | | [...] 12/26/2013 | [facility] | | 11:28 AMMRN: [id number] #: [id number] of : | | | 1960Admit Type: AmbulatoryAge: Room: [facility]Gender: FemaleNote | | | Status: FinalizedAttending MD: Karan Toledo, [facility]cedure: | | | Upper GI endoscopyIndications: DysphagiaProviders: [...] the nurse | | | and the systems technician in the endoscopy suite. Mental Status [...] clinic for pathology results in 2 weeks.Karan Toledo, | | | 12/26/2013 12:13 PMNumber of Addenda: 0Note Initiated On: | | | 12/26/2013 11:28 AMScope Withdrawal Time: 0 hours 0 minutes 0 seconds | | | Total Procedure Duration: 0 hours 5 minutes 46 seconds Scope In: | | | 11:41:48 AMScope Out: 11:47:34 AM [facility] | | | [place], [address] [place] [address] | | |Impression: | | | - [...] |Scope Out: 11:47:34 AM | | | [facility], [address] [place] [address] | | | [address] | | + + -+ + + | Transcriptions | + + | Debra Carvajaltn - 12/26/2013 12:00 AM PDT | + [...] 12/26/2013 | [facility] | | 11:27 AMMRN: [id number] #: [id number] of : | | | 1960Admit Type: AmbulatoryAge: 53Room: [facility] 02Gender: FemaleNote | | | Status: FinalizedAttending MD: Karan Toledo, MDProcedure: | | | ColonoscopyIndications: Crohn's disease of [...] by the physician, the nurse and the systems technician in the | | | endoscopy [...] AMScope Out: 12:08:50 PM | | | [facility], [address] [place], [place] | | | [address] | | | - Biopsies were taken [...] |Scope Out: 12:08:50 PM | | | [facility], [address] [facility], [place], [place] | | | [address] | | + + -+ + + | Transcriptions | + + | [facility] - 12/26/2013 12:00 AM PDT | + + + +---------+ + + | Performing | Address | City/State/Zipcode | Phone Number | | Organization | | | | + +---------+ + + | [facility] | | | | + +---------+ + + documented in this encounter Visit Diagnoses + + | Diagnosis | + + | Regional enteritis of unspecified site | + + | Esophageal reflux | + + | Tobacco use disorder | + + documented in this encounter Administered Medications + +--------+ +---------+------+------+ | Medication Order | MAR | Action | Dose | Rate | Site | | | Action | Date | | | | + +--------+ +---------+------+------+ | wmabthxq-blzkdkmlvt-pqprypxyco | Given | 12/27/19 | 1 spray | | | | (CETACAINE) spray PRN, Starting | | 14 11:35 | | | | | 12/26/13 at 1135 | | AM PDT | | | | + +--------+ +---------+------+------+ +---+---+ | | | +---+---+ + +-------+ +---------+---+---+ | fentaNYL injection PRN, Pain, | Given | 12/27/19 | 100 mcg | | | | Starting 12/26/13 at 1138 | | 14 11:38 | | | | | | | AM PDT | | | | + +-------+ +---------+---+---+ +---+---+ | | | +---+---+ + +---------+ +---+-------+---+ | lactated ringers (LR) infusion | New Bag | 12/27/19 | | 100 | | | at 100 mL/hr, Intravenous, | | 14 11:16 | | mL/hr | | | CONTINUOUS, Starting 12/26/13 | | AM PDT | | | [...] +-------+ +------+---+---+ +-------+ +------+---+---+ | Given | 12/27/19 | 1 mg | | | | | 14 12:01 | | | | | | PM PDT | | | | +-------+ +------+---+---+ | Given | 12/27/19 | 1 mg | | | | | 14 11:56 | | | | | | AM PDT | | | | +-------+ +------+---+---+ +---+---+ | | | +---+---+ documented in this encounter
--- OUTSIDE RECORDS SUMMARY | ~2019-08-10 | XMS | Encounter Summary ---
Demographics + + + | Address | [address] | | | [place] [address] | + + + | Home Phone | | + + + | Preferred Language | Unknown | + + + | Marital Status | | + + + | Temple Affiliation | 1027 | + + + | Race | Unknown | + + + | Ethnic Group | Unknown | + + + Author + + + | Author | [facility] | | | and [place] | + + + | Organization | [facility] | | [...] Team Providers + +------+ + | Care Furnace Clerk Name | Role | Phone | + [...] Closed | | Radiology | Diagnoses | | [facility] | | | | | Crohn's | [place], | [address] | | | | | disease, | [place], | [place], | | | | | other | [employer] [address] | [place] | | | | | complication | [address] | [address] | | | | | Abdominal | [address] | Phone: | | | | | pain Nausea | [place], | [phone] | | | | | [place] | [place] [address] | Fax: | | | | | stools | Phone: | [phone] | | | | | Procedures | [phone] | | | | | | MRI | Fax: | | | | | | Enterography | [phone] | | | | | | w wo | | | | | | | Contrast DC | | | | | | | MRI, | | | | | | | ABDOMEN, | | | | | | | COMBO DC | | | | | | | MRI, PELVIS, | | | | | | | COMBO | | | +--------+--------+ + + + + Reason for Visit Diagnostic/Screening (Routine) +--------+--------+ + + + + | Status | Reason | Specialty | Diagnoses / | Referred By | Referred To | | | | | Procedures | Contact | Contact | +--------+--------+ + + + + | Closed | | Radiology | Diagnoses | | [facility] | | | | | Crohn's | [place], | [address] | | | | | disease, | [place], | [place], | | | | | other | [employer] [address] | [place] | | | | | complication | [address] | [address] | | | | | Abdominal | [address] | Phone: | | | | | pain Nausea | [place], | [phone] | | | | | [place] | [place] [address] | Fax: | | | | | stools | Phone: | [phone] | | | | | Procedures | [phone] | | | | | | MRI | Fax: | | | | | | Enterography | [phone] | | | | | | w wo | | | | | | | Contrast DC | | | | | | | MRI, | | | | | | | ABDOMEN, | | | | | | | COMBO DC | | | | | | | MRI, PELVIS, | | | | | | | COMBO | | | +--------+--------+ + + + + Encounter Details +--------+ + + + + | Date | Type | Department | Care Team | Description | +--------+ + + + + | 02/09/ | Hospital | [facility] | [facility], | Crohn's disease, | | 2013 | Encounter | [facility] MRI [address] | [place] [address] [address] | other complication | | | | [place], | [address] | (HCC); Abdominal | | | | [place] [address] | [place], [place] | pain; Nausea; [place] | | | | [phone] | [address] | stools | | | | | | | | | | | [facility] | | +--------+ + + + + [...] documented as of this encounter Miscellaneous Notes Miscellaneous - [facility] - 02/17/2014 12:00 AM PST iscellaneous - [facility] - 02/17/2014 12:00 AM PSTEle ctronically signed by [facility] at 02/17/2014 4:30 PM PSTdocumented in this encounter Plan of Treatment +--------+---------+ [...] [place], | | | | | | [place] [address] | | | | | | [phone] | | | | | | | | +--------+---------+ + + + documented as of this encounter Procedures + +--------+ + + + | Procedure Name | Priori | Date/Time | Associated Diagnosis | Comments | | | ty | | | | + +--------+ + + + | MRI ENTEROGRAPHY W | Routin | 02/09/2014 | Crohn's disease, | Results for this | | WO CONTRAST | e | 3:02 PM | other complication | procedure are in the | | | | PST | ([facility]) Abdominal | results section. | | | | | pain Nausea [place] | | | | | | stools | | + +--------+ + + + documented in this encounter Results MRI Enterography w wo Contrast (02/09/2014 3:02 PM PST) + + | Specimen | + + | | + + + + + | Narrative | Performed At | + + + | MRI ABDOMEN WITH AND WITHOUT CONTRAST (MR ENTEROGRAPHY): 02/09/2014 | [facility] | | 2:18 PM CLINICAL HISTORY: Crohn's disease COMPARISON: None | LAB | | TECHNIQUE: T1 and T2 weighted axial and coronal sequences are | | | performed before and after contrast enhancement, with delayed | | | sequences to 5 minutes. 10 mL of Gadavist was given intravenously. | | | Oral Volumen was also given. Glucagon 1 mg was administered | | | intramuscularly to reduce bowel peristalsis. No difficulties or | | | problems were encountered. FINDINGS:Stomach and proximal small | | | bowel are of normal caliber. No wall thickening or abnormal | | | enhancement. Proximal ileum also shows a normal caliber. Just beyond | | | the mid ileum there is a mildly dilated loop, with maximum | | | cross-sectional measurement of 3-cm. Beyond this, there is a short, 3 | | | cm segment of ileum with a narrowed lumen, mild wall thickening and | | | enhancement. A second, 7 cm long segment just beyond this shows | | | thickened wall with enhancement and mildly irregular margins. These | | | foci are approximately 20 cm from the ileocecal junction. The last 10 | | | cm of ileum also shows mild irregular wall thickening and a narrowed | | | lumen with increased enhancement. The colon has a normal caliber | | | and appearance throughout. No appendix seen. No abnormal enhancement. | | | No mesenteric inflammatory changes or abdominal free fluid. No | | | pathologic sized mesenteric adenopathy. Liver is of lower signal | | | than spleen on the fat-suppressed images, indicating fatty | | | infiltrative change. No focal hepatic abnormality. Gallbladder is | | | absent. Common bile duct of normal caliber. Pancreas is well defined | | | and normal. Spleen and adrenal glands are normal. Tiny lower pole | | | cyst of the left kidney with no other renal abnormality. Urinary | | | bladder is unremarkable. No uterus or ovaries identified. No | | | abnormalities in the lung bases. No pleural effusion. IMPRESSION - | | | 1. Multiple short segments of irregular bowel wall thickening and | | | luminal narrowing in the distal ileum as discussed above. Just | | | antegrade to this area a segment of mildly dilated bowel is present | | | suggesting some degree of obstruction. Increased contrast enhancement | | | in these thickened loops, but no other imaging features of active | | | inflammation. No mesenteric adenopathy. 2. Post cholecystectomy, | | | appendectomy and hysterectomy changes. Fatty infiltration of the | | | liver. Dictated and Signed by: Troy Kelley MD | | | Electronically signed: 02/09/2014 3:41 PM | | + + + + + | Procedure Note | + + | [place], Rad Results In - 02/09/2014 3:44 PM PST MRI ABDOMEN WITH AND WITHOUT CONTRAST | | (MR ENTEROGRAPHY): 02/09/2014 2:18 PMCLINICAL HISTORY: Crohn's diseaseCOMPARISON: | | NoneTECHNIQUE: T1 and T2 weighted axial and coronal sequences are performed beforeand | | after contrast enhancement, with delayed sequences to 5 minutes. 10 mL ofGadavist was | | given intravenously. Oral Volumen was also given. Glucagon 1 mg wasadministered | | intramuscularly to reduce bowel peristalsis. No difficulties orproblems were | | encountered.FINDINGS:Stomach and proximal small bowel are of normal caliber. No | | wallthickening or abnormal enhancement. Proximal ileum also shows a normal caliber.Just | | beyond the mid ileum there is a mildly dilated loop, with maximumcross-sectional | | measurement of 3-cm. Beyond this, there is a short, 3 cm segmentof ileum with a narrowed | | lumen, mild wall thickening and enhancement. A second,7 cm long segment just beyond | | this shows thickened wall with enhancement andmildly irregular margins. These foci are | | approximately 20 cm from the ileocecaljunction. The last 10 cm of ileum also shows mild | | irregular wall thickening marycarmen narrowed lumen with increased enhancement.The colon has a | | normal caliber and appearance throughout. No appendix seen. Noabnormal enhancement. No | | mesenteric inflammatory changes or abdominal freefluid. No pathologic sized mesenteric | | adenopathy.Liver is of lower signal than spleen on the fat-suppressed images, | | indicatingfatty infiltrative change. No focal hepatic abnormality. Gallbladder is | | absent.Common bile duct of normal caliber. Pancreas is well defined and normal. | | Spleenand adrenal glands are normal. Tiny lower pole cyst of the left kidney with | | noother renal abnormality. Urinary bladder is unremarkable. No uterus or | | ovariesidentified. No abnormalities in the lung bases. No pleural effusion.IMPRESSION | | -1. Multiple short segments of irregular bowel wall thickening and luminalnarrowing in | | the distal ileum as discussed above. Just antegrade to this area asegment of mildly | | dilated bowel is present suggesting some degree ofobstruction. Increased contrast | | enhancement in these thickened loops, but noother imaging features of active | | inflammation. No mesenteric adenopathy.2. Post cholecystectomy, appendectomy and | | hysterectomy changes. Fattyinfiltration of the liver.Dictated and Signed by: Troy | | MD Warren Electronically signed: 02/09/2014 3:41 PM | |and adrenal glands are normal. Tiny lower pole cyst of the left kidney with no | |other renal abnormality. Urinary bladder is unremarkable. No uterus or ovaries | |identified. No abnormalities in the lung bases. No pleural effusion. | | | |IMPRESSION - | |1. Multiple short segments of irregular bowel wall thickening and luminal | |narrowing in the distal ileum as discussed above. Just antegrade to this area a | |segment of mildly dilated bowel is present suggesting some degree of | |obstruction. Increased contrast enhancement in these thickened loops, but no | |other imaging features of active inflammation. No mesenteric adenopathy. | | | |2. Post cholecystectomy, appendectomy and hysterectomy changes. Fatty | |infiltration of the liver. | | | |Dictated and Signed by: Troy Kelley MD | | Electronically signed: 02/09/2014 3:41 PM | + + + +---------+ + + | Performing | Address | City/State/Zipcode | Phone Number | | Organization | | | | + +---------+ + + | [facility] | | | [phone] | + +---------+ + + | [facility] | | | [phone] | + +---------+ + + documented in this encounter Visit Diagnoses + + | Diagnosis | + + | Crohn's disease, other complication | + + | Abdominal pain Abdominal pain, unspecified site | + + | Nausea Nausea alone | + + | Black stools Nonspecific abnormal finding in stool contents | + + documented in this encounter Administered Medications + +--------+ +--------+------+------+ | Medication Order | MAR | Action | Dose | Rate | Site | | | Action | Date | | | | + +--------+ +--------+------+------+ | gadobutrol (GADAVIST) injection | Given | 02/10/20 | 10 mLs | | | | 10 mL 10 mL, Intravenous, ONCE | | 14 3:04 | | | | | PRN, Other, Starting [facility] 02/09/14 | | PM PST | | | | | at 1503, For 1 dose, MRI | | | | | | + +--------+ +--------+------+------+ +---+---+ | | | +---+---+ documented in this encounter"
--- OUTSIDE RECORDS SUMMARY | ~2019-08-10 | XMS | Encounter Summary ---
Demographics + + + | Address | [address] | | | [place] [address] | + + + | Home Phone [...] Team Providers + +------+ + | Care Actuarial Assistant Name | Role | Phone | + +------+ + PCP | Unavailable | + +------+ + Encounter Details +--------+ + + + + | Date | Type | Department | Care Team | Description | +--------+ + + + + | 07/14/ | Hospital | [facility] | Andrea Reese | | | 2012 | Encounter | [facility] HEMATOLOGY | [address] | | | | | ONCOLOGY [address] | [address] | | | | | [address] [place] | [place] | | | | | [address] | [address] | | | | | [phone] | [phone] | | | | | | | [...] [place], | | | | | | [place] [address] | | | | | | [phone] | | | | | | | | +--------+---------+ + + + documented as of this encounter Visit Diagnoses Not on filedocumented in this encounter"
--- OUTSIDE RECORDS SUMMARY | ~2019-08-10 | XMS | Encounter Summary ---
Demographics + + + | Address | [address] | | | [place] [address] | + + + | Home Phone | | + + + | Preferred Language | Unknown | + + + | Marital Status | | + + + | Mandaen Affiliation | 1027 | + + + [...] Team Providers + +------+ + | Care Kicking Machine Operator Name | Role | Phone [...] | [facility] | [address] | | | | | [address] | [address] | | | | | [address] | [place] [address] | | | | | [place] [address] | | | | | | [phone] | | | +--------+ + + + [...] | | | | | | [place] [address] | | | | | | [phone] | | | | | | | | +--------+---------+ + + + documented as of this encounter Procedures + +--------+ + + + | Procedure Name | Priori | Date/Time | Associated Diagnosis | Comments | | | ty | | | | + +--------+ + + + | XR CHEST 2 VIEWS | Routin | 07/02/2015 | | Results for this | | | e | 12:00 AM | | procedure are in the | | | | PDT | | results section. | + +--------+ + + + documented in this encounter Results XR Chest 2 Vws (07/02/2015 12:00 AM PDT) + + | Specimen [...]
--- OUTSIDE RECORDS SUMMARY | ~2019-08-10 | XMS | Encounter Summary ---
Demographics + + + | Address | [address] | | | [place] [address] | + + + | Home Phone | | + + + | Preferred Language | Unknown | + + + | Marital Status | | + + + | Caodaism Affiliation | 1027 | + + + | Race | Unknown | + + + | Ethnic Group | Unknown | + + + Author + + + | Author | [facility] | | | and [place] | + + + | Organization | [facility] | | | [...] Team Providers + +------+ + | Care Thread Cutter Name | Role | Phone | + +------+ + | Merle Meng MD | PCP | | + +------+ + Encounter Details +--------+ + + + + | Date | Type | Department | Care Team | Description | +--------+ + + + + | 08/31/ | Imaging | [facility] | Provider, | | | 2019 | Exam | [facility] EXTERNAL | [address] | | | | | [address] | [address] | | | | | [place] [address] | [place] [address] | | | | | [place] [address] | | | | | | [phone] | | | +--------+ + + + [...] | | | | | | [place] [address] | | | | | | [phone] | | | | | | | | +--------+---------+ + + + documented as of this encounter Procedures + +--------+ + + + | Procedure Name | Priori | Date/Time | Associated Diagnosis | Comments | | | ty | | | | + +--------+ + + + | PET CT SKULL BASE TO | Routin | 02/02/2019 | | Results for this | | MID THIGH | e | 12:00 AM | | procedure are in the | | | | PST | | results section. | + +--------+ + + + documented in this encounter Results PET CT Skull Base To Mid Thigh (02/02/2019 12:00 AM PST) + + | Specimen [...]
--- OUTSIDE RECORDS SUMMARY | ~2019-08-10 | XMS | Encounter Summary ---
Demographics + + + | Address | [address] | | | [place] [address] | + + + | Home Phone | | + + + | Preferred Language | Unknown | + + + | Marital Status | | + + + | Holiness Affiliation | 1027 | + + + [...] Team Providers + +------+ + | Care Plumbing Assembler Installer Name | Role | Phone | + +------+ + | Merle Meng MD | PCP | | + +------+ + Reason for Visit +--------+ + | Reason | Comments | +--------+ + | Ostomy | | +--------+ + Evaluate & Treat (Routine) +--------+--------+ + + + + | Status | Reason | Specialty | Diagnoses / | Referred By | Referred To | | | | | Procedures | Contact | Contact | +--------+--------+ + + + + | Closed | | Wound Care | Diagnoses | Olivier Meng Hplx Op | | | | | Encounter | Merle Hernandez MD | Wound Care | | | | | for | [address] | [address] | | | | | attention to | Joao Goode | [place] | | | | | ileostomy | [place], | [place] [address] | | | | | (HCC) | [place] [address] | Phone: | | | | | | Phone: | [phone] | | | | | | [phone] | Fax: | | | | | | Fax: | [phone] | | | | | | [phone] | | +--------+--------+ + + + + Encounter Details +--------+---------+ + + + | Date | Type | Department | Care Team | Description | +--------+---------+ + + + | 04/05/ | Office | [facility] | Merle Meng V, | Attention to | | 2020 | Visit | CENTER OUTPATIENT | [address] | ileostomy (HCC) | | | | WOUND CARE [address] | [place], [place] | (Primary Dx) | | | | [address] [place], [place] | [address] | | | | | [address] | | | | | | [phone] | Citlalli Moreira, | | | | | | RN | | +--------+---------+ + + + Social [...] + + documented as of this encounter Patient Instructions Patient Instructions Citlalli Moreira RN - 04/05/2019 1:00 PM Jessicaank-you for visiting the outpatient ostomy clinic today. Please empty your pouch when it is 1/3- 1/2 full. If it gets to full it can cause the pouch seal to break and leak. Your stoma measures _1 _inches today. Please cut/mold your wafer approximately 1/8th inch larger than your stoma. If cutting your wafer, smooth rough edges to prevent injury to your stoma. It has been recommended that you use a One piece Leroy soft convex pre-cut to 1" #8962 appliance with Keyon Ring Please change your ostomy appliance every 2-3 days or if you have itching, burning or leaki ng as follows: Warm your new ostomy wafer under your arm pit or with a blow dryer on low setting to improv e adhesion. 1) Gently remove existing pouch using the adhesive spray remover. Use two hands using the push pull technique to prevent skin damage. 2) If needed clip hair away from the stoma with an electric clipper or safety razor. Sprink le a small amount of stomahesive powder on the skin before shaving. Always shave away from the stoma to prevent injury. 3) Cleanse the skin around the stoma with plain tap water or a stoma care product such as s afe n' simple wipes. Do not clean the skin around the stoma with baby wipes. 4) If needed sprinkle a thin layer of stomahesive powder or antifungal powder for yeast ra sh (Mircorguard 2% Miconazole Nitrate- may purchase at [employer]) on the denuded skin . Gently tap the skin to remove excess powder. 5) Seal in the powder with skin barrier wipes or spray and allow to dry well. Repeat steps 4 and 5, three times. 6) Place an keyon ring around the inner edge of the wafer or directly on the skin around th e stoma. Pouch the stoma as directed. 7) Place a half of a coloplast arc on either side of your belly button to Prevent leakage. 8) Gelling packet can be placed directly into your pouch to help thicken ostomy output such as Sera Sachet or Par-Sorb. 9) It is recommended that you use an ostomy belt to help secure your pouch. Ensure that the belt is not cinched too tight. You should easily be able to slip 2 fingers under the belt. You can use a product such as an abdominal wrap at night to secure the pouch, you can resea [facility] [email or web address] for more information. You can also purchase a Belly Band at [employer] i n the maternity section. At your request your name has been added to the Ostomy Support Group e-mail list / mailing list. For your convenience there is ostomy literature available at the [facility]. The following are web sites that provide ostomy care information www.coloplast.us www.[employer].com [email or web address] YOUR TO DO LIST: 1). An ostomy supply order will be placed with your chosen supply company. If you have not heard from them in 1 - 2 business days please call them to check on the stat us of your order. A supply order will be placed with [facility] ( [facility]) today for ostomy suppl ies. Should you have any questions or concerns regarding your order please contact them at [phone] extension [phone]. Per insurance guidelines, supplies may be ordered every 30 d ays 2) Review and begin the [facility]'s Your Guide to Recovery After Ostomy Surgery Series on line at [employer] [email or web address] 3) Please review the Ileostomy pathway and start measuring your fluid intake and your stool output. OSTOMY CARE SUPPLIES: Please bring the following ostomy supplies to each visit: SCISSORS, OSTOMYCARE SUPPLIES ie pouches, barrier rings, stomahesive powder/ paste 0.9% NORMAL SALINE RECIPE: Dissolve 1 teaspoon salt in 2 cups boiling water. Allow to cool. Pour into container. Store in refrigerator no longer than 7 days Dump out when one week old, or if left out of refrigerator for 24 hours. IMPORTANT REMINDERS: The Ostomy Clinic hours are Thursday thru 8 AM-4:30 PM. Ostomy supplies are available for purchase at [facility] in [place]. Please arrive to your appointments on time. If you are more than 15 minutes late, the appoi ntment may need to be rescheduled. Please call us with 24 hour notice if you need to cancel or reschedule your appointment at . Option #2 If you have questions or concerns about your ostomy call: [phone] ext [phone]. If you have an ostomy emergency ie: increased abdominal pain, suspected blockage, change in stoma color, unusual bleeding from the stoma etc. Call your MD or go to the emergency room . Please return to the clinic in 2 weeks. April 19 at 2:30 . Ileostomy: Nutritional Management Avoiding digestive problems You don t have to eat a special diet just because you ve had an ileostomy. Most foods, chewed well and eaten slowly, won t give you problems unless they did before. But you may need to be more aware of foods that make your stool more watery than normal and foods th at cause gas or odor. You also need plenty of fluids and vitamins. Choosing foods Learning which foods cause gas or odor or make your stool too watery takes a little time. Y ou may want to add foods back to your diet one at a time: Eat only small amounts at first to see how your body reacts. If a food causes a problem, wait and try it again in a few weeks. Once your system adjus ts, you may find the food doesn t give you trouble anymore. Preventing fluid loss The small intestine doesn t absorb as much water as the colon. That means your body loses fluids and can become dehydrated more quickly. To prevent this, drink at least 8 to 12 cups (2 to 3 quarts) of fluids, such as water or juice, each day. Taking supplements and medicines When the large intestine is removed or disconnected, some vitamins and medicines cannot be absorbed: Your healthcare provider may prescribe vitamin supplements or have you eat more of some foods, like bananas. Time-release capsules and coated pills aren t absorbed in the small intestine. Be sure all your healthcare providers know you have an ileostomy before they prescribe any medicine s. Causes of diarrhea Stool that s more watery than normal (diarrhea) can be a sign of an illness, such as the flu. Some foods and medicines can also cause more watery stool: If your stool is more watery than normal, drink plenty of fluids. This helps replace los t fluids and prevent dehydration. Avoid foods that can make the stool loose, such as raw fruits and vegetables, garlic, on ions, milk, beer, and iced drinks. Lactose intolerance can add to diarrhea. If you are lactose intolerant, choose dairy pro ducts that are lactose-free. Check with your healthcare provider before you take any medicines for diarrhea. Causes of gas and odor Some gas is normal, but constant gas is not. Neither is constant odor from stool. What caus es gas or odor can differ from person to person: Gas is often caused by swallowing air. To avoid this, eat slowly. Chew each bite well. E ating smaller amounts of food more often may help.Sip fluids, and don t use a straw. If you have excess gas, you may want to go easy on beer, broccoli, Deeth sprouts, cab bage, cauliflower, corn, cucumbers, dried beans, milk, mushrooms, nuts, onions, peas, sodas, and spicy foods. If odor is a problem, you may want to eat less asparagus, broccoli, Deeth sprouts, ca bbage, cheese, eggs, fish, garlic, horseradish, and spices, such as coriander, cumin, dill, and fennel. Call your enterostomal therapy (ET) nurse or other healthcare provider Call your healthcare provider if you have any of the following: You have nausea, vomiting, pain, cramping, or bloating. You have a change in your normal bowel habits, such as little or no stool. Your stool is more watery than normal for more than5 to 6hours. The stoma changes size, or the stool is black (blood in the stool). Date Last Reviewed: 10/08/201519993023-4085 [employer] [place] [address], [place] [address]. All righ ts reserved. This information is not intended as a substitute for professional medical care. Always follow your healthcare professional's instructions. Ileostomy: Dealing with a Food Blockage After an ileostomy, it may be harder to digest foods that are high in fiber, such as raw ve getables, popcorn, and nuts. Eaten in large amounts, these foods can clump together. Then th ey get stuck in the small intestine, causing a blockage. You need to know the signs of a blo ckage and what to do if you have one. Signs of a blockage A blockage can be an emergency. That s because you can become dehydrated quickly. The int estine can also rupture. Most likely you ll never have a blockage. But you need to know th e signs just in case you do: At first, you may have an almost constant spurting of very watery stool. Your intestine is taking water from your body to try to get rid of the blockage. You may feel bloated or have cramping. The stool may have a strong odor. The stoma or th e skin around the stoma may swell. If the blockage remains, the flow of stool will stop totally. Then you ll have increas ed pain, often leading to nausea and vomiting. What to do You can try one or more of the following: Put on a pouch with a larger opening. Gently massage your belly with the palms of your hands. Lie on your back. Pull your knees to your chest and rock from side to side. Take a hot bath for 15 to 20 minutes. Do not eat any solid food. Do not take any laxatives or stool softeners. They cause your body to lose more water. When to call your healthcare provider Call your healthcare provider or enterostomal therapy (ET)nurse, or go to the nearest [facility] emergency room if: You have increased pain and cramping with nothing produced from your stoma in 2 hours or more. You start to vomit. Ways to help prevent a blockage Sometimes a blockage happens no matter what you do. But you can help prevent a blockage: Drink at least8 to 12 cups (2 to3 quarts) of fluids, such as water or juice, each da y. Chew your food slowly and thoroughly. Eat only small amounts of foods that are high in fiber or cellulose. These include raw v egetables, unpeeled fresh fruits, bamboo shoots, beckwith sprouts, cabbage, celery, coconut, cor n, mushrooms, pea pods, dried fruits, nuts, seeds, popcorn, and hot dogs and other meats in casings. Go easy on bran and other high-fiber grains, such as granola. Date Last Reviewed: 10/08/201519990441-7113 [employer]. [address] [place] [address]. All righ ts reserved. This information is not intended as a substitute for professional medical care. Always follow your healthcare professional's instructions. documented in this encounter Progress Notes Citlalli Moreira RN - 04/05/2019 1:00 PM BRUNO [facility] Service: Ostomy Care Consult Note SUBJECTIVE Patient Summary: Patient arrives to the ostomy clinic today with her . She states she has been independent with her ostomy care. History of Crohn's disease. She had a bowel resection in early February [address] Tejada's at [facility] in [place], [place]. She reports that she had a ruptured bowel at the anastomosis site a week or two after her surgery that required her to be taken back to the [place]. She required an ileostomy at that ti pr. Dr. Carrillo did the ileostomy surgery also. She has been having troubles with short we ar time with her current appliances. She got 3 days wear time with the soft convex wafer th at was applied at the last visit to the ostomy clinic. Chief Complaint: Short wear time. OBJECTIVE Ostomy Type:Temporary ileostomy, related to crohn's and ruptured bowel. Surgery performed by Dr. Carrillo February 2019. Ostomy site: Stoma measures 1" located in the RLQ of the abdomen . Stoma is red, moist and flush with the skin . Lumen centered. Mucocutaneous suture line intact. Small amount liqui d brown stool out in pouch. Gwen-stomal: Abdomen observed standing, sitting and lying down. Creases observed at3 and 9 o'clock. Abdomen obese soft. DET SCORE: AREA AFFECTED SCORE + Severity Score Unaffected 0 Severity 1 or 2 <25% 1 Severity 1 or 2 25-50% 2 Severity 1 or 2 >50% 3 Severity 1 or 2 DOMAIN 1: DISCOLORATION = 03/09 DOMAIN 2: EROSION =03/09 From 12-9 o'cl ock. See photo DOMAIN 3: TISSUE OVERGROWTH= 0/0 TOTAL SCORE = 4 / 15 MAXIMUM Skin tear on peristomal skin from coloplast arcs. Covered with a band aid. Current Appliance: One piece flat Coloplast Raúl opening cut to 1 1/4" exposing skin and ca using contact dermatitis. Likes the safe and simple wipes for clean up. Patient is cu rrently getting 1days wear time. [employer] is patients DME supplier. Patient states they curr ently have enough supplies to last 1 months. PROBLEM LIST Lack of ostomy education Selection of products and procurement of supplies. Peristomal trauma Contact dermatitis. ASSESSMENT & PLAN Skin barrier was removed with adhesive remover spray. Clean peristomal skin with tap water. Recommend crusting peristomal skin using stomahesive powder or antifungal powder (Miconazo le nitrate 2% )by Coloplast and seal with skin barrier spray or wipe. Today I used Cabell on the exposed skin. Pouch was placed as per home instructions using one piece Leroy soft convex wafer with keyon ring. Recommend use of Coloplast elastic barrier Arc strips for added skin barrier security. Pt education regarding ileostomy diet, hydration and protein intake for healing. Supply order faxed to Lisa and Dr. Noel for pre-cut to 1" soft convex wafers and accesori es. Patient to rtc for f/u in 2 weeks. I did spent 90 minutes with this patient today in evaluation, teaching and treatment. Thank you for this consult., I will continue to follow with you. and Please call if there a re any additional questions. Citlalli Moreira RN, CWOCN documented in this encounter Plan of Treatment [...] | | | | | | [place] [address] | | | | | | [phone] | | | | | | | | +--------+---------+ + + + documented as of this encounter Visit Diagnoses + + | Diagnosis | + + | Attention to ileostomy (HCC) - Primary Attention to ileostomy | + + documented in this encounter
--- OUTSIDE RECORDS SUMMARY | ~2019-08-10 | XMS | Encounter Summary ---
Demographics + + + | Address | [address] | | | [place] [address] | + + + | Home Phone | | + + + | Preferred Language | Unknown | + + + | Marital Status | | + + + | Mu-Ism Affiliation | 1027 | + + + [...] Team Providers + +------+ + | Care Brass Molder Helper Name | Role | Phone | + [...] | MED [facility] EXTERNAL | MD [address] | | | | | IMAGING [address] | [address] | | | | | [address] | [place] [address] | | | | | [place] [address] | | | | | | [phone] | | | +--------+ + + + [...] | | | | | | [place] [address] | | | | | | [phone] | | | | | | | [...] this encounter Results CT Chest wo Contrast (08/15/2019 12:00 AM [...]
--- OUTSIDE RECORDS SUMMARY | ~2019-08-10 | XMS | Encounter Summary ---
Demographics + + + | Address | [address] | | | [place] [address] | + + + | Home Phone | | + + + | Preferred Language | Unknown | + + + | Marital Status | | + + + | Episcopal Affiliation | 1027 | + + + | Race | Unknown | + + + | Ethnic Group | Unknown | + + + Author + + + | Author | [facility] | | | and [place] | + + + | Organization | [facility] | | | and [...] Team Providers + +------+ + | Care Petroleum Production Engineer Name | Role | Phone | [...] | | ileostomy | [place], | [place] [address] | | | | | (HCC) | [place] [address] | Phone: | | | | | | Phone: | [phone] | | | | | | [phone] | Fax: | | | | | | Fax: | [phone] | | | | | | [phone] | | +--------+--------+ + + + + Encounter Details +--------+---------+ + + + | Date | Type | Department | Care Team | Description | +--------+---------+ + + + | 03/15/ | Office | [facility] | Merle Meng V, | Attention to | | 2020 | Visit | CENTER OUTPATIENT | [address] | ileostomy (HCC) | | | | WOUND CARE [address] | [place], [place] | (Primary Dx) | | | | [address] [place], [place] | [address] | | | | | [address] | | | | | | [phone] | Citlalli Moreira, | | | | [...] Instructions Patient Instructions Citlalli Moreira RN - 03/15/2019 2:30 PM PSTThank-you for visiting the outpatient ostomy clinic today. [...] use a One piece Leroy soft convex #8958 _ appliance w ith Keyon Ring or keyon cohesive paste . Please change your ostomy appliance every 2-3 [...] (Mircorguard 2% Miconazole Nitrate- may purchase at [employer]) on the denuded skin . Gently tap the skin to remove excess powder. 5) Seal in the powder with skin barrier wipes or spray and allow to dry well. Repeat steps 4 and 5, three times. 6) Place an keyon ring around the inner edge of the wafer or directly on the skin around th e stoma. Pouch the stoma as directed. 7) You can use lubricating deodorizing products such as [employer] Odor Eliminator liquid or Na Scent drops that can be placed directly into your pouch. 8) Gelling packet can be placed directly into your pouch to help thicken ostomy output such as Sera Sachet or Par-Sorb. 9) It is recommended that you NOT use an ostomy belt to help secure your pouch. Ensure that the belt is not cinched too tight. You should easily be able to slip 2 fingers under the be lt. You can use a product such as an abdominal wrap at night to secure the pouch, you can [facility] [email or web address] for more information. You can also purchase a Belly Band at [employer] i n the maternity section. At your request your name has been added to the Ostomy Support Group e-mail list / mailing list. For your convenience there is ostomy literature available at the [employer] [facility]. The following are web sites that provide ostomy care information www.coloplast.us www.convatec.com www.[email or web address].[email or web address] YOUR TO DO LIST: 1). An ostomy supply order will be placed with your chosen supply company. If you have not heard from them in 1 - 2 business days please call them to check on the stat us of your order. A supply order will be placed with [facility] ( Emperatriz Del Valle) Next visit for ostomy supplies. Should you have any questions or concerns regarding your order please contact them at extension [phone]. Per insurance guidelines, supplies may be ordered every 30 days 2) Review and begin the [facility]'s Your Guide to Recovery After Ostomy Surgery Series on line at [email or web address] 3) Please review the Ileostomy pathway and [...] Ostomy supplies are available for purchase at [facility] in [place]. Please arrive to your appointments on time. If you are more than 15 minutes late, the appoi ntment may need to be rescheduled. Please call us with 24 hour notice if you need to cancel or reschedule your appointment at . Option #2 If you have questions or concerns about your ostomy call: [phone] ext [phone]. If you have an ostomy emergency ie: increased abdominal pain, suspected blockage, change in stoma color, unusual bleeding from the stoma etc. Call your MD or go to the emergency room . Please return to the clinic in 2 weeks. . Ileostomy: Nutritional Management Avoiding digestive problems [...] want to go easy on beer, broccoli, Kerens sprouts, cab bage, cauliflower, corn, cucumbers, dried beans, milk, mushrooms, nuts, onions, peas, sodas, and spicy foods. If odor is a problem, you may want to eat less asparagus, broccoli, Kerens sprouts, ca bbage, cheese, eggs, fish, garlic, [...] (blood in the stool). Date Last Reviewed: 10/08/201519995733-1883 The [employer]. [address] [place] [address]. All righ ts reserved. This information is [...] therapy (ET)nurse, or go to the nearest [facility] emergency room if: You have increased pain [...] grains, such as granola. Date Last Reviewed: 10/08/201519993387-1207 [employer]. [address] [place] [address]. All righ ts reserved. This information is not intended as a substitute for professional medical care. Always follow your healthcare professional's instructions. documented in this encounter Progress Notes Citlalli Moreira RN - 03/15/2019 2:30 PM PST [facility] Service: Ostomy Care Consult Note SUBJECTIVE Patient Summary: Patient arrives to the ostomy clinic alone today. She states she has bee n independent with her ostomy care.History of Crohn's disease. She had a bowel resection in early February [address] Tejada's at [facility] in [place], [place]. She report s that she had a ruptured bowel at the anastomosis site a week or two after her surgery that her required her to be taken back to the OR. She required an ileostomy at that time. Dr. Carrillo did the ileostomy surgery also. She has been having troubles with short wear time Chief Complaint: Short wear time. OBJECTIVE Ostomy Type:Temporary ileostomy, related to crohn's and ruptured bowel. Surgery performed by Dr. Carrillo February 2019. Ostomy site: Stoma measures 1" located in the RLQ of the abdomen . Stoma is red, moist and flush with the skin . Lumen centered. Mucocutaneous suture line intact. Small amount liq uid brown stool out in pouch. Gwen-stomal: Abdomen observed standing, sitting and lying down. Creases observed at3 and 9 o'clock. Abdomen obese soft. DET SCORE: AREA AFFECTED SCORE + Severity Score Unaffected 0 Severity 1 or 2 <25% 1 Severity 1 or 2 25-50% 2 Severity 1 or 2 >50% 3 Severity 1 or 2 DOMAIN 1: DISCOLORATION = 1/1 DOMAIN 2: EROSION =1/1 DOMAIN 3: TISSUE OVERGROWTH= 0/0 TOTAL SCORE = 4 / 15 MAXIMUM Small amount of Moisture maceration just adjacent to stoma. Small skin tear on peristomal skin at 10 o'clock. Current Appliance: One piece flat Coloplast Raúl. Cleaning peristomal skin with baby wipe s with changes. Patient is currently getting <1days wear time. [place] is patients DME supplier. Patient states they currently have enough supplies to last <1 months. PROBLEM LIST Lack of ostomy education Selection of products and procurement of supplies. Peristomal trauma Moisture maceration. ASSESSMENT & PLAN Skin barrier was removed with adhesive remover spray. Clean peristomal skin with tap water. Recommend crusting peristomal skin using stomahesive powder or antifungal powder (Miconazo le nitrate 2% )by [employer] and seal with skin barrier spray or wipe. Pouch was placed as per home instructions using one piece Bethany soft convex wafer with keyon ring. Recommend use of [employer]oplast elastic barrier Arc strips for added skin barrier security. Pt education regarding ileostomy/ colostomy diet, hydration and protein intake for healing. Went over ileostomy pathway with patient. Graduated cylinder sent with patient for measuring stool. Ileostomy pathway packet sent with patient to review. She is to try the soft convex wafers and return to clinic in 1-2 weeks for evaluation and o rdering of supplies. I did spent 100 minutes with this patient today in evaluation, teaching and treatmen t. Thank you for this consult., I will [...] | | | | | | [place] [address] | | | | | | [phone] | | | | | | | | +--------+---------+ + + + documented as of this encounter Visit Diagnoses + + | Diagnosis | + + | Attention to ileostomy (HCC) - Primary Attention to ileostomy | + + documented in this encounter
--- OUTSIDE RECORDS SUMMARY | ~2019-08-10 | XMS | Encounter Summary ---
Demographics + + + | Address | [address] | | | [place] [address] | + + + | Home Phone | | + + + | Preferred Language | Unknown | + + + | Marital Status | | + + + | Muslim Affiliation | 1027 | + + + | Race | Unknown | + + + | Ethnic Group | Unknown | + + + Author + + + | Author | [facility] | | | and [place] | + + + | Organization | [facility] | | | [...] Providers + +------+ + | Care Senior Bi Architect Name | Role | Phone | [...] | MED CTR EXTERNAL | MD [address] | | | | | IMAGING [address] | [address] | | | | | [address] | [place] [address] | | | | | [place] [address] | | | | | | [phone] | | | +--------+ + + + [...] | | | | | | [place] [address] | | | | | | [phone] | | | | | | | [...] + documented in this encounter Results CT Guided Biopsy Lung Or Mediastinum (08/25/2019 12:00 AM PDT) + + | Specimen [...]
--- OUTSIDE RECORDS SUMMARY | ~2019-08-10 | XMS | Encounter Summary ---
Demographics + + + | Address | [address] | | | [place] [address] | + + + | Home Phone [...] Team Providers + +------+ + | Care Anesthesia Director Name | Role | Phone | + +------+ + | Merle Meng MD | PCP | | + +------+ + Reason for Visit +---------+--------+ + | Reason | Onset | Comments | | | Date | | +---------+--------+ + | Results | 05/08/ | | | | 2020 | | +---------+--------+ + Encounter Details +--------+ + + + + | Date | Type | Department | Care Team | Description | +--------+ + + + + | 03/02/ | Telephone | [facility] | Kannan, | Results | | 2020 | | PULMONOLOGY [address] | Anushka [address]ook, | | | | | [address] | [address] | | | | | [place], [place] | [place], | | | | | [address] | [place] [address] | | | | | [phone] | [phone] | | | | | | | [...] Telephone Encounter - Anushka Brunner MD - 05/09/2019 6:[address] result with her. ZOË nodule unchanged in size. Will repeat CT in July 2019 for close 3 month follow up. If with increase in size then, will go ahead and do CT guided bx. She understands this and agrees. Anushka Brunner MD Pulmonary and Critical Care Medicine [facility] [address], [place] [address] documente d in this encounter Plan of [...] [place], | | | | | | [place] [address] | | | | | | [phone] | | | | | | | | +--------+---------+ + + + documented as of this encounter Visit Diagnoses + + | Diagnosis | + + | Incidental pulmonary nodule, greater than or equal to 8mm - Primary Solitary | | pulmonary nodule | + + documented in this encounter"
--- OUTSIDE RECORDS SUMMARY | ~2019-08-10 | XMS | Encounter Summary ---
Demographics + + + | Address | [address] | | | [place] [address] | + + + | Home Phone | | + + + | Preferred Language | Unknown | + + + | Marital Status | | + + + | Yazidi Affiliation | 1027 | + + + | Race | Unknown | + + + | Ethnic Group | Unknown | + + + Author + + + | Author | [facility] | | | and [place] | + + + | Organization | [facility] | | [...] Team Providers + +------+ + | Care Help Desk Assistant Name | Role | Phone | [...] | Radiology | Diagnoses | Kannan, | [facility] [address] | | | | | Incidental | Anushka | JOE MOY | | | | | pulmonary | MD Bouchra | [place] | | | | | nodule, | [address] | [address] | | | | | greater than | RABIA ROBLEDO | Phone: | | | | | or equal to | MAHESH E | [phone] | | | | | 8mm | DEBRA SIMEON | Fax: | | | | | Procedures | [id number] | [phone] | | | | | CT Guided | Phone: | | | | | | Biopsy Lung | [phone] | | | | | | Or | Fax: | | | | | | Mediastinum | [phone] | | +--------+--------+ + + + + Reason for Visit +--------+ + | Reason | Comments | +--------+ + | | | +--------+ + Auth/Cert +--------+--------+ + + + + | Status | Reason | Specialty | Diagnoses / | Referred By | Referred To | | | | | Procedures | Contact | Contact | +--------+--------+ + + + + | | | | Diagnoses | | | | | | | Incidental | | | | | | | pulmonary | | | | | | | nodule, | | | | | | | greater than | | | | | | | or equal to | | | | | | | 8mm | | | | | | | Procedures | | | | | | | CT GUIDED | | | | | | | BIOPSY LUNG | | | | | | | OR | | | | | | | MEDIASTINUM | | | +--------+--------+ + + + + Encounter Details +--------+ + + + + | Date | Type | Department | Care Team | Description | +--------+ + + + + | 08/24/ | Hospital | [facility] | Kannan, | Incidental pulmonary | | 2019 - | Encounter | [facility] | Anushka Shook, | nodule, greater | | | | CARE FLOOR [address] | MD [address] | than or equal to 8mm | | 08/25/ | | [address] | MA[place], | | | 2019 | | [place], [place] | [place] [address] | | | | | [address] | [phone] | | | | | [phone] | | | | | | | Shoaib Swartz | | | | | | MD [address] | | | | | | [address] | | | | | | [place] [address] | | | | | | [phone] | | | | | | | | | | | | Roosevelt Balderas | | | | | | MD [address] | | | | | | [address] | | | | | | [place] [address] | | | | | | [phone] | | | | | | | | | | | | 3, [facility] | | | | | | Radiologist, [facility] [address] | | +--------+ + + + [...] + + + | Blood Pressure | 106/59 | 08/26/2019 11:24 AM | | | | | PDT | | + + + + + | Pulse | 95 | 08/26/2019 11:24 AM | | | | | PDT | | + + + + + | Temperature | 36.1 C (97 F) | 08/26/2019 11:24 AM | | | | | PDT | | + + + + + | Respiratory Rate | 20 | 08/26/2019 11:24 AM | | | | | PDT | | + + + + + | Oxygen Saturation | 97% | 08/26/2019 11:24 AM | | | | | PDT [...] + + + documented in this encounter Functional Status + + + [...] + + documented as of this encounter Discharge Summaries Sneha Pedersen PA - 08/31/2019 12:55 PM PDTFormatting of this note might be different fro m the original. Physician Discharge Summary Patient ID: Noy Pineda [id number] 59 y.o. 1960 Admit date: 08/25/2019 Discharge date and time: 08/26/2019 4:00 PM Admitting Physician: Roosevelt Balderas MD Discharge Physician: Sneha Pedersen PA-C Admission Diagnoses: Incidental pulmonary nodule, greater than or equal to 8mm [R91.1] Discharge Diagnoses: Pneumothorax Admission Condition: fair Discharged Condition: fair Indication for Admission: Pneumothorax Hospital Course: Noy Pineda is a 59 y.o. female s/p left lung biopsy complicated b y pneumothorax s/p chest tube placement. Following day CXR showed stable 8 mm pneumothorax. Patient asymptomatic and chest tube was removed. Final imaging shows improved pneumothorax. Consults: none Discharge Exam: HEENT: NCAT Cardiac: RRR Pulm: No wheezing, rales or respiratory distress Skin: non-diaphroretic; no pallor Disposition: home Patient Instructions: Discharge Medications Changed Medications Details omeprazole 20 mg capsule Take 1 capsule by mouth 2 times daily. What changed: how much to take when to take this aka: priLOSEC Unchanged Medications Details budesonide 3 mg 24 hr capsule Take 1 capsule by mouth every morning. aka: ENTOCORT EC cyanocobalamin 1,000 mcg/mL injection aka: VITAMIN B-12 fluticasone-salmeterol 250-50 mcg/puff diskus inhaler Inhale 1 puff into the lungs 2 times daily. aka: FERNANDO ESCAMILLA INHUB MAG64 64 mg EC tablet Generic drug: magnesium chloride 3 times daily. potassium chloride 10 mEq CR capsule 2 times daily. aka: MICRO-K probiotic capsule Take 1 capsule by mouth 2 times daily. VENTOLIN HFA 90 mcg/puff inhaler Generic drug: albuterol Inhale 2 puffs into the lungs every 4 hours as needed. Discontinued Medications cholestyramine 4 g packet aka: QUESTRAN ELIQUIS 5 mg tablet Generic drug: apixaban ZOFRAN 4 mg tablet Generic drug: ondansetron Activity: activity as tolerated Diet: regular diet Wound Care: keep wound clean and dry Signed: CHAVA Bryant 08/31/2019 12:55 PM PDT documented in this en counter Discharge Instructions Instructions Leny Mueller RN - 08/25/2019 Discharge Instructions Needle Biopsy:Lung You had a needle biopsy of one of your lungs. In this procedure, a hollow needle is used to take one or more samples of your lung tissue. The tissue is then examined under a microscop e. There are several different types of needle biopsies. Two types are: Fine needle aspiration. A small amount of tissue is withdrawn (aspirated) using a very f ine needle. Core biopsy. A larger tissue sample is removed for examination. A biopsy needle is inserted through your skin into your chest and lung. This is called a tr ansthoracic approach, which means across or through the chest (thorax). Scans are done at th e same time so that your provider can find the area where he or she would like to sample tis jaylin. Needle biopsies don't require cuts or incisions into the body like open biopsies. Your healthcare provider will use the results of your biopsy to help diagnose your conditio n. Home care The site of the biopsy may feel numb for a while if you got numbing medicine. You might have a little soreness after the needle biopsy. Follow your healthcare provider's instructions about removing bandages and showering or bathing. You may be sleepy after the biopsy if you got medicine to help you relax (sedation). Don 't drive until the next day or as instructed by your healthcare provider. Don't do heavy lifting, a lot of stair climbing, vigorous exercise, or take part in spor ts the day of your biopsy. You can get back to your regular activities as instructed by your healthcare provider. Follow-up care Follow up with your healthcare provider, or as advised. Be sure you make an appointment wit h your healthcare provider to discuss the biopsy results. When to call your healthcare provider Call your healthcare provider right away if any of these occur: Infection. You might have redness, pain, swelling, or drainage at the site of your biops ies. Bleeding. You might also have bleeding at the site of your biopsies. Coughing up blood. This may only be a small amount. Call 911 Call 911 right away if any of these occur: Collapsed lung (pneumothorax). This means that air from your lungs leaks out into the sp aces between your lungs and chest wall. It can lead to feeling short of breath, pain with br eathing, trouble breathing, and a collapsed lung. Fast pulse Sharp pains in your chest or shoulder Fingernails, lips, or skin turn blue, purple, or ni Trouble walking or talking Feeling faint or dizzy [employer] last reviewed this educational content on 12/07/201819998396-3856 [employer]. [address] [place] [address], [place] [address]. All righ ts reserved. This information is not intended as a substitute for professional medical care. Always follow your healthcare professional's instructions. What is Coronavirus? The Novel Coronavirus 2019 (COVID-19) is a new virus strain that is spread mainly from pers [id number]-[id number] through respiratory droplets when an infected person coughs or sneezes. Symptom s may appear 2-14 days after exposure. Reported illnesses have ranged from mild symptoms to severe illness and for confirmed cases. Some people testing positive for COVID-19 have no symptoms at all (asymptomatic). The most common symptoms include: ? Cough ? Shortness of breath or difficulty breathing ? Fever ? Chills ? Muscle pain ? Sore throat ? New loss of taste or smell COVID-19 is most commonly spread from an infected person to others through: ? Between people who are in close contact with one another (within about 6 feet). ? Respiratory droplets produced by coughing and sneezing. These droplets can land in the mo uths or nose of people who are nearby or possibly be inhaled into the lungs. ? Touching a surface with the virus on it and then touching your mouth, nose, or eyes befor e washing your hands. How to protect yourself ? Avoid touching your eyes, nose and mouth with unwashed hands. ? Wash your hands often with soap and water for at least 20 seconds. This is especially imp ortant after blowing your nose, coughing, or sneezing; going to the bathroom; and before eat ing or preparing food. ? If soap and water are not available, use an alcohol-based hand venue coordinator with at least 60 % alcohol covering all surfaces of your hands and rubbing them together until they feel dry. ? Cover your cough or sneeze with a tissue, then throw the tissue in the trash. (Putting a tissue on a table contaminates the surface of the table with germs.) ? Routinely disinfect frequently touched objects and surfaces, using a cleaning spray or wi pe. ? Avoid travel to high-risk countries. Non-essential travel to or through any of the countr ies for which the CDC has issued a level 2 or 3 travel health notice is discouraged. https://www.cdc.gov/coronavirus/2019-ncov/travelers/index.html ? Stay at least 6 feet away from others when in public places, do not gather in groups, sta y out of crowded places, and avoid mass gatherings to slow the spread of the virus. ? Use of a simple cloth face covering to slow the spread of the virus in public settings wh ere it's hard to stay away from others, such as in grocery stores, pharmacies, and other are as where the virus might easily spread. Cloth masks do not protect the wearer but instead h old in droplets from sneezing or coughing to prevent spreading to other people and surfaces. Cloth face coverings fashioned from household items or made at home from common materials a t low cost can be used. It is not recommended to use surgical masks or N-95 respirators. A few definitions that you should be familiar with regarding COVID-19: Quarantine is used to keep someone who might have been exposed to COVID-19 away from others . Isolation is used to separate people infected with the virus (those who are sick from COVID -19 and those with no symptoms) from people who are not infected. Both quarantine and isolation are similar that they: ? involve separation of people to protect the public ? help limit further spread of COVID-19 ? can be done voluntarily or be required by health authorities What to do if you are sick? ? If you have a fever and cough, you may have COVID-19. Notify your medical provider. ? Stay home except to get medical care (see for Home Isolation) ? Monitor your symptoms When you should seek medical evaluation and advice? ? Call 911 if you have a medical emergency such as trouble breathing, persistent pain or pr essure in the chest, and/or bluish lips or face. If you have a medical emergency and need to call 911, notify the splitting machine operator helper that you have or think you might have, COVID-19. If possible, put on a facemask before medical help arrives. ? If you are 65 and older, or have underlying conditions such as , heart disease, diabetes, lung disease and weakened immune system, work with your doctor to develop a plan t o determine your health risks to COVID-19 and how to manage symptoms. If you do have symptom s, contact your doctor immediately. ? For worsening symptoms or difficulty breathing, please contact your primary care provider or consider a virtual visit. ? If you do not have a high-risk condition and your symptoms are mild, you do not need to b e evaluated in person and do not need to be tested for COVID-19. (Please see Home Quarantin e and Isolation Instructions below) ? We ask that you please avoid coming to the emergency department, unless you have a health emergency and/or you have been advised by a provider to do so. This helps prevent the risk of spreading this disease and further exposure in our community and allows us to dedicate cr itical and limited emergency resources to those who are very sick. Who should be tested? A common question right now is, Why can't I get tested? The answer: Not everyone need s to be tested. Given the short supply of testing supplies and protective equipment for our health care workers, the CDC recommends that people who are hospitalized, healthcare worker who have COVID-19 symptoms, residents in nursing facilities or [place] [facility] communities or home health, or those who are high risk (older adults, chronic diseases, immunosuppressed) s hould be prioritized for testing. These recommendations may evolve to include more people ov er time, as this situation is evolving rapidly. It is not recommended to test individuals wh o do not have COVID-19 symptoms. What to do if you think you have been exposed to COVID-19? If you feel healthy but recently had close contact with a person known to have COVID-19, yo u need to self-quarantine. Follow the self-quarantine instructions listed below: ? Check your temperature twice a day ? Stay home for 14 days from the time of exposure and self-monitor for fever, cough, and sh ortness of breath. ? Contact your medical provider if your temperature is greater than 100.4 and you develop c ough or shortness of breath. ? If possible, stay away from people who are high-risk for getting very sick from COVID-19. Does this mean my family or other people I live with need to self-quarantine? Other members of the household are not required to self-quarantine, unless they have been t old by a medical professional to do so. If you develop symptoms and are suspected to have CO VID-19, members of the household will be classified as close contacts and will then need to be in self-quarantine. Please speak to your health care provider and/or health department fo r further instructions. What are the guidelines for home quarantine and home isolation? ? Restrict activities outside your home, except for seeking medical care. ? Do not go to work, another person's home, school or public areas. ? Do not use public transportation. ? Cover coughs and sneezes. ? Avoid close contact with household members. When this is not possible, stay at least 6 fe et from other people and wear a cloth face covering. During the COVD-19 pandemic, medical-gr luis e masks are reserved for healthcare workers. ? Use separate sleeping and bathroom/bathing facilities, if feasible. ? Wash your hands often with soap and water for at least 20 seconds. This is especially imp ortant after blowing your nose, coughing, or sneezing; going to the bathroom; and before eat ing or preparing your food. ? Use hand venue coordinator if soap and water are not available. Use an alcohol-based hand sanitiz er with at least 60% alcohol, covering all surfaces of your hands and rubbing them together until they feel dry ? Cover your mouth and nose with a tissue when you cough or sneeze. Throw away used tissues in a lined trash can. Wash your hands afterwards. ? Clean and disinfect high-touch surfaces in your sick room and bathroom with a house hold disinfectant. High-touch surfaces include phones, remote controls, counters, doorknobs, tabletops, bathroom fixtures, toilets, keyboards, and bedside tables. Let someone else howard n and disinfect surfaces in common areas, but not your bedroom and bathroom. ? Avoid sharing personal household items (dishes, drinking glasses, cups, eating utensils, towels, or bedding) with other people or pets in your home. After using these items, they sh ould be washed thoroughly with soap and water or in the rail express clerk/washer. ? Call ahead before visiting your doctor. This will help the healthcare provider's office t jah steps to keep other people from getting infected or exposed. ? If you have been tested for COVID-19, stay home until your healthcare provider contacts y ou about your test results. When should I discontinue self-quarantine? If you have tested positive for COVID-19, you can leave home after these three things have happened: ? At least 3 days (72 hours) have passed since resolution of fever (temperature less than 1 00.0F or 37.8C) without the use of fever-reducing medications (e.g. Tylenol, Ibuprofen) AND ? At least 3 days of improvement in respiratory symptoms (e.g. cough, shortness of breath) AND ? At least 10 days have passed since symptoms first appeared If you have tested positive for COVID-19 and are retested, you can leave home after these t hree things have happened: ? Resolution of fever (temperature less than 100.0F or 37.8C) without the use of fever-redu cing medications (e.g. Tylenol, Ibuprofen) AND ? Improvement in respiratory symptoms (e.g. cough, shortness of breath) AND ? Negative test results of COVID-19 from at least two consecutive samples collected 24 hrs or more apart If you are waiting for COVID-19 test results or you are symptomatic but did not require america ting, you can leave home after the following things have happened: ? At least 3 days (72 hours) have passed since resolution of fever (temperature less than 1 00.0F or 37.8C) without the use of fever-reducing medications (e.g. Tylenol, Ibuprofen) and at least 3 days of improvement in respiratory symptoms (e.g., cough, shortness of breath), a nd at least 10 days have passed since symptoms first appeared. OR ? Two negative test results received and at least 24 hours have passed since resolution of fever (temperature less than 100.0F or 37.8C) without the use of fever-reducing medications (e.g. Tylenol, Ibuprofen). How is COVID-19 treated? Most people with COVID-19 will recover on their own. There is no specific antiviral treatm ent recommended for COVID-19 at this time. People with COVID-19 should receive supportive ca re to help relieve symptoms. For severe cases, treatment should include care to support marcus l organ functions. Additional Information For up-to-date information about coronavirus and the community public health response, chelsi t your local public health website. CDC: COVID-19: https://www.cdc.gov/coronavirus/2019-ncov/index.html [facility] Coronavirus Advisory: https://www.[place].org/orlyeqrf-wjb-eewunrkf/coron avirus-advisory Virtual Visits Available [email or web address]/ AttachmentsThe following attachments cannot be sent through Care Everywhere.Pneumothorax (C ollapsed Lung) ([place])documented in this encounter Medications at Time of Discharge + + + +---------+ + + | Medication | Sig | Dispensed | Refills | Start | End Date | | | | | | Date | | + + + +---------+ + + | albuterol | Inhale 2 puffs into | | 0 | /07/26 | | | (VENTOLIN HFA) 90 | [...] | | | | | | ol (ADVAIR, WIXELA | daily. | | | | | [...] + documented as of this encounter Progress Notes Leny Mueller RN - 08/26/2019 4:41 PM PDTAVS reviewed with patient and discharge trevor burt. Discharge medications reviewed and all questions answered. Verified with patie nt that they have all belongings. Vital signs stable at time of discharge. Escorted off unit by: transport Transportation home provided by: Leny Mueller RN Sneha Pacheco PA - 08/26/2019 12:53 PM PDT Interventional Radiology Progress Note Patient Name: Noy Pineda Date of : 1960 Interval History/Subjective: Noy Pineda is a 59 y.o. female s/p left lung biopsy complicated by pneumothorax s/ p chest tube placement. Patient's chest tube clamped x 1 hour and CXR showed stable 8 mm pne umothorax. Patient denies CP, SOB, chest tube discomfort or other complaints at this time. Labs: 3 Day Labs: Recent Labs Lab 08/25/19 0824 08/25/19 0811 WBC -- 4.92 HGB -- 12.7 HCT -- 36.9 PLT -- 139* INR 1.0 -- Pertinent Imaging/Procedures: Xr Chest Expiration Only Result Date: 08/26/2019 CHEST INSPIRATION OR EXPIRATION ONLY CLINICAL INFORMATION: Pneumothorax. Chest tube clamped at 8:20 am. COMPARISON: XR CHEST EXPIRATION ONLY (08/26/2019); XR CHEST EXPIRATION ONLY (08/07); XR CHEST EXPIRATION ONLY (08/25/2019); CT GUIDED CHEST TUBE PLACEMENT (08/25/2019); C T GUIDED BIOPSY LUNG OR MEDIASTINUM (08/25/2019); FINDINGS: Expiration frontal view only. Pig tail catheter again noted in the lateral left lung base. Pneumothorax in the left lung apex measures 8 mm, similar to 7 mm on the previous day. Mild residual infiltrate surrounding th e previously noted nodule in the left upper lobe. Right lung is clear. Heart size is shabbir l. 1. Stable 8 mm left apical pneumothorax. Signed by: Dilcia Huertas Shawn Sign Date/Time: 08/07 9:59 AM Xr Chest Expiration Only Result Date: 08/26/2019 CHEST INSPIRATION OR EXPIRATION ONLY CLINICAL INFORMATION: Pneumothorax status post chest t ube. COMPARISON: XR CHEST EXPIRATION ONLY (08/25/2019); CT GUIDED CHEST TUBE PLACEMENT (2019); XR CHEST EXPIRATION ONLY (08/25/2019); FINDINGS: Is a 7 mm left apical pneumothorax. Patient's known left upper lobe mass is again seen. A right chest tube remains in position. Heart, lungs and vessels are otherwise normal. No pneumothorax, pleural effusion or adeno sven. No significant bone abnormality. Very small residual left apically pneumothorax, changed from prior examination. Left chest tube in situ. Unchanged left upper lobe mass. Signed by: Dilcia Balderas Matthew Sign Date/Bobby e: 08/26/2019 8:34 AM Xr Chest Expiration Only Result Date: 08/25/2019 CHEST INSPIRATION OR EXPIRATION ONLY CLINICAL INFORMATION: Post chest tube insertion COMPAR CRISTY: CT GUIDED CHEST TUBE PLACEMENT (08/25/2019); XR CHEST EXPIRATION ONLY (08/25/2019); XR C HEST EXPIRATION ONLY (08/25/2019); FINDINGS: Interval placement of small caliber left-sided c hest tube. Tiny residual left apical pneumothorax is noted. Right lung is clear. Stable un remarkable heart and mediastinum. Tiny residual left apical pneumothorax. Signed by: Dilcia Crawley Robert Sign Date/Time: 8:42 PM Xr Chest Expiration Only Result Date: 08/25/2019 CHEST INSPIRATION OR EXPIRATION ONLY CLINICAL INFORMATION: f/u pneumothorax. COMPARISON: XR CHEST EXPIRATION ONLY (08/25/2019); CT GUIDED BIOPSY LUNG OR MEDIASTINUM (08/25/2019); CTCHES T (04/27/2019); FINDINGS: Left typical pneumothorax previously seen. Some pleural air discer nible-now measures about 4 cm from the left apex, with a pleural line superimposed left uppe r chest projecting just below the clavicle Stable opacity in the peripheral upper left lung. Stable mediastinum without mass effect or cardiomegaly Left apical pneumothorax. Now measures about 4 cm from the upper left chest. Still modest , but worse/progressed. Call report in progress Signed by: Dilcia Hernandez Timothy Sign Date/ Time: 08/25/2019 12:48 PM Xr Chest Expiration Only Result Date: 08/25/2019 CHEST INSPIRATION OR EXPIRATION ONLY CLINICAL INFORMATION: Post lung biopsy. COMPARISON: CT GUIDED BIOPSY LUNG OR MEDIASTINUM (08/25/2019); CTCHEST (04/27/2019); CTCHEST (01/08/2019); FI NDINGS: There is a 2 cm left apical pneumothorax. Expected postop biopsy changes are noted in the left upper lung. The right lung is clear. Cardiomediastinal silhouette is normal. 2 cm left apical pneumothorax. Expected post biopsy changes in the left upper lung. Signed by: Dilcia Balderas Matthew Sign Date/Time: 08/25/2019 11:[address] Guided Biopsy Lung Or Mediastinum Result Date: 08/25/2019 CT GUIDED LUNG MASS BIOPSY CLINICAL INFORMATION: Enlarging left upper lung nodule, suspici ous for malignancy COMPARISON: [facility] (04/27/2019); [facility] (01/08/2019); PROCEDURE: The risk s, benefits and alternatives were discussed with the patient; consent was obtained and place d in the patient's chart. The risks included but were not limited to bleeding, infection, no n-diagnostic sample and pneumothorax. The patient was placed in the CT scanner and imaging w as obtained through the chest. A reproducible target was demonstrated. The skin overlying th e lung mass was localized and marked. The skin was sterilely prepped and draped in the usual fashion. Local lidocaine was administered in the skin and underlying tissues, and a tiny de rmatotomy was made. Under CT guidance, a 20 gauge coaxial needle system was used to obtain 4 core biopsies of the target lesion. An on-site pathologist the patient tolerated the proce dure well without complication. Conscious sedation was administered. The nurse administered fentanyl and Versed during the examination and monitored blood pressure, heart rate, and pu lse oximeter. Physician intraservice time of 20 minutes. At least one of the following CT do se optimization techniques were used: Automated exposure control; Adjustment of mA and/or kV according to patient size; Use of iterative reconstruction technique. FINDINGS: Initial CT examination again demonstrates spiculated left upper lobe pulmonary nodule. Subsequent imag es demonstrate biopsy device positioned within the nodule. Final image shows expected postp rocedural hemorrhage with small pneumothorax. Successful left upper lobe pulmonary nodule biopsy. The patient will be admitted observatio n. There is a small asymptomatic left apical pneumothorax at the end of the procedure. Sign ed by: Dilcia Balderas Matthew Sign Date/Time: 08/25/2019 11:[address] Guided Chest Tube Placement Result Date: 08/25/2019 CT GUIDED LEFT CHEST TUBE PLACEMENT CLINICAL INFORMATION: Enlarging, symptomatic, post-biop sy left pneumothorax COMPARISON: XR CHEST EXPIRATION ONLY (08/25/2019); XR CHEST EXPIRATION O NLY (08/25/2019); CT GUIDED BIOPSY LUNG OR MEDIASTINUM (08/25/2019); PROCEDURE: The risks, wilman efits and alternatives were discussed with the patient; consent was obtained and placed in t he patient's chart. The risks included but were not limited to bleeding, infection, organ in jury, lung collapse and . The patient was then brought to the procedure room and placed in the supine position where the chest wall was sterilely prepped and draped in the usual f ashion. Maximum sterile barrier techniques taken and all staff present in the room performed hand hygiene prior to the procedure. Local anesthetic was administered. A small incision wa s then made with an 11 blade. An 18 gauge Hawkin's needle was then utilized to puncture the pleural cavity. A 0.035 wire was then positioned into the pleural space through the cathete r. Serial dilatation was performed to 10 Macanese and a 10 Macanese locking pigtail catheter was then formed in the pleural space and secured to the skin. Fluid was obtained and the cathet er was withdrawn after completing the drainage. There were no immediate complications follow ing the procedure. At least one of the following CT dose optimization techniques were used: Automated exposure control; Adjustment of mA and/or kV according to patient size; Use of ite rative reconstruction technique. FINDINGS: CT demonstrated the pneumothorax. Post procedure imaging showed complete resolution of the pneumothorax. Successful CT-guided left chest tube placement. The patient's chest tube should remain on w all suction overnight. A chest radiograph be obtained on the morning of 08/26/2019. Signed b y: Dilcia Balderas, Roosevelt Sign Date/Time: 08/25/2019 4:17 PM Physical Examination: Vitals: 08/26/19 1124 BP: 106/59 Pulse: 95 Resp: 20 Temp: 36.1 C (97 F) Physical Exam Constitutional: She is oriented to person, place, and time. No distress. HENT: Head: Normocephalic and atraumatic. Neck: Neck supple. Cardiovascular: Normal rate. Pulmonary/Chest: Effort normal. No respiratory distress. Left anterior midclavicular chest tube C/D/I Neurological: She is alert and oriented to person, place, and time. Skin: Skin is warm and dry. She is not diaphoretic. Psychiatric: Mood and affect normal. Assessment and Plan: Pneumothorax following lung biopsy s/p chest tube placement. Pneumothorax significantly imp roved and remained stable after clamping. Chest tube was removed at bedside today, patient t olerated well. Will order additional CXR for one hour and if pneumothorax is stable or impr augusto, then ok to discharge. Sneha Pedersen PA-C Vascular and Interventional Radiology il, Amanda irizarry RN - 08/25/2019 7:[address] Balderas about pt not having code status. Pt sta ting she wants to be full MD boris aware. stated she will pt in code orders "soon" Amanda Persaud RN yatt Ann R N - 08/25/2019 5:44 PM PDTReport called to Baylee on 7rp. eny Park RN - 08/25/2019 3:47 PM PDTChest tube pr ocedure complete. Pt tolerated well. Pt was given fentanyl 100ug iv and versed 2 mg iv for sedation during insertion. Chest tube to pleurovac suction with small air leak noted. Armond ssing to left chest dry and intact. Report called to rn and pt transferred by stretcher keith k to 1126. Jr Mercer RN - 08/25/2019 1:05 PM PDTPatient's contacted and updated on plan of care.El ectronically signed by Wyatt Ann RN at 08/25/2019 1:06 PM Zeny Dumont RN - 0 08/25/2019 10:19 AM PDTProcedure complete. Pt tolerated well. Vss. Pt was given versed 1 m g and fentanyl 50ug iv. Pt does c/o chest discomfort post procedure when taking a breath. CXR to be done at 1100. Pt transferred by stretcher to room 1126 and report given. Electron ically signed by Zeny Park RN at 08/25/2019 10:21 AM PDTdocumented in this encounter H&P Notes Roosevelt Balderas MD - 08/25/2019 8:00 AM PDTFormatting of this note might be differe nt from the original. Noy Pineda is an 59 y.o. female. Patient with 90 pack year smoking history who has a spiculated left upper lobe mass. Patien t had negative COVID-19 test and quarantines with her in a remote location. Past Medical History: Diagnosis Date Abdominal pain [...] ileitis-2005; small bowel obstruction-11/2014 Vitamin D deficiency Allergies: Allergies Allergen Reactions Adhesive & Tape Other (See Comments) Active Problems: * No active hospital problems. * Blood pressure 120/58, pulse 75, temperature 37.1 C (98.8 F), temperature source Skin, resp. rate 18, weight 64.4 kg (142 lb), SpO2 100 %. Review of Systems Constitutional: Negative. HENT: Negative. Eyes: Negative. Respiratory: Positive for cough. Cardiovascular: Negative. Gastrointestinal: Negative. Genitourinary: Negative. Musculoskeletal: Negative. Skin: Negative. Neurological: Negative. Physical Exam Constitutional: Appearance: Normal appearance. She is normal weight. HENT: Head: Normocephalic and atraumatic. Nose: Nose normal. No congestion or rhinorrhea. Mouth/Throat: Mouth: Mucous membranes are moist. Pharynx: Oropharynx is clear. Eyes: General: Right eye: No discharge. Left eye: No discharge. Conjunctiva/sclera: Conjunctivae normal. Pupils: Pupils are equal, round, and reactive to light. Neck: Musculoskeletal: Normal range of motion. No neck rigidity or muscular tenderness. Cardiovascular: Rate and Rhythm: Normal rate and regular rhythm. Heart sounds: Normal heart sounds. Pulmonary: Effort: Pulmonary effort is normal. No respiratory distress. Breath sounds: Normal breath sounds. Abdominal: General: Abdomen is flat. Bowel sounds are normal. There is no distension. Palpations: Abdomen is soft. Skin: General: Skin is warm and dry. Coloration: Skin is not jaundiced. Neurological: General: No focal deficit present. Mental Status: She is alert. Mental status is at baseline. She is disoriented. Psychiatric: Mood and Affect: Mood normal. Behavior: Behavior normal. Thought Content: Thought content normal. Judgment: Judgment normal. ASA:2 Mallampatti: 2 Assessment: 59 year-old woman with spiculated mass Plan: Plan for left Upper lobe biopsy with CT guidance Roosevelt Balderas MD 08/25/2019 docume nted in this encounter Miscellaneous Notes Plan of Care - Leny Mueller RN - 08/26/2019 10:16 AM PDT Problem: Adult Inpatient Plan of Care Goal: Plan of Care Review Outcome: Ongoing, progressing Problem: Adult Inpatient Plan of Care Goal: Optimal Comfort and Wellbeing Outcome: Ongoing, progressing Problem: Gas Exchange Impaired Goal: Optimal Gas Exchange Outcome: Ongoing, progressing Problem: Pain Acute Goal: Optimal Pain Control Outcome: Ongoing, progressing lan of Care - Amanda Boo RN - 08/26/2019 5:46 AM PDT Problem: Adult Inpatient Plan of Care Goal: Plan of Care Review Outcome: Ongoing, progressing Plan of care reviewed with pt, pt reports understanding Problem: Adult Inpatient Plan of Care Goal: Optimal Comfort and Wellbeing Outcome: Ongoing, progressing Pt noted sleeping during rounds, most of the night. No s/sx of discomfort Problem: Gas Exchange Impaired Goal: Optimal Gas Exchange Outcome: Ongoing, progressing Pt sitting up even while sleeping, pt denies SOB at this time, chest tube in place Problem: Pain Acute Goal: Optimal Pain Control Outcome: Ongoing, progressing Pain managed with narco, good relief reported lan of Baylee Velazquez RN - 08/25/2019 5:45 PM PDTPt ar rived to unit. VSS. Agree with previous RN shift assessment. Site to chest tube remains howard n/dry/intact. BAYLEE GARZA RN lan of Wyatt Vargas RN - 08/25/2019 8:00 AM PDT Problem: Gas Exchange Impaired Goal: Optimal Gas Exchange Outcome: Ongoing, progressing Patient lungs clear bilaterally. Left side diminished. Patient saturating 100 on room air. Patient has no signs of accessory muscle use. Problem: Pain Acute Goal: Optimal Pain Control Outcome: Ongoing, progressing Patient reported pain 7/10. Sneha LARSEN contacted. Awaiting orders.Electronically sig cr by Wyatt Ann RN at 08/25/2019 11:10 AM PDTdocumented in this encounter Plan of Treatment +--------+---------+ [...] | | | | | | [place] [id number] | | | | | | [phone] | | | | | | | [...] documented in this encounter Results XR Chest Expiration Only (08/26/2019 2:01 PM PDT) + + | Specimen | [...] | Procedure Note | + + | Sidnye, Rad Results In - 08/26/2019 2:40 PM [...] | | | | Signed by: Dilcia Huertas Shawn | | Sign Date/Time: 08/26/2019 2:37 PM | + + + +---------+ + + | Performing | Address | City/State/Zipcode | Phone Number | | Organization | | | | + +---------+ + + | [facility] | | | | + +---------+ + + XR Chest Expiration Only (08/26/2019 9:44 AM PDT) + + | Specimen | + + | | + + + + + | Impressions | Performed At | + + + | 1. Stable 8 mm left apical pneumothorax. Signed by: | [facility] | | Dilcia Huertas, Vj Sign Date/Time: 08/26/2019 9:59 AM | | + + + + + + | Narrative | Performed At | + + + | CHEST INSPIRATION OR EXPIRATION ONLY CLINICAL INFORMATION: | [facility] | | Pneumothorax. Chest tube clamped at 8:20 am. COMPARISON: XR CHEST | | | EXPIRATION ONLY (08/26/2019); XR CHEST EXPIRATION ONLY (08/25/2019); | | | XR CHEST EXPIRATION ONLY (08/25/2019); CT GUIDED CHEST TUBE PLACEMENT | | | (08/25/2019); CT GUIDED BIOPSY LUNG OR MEDIASTINUM (08/25/2019); | | | FINDINGS: Expiration frontal view only. Pigtail catheter again noted | | | in the lateral left lung base. Pneumothorax in the left lung apex | | | measures 8 mm, similar to 7 mm on the previous day. Mild residual | | | infiltrate surrounding the previously noted nodule in the left upper | | | lobe. Right lung is clear. Heart size is normal. | | + + + + + | Procedure Note | + + | Sidney, Rad Results In - 08/26/2019 10:03 AM PDT | | CHEST INSPIRATION OR EXPIRATION ONLY | | | | CLINICAL INFORMATION: | | Pneumothorax. Chest tube clamped at 8:20 am. | | | | COMPARISON: | | XR CHEST EXPIRATION ONLY (08/26/2019); XR CHEST EXPIRATION ONLY | | (08/25/2019); XR CHEST EXPIRATION ONLY (08/25/2019); CT GUIDED CHEST TUBE | | PLACEMENT (08/25/2019); CT GUIDED BIOPSY LUNG OR MEDIASTINUM (08/25/2019); | | | | FINDINGS: | | Expiration frontal view only. | | Pigtail catheter again noted in the lateral left lung base. | | Pneumothorax in the left lung apex measures 8 mm, similar to 7 mm on | | the previous day. Mild residual infiltrate surrounding the previously | | noted nodule in the left upper lobe. Right lung is clear. Heart size | | is normal. | | | | IMPRESSION: | | 1. Stable 8 mm left apical pneumothorax. | | | | | | | | | | Signed by: Dilcia Huertas Shawn | | Sign Date/Time: 08/26/2019 9:59 AM | + + + +---------+ + + | Performing | Address | City/State/Zipcode | Phone Number | | Organization | | | | + +---------+ + + | [facility] | | | | + +---------+ + + XR Chest Expiration Only (08/26/2019 7:50 AM PDT) + + | Specimen | + + | | + + + + + | Impressions | Performed At | + + + | Very small residual left apically pneumothorax, changed from prior | [facility] | | examination. Left chest tube in situ. Unchanged left upper | | | lobe mass. Signed by: Dilcia Balderas, Roosevelt Sign Date/Time: | | | 08/26/2019 8:34 AM | | + + + + + + | Narrative | Performed At | + + + | CHEST INSPIRATION OR EXPIRATION ONLY CLINICAL INFORMATION: | [facility] | | Pneumothorax status post chest tube. COMPARISON: XR CHEST | | | EXPIRATION ONLY (08/25/2019); CT GUIDED CHEST TUBE PLACEMENT | | | (08/25/2019); XR CHEST EXPIRATION ONLY (08/25/2019); FINDINGS: Is a | | | 7 mm left apical pneumothorax. Patient's known left upper lobe | | | mass is again seen. A right chest tube remains in position. Heart, | | | lungs and vessels are otherwise normal. No pneumothorax, pleural | | | effusion or adenopathy. No significant bone abnormality. | | + + + + + | Procedure Note | + + | Sidney, Rad Results In 08/26/2019 8:37 AM PDT | | CHEST INSPIRATION OR EXPIRATION ONLY | | | | CLINICAL INFORMATION: | | Pneumothorax status post chest tube. | | | | COMPARISON: | | XR CHEST EXPIRATION ONLY (08/25/2019); CT GUIDED CHEST TUBE PLACEMENT | | (08/25/2019); XR CHEST EXPIRATION ONLY (08/25/2019); | | | | FINDINGS: | | Is a 7 mm left apical pneumothorax. Patient's known left upper lobe | | mass is again seen. A right chest tube remains in position. Heart, | | lungs and vessels are otherwise normal. No pneumothorax, pleural | | effusion or adenopathy. No significant bone abnormality. | | | | IMPRESSION: | | Very small residual left apically pneumothorax, changed from prior | | examination. | | | | Left chest tube in situ. | | | | Unchanged left upper lobe mass. | | | | | | | | Signed by: Dilcia Balderas Matthew | | Sign Date/Time: 08/26/2019 8:34 AM | + + + +---------+ + + | Performing | Address | City/State/Zipcode | Phone Number | | Organization | | | | + +---------+ + + | [facility] | | | | + +---------+ + + XR Chest Expiration Only (08/25/2019 8:29 PM PDT) + + | Specimen | + + | | + + + + + | Impressions | Performed At | + + + | Tiny residual left apical pneumothorax. Signed by: Denisa | [facility] | Gilbert Aguayo M.D. Date/Time: 08/25/2019 8:42 PM | | + + + + + + | Narrative | Performed At | + + + | CHEST INSPIRATION OR EXPIRATION ONLY CLINICAL INFORMATION: | [facility] | | Post chest tube insertion COMPARISON: CT GUIDED CHEST TUBE | | | PLACEMENT (08/25/2019); XR CHEST EXPIRATION ONLY (08/25/2019); XR CHEST | | | EXPIRATION ONLY (08/25/2019); FINDINGS: Interval placement of | | | small caliber left-sided chest tube. Tiny residual left apical | | | pneumothorax is noted. Right lung is clear. Stable unremarkable | | | heart and mediastinum. | | + + + + + | Procedure Note | + + | Sidney, Rad Results In - 08/25/2019 8:46 PM PDT | | CHEST INSPIRATION OR EXPIRATION ONLY | | | | CLINICAL INFORMATION: | | Post chest tube insertion | | | | COMPARISON: | | CT GUIDED CHEST TUBE PLACEMENT (08/25/2019); XR CHEST EXPIRATION ONLY | | (08/25/2019); XR CHEST EXPIRATION ONLY (08/25/2019); | | | | FINDINGS: | | Interval placement of small caliber left-sided chest tube. Tiny | | residual left apical pneumothorax is noted. Right lung is clear. | | Stable unremarkable heart and mediastinum. | | | | IMPRESSION: | | Tiny residual left apical pneumothorax. | | | | | | | | Signed by: Dilcia Crawley Robert | | Sign Date/Time: 08/25/2019 8:42 PM | + + + +---------+ + [...] catheter. Serial dilatation was performed to 10 Macanese | | | and a 10 Macanese locking pigtail catheter was then formed in [...] dilatation was performed | | to 10 Macanese and a 10 Macanese locking pigtail catheter was then formed | [...] +---------+ + + XR Chest Expiration Only (08/25/2019 12:43 PM PDT) + + | Specimen | + + | | + + + + + | Impressions | Performed At | + + + | Left apical pneumothorax. Now measures about 4 cm from the upper | [facility] | | left chest. Still modest, but worse/progressed. Call report in | | | progress Signed by: Dilcia Hernandez, Maximino Sign Date/Time: | | | 08/25/2019 12:48 PM | | + + + + + + | Narrative | Performed At | + + + | CHEST INSPIRATION OR EXPIRATION ONLY CLINICAL INFORMATION: | [facility] | | f/u pneumothorax. COMPARISON: XR CHEST EXPIRATION ONLY | | | (08/25/2019); CT GUIDED BIOPSY LUNG OR MEDIASTINUM (08/25/2019); | | | [facility] (04/27/2019); FINDINGS: Left typical pneumothorax | | | previously seen. Some pleural air discernible-now measures about 4 | | | cm from the left apex, with a pleural line superimposed left upper | | | chest projecting just below the clavicle Stable opacity in the | | | peripheral upper left lung. Stable mediastinum without mass effect or | | | cardiomegaly | | + + + + + | Procedure Note | + + | Sidney, Rad Results In - 08/25/2019 12:52 PM PDT | | CHEST INSPIRATION OR EXPIRATION ONLY | | | | CLINICAL INFORMATION: | | f/u pneumothorax. | | | | COMPARISON: | | XR CHEST EXPIRATION ONLY (08/25/2019); CT GUIDED BIOPSY LUNG OR | | MEDIASTINUM (08/25/2019); [facility]ST (04/27/2019); | | | | FINDINGS: | | Left typical pneumothorax previously seen. Some pleural air | | discernible-now measures about 4 cm from the left apex, with a pleural | | line superimposed left upper chest projecting just below the clavicle | | | | Stable opacity in the peripheral upper left lung. | | Stable mediastinum without mass effect or cardiomegaly | | | | IMPRESSION: | | Left apical pneumothorax. Now measures about 4 cm from the upper left | | chest. Still modest, but worse/progressed. | | Call report in progress | | | | | | | | Signed by: Dilcia Hernandez Timothy | | Sign Date/Time: 08/25/2019 12:48 PM | + + + +---------+ + + | Performing | Address | City/State/Zipcode | Phone Number | | Organization | | | | + +---------+ + + | [facility] | | | | + +---------+ + + XR Chest Expiration Only (08/25/2019 11:08 AM PDT) + + | Specimen | + + | | + + + + + | Impressions | Performed At | + + + | 2 cm left apical pneumothorax. Expected post biopsy changes in | [facility] | | the left upper lung. Signed by: Dilcia Balderas, Roosevelt Chacon | | | Date/Time: 08/25/2019 11:27 AM | | + + + + + + | Narrative | Performed At | + + + | CHEST INSPIRATION OR EXPIRATION ONLY CLINICAL INFORMATION: | [facility] | | Post lung biopsy. COMPARISON: CT GUIDED BIOPSY LUNG OR | | | MEDIASTINUM (08/25/2019); [facility]ST (04/27/2019); [facility] (01/08/2019); | | | FINDINGS: There is a 2 cm left apical pneumothorax. Expected | | | postop biopsy changes are noted in the left upper lung. The right | | | lung is clear. Cardiomediastinal silhouette is normal. | | + + + + + | Procedure Note | + + | Sidney, Rad Results In - 08/25/2019 11:30 AM PDT | | CHEST INSPIRATION OR EXPIRATION ONLY | | | | CLINICAL INFORMATION: | | Post lung biopsy. | | | | COMPARISON: | | CT GUIDED BIOPSY LUNG OR MEDIASTINUM (08/25/2019); CTCHEST (04/27/2019); | | [facility]ST (01/08/2019); | | | | FINDINGS: | | There is a 2 cm left apical pneumothorax. Expected postop biopsy | | changes are noted in the left upper lung. The right lung is clear. | | Cardiomediastinal silhouette is normal. | | | | IMPRESSION: | | 2 cm left apical pneumothorax. | | | | Expected post biopsy changes in the left upper lung. | | | | | | | | Signed by: Dilcia Balderas Matthew | | Sign Date/Time: 08/25/2019 11:27 AM | + + + +---------+ + [...] Merle Meng on 08/30/2019. As part of [facility] | | [facility]' Quality Improvement Program, [...] its | | | performancecharacteristics determined by [facility]. It has | | | not been cleared or approved by the U.S. Food and Drug Administration. | | | The FDA has determined that such clearance or approval is | | | notnecessary. This test is used for clinical purposes. It should | | | not be regarded as investigational or for research. [facility] | | | [facility] is certified under the Clinical Laboratory | | | ImprovementAmendments of 1988 (CLIA) as qualified to perform high | | | complexity clinical laboratory testing. PERFORMING LABORATORY:The | | | technical component was performed by [facility], [address] | | | [place] [address] (Computer System Specialist: Judith Mcdonnell MD; CLIA# | | | [id number]).Professional interpretation was performed by [facility] | | [facility], [facility], [address] [place] [address], | | | [place] [id number] (Computer System Specialist: Ben Tracey M.D.; CLIA#: | | | [id number]). Diagnostician: Rudy Brunson | | | MDPathologistElectronically Signed 08/30/2019 | | |The technical component was performed by [facility], [address] [place] [id number] (Computer System Specialist: Judith Mcdonnell MD; CLIA# [id number]). | | |Professional interpretation was performed by [facility], [facility], [address] [place] [id number] (Computer System Specialist: Ben Tracey M.D.; CLIA#: [id number]). | | | | | |Diagnostician: Rudy [...] | INR | 1.0Comment: REFERENCE | | [facility] | | | | RANGE:0.9 - 1.2 [...] | | | | | performed at [facility] | | | | | | [address] [facility];[place], [place] | | | | | | [address] | | | | + + + + + + + + | Specimen | + + | Blood | + + + + + + + | Performing | Address | City/State/Zipcode | Phone Number | | Organization | | | | + + + + + | [facility] | [address] | [place] [address] | [phone] | + + + + + CBC [...] | | | Absolute | performed at [facility];[address] | [address] | LABORATORY | | | | [address];[place] | | | | | | [address] | | | | + + + + + + + + | Specimen | + + | Blood | + + + + + + + | Performing | Address | City/State/Zipcode | Phone Number | | Organization | | | | + + + + + | [facility] | [address] | [place] [address] | [phone] | + + + + + documented in this encounter Visit Diagnoses + + | Diagnosis | + + | Incidental pulmonary nodule, greater than or equal to 8mm Solitary pulmonary nodule | + + documented in this encounter Administered Medications + +--------+---------+------+------+------+ | Medication Order | MAR | Action | Dose | Rate | Site | | | Action | Date | | | | + +--------+---------+------+------+------+ + +---+ | acetaminophen (TYLENOL) tablet | | | 650 mg 650 mg, Oral, EVERY 4 | | | HOURS PRN, Pain, Starting Simi | | | 08/25/19 at 1541 | | + +---+ | | | + +---+ + +-------+ +------+---+---+ | budesonide (ENTOCORT EC) EC | Given | 08/26/19 | 3 mg | | | | capsule 3 mg 3 mg, Oral, EVERY | | 20 8:44 | | | | | MORNING, First dose on Fri | | AM PDT | | | | | 08/26/19 at 0900, Do not crush | | | | | | | capsule contents., | | | | | | + +-------+ +------+---+---+ +---+---+ | | | +---+---+ + +-------+ +---------+---+---+ | budesonide-formoterol | Given | 08/26/19 | 2 puffs | | | | (SYMBICORT) 80-4.5 mcg/puff | | 20 8:44 | | | | | inhaler 2 puff 2 puff, | | AM PDT | | | | | Inhalation, RT BID, First dose | | | | | | | (after last modification) on [facility] | | | | | | | 08/25/19 at 2200 | | | | | | + +-------+ +---------+---+---+ +-------+ +---------+---+---+ | Given | 08/25/19 | 2 puffs | | | | | 20 10:00 | | | | | | PM PDT | | | | +-------+ +---------+---+---+ +---+---+ | | | +---+---+ + +-------+ +--------+---+---+ | fentaNYL (PF) injection 25 mcg | Given | 08/25/19 | 50 mcg | | | | 25 mcg, Intravenous, CONDITIONAL | | 20 9:32 | | | | | PRN, Other, maintenance moderate | | AM PDT | | | | | sedation, titrated every 2 min | | | | | | | prn during procedure, Starting | | | | | | | Simi 08/25/19 at 0741, Pre-op | | | | | | + +-------+ +--------+---+---+ +---+---+ | | | +---+---+ + +-------+ +--------+---+---+ | fentaNYL (PF) injection 25 mcg | Given | 08/25/19 | 50 mcg | | | | 25 mcg, Intravenous, CONDITIONAL | | 20 3:16 | | | | | PRN, Other, maintenance moderate | | PM PDT | | | | | sedation, titrated every 2 min | | | | | | | prn during procedure, Starting | | | | | | | Simi 08/25/19 at 1430, Pre-op | | | | | | + +-------+ +--------+---+---+ +-------+ +--------+---+---+ | Given | 08/25/19 | 50 mcg | | | | | 20 3:01 | | | | | | PM PDT | | | | +-------+ +--------+---+---+ +---+---+ | | | +---+---+ + +-------+ + +---+---+ | HYDROcodone-acetaminophen | Given | 08/26/19 | 1 tablet | | | | (NORCO) 5-325 mg per tablet 1 | | 20 5:00 | | | | | tablet 1 tablet, Oral, EVERY 6 | | AM PDT | | | | | HOURS PRN, Moderate Pain, | | | | | | | Starting [facility] 08/25/19 at 1026 | | | | | | + +-------+ + +---+---+ +-------+ + +---+---+ | Given | 08/25/19 | 1 tablet | | | | | 20 5:56 | | | | | | PM PDT | | | | +-------+ + +---+---+ | Given | 08/25/19 | 1 tablet | | | | | 20 11:46 | | | | | | AM PDT | | | | +-------+ + +---+---+ +---+---+ | | | +---+---+ + +-------+ +--------+---+---+ | HYDROmorphone (DILAUDID) | Given | 08/25/19 | 0.2 mg | | | | injection 0.2-0.4 mg 0.2-0.4 mg, | | 20 4:28 | | | | | Intravenous, EVERY 4 HOURS PRN, | | PM PDT | | | | | Severe Pain, Pain, Starting Simi | | | | | | | 08/25/19 at 1541, Slow IV push, | | | | | | | not faster than 0.25 mg/min. If | | | | | | | ineffective or not tolerated and | | | | | | | unable to take oral opioid, | | | | | | | contact MD., | | | | | | + +-------+ +--------+---+---+ +---+---+ | | | +---+---+ + +-------+ +-------+---+---+ | magnesium chloride (MAG64) EC | Given | 08/26/19 | 64 mg | | | | tablet 64 mg 64 mg, Oral, 3 | | 20 2:17 | | | | | TIMES DAILY, First dose on Simi | | PM PDT | | | | | 08/25/19 at 2100, Do not cut or | | | | | | | crush., | | | | | | + +-------+ +-------+---+---+ +-------+ +-------+---+---+ | Given | 08/26/19 | 64 mg | | | | | 20 8:45 | | | | | | AM PDT | | | | +-------+ +-------+---+---+ | Given | 08/25/19 | 64 mg | | | | | 20 8:50 | | | | | | PM PDT | | | | +-------+ +-------+---+---+ +---+---+ | | | +---+---+ + +-------+ +------+---+---+ | midazolam (VERSED) 1 mg/mL | Given | 08/25/19 | 1 mg | | | | injection 1-2 mg 1-2 mg, | | 20 9:33 | | | | | Intravenous, CONDITIONAL PRN, | | AM PDT | | | | | Sedation, Starting Simi 08/25/19 at | | | | | | | 0741, To be administered by MD | | | | | | | during procedure, Pre-op | | | | | | + +-------+ +------+---+---+ +---+---+ | | | +---+---+ + +-------+ +------+---+---+ | midazolam (VERSED) 1 mg/mL | Given | 08/25/19 | 1 mg | | | | injection 1-2 mg 1-2 mg, | | 20 3:16 | | | | | Intravenous, CONDITIONAL PRN, | | PM PDT | | | | | Sedation, Starting [facility] 08/25/19 at | | | | | | | 1430, To be administered by MD | | | | | | | during procedure, Pre-op | | | | | | + +-------+ +------+---+---+ +-------+ +------+---+---+ | Given | 08/25/19 | 1 mg | | | | | 20 3:02 | | | | | | PM PDT | | | | +-------+ +------+---+---+ + +---+ | | | + +---+ | ondansetron (ZOFRAN) injection | | | 4 mg 4 mg, Intravenous, EVERY 6 | | | HOURS PRN, Nausea, Vomiting, | | | Starting [facility] 08/25/19 at 1541 | | + +---+ | | | + +---+ + +-------+ +-------+---+---+ | pantoprazole (PROTONIX) DR | Given | 08/26/19 | 40 mg | | | | tablet 40 mg 40 mg, Oral, DAILY | | 20 5:40 | | | | | BEFORE BREAKFAST, First dose on | | AM PDT | | | | | 08/26/19 at 0730, Indication: | | | | | | | GERD | | | | | | + +-------+ +-------+---+---+ +---+---+ | | | +---+---+ + +-------+ +--------+---+---+ | potassium chloride (KLOR-CON) | Given | 08/25/19 | 10 mEq | | | | ER tablet 10 mEq 10 mEq, Oral, | | 20 4:28 | | | | | ONCE, [facility] 08/25/19 at 1700, For 1 | | PM PDT | | | | | dose, May take with food to | | | | | | | decrease GI upset., | | | | | | + +-------+ +--------+---+---+ +---+---+ | | | +---+---+ + +-------+ +---------+---+---+ | probiotic capsule 1 capsule 1 | Given | 08/26/19 | 1 | | | | capsule, Oral, 2 TIMES DAILY, | | 20 8:44 | capsule | | | | First dose on [facility] 08/25/19 at | | AM PDT | | | | | 2100, Do not open or crush., | | | | | | + +-------+ +---------+---+---+ +-------+ +---------+---+---+ | Given | 08/25/19 | 1 | | | | | 20 8:50 | capsule | | | | | PM PDT | | | | +-------+ +---------+---+---+ + +---+ | | | + +---+ | sodium chloride 0.9% (NS) | | | infusion at 50 mL/hr, | | | Intravenous, CONTINUOUS, Starting | | | Simi 08/25/19 at 0800, OK to use | | | implantable port., Pre-op | | + +---+ | | | + +---+ documented in this encounter
--- OUTSIDE RECORDS SUMMARY | ~2019-08-10 | XMS | Encounter Summary ---
Demographics + + + | Address | [address] | | | [place] [address] | + + + | Home Phone | | + + + | Preferred Language | Unknown | + + + | Marital Status | | + + + | Yazidism Affiliation | 1027 | + + + | Race | Unknown | + + + | Ethnic Group | Unknown | + + + Author + + + | Author | [facility] | | | and [place] | + + + | Organization | [facility] | | [...] Team Providers + +------+ + | Care Plastering Supervisor Name | Role | Phone | [...] | MED CTR EXTERNAL | [address] | | | | | [address] | [place] | | | | | [place] | [place] [address] | | | | | [place] [address] | | | | | | [phone] | | | +--------+ + + + [...] | | | | | | [place] [address] | | | | | | [phone] | | | | | | | | +--------+---------+ + + + documented as of this encounter Procedures + +--------+ + + + | Procedure Name | Priori | Date/Time | Associated Diagnosis | Comments | | | ty | | | | + +--------+ + + + | CT ANGIOGRAM CHEST W | Routin | 01/08/2019 | | Results for this | | CONTRAST | e | 12:00 AM | | procedure are in the | | | | PDT | | results section. | + +--------+ + + + documented in this encounter Results CT Angiogram Chest W Contrast (01/08/2019 12:00 AM PDT) + + | Specimen [...]
--- OUTSIDE RECORDS SUMMARY | ~2019-08-10 | XMS | Encounter Summary ---
Demographics + + + | Address | [address] | | | [place] [address] | + + + | Home Phone | | + + + | Preferred Language | Unknown | + + + | Marital Status | | + + + | Orthodox Affiliation | 1027 | + + + | Race | Unknown | + + + | Ethnic Group | Unknown | + + + Author + + + | Author | [facility] | | | and [place] | + + + | Organization | [facility] | | | [...] Team Providers + +------+ + | Care Plumber'S Helper Name | Role | Phone | [...] | MED CTR EXTERNAL | [address] | | | | | [address] | [address] | | | | | [place] | [place] [address] | | | | | [place] [address] | | | | | | [phone] | | | +--------+ + + + [...] | | | | | | [place] [address] | | | | | | [phone] | | | | | | | [...] for this | | | e | 12:15 AM | | procedure are in the | | | | PDT | | results section. | + +--------+ + + + documented in this encounter Results XR Chest 1 Vw (12/15/2018 12:15 AM PDT) + + | Specimen | [...]
--- OUTSIDE RECORDS SUMMARY | ~2019-08-10 | XMS | Encounter Summary ---
Demographics + + + | Address | [address] | | | [place] [address] | + + + | Home Phone | | + + + | Preferred Language | Unknown | + + + | Marital Status | | + + + | Lutheran Affiliation | 1027 | + + + [...] Team Providers + +------+ + | Care Monotype Setter Name | Role | Phone | + +------+ + PCP | Unavailable | + +------+ + Encounter Details +--------+ + + + + | Date | Type | Department | Care Team | Description | +--------+ + + + + | 05/18/ | Hospital | [facility] | Fatemeh Louis MD | | | 2011 | Encounter | [facility] | [address] [place] [address] | | | | | [address] [place] | [place] | | | | | [place] | [address] | | | | | [address] | | | | | | [phone] | | | +--------+ + + + [...] [place], | | | | | | [place] [address] | | | | | | [phone] | | | | | | | | +--------+---------+ + + + documented as of this encounter Visit Diagnoses Not on filedocumented in this encounter"
--- OUTSIDE RECORDS SUMMARY | ~2019-08-10 | XMS | Encounter Summary ---
Demographics + + + | Address | [address] | | | [place] [address] | + + + | Home Phone | | + + + | Preferred Language | Unknown | + + + | Marital Status | | + + + | Anabaptist Affiliation | 1027 | + + + | Race | Unknown | + + + | Ethnic Group | Unknown | + + + Author + + + | Author | [facility] | | | and [place] | + + + | Organization | [facility] | | | [...] Team Providers + +------+ + | Care Coremaker Bench Name | Role | Phone | + [...] | MED CTR EXTERNAL | [address] | | | | | [address] | [place] [place] | | | | | [place] | [place] [address] | | | | | [place] [address] | | | | | | [phone] | | | +--------+ + + + [...] | | | | | | [place] [address] | | | | | | [phone] | | | | | | | | +--------+---------+ + + + documented as of this encounter Procedures + +--------+ + + + | Procedure Name | Priori | Date/Time | Associated Diagnosis | Comments | | | ty | | | | + +--------+ + + + | XR CHEST 2 VIEWS | Routin | 01/08/2019 | | Results for this | | | e | 12:05 AM | | procedure are in the | | | | PDT | | results section. | + +--------+ + + + documented in this encounter Results XR Chest 2 Vws (01/08/2019 12:05 AM PDT) + + | Specimen [...]
--- OUTSIDE RECORDS SUMMARY | ~2019-08-10 | XMS | Encounter Summary ---
Demographics + + + | Address | [address] | | | [place] [address] | + + + | Home Phone | | + + + | Preferred Language | Unknown | + + + | Marital Status | | + + + | Quaker Affiliation | 1027 | + + + | Race | Unknown | + + + | Ethnic Group | Unknown | + + + Author + + + | Author | [facility] | | | and [place] | + + + | Organization | [facility] | | | and [place] | + + + | Address | Unknown | + + + | Phone | Unavailable | + + + Support + + +---------+ + | Name | Relationship | Address | Phone | + + +---------+ + | Bang iPneda | ECON | Unknown | | + + +---------+ + Care Team Providers + +------+ + | Care Pressure Control Supervisor Name | Role | Phone | [...] | MED CTR EXTERNAL | [address] | | | | | [address] | [place] | | | | | [place] | [place] [address] | | | | | [place] [address] | | | | | | [phone] | | | +--------+ + + + [...] | | | | | | [place] [address] | | | | | | [phone] | | | | | | | [...] encounter Results XR Chest 1 Vw (12/18/2018 12:00 AM PDT) + + | Specimen [...]
--- OUTSIDE RECORDS SUMMARY | ~2019-08-10 | XMS | Encounter Summary ---
Demographics + + + | Address | [address] | | | [place] [address] | + + + | Home Phone | | + + + | Preferred Language | Unknown | + + + | Marital Status | | + + + | Yazdanism Affiliation | 1027 | + + + [...] Team Providers + +------+ + | Care Grades 1 Through 6 Teacher Name | Role | Phone | + +------+ + PCP | Unavailable | + +------+ + Encounter Details +--------+ + + + + | Date | Type | Department | Care Team | Description | +--------+ + + + + | 07/05/ | Hospital | [facility] | Fatemeh Louis MD | | | 2012 | Encounter | HOSPITAL LAB[facility] | [address] | | | | | [address] [place] | [place] | | | | | [place] | [address] | | | | | [address] | | | | | | [phone] | | | +--------+ + + + [...] | 11/01/ | Office | Pulmonology | aKnnan, | | | 2019 | Visit | | Anushka Shook, | | | | | | [address] | | | | | | [place], | | | | | | [place] [address] | | | | | | [phone] | | | | | | | | +--------+---------+ + + + documented as of this encounter Visit Diagnoses Not on filedocumented in this encounter"
--- OUTSIDE RECORDS SUMMARY | ~2019-08-10 | XMS | Encounter Summary ---
Demographics + + + | Address | [address] | | | [place] [address] | + + + | Home Phone | | + + + | Preferred Language | Unknown | + + + | Marital Status | | + + + | Evangelical Affiliation | 1027 | + + + | Race | Unknown | + + + | Ethnic Group | Unknown | + + + Author + + + | Author | [facility] | | | and [place] | + + + | Organization | [facility] | [...] Team Providers + +------+ + | Care Engineering Librarian Name | Role | Phone | + +------+ + PCP | Unavailable | + +------+ + Encounter Details +--------+ + + + + | Date | Type | Department | Care Team | Description | +--------+ + + + + | 06/09/ | Hospital | [facility] | Fatemeh Louis MD | | | 2011 | Encounter | HOSPITAL MED SURG | [address] | | | | | [address] [place] | [place] | | | | | [place] | [address] | | | | | [address] | | | | | | [phone] | | | +--------+ + + + [...] + documented as of this encounter H&P Notes Fatemeh Louis MD - 06/10/2011 7:06 AM PDTHISTORY AND PHYSICAL DATE OF SERVICE: 06/09/2011. DATE OF SURGERY: 06/10/2011. CHIEF COMPLAINT: Menstrual problems. HISTORY OF PRESENT ILLNESS: This patient is a 50-year-old female who presents with an approximately 2-year hi story of profoundly heavy menstrual periods. She has had 4 spontaneous vaginal deliveries. She gives a history of having had anemia as a result of her heavy periods. She is passing large clots and has difficulty maintaining her personal hygiene. Evaluation of this problem demonstrated on pelvic ultrasound two uterine fibroids that measu red 4.9 cm and another that measures 3.9 x 4.0 x 3.1 cm. Endometrial stripe was prominent at 1.9 cm. She also had laboratory evaluation which demonstrated her hemoglobin was 11.8 with a normal TSH, normal hemoglobin A1c and normal fasting glucose. Skinny foster has no intermenstrual bleeding. The cramping is of moderate degree. REVIEW OF SYSTEMS: GENERAL: No fever, weight loss or appetite change. CARDIORESPIRATORY: No chest pain, shortness of breath or cough. GI: She is currently undergoing evaluation for possible flare-up of her Crohn's. NEUROLOGIC: No headaches, numbness or tingling. PAST SURGICAL HISTORY: Adenoids, cholecystectomy, D&C for miscarriage, and tonsils. SOCIAL HISTORY: She is a homemaker. She smokes. She does not drink. FAMILY HISTORY: Daughter with some type of cancer or precancer of her reproductive organs: the patient is u nsure. Otherwise, noncontributory. PHYSICAL EXAMINATION: VITAL SIGNS: Weight 198 pounds. Blood pressure 110/70. GENERAL: Alert, ambulatory female in no acute distress. HEART: Regular rate and rhythm. LUNGS: Clear. ABDOMEN: Soft, nontender. No palpable hepatosplenomegaly, organomegaly or masses. EXTREMITIES: No clubbing, cyanosis, edema or rashes. NEUROLOGIC: Exam is physiologic. PELVIC: External genitalia within normal limits. Vagina with no lesions. Cervix with no lesions. BIMANUAL: Examination demonstrates a globular, nontender uterus with negative adnexa. ASSESSMENT: 1. Menorrhagia. 2. Dysmenorrhea. 3. History of Crohn's disease. 4. Uterine fibroids. PLAN: Options have been discussed in detail with the patient including watchful waiting, hormonal manipulation, ablation, D&C, or hysterectomy. Plan is for hysteroscopy and D&C. The risks particular to the procedure including uterine perforation, infection, internal organ injury, as well as the known possibility of failure to correct her problem h ave been discussed in detail with the patient and she has given informed and written consent . She also understands the possibility of a diagnosis of malignancy which would, therefore, require referral. cc: Anni Moulton MD [facility] Signed and Approved by: FATEMEH LOUIS MD 06/10/2011 08:34:00 documented in th is encounter Miscellaneous Notes Op Note - Fatemeh Louis MD - 06/10/2011 7:06 AM PDT OPERATIVE REPORT DATE OF SURGERY: 06/10/2011. PREOPERATIVE DIAGNOSIS: Menometrorrhagia. POSTOPERATIVE DIAGNOSIS: Menometrorrhagia. PROCEDURE: 1. Diagnostic hysteroscopy. 2. Dilatation and curettage. SURGEON: Fatemeh Louis MD ANESTHESIOLOGIST: Ion Webber DO ANESTHESIA: General. FINDINGS: 8.5 cm uterine cavity with very fluffy appearance to the endometrium. No gross lesions. COUNTS: Correct. PROCEDURE IN DETAIL: After informed written consent had been obtained the patient was taken to the operative zaida te and placed in the dorsal supine position. She underwent induction of general anesthesia w ithout incident. She was converted to the dorsal lithotomy position with the legs and hips properly padded and braced. Proper time out had been carried out. Vagina and perineum were prepped and draped in the usual sterile fashion and bladder was dr ained using sterile technique with in-and-out catheterization. Speculum introduced into the vagina and cervix grasped with an atraumatic tenaculum. Minim al dilatation carried out in order to allow insertion of hysteroscope. SALINE was used a dis tending medium, approximately 100 ml utilized and 100 ml retrieved. Inspection of her endocervical canal demonstrated no abnormalities. Inspection of her endom etrial cavity demonstrated very fluffy appearance to the endometrium to the extent that the tubal ostia could not be seen. There were no obvious polyps nor fibroids. Hysteroscope withdrawn, curettage carried out in a methodical fashion and yielde d a fairly large amount of scrapings considering it was endometrium. Some of the tissue rebekah eared to be polypoid. Hysteroscope reinserted: however, there was oozing that obscured visualization. Otherwise it appeared to be normal post D&C appearance. The procedure then terminated. Specimen sent to pathology for evaluation. There was good hemostasis. All instruments removed from the vagina. All counts were correct . The patient replaced into the dorsal supine extended position. She awakened from anesthesi a without incident and returned to the recovery room in stable condition. Cc: Anni Moulton MD [facility] Signed and Approved by: FATEMEH LOUIS MD 06/25/2011 13:51:00 documented in th is encounter Plan of Treatment +--------+---------+ + [...] [place], | | | | | | [place] [address] | | | | | | [phone] | | | | | | | | +--------+---------+ + + + documented as of this encounter Visit Diagnoses Not on filedocumented in this encounter"
--- OUTSIDE RECORDS SUMMARY | ~2019-08-10 | XMS | Encounter Summary ---
Demographics + + + | Address | [address] | | | [place] [address] | + + + | Home Phone | | + + + | Preferred Language | Unknown | + + + | Marital Status | | + + + | Zoroastrianism Affiliation | 1027 | + + + | Race | Unknown | + + + | Ethnic Group | Unknown | + + + Author + + + | Author | [facility] | | | and [place] | + + + | Organization | [facility] | | | [...] Team Providers + +------+ + | Care Punch Out Crew Member Name | Role | Phone | + +------+ + PCP | Unavailable | + +------+ + Encounter Details +--------+ + + + + | Date | Type | Department | Care Team | Description | +--------+ + + + + | 03/26/ | Hospital | [facility] | [place], | | | 2011 | Encounter | [facility] | Anni Cleaning MD [id number] | | | | | [address] [place] | [facility] | | | | | [place] | [place] | | | | | [address] | [phone] | | | | | [phone] | [phone] | | | | | | | [...] documented as of this encounter Discharge Summaries Anni Moulton MD - 03/26/2011 4:28 AM PST DISCHARGE SUMMARY DATE OF DISCHARGE: 03/28/2011 DISCHARGE DIAGNOSES: 1. Small bowel partial obstruction resolved, induced by Crohn's disease flare-up. 2. Crohn's disease flare-up improving. 3. Abnormal vaginal bleeding secondary to uterine fibroids and endometrial hyperplasia. 4. Normocytic normochromic anemia likely associated to inflammatory bowel disease. 5. Chronic bronchitis with mild exacerbation improving. 6. Right mandibular mass. 7. Active smoker. HPI: This is a 50-year-old female with history of Crohn's disease diagnosed 15 years ago, not on medication for the last 5 years, presented to the emergency room on the date of admission w ith complaints of pain coming from the back radiating to her abdomen for 1 day. No bowel movement for 1 day. She normally has multiple frequent bowel movements a day. They are semisolid in consistency. In the emergency room she had a CAT scan that showed evidence of partial bowel obstruction and she was admitted for further management. During hospitalization she was put on NG sucti on, IV fluids, bowel rest, NPO. GI, Dr. Wills, was consulted and recommended start SOLU-MEDROL 15 mg q.6 h. for 2 or 3 days and then if bowel obstruction re solved to continue PREDNISONE tapering dose with decreasing 5 mg per week. The patient's sm all bowel obstruction resolved medically. On the third date of admission patient was able to tolerate regular diet and was moving bowels normally. Other findings during this hospitalization were endometrial thickening, uterine fibroids th at are associated with a history from the patient of abnormal vaginal bleeding. Normocytic normochromic anemia, transitional vertebrae per CAT scan and chronic bronchitis with mild exacerbation. The patient had a long history of being a smoker. Duri hospitalization she was noted to have some wheezing and a productive cough with clear phl egm. She did not receive antibiotics because her symptoms improved with use of bronchodilators, nebulization. The patient received a NICOTINE PATCH for smoking c essation and LOVENOX for DVT prophylaxis. During lab workup she had an abnormal TSH with an initial value of 11, that was later repea robert and came back with a normal TSH, and a small slightly decreased free T3. IMPORTANT LAB DATA AND TEST RESULTS: CBC had a white count of 8.0, H and H 11.1/33.2, platelets 199,000. Sodium 138, potassium 3.9, chloride 106, bicarb 28, glucose 98, BUN 9, creatinine 1.0, ESR 18. Urine was unremark able. CT of the abdomen showed dilated loop of small bowel with mild circumferential wall thicken ing. Small amount of mesenteric edema adjacent to the small bowel loop. Transitional verte brae, status post cholecystectomy and enlarged uterus compatible with fibroids and endometrial thickening. No significant changes in her labs except for slight worsening of normocytic normochromic a nemia, with a discharge H and H of 9.5/28.9, but no evidence of bleeding. DISCHARGE PLAN: Patient will be discharged home today with PREDNISONE 40 mg p.o. daily for one week to decr ease 5 mg every week. Patient will make an appointment to establish care with me as a PCP i the [facility] in one or two weeks. She will follow up with GI in [place] as per her preferences. She will file for financial assistance and if it is approved she will be referred to ENT for evaluation of right mandibular mass. Francia spain was counseled regarding smoking cessation and she will try to continue using NICOTINE PATCHES as outpatient. DISCHARGE MEDICATIONS: DUONEBS 3 mL q.4 h. p.r.n.: PREDNISONE 40 mg p.o. daily for first week and then decrease 5 mg per week: NICOTINE PATCH 14 mg daily: TYLENOL 500 mg p.o. q.4 h. p.r.n. IF Signed and Approved by: ANNI OROZCO MD 04/01/2011 16:16:00 documented in this encounter H&P Notes Anni Moulton MD - 03/26/2011 4:28 AM PSTHISTORY AND PHYSICAL DATE OF SERVICE: 03/26/2011. CHIEF COMPLAINT: Low back pain radiating to the abdomen for 1 day. HISTORY OF PRESENT ILLNESS: This is a 50-year-old female with a diagnosis of Crohn's disease for 15 years. She was pre viously on ASACOL on and off for years, not taking any medication at all for the last 5 year s. The last time she saw a physician was in 2006. She has chronic diarrhea with semisolid bowel movements about 10 times a day. She does not regularly have blood and gets abdominal pains once a week. She says since yesterday she started having danilo n in the low back, both sides of her hip area radiating to her belly. That was a new type of pain for her so she decided to go to the emergency room. Her last b owel movement was 45 minutes before going to the emergency room and it was watery diarrhea. In the emergency room she had a CT scan of the abdomen that showed a partial bowel obstruction. She is being admitted for further management. PAST MEDICAL HISTORY: 1. Crohn's disease. 2. Hemorrhoids. 3. Hay fever. 4. Chronic bronchitis. PAST SURGICAL HISTORY: 1. Gallbladder removed. 2. Tonsils removed. 3. Tubes tied. SOCIAL HISTORY: She lives with her and has 5 biological children. She is unemployed. She smokes a little less than 1 pack of cigarettes a day. Denies drugs or alcohol use. FAMILY HISTORY: Her mother is alive and healthy. Father, unknown history. Siblings are healthy. [place] her, history of Crohn's disease. ALLERGIES: NO KNOWN DRUG ALLERGIES. MEDICATIONS: None. REVIEW OF SYSTEMS: GENERAL: She complains of feeling hot and cold. She denies measuring her temperature. C omplains of chronic fatigue for at least 1 year. EYES: She wears glasses and states she cannot see well with her glasses and needs a new e ye exam. EARS: Complains of right ear pain. NOSE/MOUTH/THROAT: Complains of sore throat. Denies hearing loss and nasal congestion. CHEST/RESPIRATORY: Denies dyspnea, cough, chest pain. Complains of palpitations especial ly at exertion. ENDOCRINE: Denies polyuria, polydipsia. Complains of cold and heat intolerance. MUSCULOSKELETAL: Complains of bilateral knee pain. Denies decreased range of motion or s welling. SKIN: Complains of red lesions on her face present for a few weeks. : Complains of urinary frequency. Denies dysuria, incontinence or urgency. GI: Per HPI. HEMATOLOGIC: The patient complains of having vaginal spotting for 1 year. The year befor e she had very irregular menstrual periods. NEURO: Denies paresthesias, weakness, tingling or numbness. PSYCH: Denies depression. Complains of feeling very stressed lately. SLEEP: Complains of difficulty sleeping. PHYSICAL EXAMINATION: VITAL SIGNS: Blood pressure 123/73, heart rate 78, respiratory rate 18, temperature 36.7 degrees Celsius, saturation 95% on room air. GENERAL: The patient looks comfortable, not in acute distress. HEENT: Head is atraumatic, normocephalic. Eyes: Pupils are equal and reactive to light. E ars: There is no tenderness on palpation of ears bilaterally. No external ear lesion noted. Nonerythematous ear canals. Tympanic membranes are intact bilaterally. Mouth: No lip or tongue lesions noted. No oral thrush. Tonsils surgically removed. Noneryth ematous pharynges. Poor dentition. NECK: Supple. Normal range of motion. No cervical adenopathy. No masses, no thyromegaly, no carotid or thyroid bruits. No scars. SKIN: Erythematous plaque noted on right side of the face and two smaller ones on the lef t. CARDIOVASCULAR: Regular rate and rhythm. No murmurs, no gallops, no rubs. LUNGS: Symmetric air entry bilaterally. Positive expiratory wheezes. No acute respiratory distress. The patient was having an active wet cough. ABDOMEN: Soft, slightly tender in the right and left lower quadrants. Bowel sounds were present. EXTREMITIES: Normal gait. Normal range of motion of all extremities. Pulses present. Symm etric and strong pedal pulses. No lower extremity edema. LABORATORY DATA: CBC: White blood cell count 8.0, H&H 11.1/33.2, platelets 199. Sodium 138, potassium 3.9, chloride 106, bicarb 25, glucose 98, BUN 9, creatinine 1.0. ESR 18. Urine unremarkable. CT of the abdomen and pelvis with contrast showed a dilated loop of small bowel with mild c ircumferential wall thickening. There is also a small amount of mesenteric edema adjacent t o the small bowel loop. Findings compatible with partial obstruction and/or delayed transit. Transitional vertebra. Status post cholecystectomy. A large uter us compatible with fibroids and endometrial thickening. ASSESSMENT: 1. Small bowel partial obstruction possibly related to Crohn's disease. 2. Crohn's disease diagnosed 15 years ago: not treated for the last 5 years. 3. Unspecified facial skin rash. 4. Abnormal vaginal bleeding with endometrial thickening by CAT scan. 5. Normocytic normochromic anemia. 6. Transitional vertebra. 7. Uterine fibroids per CAT scan. 8. Active smoker. 9. Chronic bronchitis, mild exacerbation. PLAN: 1. The patient will be admitted to [facility] for further management. The patient is started on NG suction. 2. Maintain IV fluids. 3. Bowel rest and n.p.o. diet. 4. GI was consulted, Dr. Wills from [place]. He recommended checking for inflamma tory markers. At this moment only the ESR is available: it is 18, which is not high. Recom mended to start her on SOLU-MEDROL 15 mg q.6h. for 2 or 3 days and check for response or resolution of the obstruction. 5. Will continue to monitor her clinically and with x-rays. If no resolution of the small bowel obstruction after 2 or 3 days of observation and treatment with IV fluids, will ask waleska castañeda to see her. 6. NICOTINE PATCH. 7. DVT prophylaxis with LOVENOX. 8. Uterine fibroids and endometrial thickening and abnormal vaginal bleeding is chronic aEl ectronically signed by Zakia Little Conversion at 12/24/2016 12:29 PM PDTdocumented in this encounter Plan of Treatment [...] | | | | | | [place] [id number] | | | | | | [phone] | | | | | | | | +--------+---------+ + + + documented as of this encounter Visit Diagnoses Not on filedocumented in this encounter"
--- OUTSIDE RECORDS SUMMARY | ~2019-08-10 | XMS | Encounter Summary ---
Demographics + + + | Address | [address] | | | [place] [address] | + + + | Home Phone | | + + + | Preferred Language | Unknown | + + + | Marital Status | | + + + | Restoration Affiliation | 1027 | + + + [...] Team Providers + +------+ + | Care Cake Mixer Name | Role | Phone | + +------+ + | Shanthi Nelson MD | PCP | | + +------+ + Reason for Visit + + + | Reason | Comments | + + + | Follow-up | MRI and labs | + + + Evaluate & Treat [...] enteritis of | [address] | [employer] [address] | | | | Gastroenterol | unspecified | [address], | [address] | | | | ogy | site | [place] [address] | [address] | | | | | Crohns/pt/mo | Phone: | [place], | | | | | da/yvette/ | [phone] | [place] [address] | | | | | Saw Ry in | Fax: | Phone: | | | | | loren | [phone] | [phone] | | | | | GI | | Fax: | | | | | Procedures | | [phone] | | | | | NEW PATIENT | | | +--------+--------+ + + + + Encounter Details +--------+---------+ + + + | Date | Type | Department | Care Team | Description | +--------+---------+ + + + | 03/20/ | Office | [facility] [place] | Anthony, | Crohn's disease, | | 2015 | Visit | GASTROENTEROLOGY | [address] | other complication | | | | [address] [place] | [address] | ([facility]) (Primary Dx) | | | | [address] [place], [place] | [place] | | | | | [address] | [address] | | | | | [phone] | | | +--------+---------+ + + + [...] + + + | Blood Pressure | 122/84 | 03/20/2014 10:31 AM | | | | | PST | | + + + + + | Pulse | 60 | 03/20/2014 10:31 AM | | | | | PST | | + + + + + | Temperature | 36.7 C (98 F) | 03/20/2014 10:31 AM | | | | | PST | | + + + + + | Respiratory Rate | 16 | 03/20/2014 10:31 AM | | | | | PST | | + + + + + | Oxygen Saturation | - | - | | + + + + + | Inhaled Oxygen | - | - | | | Concentration | | | | + + + + + | Weight | 91.2 kg (201 lb) | 03/20/2014 10:31 AM | | | | | PST | | + + + + + | Height | - | - | | + + + + + | Body Mass Index | 33.45 | 02/20/2014 8:15 AM | | | | | PST | | + + + + + documented in this encounter Patient Instructions Patient Instructions Queta Cruz ARNP - 03/20/2014 11:04 AM PSTContinue with Imura n 50 mg, 2 tabs daily. Start clear liquid diet today. When bloating improves advance to soft diet. If continued im provement in bloating, can advance to regular diet. Get blood work drawn today. Clear Liquid Diet Clear liquids are any liquid that you can see through as well as those that are very easy t o digest. This is used while the body is recovering from irritation or infection of the stom ach or intestinal tract. It may also be used before special procedures or surgery. This diet is to be used no more than three days. You may include the following items. Adults Adults should drink a total of 2 3 quarts of liquid per day. It may be easier to drink sm all frequent servings rather than a few large ones. Liquids can include: Fruit juices. Strained orange juice or lemonade (no pulp), apple, grape and cranberry ju ice, clear fruit drinks, sports drinks Beverages. Sport drinks, sodas, mineral water (plain or flavored), tea, black coffee, li quid gelatin (add twice the recommended amount of water) Soups. Clear broth, consomm, bouillon Desserts. Plain gelatin, popsicles, fruit juice bars Children Over 2 years old The following liquids are acceptable for children over age 2: Fruit juices. Strained orange juice or lemonade (no pulp), apple, grape and cranberry ju ice, clear fruit drinks Beverages. Sports drinks, sodas, mineral water (plain or flavored), tea, liquid gelatin (add twice the recommended amount of water) Soups. Clear broth, consomm, bouillon Desserts. Plain gelatin, popsicles, fruit juice bars Children under 2 years old Oral rehydration fluids such are available at drug stores and most grocery stores without a prescription. 9919-[address] [employer]. [address] [place] [address], [place] [address]. All righ ts reserved. This information is not intended as a substitute for professional medical care. Always follow your healthcare professional's instructions. Soft Diet You have been prescribed a soft diet (also called gastrointestinal soft diet, or bland diet ). This diet consists of foods that are soft in texture, mildly seasoned, low in fiber, and easily digested. This diet is for persons who have digestive problems. A soft diet reduces i rritation of your digestive tract. Eat small frequent meals throughout the day, but stop eat ing 2 hours before bedtime. Follow any specific instructions from the healthcare provider ab out foods and beverages you can and cannot have. The general guidelines below can help you g et started on this diet. Beverages OK: Milk, tea, coffee, fruit juices, carbonated beverages, nutrition shakes and drinks AVOID: Alcoholic beverages Breads And Crackers OK: Refined white, wheat, or seedless rye bread, pramod or soda crackers, [place] toast, plai n rolls or bagels, very soft tortillas AVOID: Whole-grain breads, rolls, or bagels with nuts, raisins, or seeds, crackers that are heavily seasoned, croutons, taco shells Cereals And Grains OK: Cooked cereals, plain dry cereals, plain macaroni, spaghetti, noodles, rice AVOID: Whole-grain cereals and granola, or cereals containing bran, raisins, seeds or nuts, coconut; brown or wild rice Fruits OK: Avocado, banana, baked peeled apple, applesauce, peeled ripe peaches or pears, canned f ruit (apricots, cherries, peaches, pears), melons, grapes AVOID: Raw apple, dried fruits, coconut, pineapple Meat And Fish OK: All fresh meat, poultry, or fish that is cooked until tender AVOID: Meat, fish, or poultry that is fried or prepared with seasonings that should be avoi ded (see below); tough or stringy meat including tamez, sausage, bratwurst, jerky, corned be ef Eggs And Cheese OK: Poached or scrambled eggs, cottage cheese, ricotta cheese, cream cheese, cheese sauces, or cheese melted in other dishes AVOID: Sauk fried eggs, cheese slices and cubes, cheese made with seasonings that should b e avoided (see below) Other Protein Foods OK: Tofu, baked beans, smooth peanut butter or other nut or seed butters AVOID: Deep-fried tofu, crunchy peanut or other nut or seed butters, nuts or seeds that are whole or chopped Soups OK: All soups without heavy seasoning AVOID: Soups made with seasonings and foods listed in this sheet to avoid Vegetables OK: Peeled and well-cooked potatoes or sweet potatoes; mildly flavored fresh, cooked, canne d, or frozen vegetables without seeds, skin, or coarse fiber AVOID: Raw vegetables prepared with spices that should be avoided (see below); corn; deep-f ried vegetables (such as tempura) Desserts And Sweets OK: Moist cake, soft fruit pie with bottom crust only, soft cookies moistened in milk or ot her liquid, gelatin, custard, pudding, plain ice cream, plain sherbet, sugar, honey, clear j trevor AVOID: Pastries, desserts, and ice cream that have nuts, coconut, seeds, or dried fruit; po pcorn, chips of any kind including potato and taco chips; jam, marmalade Seasonings OK: Salt, lemon and modoc juice, vinegar, all extracts, tess, cinnamon, thyme, mace, allspic e, paprika AVOID: Whole fresh chili peppers, chili sauce or powder, pepperoncini, cloves, black and wh ite pepper, seed spices, garlic, onions, leeks, horseradish, mustard, pickles, highly season ed salad dressings 6946-1363 [employer]. [address] [place] [address]. All righ ts reserved. This information is not intended as a substitute for professional medical care. Always follow your healthcare professional's instructions. documented in this encounter Progress Notes Queta Cruz ARNP - 03/20/2014 10:52 AM PSTFormatting of this note might be differe nt from the original. oNy Pineda is a 53 y.o. female here for followup Crohn's disease History of present illness: Patient states she feels some abdominal bloating. She is having formed stools, about 1-2 BM per day. No blood in stool. She continues to have abdominal bloating. Bloating is intermittent. Feels worse over the la st 2-3 days. She continues to juice vegetable. Eating sandwiches over the last days. No Known Allergies Past Medical History Diagnosis [...] Laterality: N/A; Surgeon: Karan Toledo MD; [facility] Dexa bone density appendicular skeleton [...] any fevers, chills, or unintentional weight loss. Respiratory:Denies shortness of breath, cough or wheezing. Gastrointestinal:Negative except as stated above. Cardiovascular:Denies chest pain, palpitations, or swelling to legs Physical exam: General: Alert and oriented, NAD Eyes: Sclera clear Mouth: Mucous membranes moist Extremities: No clubbing or edema Skin: Warm, dry, intact. No rashes noted Neuro: Cranial nerves 2-12 grossly intact. Psych: Appropriate mood and affect. MRI enterography with and without contrast 02/09/2014: [...] hysterectomy changes. Fatty infiltration of the liver. Hospital Outpatient Visit on 03/20/2014 Component Date Value Range Status WBC 03/20/2014 6.2 4.0-11.0 K/uL Final RBC 03/20/2014 4.81 3.70-5.20 M/uL Final Hgb 03/20/2014 16.4* 11.5-16.0 g/dL Final Hct 03/20/2014 47.9* 34.0-47.0 % Final MCV 03/20/2014 99.6 83.0-101.0 fL Final MCH 03/20/2014 34.1 28.0-35.0 pg Final MCHC 03/20/2014 34.2 32.0-36.0 g/dL Final RDW 03/20/2014 13.6 <15.0 % Final Platelet Count 03/20/2014 138* 140-440 K/uL Final MPV 03/20/2014 8.1 Final % Neutrophils 03/20/2014 61.7 45.0-82.0 % Final % Lymphocytes 03/20/2014 28.9 20.0-45.0 % Final % Monocytes 03/20/2014 7.3 4.0-12.0 % Final % Eosinophils 03/20/2014 1.4 0.0-5.0 % Final % Basophils 03/20/2014 0.7 0.0-1.0 % Final Absolute Neutrophils 03/20/2014 3.80 1.80-8.50 K/uL Final Absolute Lymphocytes 03/20/2014 1.80 0.60-3.20 K/uL Final Absolute Monocytes 03/20/2014 0.40 0.00-1.00 K/uL Final Absolute Eosinophils 03/20/2014 0.10 0.00-0.40 K/uL Final Absolute Basophils 03/20/2014 0.00 0.00-0.10 K/uL Final ESR 03/20/2014 5 <30 mm/hr Final CRP, High Sensitive 03/20/2014 0.60 <=3.00 mg/L Final Assessment 1. Crohn's disease, other complication (HCC) CBC with Differential Sedimentation Rate C-Reactive Protein, High Sensitivity Plan: Continue with Imuran 50 mg, 2 tabs daily. Start clear liquid diet today. When bloating improves advance to soft diet. If continued im provement in bloating, can advance to regular diet. Get blood work drawn today. If she continues to have problems with these segments of narrowing within her terminal ileu m, will refer to surgeon for possible resection. Highly encouraged patient to discontinue all tobacco products. Will follow up with results. Patient is to call with any question or concerns. Any fevers, chills, chest pain, SOB or other serious symptoms patient is to call the office or go to ER . Cc: Shanthi Nelson This note was dictated using voice recognition software. Please contact me if there are an y questions regarding its content. docushira in t his encounter Plan of Treatment [...] | | | | | | [place] [address] | | | | | | [phone] | | | | | | | | +--------+---------+ + + + documented as of this encounter Results C-Reactive Protein, High Sensitivity (03/20/2014 12:02 PM PST) + +-------+ + + + | Component | Value | Ref Range | Performed | Pathologist | | | | | At | Signature | + +-------+ + + + | CRP, High | 0.60 | <=3.00 mg/L | [facility] | | | Sensitive | | | [facility] | | | | | | [facility] | | | | | | CENTER - | | | | | | LABORATORY | | + +-------+ + + + + + | Specimen | + + | Blood | + + + + + + + | Performing | Address | City/State/Zipcode | Phone Number | | Organization | | | | + + + + + | [facility] | [address] | [place] | [phone] | | [facility] | | [address] | | | - LABORATORY | | | | + + + + + | [facility] | [address] | [place] | | | [facility] | | [address], [facility] | | | - LABORATORY | | | | + + + + + Sedimentation Rate (03/20/2014 12:02 PM PST) + +-------+ + + + | Component | Value | Ref Range | Performed | Pathologist | | | | | At | Signature | + +-------+ + + + | Erythrocyte | 5 | <30 mm/hr | [facility] | | | | | | [facility] | | | Sedimentati | | | MEDICAL | | | on Rate | | | CENTER - | | | | | | LABORATORY | | + +-------+ + + + + + | Specimen | + + | Blood | + + + + + + + | Performing | Address | City/State/Zipcode | Phone Number | | Organization | | | | + + + + + | [facility] | [address] | [place] | [phone] | | [facility] | | [address] | | | - LABORATORY | | | | + + + + + | [facility] | [address] | [place], [place] | | | [facility] | | [address], [facility] | | | - LABORATORY | | | | + + + + + CBC with Differential (03/20/2014 12:02 PM PST) + + + + + + | Component | Value | Ref Range | Performed | Pathologist | | | | | At | Signature | + + + + + + | White Blood | 6.2 | 4.0 - 11.0 K/uL | [facility] | | | Cells | | | [facility] | | | | | | [facility]ICAL | | | | | | CENTER - | | | | | | LABORATORY | | + + + + + + | Red Blood | 4.81 | 3.70 - 5.20 | [facility] | | | Cells | | M/uL | [facility] | | | | | | MEDICAL | | | | | | CENTER - | | | | | | LABORATORY | | + + + + + + | Hemoglobin | 16.4 (H) | 11.5 - 16.0 | [facility] | | | | | g/dL | [facility] | | | | | | MEDICAL | | | | | | CENTER - | | | | | | LABORATORY | | + + + + + + | Hematocrit | 47.9 (H) | 34.0 - 47.0 % | [facility] | | | | | | [facility] | | | | | | MEDICAL | | | | | | CENTER - | | | | | | LABORATORY | | + + + + + + | MCV | 99.6 | 83.0 - 101.0 fL | [facility] | | | | | | [facility] | | | | | | MEDICAL | | | | | | CENTER - | | | | | | LABORATORY | | + + + + + + | MCH | 34.1 | 28.0 - 35.0 pg | [facility] | | | | | [facility] | | | | | | MEDICAL | | | | | | CENTER - | | | | | | LABORATORY | | + + + + + + | MCHC | 34.2 | 32.0 - 36.0 | [facility] | | | | | g/dL | [facility] | | | | | | MEDICAL | | | | | | CENTER - | | | | | | LABORATORY | | + + + + + + | RDW-CV | 13.6 | <15.0 % | [facility] | | | | | [facility] | | | | | | MEDICAL | | | | | | CENTER - | | | | | | LABORATORY | | + + + + + + | Platelet | 138 (L) | 140 - 440 K/uL | [facility] | | | Count | | | [facility] | | | | | | MEDICAL | | | | | | CENTER - | | | | | | LABORATORY | | + + + + + + | MPV | 8.1 | fL | [facility] | | | | | | [facility] | | | | | | MEDICAL | | | | | | CENTER - | | | | | | LABORATORY | | + + + + + + | % | 61.7 | 45.0 - 82.0 % | [facility] | | | Neutrophils | | | [facility] | | | | | | MEDICAL | | | | | | CENTER - | | | | | | LABORATORY | | + + + + + + | % | 28.9 | 20.0 - 45.0 % | [facility] | | | Lymphocytes | | | [facility] | | | | | | MEDICAL | | | | | | CENTER - | | | | | | LABORATORY | | + + + + + + | % Monocytes | 7.3 | 4.0 - 12.0 % | [facility] | | | | | | [facility] | | | | | | MEDICAL | | | | | | CENTER - | | | | | | LABORATORY | | + + + + + + | % | 1.4 | 0.0 - 5.0 % | [facility] | | | Eosinophils | | | [facility] | | | | | | MEDICAL | | | | | | CENTER - | | | | | | LABORATORY | | + + + + + + | % Basophils | 0.7 | 0.0 - 1.0 % | [facility] | | | | | | [facility] | | | | | | MEDICAL | | | | | | CENTER - | | | | | | LABORATORY | | + + + + + + | Absolute | 3.80 | 1.80 - 8.50 | [facility] | | | Neutrophils | | K/uL | [facility] | | | | | | MEDICAL | | | | | | CENTER - | | | | | | LABORATORY | | + + + + + + | Absolute | 1.80 | 0.60 - 3.20 | [facility] | | | Lymphocytes | | K/uL | [facility] | | | | | | MEDICAL | | | | | | CENTER - | | | | | | LABORATORY | | + + + + + + | Absolute | 0.40 | 0.00 - 1.00 | [facility] | | | Monocytes | | K/uL | [facility] | | | | | | MEDICAL | | | | | | CENTER - | | | | | | LABORATORY | | + + + + + + | Absolute | 0.10 | 0.00 - 0.40 | [facility] | | | Eosinophils | | K/uL | [facility] | | | | | | MEDICAL | | | | | | CENTER - | | | | | | LABORATORY | | + + + + + + | Absolute | 0.00 | 0.00 - 0.10 | [facility] | | | Basophils | | K/uL | [facility] | | | | | | [...] | [address] | [place] | [phone] | | [facility] | | [address] | | | - LABORATORY | | | | + + + + + | [facility] | [address] | [place], [place] | | | [facility] | | [address], [facility] | | | - LABORATORY | | | | + + + + + documented in this encounter Visit Diagnoses + + | Diagnosis | + + | Crohn's disease, other complication - Primary | + + documented in this encounter"
--- OUTSIDE RECORDS SUMMARY | ~2019-08-10 | XMS | Encounter Summary ---
Demographics + + + | Address | [address] | | | [place] [address] | + + + | Home Phone | | + + + | Preferred Language | Unknown | + + + | Marital Status | | + + + | Rastafari Affiliation | 1027 | + + + | Race | Unknown | + + + | Ethnic Group | Unknown | + + + Author + + + | Author | [facility] | | | and [place] | + + + | Organization | [facility] | | [...] Team Providers + +------+ + | Care Yard Supervisor Name | Role | Phone | + +------+ + | Shanthi Nelson MD | PCP | | + +------+ + Encounter Details +--------+ + + + + | Date | Type | Department | Care Team | Description | +--------+ + + + + | 03/20/ | Hospital | [facility] | [facility], | Crohn's disease, | | 2015 | Encounter | [facility] | [address] | other complication | | | | [address] | [address] | ([facility]) | | | | [place] | [place] | | | | | [address] | [address] | | | | | [phone] | | | +--------+ + + + [...] [place], | | | | | | [place] [address] | | | | | | [phone] | | | | | | | | +--------+---------+ + + + documented as of this encounter Procedures + +--------+ + + + | Procedure Name | Priori | Date/Time | Associated Diagnosis | Comments | | | ty | | | | + +--------+ + + + | SEDIMENTATION RATE | Routin | 03/20/2014 | Crohn's disease, | Results for this | | | e | 12:02 PM | other complication | procedure are in the | | | | PST | ([facility]) | results section. | + +--------+ + + + | CBC WITH | Routin | 03/20/2014 | Crohn's disease, | Results for this | | DIFFERENTIAL | e | 12:02 PM | other complication | procedure are in the | | | | PST | ([facility]) | results section. | + +--------+ + + + | C-REACTIVE PROTEIN, | Routin | 03/20/2014 | Crohn's disease, | Results for this | | HIGH SENSITIVITY | e | 12:02 PM | other complication | procedure are in the | | | | PST | ([facility]) | results section. | + +--------+ + + + documented in this encounter Results C-Reactive Protein, High Sensitivity (03/20/2014 12:02 PM PST) + +-------+ + + + | Component | Value | Ref Range | Performed | Pathologist | | | | | At | Signature | + +-------+ + + + | CRP, High | 0.60 | <=3.00 mg/L | [facility] | | | Sensitive | | | [facility] | | | | | | MEDICAL [...] + | [facility] | [address] | [place] | [phone] | | [facility] | | [address] | | | - LABORATORY | | | | + + + + + | [facility] | [address] | [place] | | | [facility] | | [address], [facility] | | | - LABORATORY [...] | | [facility] | | | Sediment[facility] | | | [...] + | [facility] | [address] | [place], [place] | [phone] | | [facility] | | [address] | | | - LABORATORY | | | | + + + + + | [facility] | [address] | [place], [place] | | | [facility] | | [address] [place] [address] | | | - LABORATORY | | [...] | | | Cells | | | [facility] | | | | | | MEDICAL | | | | | | CENTER - | | | | | | LABORATORY | | + + + + + + | Red Blood | 4.81 | 3.70 - 5.20 | [facility] | | | Cells | | M/uL | [facility] | | | | [...] | | Basophils | | K/uL | [facility] | | | | | | [...] [address] | [place] | [phone] | | [facility] | | [address] | | | - LABORATORY | | | | + + + + + | [facility] | [address] | [place] | | | [facility] | | [address], [facility] | | | - LABORATORY | | | | + + + + + documented in this encounter Visit Diagnoses + + | Diagnosis | + + | Crohn's disease, other complication | + + documented in this encounter"
--- OUTSIDE RECORDS SUMMARY | ~2019-08-10 | XMS | Encounter Summary ---
Demographics + + + | Address | [address] | | | [place] [address] | + + + | Home Phone | | + + + | Preferred Language | Unknown | + + + | Marital Status | | + + + | Latter-Day Affiliation | 1027 | + + + [...] Team Providers + +------+ + | Care Cinder Crusher Operator Name | Role | Phone | + +------+ + PCP | Unavailable | + +------+ + Encounter Details +--------+ + + + + | Date | Type | Department | Care Team | Description | +--------+ + + + + | 05/13/ | Hospital | [facility] | Fatemeh Louis MD | | | 2011 | Encounter | [facility] | [address] | | | | | [address] [place] | [place] | | | | | [place] | [address] | | | | | [address] | | | | | | [phone] | | | +--------+ + + + [...] | | | | | | [place] [address] | | | | | | [phone] | | | | | | | | +--------+---------+ + + + documented as of this encounter Visit Diagnoses Not on filedocumented in this encounter"
--- OUTSIDE RECORDS SUMMARY | ~2019-08-10 | XMS | Encounter Summary ---
Demographics + + + | Address | [address] | | | [place] [address] | + + + | Home Phone | | + + + | Preferred Language | Unknown | + + + | Marital Status | | + + + | Worship Affiliation | 1027 | + + + [...] Team Providers + +------+ + | Care Screw Machine Repairer Name | Role | Phone | + +------+ + PCP | Unavailable | + +------+ + Encounter Details +--------+ + + + + | Date | Type | Department | Care Team | Description | +--------+ + + + + | 05/25/ | Hospital | [facility] | Fatemeh Louis MD | | | 2012 | Encounter | [facility] X[facility] | [address] | | | | | [address] [place] | [place] | | | | | [place] | [address] | | | | | [address] | | | | | | [phone] | | | +--------+ + + + [...] | | | | | | [place] [address] | | | | | | [phone] | | | | | | | | +--------+---------+ + + + documented as of this encounter Visit Diagnoses Not on filedocumented in this encounter"
--- OUTSIDE RECORDS SUMMARY | ~2019-08-10 | XMS | Encounter Summary ---
Demographics + + + | Address | [address] | | | [place] [address] | + + + | Home Phone | | + + + | Preferred Language | Unknown | + + + | Marital Status | | + + + | Yazidi Affiliation | 1027 | + + + | Race | Unknown | + + + | Ethnic Group | Unknown | + + + Author + + + | Author | [facility] | | | and [place] | + + + | Organization | [facility] | [...] Team Providers + +------+ + | Care Boat Buffer Plastic Name | Role | Phone | + +------+ + PCP | Unavailable | + +------+ + Encounter Details +--------+ + + + + | Date | Type | Department | Care Team | Description | +--------+ + + + + | 09/29/ | Hospital | [facility] | Fatemeh Louis MD | | | 2012 | Encounter | HOSPITAL LABORATORY | [address] | | | | | [address] [place] | [place] | | | | | [place] | [address] | | | | | [address] | | | | | | [phone] | | | +--------+ + + + [...] | | | | | | [place] [address] | | | | | | [phone] | | | | | | | | +--------+---------+ + + + documented as of this encounter Visit Diagnoses Not on filedocumented in this encounter"
--- OUTSIDE RECORDS SUMMARY | ~2019-08-10 | XMS | Encounter Summary ---
Demographics + + + | Address | [address] | | | [place] [address] | + + + | Home Phone | | + + + | Preferred Language | Unknown | + + + | Marital Status | | + + + | Episcopal Affiliation | 1027 | + + + | Race | Unknown | + + + | Ethnic Group | Unknown | + + + Author + + + | Author | [facility] | | | and [place] | + + + | Organization | [facility] | | | [...] Team Providers + +------+ + | Care Jewel Supervisor Name | Role | Phone | + +------+ + | Shanthi Nelson MD | PCP | | + +------+ + Reason for Visit + +--------+ + | Reason | Onset | Comments | | | Date | | + +--------+ + | Appointment | 05/17/ | | | | 2014 | | + +--------+ + Encounter Details +--------+ + + + + | Date | Type | Department | Care Team | Description | +--------+ + + + + | 05/17/ | Telephone | [facility] [place] | [facility], | Appointment | | 2014 | | GASTROENTEROLOGY | [address] | | | | | [address] [place] | [address] | | | | | [address] [place], [place] | [place], [place] | | | | | [address] | [address] | | | | | [phone] | | | +--------+ + + + [...] - Kaylah Puente Master of Arts - 05/22/2014 2:10 PM PDTSpoke to Noy asked how she is doing? She said she never started on the Imuran was not told to start ! Told her Brie would like her to make an apt for follow up of medications. Patient agreed a nd was put through to scheduling. elephone Encounter - Kaylah Puente Master of Arts - 015 9:47 AM PDTTried to call patient. The message said not available right now. Need to see how patient is doing on Imuran, also needs an apt with Brie. elephone Encounter - Bryn Puente Master of Arts - 05/17/2014 11:31 AM PDTCalled Noy yesterday regarding new directions for budesonide. She returned call today and said she weaned herself off of this. Has been do ne for a little over a week. She also stopped Imuran a few days ago, she thought that one of these was causing burning when she urinates. She is still having burning but not as bad as before. Told her that Charisse does not want her to stop Imuran, she could start having crohn's symptoms. She said she will start taking it again today. Told her I will talk to Charisse about possible side effects of these and get back to her. Patient verbalized understanding.Electro nically signed by Kaylah Puente Master of Arts at 05/17/2014 11:35 AM PDTTelephone Amy Irving - 05/17/2014 11:13 AM PDTPatient called and stated that she is returning Zee's call. Please call at . Thank you. documented in this encounter Plan of Treatment [...] | | | | | | [place] [address] | | | | | | [phone] | | | | | | | | +--------+---------+ + + + documented as of this encounter Visit Diagnoses Not on filedocumented in this encounter"
--- OUTSIDE RECORDS SUMMARY | ~2019-08-10 | XMS | Encounter Summary ---
Demographics + + + | Address | [address] | | | [place] [address] | + + + | Home Phone | | + + + | Preferred Language | Unknown | + + + | Marital Status | | + + + | Rastafarian Affiliation | 1027 | + + + | Race | Unknown | + + + | Ethnic Group | Unknown | + + + Author + + + | Author | [facility] | | | and [place] | + + + | Organization | [facility] | | | and [...] Team Providers + +------+ + | Care Internal Medicine Nurse Name | Role | Phone | + [...] | | [address] [place] | [facility] | | | | | [place] | [place] | | | | | [address] | [address] | | | | | [phone] | [phone] | | | | | | | [...] | | | | | | [place] [address] | | | | | | [phone] | | | | | | | | +--------+---------+ + + + documented as of this encounter Visit Diagnoses Not on filedocumented in this encounter"
--- OUTSIDE RECORDS SUMMARY | ~2019-08-10 | XMS | Encounter Summary ---
Demographics + + + | Address | [address] | | | [place] [address] | + + + | Home Phone [...] Team Providers + +------+ + | Care Library Associate Name | Role | Phone | + +------+ + | Merle Meng MD | PCP | | + +------+ + Encounter Details +--------+ + + + + | Date | Type | Department | Care Team | Description | +--------+ + + + + | 08/18/ | Telephone | [facility] | Eboni Arreola, | | | 2019 | | [facility] | RN | | | | | [address] | | | | | | [place] | | | | | | [address] | | | | | | [phone] | | | +--------+ + + + [...] | | | | | | [place] [address] | | | | | | [phone] | | | | | | | | +--------+---------+ + + + documented as of this encounter Visit Diagnoses Not on filedocumented in this encounter"
--- OUTSIDE RECORDS SUMMARY | ~2019-08-10 | XMS | Encounter Summary ---
Demographics + + + | Address | [address] | | | [place] [address] | + + + | Home Phone | | + + + | Preferred Language | Unknown | + + + | Marital Status | | + + + | Yarsani Affiliation | 1027 | + + + [...] Team Providers + +------+ + | Care Claims Sorter Name | Role | Phone | + +------+ + | Shanthi Nelson MD | PCP | | + +------+ + Reason for Visit +--------+--------+ + | Reason | Onset | Comments | | | Date | | +--------+--------+ + | Other | 03/06/ | | | | 2013 | | +--------+--------+ + Encounter Details +--------+ + + + + | Date | Type | Department | Care Team | Description | +--------+ + + + + | 03/06/ | Telephone | [facility] [place] | [place], | Other | | 2013 | | GASTROENTEROLOGY | [address] | | | | | [address] | [address] | | | | | [address] [place], [place] | [place], [place] | | | | | [address] | [address] | | | | | [phone] | | | +--------+ + + + [...] Telephone Encounter - Kaylah Puente Master of [email or web address] - 03/06/2014 9:45 AM PSTSpoke wit h patient, told her I didn't see anything in Charisse's notes about labs once a week. She alread y had the labs done Charisse requested and has a follow up apt in three weeks. Patient verbalize d understanding. 9: 47 AM PSTTelephone Encounter - Magdalena Barnes - 03/06/2014 9:38 AM PSTPatient has james garcia about weekly labs. Please call. 9:3 9 AM PSTdocumented in this encounter Plan of Treatment [...] | | | | | | [place] [address] | | | | | | [phone] | | | | | | | | +--------+---------+ + + + documented as of this encounter Visit Diagnoses Not on filedocumented in this encounter"
--- OUTSIDE RECORDS SUMMARY | ~2019-08-10 | XMS | Encounter Summary ---
Demographics + + + | Address | [address] | | | [place] [address] | + + + | Home Phone | | + + + | Preferred Language | Unknown | + + + | Marital Status | | + + + | Church Affiliation | 1027 | + + + | Race | Unknown | + + + | Ethnic Group | Unknown | + + + Author + + + | Author | [facility] | | | and [place] | + + + | Organization | [facility] | | | [...] Team Providers + +------+ + | Care Principal Accounts Clerk Name | Role | Phone | + +------+ + | Shanthi Nelson MD | PCP | | + +------+ + Reason for Visit + +--------+ + | Reason | Onset | Comments | | | Date | | + +--------+ + | Appointment | 02/10/ | follow up imaging results | | | 2013 | | + +--------+ + Encounter Details +--------+ + + + + | Date | Type | Department | Care Team | Description | +--------+ + + + + | 02/10/ | Telephone | [facility] | Citlalli Alcantara RN | Appointment (follow | | 2013 | | GASTROENTEROLOGY | | up imaging results) | | | | [address] [facility] | | | | | | [address] [place] | | | | | | [address] | | | | | | [phone] | | | +--------+ + + + [...] this encounter Miscellaneous Notes Telephone Encounter - Carlyn Anderson - 02/13/2014 11:57 AM PSTPatient scheduled.Electronical ly signed by Carlyn Anderson at 02/13/2014 11:58 AM PSTTelephone Encounter - Citlalli Alcantara RN - 02/10/2014 9:40 AM PSTPlease call patient to make a follow up appt with frida for results thanks! elephone Encount er - Citlalli Alcantara RN - 02/10/2014 9:40 AM PSTMessage copied by CITLALLI ALCANTARA on Thu 0940 ------ Message from: FRANCISCO AREVALO Created: ThuFeb 10, 2014 0802 Please follow up with office appointment regarding imaging. Thank youElectronically si gned by Citlalli Alcantara, RN at 02/10/2014 9:40 AM PSTdocumented in this encounter Plan of Treatment +--------+---------+ + + + | Date | Type | Specialty | Care Team | Description | +--------+---------+ + + + | 11/01/ | Office | Pulmonology | Kannan, | | | 2019 | Visit | | Anushka Shook, | | | | | | MD [address] | | | | | | [place], | | | | | | [place] [address] | | | | | | [phone] | | | | | | | | +--------+---------+ + + + documented as of this encounter Visit Diagnoses Not on filedocumented in this encounter"
--- OUTSIDE RECORDS SUMMARY | ~2019-08-10 | XMS | Encounter Summary ---
Demographics + + + | Address | [address] | | | [place] [address] | + + + | Home Phone | | + + + | Preferred Language | Unknown | + + + | Marital Status | | + + + | Nondenominational Affiliation | 1027 | + + + | Race | Unknown | + + + | Ethnic Group | Unknown | + + + Author + + + | Author | [facility] | | | and [place] | + + + | Organization | [facility] | | [...] Team Providers + +------+ + | Care Projector Operator Name | Role | Phone | + +------+ + | Merle Meng MD | PCP | | + +------+ + Encounter Details +--------+ + + + + | Date | Type | Department | Care Team | Description | +--------+ + + + + | 08/15/ | Telephone | [facility] | Hiwot Iqbal | | | 2019 | | [facility] [address] | [place] | | | | | [address] | | | | | | [place] | | | | | | [address] | | | | | | [phone] | | | +--------+ + + + [...] this encounter Miscellaneous Notes Telephone Encounter - Sneha Pedersen PA - 08/16/2019 2:[address] ZOË nodule elephone Encounter - Hiwot Iqbal RN - 08/16/2019 11:03 AM PDTRADIOLOGY BIOPSY REFERRAL Diagnosis: enlarging ZOË lung nodule Biopsy Requested (be as specific as possible): STAT biopsy enlarging ZOË lung nodule (per n trudy patient having ileostomy repair/takedown on August 25, requesting to have biopsy prior to this). Referring Physician: Kannan Office contact: [id number] Patient Phone: [phone] Imaging: Outside CT chest exams on PACS Patient Dx: as above, COPD, Crohn's, GERD Patient BMI: 24.30 Blood thinners: none-med list states Dr. Kannan Bell's note states this stopped in Ap ril Any Red Flags?: To be performed by: documented in th is encounter Plan of [...] | | | | | | [place] [address] | | | | | | [phone] | | | | | | | | +--------+---------+ + + + documented as of this encounter Visit Diagnoses Not on filedocumented in this encounter"
--- OUTSIDE RECORDS SUMMARY | ~2019-08-10 | XMS | Encounter Summary ---
Demographics + + + | Address | [address] | | | [place] [address] | + + + | Home Phone [...] Team Providers + +------+ + | Care Sand Bobber Name | Role | Phone | + +------+ + PCP | Unavailable | + +------+ + Encounter Details +--------+ + + + + | Date | Type | Department | Care Team | Description | +--------+ + + + + | 06/08/ | Hospital | [facility] | Fatemeh Louis MD | | | 2011 | Encounter | H[facility]PITAL [facility] | [address] [place] | | | | | [address] [place] | [place] | | | | | [place] | [address] | | | | | [address] | | | | | | [phone] | | | +--------+ + + + [...] | | | | | | [place] [address] | | | | | | [phone] | | | | | | | | +--------+---------+ + + + documented as of this encounter Visit Diagnoses Not on filedocumented in this encounter"
--- OUTSIDE RECORDS SUMMARY | ~2019-08-10 | XMS | Encounter Summary ---
Demographics + + + | Address | [address] | | | [place] [address] | + + + | Home Phone | | + + + | Preferred Language | Unknown | + + + | Marital Status | | + + + | Sikhism Affiliation | 1027 | + + + [...] Team Providers + +------+ + | Care Alarm Signal Operator Name | Role | Phone | [...] | [facility] | [address] | | | | | IMAG[address] | [address] | | | | | [place] | [place] [address] | | | | | [place] [address] | | | | | | [phone] | | | +--------+ + + + [...] | | | | | | [place] [address] | | | | | | [phone] | | | | | | | [...] encounter Results XR Chest 1 Vw (12/15/2018 12:00 AM PDT) + + | Specimen [...]
--- OUTSIDE RECORDS SUMMARY | ~2019-08-10 | XMS | Encounter Summary ---
Demographics + + + | Address | [address] | | | [place] [address] | + + + | Home Phone | | + + + | Preferred Language | Unknown | + + + | Marital Status | | + + + | Bahai Affiliation | 1027 | + + + [...] Team Providers + +------+ + | Care Sales Inspector Name | Role | Phone | + +------+ + PCP | Unavailable | + +------+ + Encounter Details +--------+ + + + + | Date | Type | Department | Care Team | Description | +--------+ + + + + | 03/25/ | Hospital | [facility] | Scot [place] | | | 2011 | Encounter | HOSPITAL EMERGENCY | MD Kiya [address] | | | | | [address] | [place] | | | | | [place] | [address] | | | | | [address] | [phone] | | | | | [phone] | | | +--------+ + + + [...] | | | | | | [place] [address] | | | | | | [phone] | | | | | | | | +--------+---------+ + + + documented as of this encounter Visit Diagnoses Not on filedocumented in this encounter"
--- OUTSIDE RECORDS SUMMARY | ~2019-08-10 | XMS | Encounter Summary ---
Demographics + + + | Address | [address] | | | [place] [address] | + + + | Home Phone [...] Team Providers + +------+ + | Care Branch Banker Name | Role | Phone | + [...] | MED CTR EXTERNAL | [address] | | | | | IMAG[address] | [address] | | | | | [place] | [place] [address] | | | | | [place] [address] | | | | | | [phone] | | | +--------+ + + + [...] | | | | | | [place] [address] | | | | | | [phone] | | | | | | | [...] encounter Results XR Chest 1 Vw (12/15/2018 12:05 AM PDT) + + | Specimen [...]
--- OUTSIDE RECORDS SUMMARY | ~2019-08-10 | XMS | Encounter Summary ---
Demographics + + + | Address | [address] | | | [place] [address] | + + + | Home Phone [...] | + + +---------+ + | Bang Pindea | ECON | Unknown | | + + +---------+ + Care Team Providers + +------+ + | Care Technology Officer Name | Role | Phone | + +------+ + PCP | Unavailable | + +------+ + Encounter Details +--------+ + + + + | Date | Type | Department | Care Team | Description | +--------+ + + + + | 08/21/ | Hospital | [facility] | Christa Flowers, | | | 2011 | Encounter | HOSPITAL EMERGENCY | [address] | | | | | CENTER [address] | [place] | | | | | [place] | [id number] | | | | | [address] | | | | | | [phone] | | | +--------+ + + + [...] [place], | | | | | | [place] [address] | | | | | | [phone] | | | | | | | | +--------+---------+ + + + documented as of this encounter Visit Diagnoses Not on filedocumented in this encounter"
--- OUTSIDE RECORDS SUMMARY | ~2019-08-10 | XMS | Encounter Summary ---
Demographics + + + | Address | [address] | | | [place] [address] | + + + | Home Phone | | + + + | Preferred Language | Unknown | + + + | Marital Status | | + + + | Mu-Ism Affiliation | 1027 | + + + | Race | Unknown | + + + | Ethnic Group | Unknown | + + + Author + + + | Author | [facility] | | | and [place] | + + + | Organization | [facility] | | | [...] Team Providers + +------+ + | Care Central Stores Attendant Name | Role | Phone | + +------+ + | Shanthi Nelson MD | PCP | | + +------+ + Encounter Details +--------+ + + + + | Date | Type | Department | Care Team | Description | +--------+ + + + + | 01/24/ | Abstract | [facility] | [facility], | | | 2013 | | GASTROENTEROLOGY | [address] | | | | | [address] | [address] | | | | | [address] | [place] | | | | | [address] | [address] | | | | | [phone] | | | +--------+ + + + [...] | | | | | | [place] [address] | | | | | | [phone] | | | | | | | | +--------+---------+ + + + documented as of this encounter Procedures + +--------+ + + + | Procedure Name | Priori | Date/Time | Associated Diagnosis | Comments | | | ty | | | | + +--------+ + + + | EXTERNAL LAB: BUN | Routin | 01/18/2014 | | Results for this | | | e | 10:40 PM | | procedure are in the | | | | PST | | results section. | + +--------+ + + + | EXTERNAL LAB: | Routin | 01/18/2014 | | Results for this | | GLUCOSE | e | 10:40 PM | | procedure are in the | | | | PST | | results section. | + +--------+ + + + | EXTERNAL LAB: LIPASE | Routin | 01/18/2014 | | Results for this | | | e | 10:40 PM | | procedure are in the | | | | PST | | results section. | + +--------+ + + + | EXTERNAL LAB: ALT | Routin | 01/18/2014 | | Results for this | | | e | 10:40 PM | | procedure are in the | | | | PST | | results section. | + +--------+ + + + | EXTERNAL LAB: AST | Routin | 01/18/2014 | | Results for this | | | e | 10:40 PM | | procedure are in the | | | | PST | | results section. | + +--------+ + + + | EXTERNAL LAB: | Routin | 01/18/2014 | | Results for this | | ALKALINE PHOSPHATASE | e | 10:40 PM | | procedure are in the | | | | PST | | results section. | + +--------+ + + + | EXTERNAL LAB: | Routin | 01/18/2014 | | Results for this | | BILIRUBIN, TOTAL | e | 10:40 PM | | procedure are in the | | | | PST | | results section. | + +--------+ + + + | EXTERNAL LAB: | Routin | 01/18/2014 | | Results for this | | ALBUMIN | e | 10:40 PM | | procedure are in the | | | | PST | | results section. | + +--------+ + + + | EXTERNAL LAB: | Routin | 01/18/2014 | | Results for this | | PROTEIN, TOTAL | e | 10:40 PM | | procedure are in the | | | | PST | | results section. | + +--------+ + + + | EXTERNAL LAB: | Routin | 01/18/2014 | | Results for this | | CALCIUM | e | 10:40 PM | | procedure are in the | | | | PST | | results section. | + +--------+ + + + | EXTERNAL LAB: CARBON | Routin | 01/18/2014 | | Results for this | | DIOXIDE | e | 10:40 PM | | procedure are in the | | | | PST | | results section. | + +--------+ + + + | EXTERNAL LAB: | Routin | 01/18/2014 | | Results for this | | CHLORIDE | e | 10:40 PM | | procedure are in the | | | | PST | | results section. | + +--------+ + + + | EXTERNAL LAB: | Routin | 01/18/2014 | | Results for this | | POTASSIUM | e | 10:40 PM | | procedure are in the | | | | PST | | results section. | + +--------+ + + + | EXTERNAL LAB: SODIUM | Routin | 01/18/2014 | | Results for this | | | e | 10:40 PM | | procedure are in the | | | | PST | | results section. | + +--------+ + + + | EXTERNAL LAB: CBC | Routin | 01/18/2014 | | Results for this | | | e | 10:40 PM | | procedure are in the | | | | PST | | results section. | + +--------+ + + + | CBC WITH | Routin | 01/18/2014 | | Results for this | | DIFFERENTIAL | e | 10:06 PM | | procedure are in the | | | | PST | | results section. | + +--------+ + + + | COMPREHENSIVE | Routin | 01/18/2014 | | Results for this | | METABOLIC PANEL | e | 10:06 PM | | procedure are in the | | | | PST | | results section. | + +--------+ + + + documented in this encounter Results External Lab: Glucose (01/18/2014 10:40 PM PST) + +---------+ + + + | Component | Value | Ref Range | Performed | Pathologist | | | | | At | Signature | + +---------+ + + + | Glucose, | 136 (A) | 70 - 100 | EXTERNAL | | | External | | | LAB | | + +---------+ + + + + + | Resulting Agency Comment | + + | [facility] | + + + +---------+ + + | Performing | Address | City/State/Zipcode | Phone Number | | Organization | | | | + +---------+ + + | EXTERNAL LAB | | | | + +---------+ + + External Lab: Lipase (01/18/2014 10:40 PM PST) + +-------+ + + + | Component | Value | Ref Range | Performed | Pathologist | | | | | At | Signature | + +-------+ + + + | Lipase, | <3 | 11 - 82 | EXTERNAL | | | External | | | LAB | | + +-------+ + + + + + | Resulting Agency Comment | + + | [facility] | + + + +---------+ + + | Performing | Address | City/State/Zipcode | Phone Number | | Organization | | | | + +---------+ + + | EXTERNAL LAB | | | | + +---------+ + + External Lab: ALT (01/18/2014 10:40 PM PST) + +-------+ + + + | Component | Value | Ref Range | Performed | Pathologist | | | | | At | Signature | + +-------+ + + + | ALT, | 20 | 7 - 52 | EXTERNAL | | | External | | | LAB | | + +-------+ + + + + + | Resulting Agency Comment | + + | [facility] | + + + +---------+ + + | Performing | Address | City/State/Zipcode | Phone Number | | Organization | | | | + +---------+ + + | EXTERNAL LAB | | | | + +---------+ + + External Lab: AST (01/18/2014 10:40 PM PST) + +-------+ + + + | Component | Value | Ref Range | Performed | Pathologist | | | | | At | Signature | + +-------+ + + + | AST, | 16 | 13 - 39 | EXTERNAL | | | External | | | LAB | | + +-------+ + + + + + | Resulting Agency Comment | + + | [facility] | + + + +---------+ + + | Performing | Address | City/State/Zipcode | Phone Number | | Organization | | | | + +---------+ + + | EXTERNAL LAB | | | | + +---------+ + + External Lab: Alkaline Phosphatase (01/18/2014 10:40 PM PST) + +---------+ + + + | Component | Value | Ref Range | Performed | Pathologist | | | | | At | Signature | + +---------+ + + + | ALP, | 130 (A) | 30 - 128 | EXTERNAL | | | External | | | LAB | | + +---------+ + + + + + | Resulting Agency Comment | + + | [facility] | + + + +---------+ + + | Performing | Address | City/State/Zipcode | Phone Number | | Organization | | | | + +---------+ + + | EXTERNAL LAB | | | | + +---------+ + + External Lab: Bilirubin, Total (01/18/2014 10:40 PM PST) + +-------+ + + + | Component | Value | Ref Range | Performed | Pathologist | | | | | At | Signature | + +-------+ + + + | Bilirubin, | 0.5 | 0 - 1.2 | EXTERNAL | | | Total, | | | LAB | | | External | | | | | + +-------+ + + + + + | Resulting Agency Comment | + + | [facility] | + + + +---------+ + + | Performing | Address | City/State/Zipcode | Phone Number | | Organization | | | | + +---------+ + + | EXTERNAL LAB | | | | + +---------+ + + External Lab: Albumin (01/18/2014 10:40 PM PST) + +-------+ + + + | Component | Value | Ref Range | Performed | Pathologist | | | | | At | Signature | + +-------+ + + + | Albumin, | 4.7 | 3.5 - 5 | EXTERNAL | | | External | | | LAB | | + +-------+ + + + + + | Resulting Agency Comment | + + | [facility] | + + + +---------+ + + | Performing | Address | City/State/Zipcode | Phone Number | | Organization | | | | + +---------+ + + | EXTERNAL LAB | | | | + +---------+ + + External Lab: Protein, Total (01/18/2014 10:40 PM PST) + +-------+ + + + | Component | Value | Ref Range | Performed | Pathologist | | | | | At | Signature | + +-------+ + + + | Protein, | 7.2 | 6 - 8 | EXTERNAL | | | Total, | | | LAB | | | External | | | | | + +-------+ + + + + + | Resulting Agency Comment | + + | [facility] | + + + +---------+ + + | Performing | Address | City/State/Zipcode | Phone Number | | Organization | | | | + +---------+ + + | EXTERNAL LAB | | | | + +---------+ + + External Lab: Calcium (01/18/2014 10:40 PM PST) + + + + + + | Component | Value | Ref Range | Performed | Pathologist | | | | | At | Signature | + + + + + + | Calcium, | 10.9 (A) | 8.4 - 10.2 | EXTERNAL | | | External | | | LAB | | + + + + + + + + | Resulting Agency Comment | + + | [facility] | + + + +---------+ + + | Performing | Address | City/State/Zipcode | Phone Number | | Organization | | | | + +---------+ + + | EXTERNAL LAB | | | | + +---------+ + + External Lab: CBC (01/18/2014 10:40 PM PST) + + + + + + | Component | Value | Ref Range | Performed | Pathologist | | | | | At | Signature | + + + + + + | WBC, | 6.9 | 4.5 - 11 | EXTERNAL | | | External | | | LAB | | + + + + + + | HGB, | 16.6 (A) | 12 - 16 | EXTERNAL | | | External | | | LAB | | + + + + + + | HCT, | 46.2 (A) | 35 - 45 | EXTERNAL | | | External | | | LAB | | + + + + + + | PLT, | 130 (A) | 140 - 440 | EXTERNAL | | | External | | | LAB | | + + + + + + | Neutrophils | 67.9 | 39 - 80 | EXTERNAL | | | %, | | | LAB | | | External | | | | | + + + + + + | Lymphocytes | 21.7 (A) | 24 - 44 | EXTERNAL | | | %, | | | LAB | | | External | | | | | + + + + + + | Monocytes | 8.9 | 0 - 12 | EXTERNAL | | | %, External | | | LAB | | + + + + + + | Eosinophils | 1.1 | 0 - 6 | EXTERNAL | | | %, | | | LAB | | | External | | | | | + + + + + + | RBC, | 4.68 | 3.8 - 5.1 | EXTERNAL | | | External | | | LAB | | + + + + + + | MCV, | 99 | 81 - 99 | EXTERNAL | | | External | | | LAB | | + + + + + + | RDW, | 12 | 10.5 - 15 | EXTERNAL | | | External | | | LAB | | + + + + + + + + | Resulting Agency Comment | + + | [facility] | + + + +---------+ + + | Performing | Address | City/State/Zipcode | Phone Number | | Organization | | | | + +---------+ + + | EXTERNAL LAB | | | | + +---------+ + + External Lab: BUN (01/18/2014 10:40 PM PST) + +-------+ + + + | Component | Value | Ref Range | Performed | Pathologist | | | | | At | Signature | + +-------+ + + + | BUN, | >60 | 60 - 99,999 | EXTERNAL | | | External | | | LAB | | + +-------+ + + + + + | Resulting Agency Comment | + + | [facility] | + + + +---------+ + + | Performing | Address | City/State/Zipcode | Phone Number | | Organization | | | | + +---------+ + + | EXTERNAL LAB | | | | + +---------+ + + External Lab: Carbon Dioxide (01/18/2014 10:40 PM PST) + +-------+ + + + | Component | Value | Ref Range | Performed | Pathologist | | | | | At | Signature | + +-------+ + + + | Carbon | 26 | 19 - 31 | EXTERNAL | | | Dioxide, | | | LAB | | | External | | | | | + +-------+ + + + + + | Resulting Agency Comment | + + | [facility] | + + + +---------+ + + | Performing | Address | City/State/Zipcode | Phone Number | | Organization | | | | + +---------+ + + | EXTERNAL LAB | | | | + +---------+ + + External Lab: Chloride (01/18/2014 10:40 PM PST) + +-------+ + + + | Component | Value | Ref Range | Performed | Pathologist | | | | | At | Signature | + +-------+ + + + | Chloride, | 106 | 95 - 112 | EXTERNAL | | | External | | | LAB | | + +-------+ + + + + + | Resulting Agency Comment | + + | [facility] | + + + +---------+ + + | Performing | Address | City/State/Zipcode | Phone Number | | Organization | | | | + +---------+ + + | EXTERNAL LAB | | | | + +---------+ + + External Lab: Potassium (01/18/2014 10:40 PM PST) + +-------+ + + + | Component | Value | Ref Range | Performed | Pathologist | | | | | At | Signature | + +-------+ + + + | Potassium, | 4.1 | 3.6 - 5.1 | EXTERNAL | | | External | | | LAB | | + +-------+ + + + + + | Resulting Agency Comment | + + | [facility] | + + + +---------+ + + | Performing | Address | City/State/Zipcode | Phone Number | | Organization | | | | + +---------+ + + | EXTERNAL LAB | | | | + +---------+ + + External Lab: Sodium (01/18/2014 10:40 PM PST) + +-------+ + + + | Component | Value | Ref Range | Performed | Pathologist | | | | | At | Signature | + +-------+ + + + | Sodium, | 140 | 132 - 143 | EXTERNAL | | | External | | | LAB | | + +-------+ + + + + + | Resulting Agency Comment | + + | [facility] | + + + +---------+ + + | Performing | Address | City/State/Zipcode | Phone Number | | Organization | | | | + +---------+ + + | EXTERNAL LAB | | | | + +---------+ + + Comprehensive Metabolic Panel (01/18/2014 10:06 PM PST) + +-------+ + + + | Component | Value | Ref Range | Performed | Pathologist | | | | | At | Signature | + +-------+ + + + | BUN/Creatin | 17.5 | | [facility] | | | ine Ratio | | | [facility] | | | | | | [facility] | | | | | | [facility] - | | | | | | LABORATORY | | + +-------+ + + + | Globulin | 2.5 | | [facility] | | | | | | [facility] | | | | | | [facility] | | | | | | [facility] - | | | | | | LABORATORY | | + +-------+ + + + | Albumin/Tanisha | 1.9 | | [facility] | | | bulin Ratio | | | [facility] | | | | | | [facility] | | | | | | [facility] - | | | | | | LABORATORY | | + +-------+ + + + | Anion Gap | 12 | mmol/L | [facility] | | | [...] + | [facility] | [address] | [place] | | | [facility] | | [address] [place] [address] | | | - LABORATORY | | | | + + + + + CBC with Differential (01/18/2014 10:06 PM PST) + + + + + + | Component | Value | Ref Range | Performed | Pathologist | | | | | At | Signature | + + + + + + | MCH | 36.0 (A) | 27.0 - 33.0 pg | | | + + + + + + | MCHC | 36.0 | % | | | + + + + + + | % Basophils | 0.4 | % | | | + + + + + + + + | Specimen | + + | Blood specimen | | (specimen) | + + documented in this encounter Visit Diagnoses Not on filedocumented in this encounter"
--- OUTSIDE RECORDS SUMMARY | ~2019-08-10 | XMS | Encounter Summary ---
Demographics + + + | Address | [address] | | | [place] [address] | + + + | Home Phone | | + + + | Preferred Language | Unknown | + + + | Marital Status | | + + + | Baptist Affiliation | 1027 | + + + | Race | Unknown | + + + | Ethnic Group | Unknown | + + + Author + + + | Author | [facility] | | | and [place] | + + + | Organization | [facility] | | [...] Team Providers + +------+ + | Care Room Service Supervisor Name | Role | Phone | + +------+ + PCP | Unavailable | + +------+ + Encounter Details +--------+ + + + + | Date | Type | Department | Care Team | Description | +--------+ + + + + | 01/20/ | [facility] | [facility] | Talia Monzon | | | 2011 | Encounter | [facility] | [employer] [address] | | | | | [facility] [address] | [facility], [place] | | | | | [address] [facility], | [address] | | | | | [place] [address] | [phone] | | | | | [phone] | | | +--------+ + + + [...] | | | | | | [place] [address] | | | | | | [phone] | | | | | | | | +--------+---------+ + + + documented as of this encounter Visit Diagnoses Not on filedocumented in this encounter"
--- OUTSIDE RECORDS SUMMARY | ~2019-08-10 | XMS | Encounter Summary ---
Demographics + + + | Address | [address] | | | [place] [address] | + + + | Home Phone | | + + + | Preferred Language | Unknown | + + + | Marital Status | | + + + | Congregational Affiliation | 1027 | + + + [...] Team Providers + +------+ + | Care Fiber Optics Technician Name | Role | Phone | + +------+ + PCP | Unavailable | + +------+ + Encounter Details +--------+ + + + + | Date | Type | Department | Care Team | Description | +--------+ + + + + | 08/17/ | Hospital | [facility] | Fatemeh Louis MD | | | 2012 | Encounter | [facility] | [address] | | | | | [address] | [place], [place] | | | | | [place], [place] | [id number] | | | | | [address] | | | | | | [phone] | Gilbert Collins | | | | | | MD [address] | | | | | | [address] | | | | | | [place] [address] | | | | | | [phone] | | | | | | | [...] this encounter Miscellaneous Notes Op Note - Gilbert Collins - 08/17/2012 7:58 AM PDT OPERATIVE REPORT DATE OF SURGERY: 08/17/2012. PREOPERATIVE DIAGNOSIS: Stress incontinence. POSTOPERATIVE DIAGNOSIS: Stress incontinence. PROCEDURE: Retropubic sling, autologous fascia. SURGEON: Mir Collins MD ANESTHESIOLOGIST: Ion Webber DO ANESTHESIA: General LMA. COMPLICATIONS: None. EBL: 20 to 50. SPECIMENS: None. INDICATIONS: This is a 51-year-old female who has stress incontinence to fairly significant degree. She has undergone a workup preoperatively. She also has gynecologic issues and for those Dr. Jolie cabrera will be doing a total abdominal hysterectomy and BSO. The patient is scheduled for a sling procedure. Initially she wanted to have a mesh retropubic sling b ut then thinking it over she decided that she wanted us to harvest fascia for the sling mate david. DESCRIPTION OF PROCEDURE: The patient was in the lithotomy position. Pfannenstiel incision was opened. Hysterectomy a nd BSO was complete, this is dictated elsewhere by Dr. Louis. A 10 x 1.5 to 2 cm strip of fascia was harvested transversely along the Pfannenstiel incision and defatted. 3-0 Vicryl was oxdaub-bz-tdakl tied on each end. This was then set aside in some SALINE. Attention was then drawn to the vaginal incision. A #16-Portuguese catheter was in missy ce and the vaginal mucosa just proximal to the urethral meatus was secured with Allis forceps. The vaginal mucosa was infiltrated submucosally with 1% XYLOCAI NE with EPINEPHRINE over the urethra and over to the endopelvic fascia on each side. Midline incision was made. The tissue was well estrogenated and easy to dissect. Submucosal dissection was carried out over to the endopelvic fascia on each side w ith enough room for the surgeon's index finger. The periurethral fascia was easily seen gli stening and completely intact after dissection. Using Metzenbaum's the endopelvic fascia was pierced and then were spread in the usual fashion enough fo r the surgeon to get his index finger through on each side. A Stamey needle was passed through the fascia inferior to the Pfannenstiel incision and bro ught down through the retropubic space and then onto the surgeon's index finger as a guide a s it passed through the endopelvic fascia. This was done on each side and after each needle pass cystourethroscopy was done including 0 degree inspection of the urethra and 70 degree inspection of the bladder. No perforation or injury was evident. The needles could be seen indenting in the anterior aspect of the bladder in the usual fashion. The 3-0 Vicryl was thread through the Stamey needle holes. This was bro ught up then and then the fascia was then brought down against the mid urethra, lying nice a nd flat. The sutures were tied suprapubically, very loosely so as not to compress or apply any tension. They were left even a little bit more in relaxation becau se of the anticipated fascial shrinkage over time. This was done with the #16-Portuguese Shore in place. There was plenty of room to fit an instrument between urethra and fascial sling material. The vaginal wound was irrigated and then closed with 3-0 Vicryl. The Pfannenstiel incision was then closed with 0 Vicryl and then the subcutaneous tissue with 3-0 Vicryl and then skin with skin ollie. Sponge, needle and instrument count were all correct prior to closure. The patient tolerated the procedure well. She was taken down fro m position, taken off the table and sent to the recovery room in stable satisfactory conditi on. Cc: Fatemeh Louis MD [facility] Signed and Approved by: Kiya COLLINS MD 08/24/2012 09:39:00 documented in th is encounter Plan of Treatment +--------+---------+ + + + | Date | Type | Specialty | Care Team | Description | +--------+---------+ + + + | 11/01/ | Office | Pulmonology | Kannan, | | | 2019 | Visit | | Anushka Shook, | | | | | | MD [address] | | | | | | [place], | | | | | | [place] [address] | | | | | | [phone] | | | | | | | | +--------+---------+ + + + documented as of this encounter Visit Diagnoses Not on filedocumented in this encounter"
--- OUTSIDE RECORDS SUMMARY | ~2019-08-10 | XMS | Encounter Summary ---
Demographics + + + | Address | [address] | | | [place] [address] | + + + | Home Phone | | + + + | Preferred Language | Unknown | + + + | Marital Status | | + + + | Voodoo Affiliation | 1027 | + + + [...] Team Providers + +------+ + | Care Project Management Manager Name | Role | Phone | + +------+ + PCP | Unavailable | + +------+ + Encounter Details +--------+ + + + + | Date | Type | Department | Care Team | Description | +--------+ + + + + | 10/31/ | Hospital | [facility] | Fatemeh Louis MD | | | 2013 | Encounter | [facility] | [address] | | | | | [address] [place] | [place] | | | | | [place] | [address] | | | | | [address] | | | | | | [phone] | | | +--------+ + + + [...] | | | | | | [place] [address] | | | | | | [phone] | | | | | | | | +--------+---------+ + + + documented as of this encounter Visit Diagnoses Not on filedocumented in this encounter"
--- OUTSIDE RECORDS SUMMARY | ~2019-08-10 | XMS | Encounter Summary ---
Demographics + + + | Address | [address] | | | [place] [address] | + + + | Home Phone | | + + + | Preferred Language | Unknown | + + + | Marital Status | | + + + | Presybeterian Affiliation | 1027 | + + + | Race | Unknown | + + + | Ethnic Group | Unknown | + + + Author + + + | Author | [facility] | | | and [place] | + + + | Organization | [facility] | | | [...] Team Providers + +------+ + | Care 3Rd Pressman Name | Role | Phone | + [...] | Closed | | | Diagnoses | Kannan | [facility] | | | | | Incidental | Anushka | [facility] | | | | | pulmonary | MD Bouchra | [address] | | | | | nodule, | [address] | | | | | greater than | [place] | [place] | | | | | or equal to | [place] | [address] | | | | | 8mm | [place] | Phone: | | | | | Procedures | [address] | [phone] | | | | | MRI Brain w | Phone: | Fax: | | | | | wo Contrast | [phone] | [phone] | | | | | | Fax: | | | | | | | [phone] | | +--------+--------+ + + + + Diagnostic/Screening (Emergency) +--------+--------+ + + + + | Status | Reason | Specialty | Diagnoses / | Referred By | Referred To | | | | | Procedures | Contact | Contact | +--------+--------+ + + + + | Closed | | | Diagnoses | Kannan, | [facility] | | | | | Incidental | Anushka | OUTPATIENT | | | | | pulmonary | MD Bouchra | IMAGING | | | | | nodule, | [address] | [address] | | | | | greater than | [address] | [place] | | | | | or equal to | [place] [address] | [address] | | | | | 8mm | [place], [place] | [place] | | | | | Procedures | [address] | [address] | | | | | PET CT Skull | Phone: | Phone: | | | | | Base To Mid | [phone] | [phone] | | | | | Thigh | Fax: | Fax: | | | | | | [phone] | [phone] | +--------+--------+ + + + + Diagnostic/Screening (Emergency) +--------+--------+ + + + + | Status | Reason | Specialty | Diagnoses / | Referred By | Referred To | | | | | Procedures | Contact | Contact | +--------+--------+ + + + + | Closed | | | Diagnoses | Kannan, | [facility] | | | | | | [place] | [facility] | | | | | Adenocarcino | MD Bouchra | [address] | | | | | ma of left | [address] | [address] | | | | | lung (HCC) | [place] | [place] | | | | | Procedures | [place] | [address] | | | | | MRI Brain w | [place], [place] | Phone: | | | | | wo Contrast | [address] | [phone] | | | | | | Phone: | Fax: | | | | | | [phone] | [phone] | | | | | | Fax: | | | | | | | [phone] | | +--------+--------+ + + + + Diagnostic/Screening (Emergency) +--------+--------+ + + + + | Status | Reason | Specialty | Diagnoses / | Referred By | Referred To | | | | | Procedures | Contact | Contact | +--------+--------+ + + + + | Denied | | | Diagnoses | Kannan, | [facility] | | | | | | Anushka | [facility] | | | | | Adenocarcino | MD Bouchra | [address] | | | | | ma of left | [address] | [address] | | | | | lung (HCC) | [place] | [place] | | | | | Procedures | [place] | [address] | | | | | PET CT Skull | [place], [place] | Phone: | | | | | [facility] | [address] | [phone] | | | | | Thigh | Phone: | Fax: | | | | | | [phone] | [phone] | | | | | | Fax: | | | | | | | [phone] | | +--------+--------+ + + + + Evaluate & Treat (Urgent) +--------+ + + + + + | Status | Reason | Specialty | Diagnoses / | Referred By | Referred To | | | | | Procedures | Contact | Contact | +--------+ + + + + + | Closed | Specialty | Radiation | Diagnoses | Kannan, | Eron Hernandez, | | | Services | Oncology | | Anushka | [address] | | | Required | | Adenocarcino | MD Bouchra | | | | | | ma of left | [address] | [place] | | | | | lung (HCC) | [place] | [address] | | | | | | [address] | Phone: | | | | | | [place], [place] | [phone] | | | | | | [address] | Fax: | | | | | | Phone: | [phone] | | | | | | [phone] | | | | | | | Fax: | | | | | | | [phone] | | +--------+ + + + + + Evaluate & Treat (Urgent) +--------+ + + + + + | Status | Reason | Specialty | Diagnoses / | Referred By | Referred To | | | | | Procedures | Contact | Contact | +--------+ + + + + + | Closed | Specialty | Medical | Diagnoses | Kannan, | | | | Services | Oncology | | Anushka | Kaleigh, | | | Required | | Adenocarcino | MD Bouchra | Gilbert Neves MD | | | | | ma of left | [address] | | | | | lung (HCC) | [place] | [place], | | | | | | [address] | [address] | | | | | | [place] | [place] | | | | | | [address] | [address] | | | | | | Phone: | | | | | | | [phone] | | | | | | | Fax: | | | | | | | [phone] | | +--------+ + + + + + Reason for Visit + +--------+ + | Reason | Onset | Comments | | | Date | | + +--------+ + | Results, Pathology | 08/29/ | | | | 2019 | | + +--------+ + Encounter Details +--------+ + + + + | Date | Type | Department | Care Team | Description | +--------+ + + + + | 08/29/ | Telephone | [facility] | Kannan, | Results, Pathology | | 2019 | | PULMONOLOGY [address] | Anushka Shook, | | | | | [address] | [address] | | | | | [place] | [place], | | | | | [address] | [place] [address] | | | | | [phone] | [phone] | | | | | | | [...] Telephone Encounter - Anushka Brunner MD - 09/05/2019 8:04 AM PDTThanks tiffanie vizcaino for the follow up, Ellen! Anushka Brunner MD Pulmonary and Critical Care Medicine [facility] [address], [place] [address] ddendum Note - Anushka Brunner MD - 08/30/2019 11:49 AM PDT Addended by: ABHI BRUNNER on: 08/30/2019 11:49 AM Modules accepted: Orders elepho ne Encounter - Anushka Brunner MD - 08/30/2019 11:47 AM PDTShe has two orders f or MRI and PET CT -one is for [facility] if she really insists on getting this done throug h them. Anushka Brunner MD Pulmonary and Critical Care Medicine [facility] [address], [place] [address] elephone Encounter - Anushka Brunner MD - 08/30/2019 10:26 AM PDTSpoke to Noy today a bout her biopsy result. This showed a poorly differentiated adenocarcinoma. Next steps would be referral to Radiation Oncology and Medical Oncology. She has agreed to be sent to [facility] for this. I will refer her lux right now. Anushka Brunner MD Pulmonary and Critical Care Medicine [facility] [address] , [place] [address] documente d in this encounter Plan of Treatment +--------+---------+ + + + | Date | Type | Specialty | Care Team | Description | +--------+---------+ + + + | 11/01/ | Office | Pulmonology | Kannan, | | | 2019 | Visit | | Anushka Shook | | | | | | MD [address] | | | | | | [place], | | | | | | [place] [address] | | | | | | [phone] | | | | | | | | +--------+---------+ + + + + +---------+--------+ + + | Name | Type | Priori | Associated Diagnoses | Order Schedule | | | | ty | | | + +---------+--------+ + + | PET CT Skull Base To | Imaging | STAT | Adenocarcinoma of | Expected: | | Mid Thigh | | | left lung (HCC) | 08/30/2019, Expires: | | | | | | 08/29/2020 | + +---------+--------+ + + | MRI Brain w wo | Imaging | STAT | Adenocarcinoma of | Expected: | | Contrast | | | left lung (HCC) | 08/30/2019, Expires: | | | | | | 08/29/2020 | + +---------+--------+ + + | PET CT Skull Base To | Imaging | STAT | Incidental | Expected: | | Mid Thigh | | | pulmonary nodule, | 08/30/2019, Expires: | | | | | greater than or | 08/29/2020 | | | | | equal to 8mm | | + +---------+--------+ + + | MRI Brain w wo | Imaging | STAT | Incidental | Expected: | | Contrast | | | pulmonary nodule, | 08/30/2019, Expires: | | | | | greater than or | 08/29/2020 | | | | | equal to 8mm | | + +---------+--------+ + + + + +--------+ + + | Name | Type | Priori | Associated Diagnoses | Order Schedule | | | | ty | | | + + +--------+ + + | Ambulatory referral | Outpatient | Routin | Adenocarcinoma of | Ordered: 08/30/2019 | | to Hematology / | Referral | e | left lung (HCC) | | | Oncology | | | | | + + +--------+ + + | Ambulatory referral | Outpatient | Routin | Adenocarcinoma of | Ordered: 08/30/2019 | | to Radiation | Referral | e | left lung (HCC) | | | Oncology | | | | | + + +--------+ + + documented as of this encounter Visit Diagnoses + + | Diagnosis | + + | Incidental pulmonary nodule, greater than or equal to 8mm - Primary Solitary | | pulmonary nodule | + + | Adenocarcinoma of left lung (HCC) | + + documented in this encounter"
--- OUTSIDE RECORDS SUMMARY | ~2019-08-10 | XMS | Encounter Summary ---
Demographics + + + | Address | [address] | | | [place] [address] | + + + | Home Phone [...] Team Providers + +------+ + | Care Inserter Operator Name | Role | Phone | + +------+ + | Shanthi Nelson MD | PCP | | + +------+ + Reason for Visit + +--------+ + | Reason | Onset | Comments | | | Date | | + +--------+ + | Appointment | 01/26/ | schedule MR enterography | | | 2013 | | + +--------+ + Encounter Details +--------+ + + + + | Date | Type | Department | Care Team | Description | +--------+ + + + + | 01/26/ | Telephone | [facility] [place] | [facility], | [facility] | | 2013 | | GASTROENTEROLOGY | [address]EN [address] | (schedule MR | | | | [address] [place] | [address] | enterography) | | | | [address] [place], [place] | [place], [place] | | | | | [address] | [address] | | | | | [phone] | | | +--------+ + + + [...] this encounter Miscellaneous Notes Telephone Encounter - Citlalli Butts RN - 01/26/2014 4:00 PM PSTCalled patient and sched ed MR enterography for Feb.09 patient is going to check in at 11:30 to drink her prep at the imaging department, test check in is at 1:30 nothing to eat or drink for 6 hours prior to t est, patient verbalized understanding. 4 4:01 PM PSTdocumented in this encounter Plan of [...] [place], | | | | | | [place] [address] | | | | | | [phone] | | | | | | | | +--------+---------+ + + + documented as of this encounter Visit Diagnoses Not on filedocumented in this encounter"
--- OUTSIDE RECORDS SUMMARY | ~2019-08-10 | XMS | Encounter Summary ---
Demographics + + + | Address | [address] | | | [place] [address] | + + + | Home Phone | | + + + | Preferred Language | Unknown | + + + | Marital Status | | + + + | Yarsanism Affiliation | 1027 | + + + | Race | Unknown | + + + | Ethnic Group | Unknown | + + + Author + + + | Author | [facility] | | | and [place] | + + + | Organization | [facility] | | [...] Team Providers + +------+ + | Care Financial Business Analyst Name | Role | Phone | + [...] | Crohn's | Anthony, | [address] | | | | | disease, | Queta, | [place], | | | | | other | CONTROL ROOM TECHNICIAN [address] | [place] | | | | | complication | [address] | [address] | | | | | Abdominal | [address] | Phone: | | | | | pain Nausea | [place], | [phone] | | | | | [place] | [place] [address] | Fax: | | | | | stools | Phone: | [phone] | | | | | Procedures | [phone] | | | | | | MRI | Fax: | | | | | | Enterography | [phone] | | | | | | w wo | | | | | | | Contrast NC | | | | | | | MRI, | | | | | | | ABDOMEN, | | | | | | | COMBO NC | | | | | | | MRI, PELVIS, | | | | | | | COMBO | | | +--------+--------+ + + + + Reason for Visit + + + | Reason | Comments | + + + | Crohn's Disease | Crohn's attack went to [facility] 01/18/14 | + + + Evaluate & Treat (Routine) +--------+--------+ + + + + | Status | Reason | Specialty | Diagnoses / | Referred By | Referred To | | | | | Procedures | Contact | Contact | +--------+--------+ + + + + | Closed | | Nurse | Diagnoses | Yvette, | Anthony, | | | | Practitioner | Regional | Shanthi Romeo MD | [place], | | | | / | enteritis of | [address] | CONTROL ROOM TECHNICIAN [address] | | | | Gastroenterol | unspecified | [address], | [address] | | | | ogy | site | [place] [address] | [address] | | | | | follow up | Phone: | ADELINA SAHU, | | | | | [facility] | [phone] | [place] [address] | | | | | 01/18/14 | Fax: | Phone: | | | | | crohn's | [phone] | [phone] | | | | | attach/pcp | | Fax: | | | | | yvette | | [phone] | | | | | Procedures | | | | | | | OFFICE VISIT | | | | | | | REGULAR | | | +--------+--------+ + + + + Encounter Details +--------+---------+ + + + | Date | Type | Department | Care Team | Description | +--------+---------+ + + + | 01/25/ | Office | [facility] | [facility], | Crohn's disease, | | 2013 | Visit | GASTROENTEROLOGY | BREN Birch [address] | other complication | | | | [address] [place] | [address] | ([facility]) (Primary Dx); | | | | [address] [place] | [place] | Abdominal pain; | | | | [address] | [address] | Nausea; Black | | | | [phone] | | stools; Esophageal | | | | | | motility disorder | +--------+---------+ + + + Social History [...] + + + | Blood Pressure | 122/72 | 01/25/2014 8:16 AM | | | | | PST | | + + + + + | Pulse | 67 | 01/25/2014 8:16 AM | | | | | PST | | + + + + + | Temperature | 35.9 C (96.7 F) | 01/25/2014 8:16 AM | | | | | PST | | + + + + + | Respiratory Rate | 16 | 01/25/2014 8:16 AM | | | | | PST | | + + + + + | Oxygen Saturation | 97% | 01/25/2014 8:16 AM | | | | | PST | | + + + + + | Inhaled Oxygen | - | - | | | Concentration | | | | + + + + + | Weight | 90.7 kg (200 lb) | 01/25/2014 8:16 AM | | | | | PST | | + + + + + | Height | - | - | | + + + + + | Body Mass Index | 33.28 | 12/26/2013 10:19 AM | | | | | PDT | | + + + + + documented in this encounter Patient Instructions Patient Instructions Queta Cruz ARNP - 01/25/2014 9:14 AM PST Patient Education Dicyclomine Hydrochloride Oral capsule Dicyclomine Hydrochloride Oral solution Dicyclomine Hydrochloride Oral syrup Dicyclomine Hydrochloride Oral tablet Dicyclomine Hydrochloride Solution for injection Dicyclomine Hydrochloride Oral tablet What is this medicine? DICYCLOMINE (dye SYE maurilio fuentesen) is used to treat bowel problems including irritable bowel s yndrome. This medicine may be used for other purposes; ask your health care provider or pharmacist i f you have questions. What should I tell my health care provider before I take this medicine? They need to know if you have any of these conditions: difficulty passing urine esophagus problems or heartburn glaucoma heart disease, or previous heart attack myasthenia gravis prostate trouble stomach infection, or obstruction ulcerative colitis an unusual or allergic reaction to dicyclomine, other medicines, foods, dyes, or preserv atives or trying to get breast-feeding How should I use this medicine? Take this medicine by mouth with a glass of water. Follow the directions on the prescriptio n label. It is best to take this medicine on an empty stomach, 30 minutes to 1 hour before m eals. Take your medicine at regular intervals. Do not take your medicine more often than dir ected. Talk to your retanner regarding the use of this medicine in children. Special care may be needed. While this drug may be prescribed for children as young as 6 months of age for se lected conditions, precautions do apply. Patients over 65 years old may have a stronger reaction and need a smaller dose. Overdosage: If you think you have taken [...] doses. What may interact with this medicine? amantadine antacids benztropine digoxin disopyramide medicines for allergies, colds and breathing difficulties medicines for alzheimer's disease medicines for anxiety or sleeping problems medicines for depression or psychotic disturbances medicines for diarrhea medicines for pain metoclopramide tegaserod This list may not describe all possible interactions. Give your health care provider a list of all the medicines, herbs, non-prescription drugs, or dietary supplements you use. Also t ell them if you smoke, drink alcohol, or use illegal drugs. Some items may interact with you r medicine. What should I watch for while using this medicine? You may get drowsy, dizzy, or have blurred vision. Do not drive, use machinery, or do anyth ing that needs mental alertness until you know how this medicine affects you. To reduce the risk of dizzy or fainting spells, do not sit or stand up quickly, especially if you are an o lder patient. Alcohol can make you more drowsy, avoid alcoholic drinks. Stay out of bright light and wear sunglasses if this medicine makes your eyes more sensitiv e to light. Avoid extreme heat (hot tubs, saunas). This medicine can cause you to sweat less than shabbir l. Your body temperature could increase to dangerous levels, which may lead to heat stroke. Antacids can stop this medicine from working. If you get an upset stomach and want to take an antacid, make sure there is an interval of at least 1 to 2 hours before or after you take this medicine. Your mouth may get dry. Chewing sugarless gum or sucking hard candy, and drinking plenty of water may help. Contact your doctor if the problem does not go away or is severe. What side effects may I notice from receiving this medicine? Side effects that you should report to your doctor or health small animal caretaker as soon as p ossible: agitation, nervousness, confusion difficulty swallowing dizziness, drowsiness fast or slow heartbeat hallucinations pain or difficulty passing urine Side effects that usually do not require medical attention (report to your doctor or health small animal caretaker if they continue or are bothersome): constipation headache nausea or vomiting sexual difficulty This list may not describe all possible side effects. Call your doctor for medical advice a bout side effects. You may report side effects to FDA at 6-157-FVF-9069. Where should I keep my medicine? Keep out of the reach of children. Store at room temperature below 30 degrees C (86 degrees F). Protect from light. Throw away any unused medicine after the expiration date. NOTE:This sheet is a summary. It may not cover all possible information. If you have questi ons about this medicine, talk to your doctor, pharmacist, or health care provider. Copyright 2014 Gold Standard documented in this encounter Progress Notes Queta Cruz ARNP - 01/25/2014 8:46 AM PSTFormatting of this note might be differe nt from the original. Noy Pineda is a 53 y.o. female here for followup Crohn's disease. History of present illness: Patient complains of low abdominal and low back pain. Pain is intermittent daily. Feels lik e spasms and cramping. Sometimes eating and having BM can worsen or help pain. Stools have been black with a "film over it". Frequency of BM are fluctuating. For the last 3 weeks she has between 4-6 BM per day. Has has some issues with nocturnal BM. Complains of early satiety and nausea. Feels like her Crohn's disease for the last 3 weeks. EGD and colonoscopy was done with Dr Toledo. States she did have some rectal bleed ing for about 2 weeks after colonoscopy. Was seen in the ER for chronic pain due to her Crohn's disease 01/18/2014. Was advised that water was infected with E. Coli. Currently taking Delzicol 400 mg, 2 tabs tid. Also feels as though heartburn is not controlled with omeprazole once daily. Complains of d ysphagia with liquids, solids and pills. No Known Allergies Past Medical History Diagnosis [...] Respiratory:Denies shortness of breath, cough or wheezing. Gastrointestinal:negative Cardiovascular:Denies chest pain, palpitations, or swelling to legs Physical exam: General: Alert and oriented, NAD Eyes: Sclera clear Mouth: Mucous membranes moist Abdomen: Soft, tender to palpation over lower quadrants, non-distended, bowel tones positiv e x 4 quadrants, negative Fitch's sign, negative rebound tenderness, no hepatosplenomegaly. Extremities: No clubbing or edema Skin: Warm, dry, intact. No rashes noted Neuro: Cranial nerves 2-12 grossly intact. Psych: Appropriate mood and affect. Hospital Outpatient Visit on 01/25/2014 Component Date Value Range Status Clostridium Diff 01/25/2014 Negative Negative Final Giardia Antigen, Stool 01/25/2014 Negative Negative Final Campylobacter AG, Qual 01/25/2014 Negative Final Lactoferrin, Qual 01/25/2014 Positive* Negative Final Abstract on 01/24/2014 Component Date Value Range Status Sodium, External 01/18/2014 140 132 - 143 Final Potassium, External 01/18/2014 4.1 3.6 - 5.1 Final Chloride, External 01/18/2014 106 95 - 112 Final Carbon Dioxide, External 01/18/2014 26 19 - 31 Final BUN, External 01/18/2014 >60 60 - 17458 Final WBC, External 01/18/2014 6.9 4.5 - [...] 1.9 Final ANION GAP 01/18/2014 12 Final EGD 12/26/2013: Impression: - Normal examined duodenum. Biopsied. - Erythematous mucosa in the stomach. Biopsied. - Esophageal motility disorder. - Biopsies were taken with a cold forceps for histology. Colonoscopy 12/26/2013: Impression: - The examined portion of the ileum was normal. - Internal hemorrhoids. - Biopsies were taken with a cold forceps for histology. Pathology 12/26/2013: A. Duodenal biopsy: - Benign duodenal mucosal fragments. - Negative for pathologic inflammation - Normal villous architecture noted. - No parasites identified. B. Gastric biopsy: - Benign gastric mucosal fragments. - Negative for pathologic inflammation. - Negative for H. Pylori C. Esophageal biopsy: - Benign squamous mucosal fragments. - Negative for pathologic inflammation. - Negative for significant eosinophilic infiltration. - Negative for atypia. D. Random colon biopsies: - Benign colonic mucosal fragments. - Negative for pathologic inflammation. - No granulomatous features identified. - Negative for atypia. Assessment 1. Crohn's disease, other complication (HCC) Clostridium difficile A and B EIA Culture, Stool Giardia Ag, EIA, Stool Ova and Parasite Examination Fecal leukocytes Calprotectin, Stool 2. Abdominal pain 3. Nausea 4. Black stools 5. Esophageal motility disorder Plan: Will order stool studies for infection and inflammation. Will order MRI of small bowel to check for active small bowel inflammation. Patient given a prescription for Bentyl to help with abdominal pain. Highly encouraged to stop smoking. She is encouraged to eat small bites and chew food well due to esophageal motility found on EGD. As long as she is not having trouble with aspiration, no intervention recommended at t his time. Will follow up with results. Patient is to call with any question or concerns. Any fevers, chills, chest pain, SOB or other serious symptoms patient is to call the office or go to ER . Cc: Shanthi Nelson This note was dictated using voice recognition software. Please contact me if there are an y questions regarding its content. Electronically signed by BREN Martinez at 01/07 7:36 PM PSTdocumented in this encounter Plan of [...] | | | | | | [place] [address] | | | | | | [phone] | | | | | | | | +--------+---------+ + + + documented as of this encounter Results MRI Enterography w wo [...] + | MISCELLANEOUS LAB | | | [phone] | + +---------+ + + | MISCELANIOUS LAB | | | [phone] | + +---------+ + + Calprotectin, Stool (01/25/2014 10:18 AM [...] less: | | | | | | [id number] ug/g: | | | | | | [...] | | | | | [facility], [address], | | | | | | [place] [address] | | | | + + + + + + + + | Specimen | + + | Stool specimen | | (specimen) | + + + + + + + | Performing | Address | City/State/Zipcode | Phone Number | | Organization | | | | + + + + + | [facility] | [address] | [place] [address] | [phone] | + + + + + Ova [...] | | | | | | | [id number] | | | | | | Source [...] Performed: | | | | | | [place] | | | | | | [facility], [address] | | | | | | [place] [address] | | | | + + + [...] | [facility] | [address] | [place] [address] | [phone] | + + + + + Giardia [...] + | [facility] | [address] | [place] | [phone] | | [facility] | | [address] | | | - LABORATORY | | | | + + + + + | [facility] | [address] | [place], [place] | | | [facility] | | [address], [facility] | | | - LABORATORY | [...] + | [facility] | [address] | [place] | [phone] | | [facility] | | [address] | | | - LABORATORY | | | | + + + + + | [facility] | [address] | [place], [place] | | | [facility] | | [address] [place] [address] | | | - LABORATORY | | | | + + + + + documented in this encounter Visit Diagnoses + + | Diagnosis | + + | Crohn's disease, other complication - Primary | + + | Abdominal pain Abdominal pain, unspecified site | + + | Nausea Nausea alone | + + | Black stools Nonspecific abnormal finding in stool contents | + + | Esophageal motility disorder Dyskinesia of esophagus | + + documented in this encounter
--- OUTSIDE RECORDS SUMMARY | ~2019-08-10 | XMS | Encounter Summary ---
Demographics + + + | Address | [address] | | | [place] [address] | + + + | Home Phone [...] Providers + +------+ + | Care Quality And Reliability Engineer Name | Role | Phone | [...] | | [address] [place] | [facility] | | | | | [place] | [place] | | | | | [address] | [address] | | | | | [phone] | [phone] | | | | | | | [...] [place], | | | | | | [place] [address] | | | | | | [phone] | | | | | | | | +--------+---------+ + + + documented as of this encounter Visit Diagnoses Not on filedocumented in this encounter"
--- OUTSIDE RECORDS SUMMARY | ~2019-08-10 | XMS | Encounter Summary ---
Demographics + + + | Address | [address] | | | [place] [address] | + + + | Home Phone [...] Team Providers + +------+ + | Care Shingle Cutter Name | Role | Phone | + +------+ + | Shanthi Nelson MD | PCP | | + +------+ + Encounter Details +--------+ + + + + | Date | Type | Department | Care Team | Description | +--------+ + + + + | 01/10/ | Hospital | [facility] | Shanthi Nelson, | | | 2013 | Encounter | [facility] [address] | [address] | | | | | [address] | [place] [address] | | | | | [place] | [phone] | | | | | [address] | | | | | | [phone] | | | +--------+ + + + [...] | | | | | | [place] [address] | | | | | | [phone] | | | | | | | | +--------+---------+ + + + documented as of this encounter Visit Diagnoses Not on filedocumented in this encounter"
--- OUTSIDE RECORDS SUMMARY | ~2019-08-10 | XMS | Encounter Summary ---
Demographics + + + | Address | [address] | | | [place] [address] | + + + | Home Phone [...] Team Providers + +------+ + | Care Manager Business Operations Name | Role | Phone | + +------+ + PCP | Unavailable | + +------+ + Encounter Details +--------+ + + + + | Date | Type | Department | Care Team | Description | +--------+ + + + + | 03/01/ | Hospital | [facility] | [facility] | | | 2012 | Encounter | [facility] | [address] | | | | | CENTER [address] [place], [place] | | | | | [place] | [address] | | | | | [address] | | | | | | [phone] | | | +--------+ + + + [...] | | | | | | [place] [address] | | | | | | [phone] | | | | | | | | +--------+---------+ + + + documented as of this encounter Visit Diagnoses Not on filedocumented in this encounter"
[~2019-08-10 11:14] MED LIST changes: +VITAMIN B-121000 MCG IM; -VITAMIN B-121000 MCG PO
[2019-08-11] MEDS ORDERED: MAGNESIUM400 MG PO (10:33)
[2019-08-25] MEDS ORDERED: ADVAIR 250-501 EACH INH (15:41)
[2019-08-25] MEDS ORDERED: BUDESONIDE EC3 MG PO (15:42)
[2019-08-25] MEDS ORDERED: DELZICOL400 M1 PO (15:44)
[2019-08-25] MEDS ORDERED: ELIQUIS5 MG PO (15:45)
[2019-08-25] MEDS ORDERED: VENTOLIN HFA18 GM INH (15:46)
[2019-09-20] MEDS ORDERED: CHANTIX1 MG PO (11:20)
--- NOTE | 2019-09-23 13:09 | NUR ---
09/23/19 Miguelina9 Andreina Ahmadi 1249- PT TO PACU IN SUPINE POSITION. EYES CLOSED DOES NOT RESPOND TO VERBAL STIMULI. SP02 95% ON 6 L O2 VIA SIMPLE MASK. BREATHING SHALLOW WITH OBSERVED ACCESSORY MUSCLE USE. PUBLIC UTILITIES SALES REPRESENTATIVE AWARE. ORAL AIRWAY SUPPORTED VIA JAW THRUST. 1255- PT CONTINUES TO SLEEP WILL NOT RESPOND TO VERBAL STIMULI. SP02 100% ON 6 L O2 VIA SIMPLE MASK. RESPIRATIONS CONTINUE TO BE SHALLOW AND JAW THRUST REQUIRED TO MAINTAIN ADEQUATE VENTILLATIONS. DRESSING CDI. LAUGHLIN IN PLACE DRAINING YELLOW URINE. 1305- PT RESPONDS TO VERBAL AND TACTILE STIMULATION. DOES NOT OPEN EYES, BUT NODS HEAD AND FALLS QUICKLY BACK TO SLEEP. O2 TITRATED DOWN TO ROOM AIR. ETCO2 MONITORING IN PLACE.
--- NOTE | 2019-09-23 15:15 | NUR ---
PT IS IN THE ROOM, IV SITE IS INTACT, NO REDNESS OR SWELLING NOTED, IV FLUIDS INFUSING EASILY. PT DENIES PAIN AT IV SITE. PT C/O ABD PAIN, STATES "MY TUMMY HURTS". PT MOSTLY DROWSY AT THIS TIME, RESPONDS TO SOUND STIMULI. PT REPORTS NAUSEA. SPOUSE OF PT IS AT THE BEDSIDE.
--- NOTE | 2019-09-23 15:18 | NUR ---
PT TITRATED DOWN TO 2L O2 VIA NASAL CANULA.
--- NOTE | 2019-09-23 15:22 | NUR ---
PT TITRATED TO ROOM AIR, O2 SATS ARE 96%, ALL OTHER VITALS WNL.
--- NOTE | 2019-09-23 15:22 | NUR ---
PT TITRATED TO ROOM AIR AND IS HOLDING SATS AT 97%
--- NOTE | 2019-09-23 16:50 | NUR ---
PT SLEEPING SOUNDLY IN BED ALL VITALS WNL. CALL LIGHT IS WITHIN REACH.
--- NOTE | 2019-09-23 17:47 | NUR ---
pt awake and alert x4, taking sips of water and talking on the phone with Bang. pt denies pain, nausea, and sob, reports she is hungery. ordered clear liquid tray.
--- NOTE | 2019-09-23 18:00 | NUR ---
PT HAS CLEAR LIQUID TRAY FOR DINNER, AND IS TAKING SIPS.
--- NOTE | 2019-09-23 18:20 | NUR ---
PT C/O NAUSEA, 12.5 MG IV PHENERGAN GIVEN. PT REPOSITIONED UP IN BED FOR COMFORT. PT DENIES PAIN IN THIS POSITION.
--- NOTE | 2019-09-23 20:17 | NUR ---
SHIFT REPORT RECEIVED FROM JEAN-PIERRE BRISENO. ASSESSMENT COMPLETED AT THIS TIME. PT DROWSY, BUT AROUSES TO VOICE, ORIENTED. REPORTS 7/10 ABDOMINAL PAIN, 1 TAB NORCO AND NEW ICE PACK PROVIDED. HR REGULAR, RATE 90'S. LUNGS CLEAR/DIM, ON ROOM AIR. BOWEL TONES ABSENT, ABDOMEN TENDER TO PALPATION. DRESSING TO ABDOMINAL SURGICAL SITE IS C/D/I, OTHERWISE, SKIN IS INTACT. IV SITE INTACT, PATENT, FLUIDS INFUSING WNL. SCD'S IN PLACE. LAUGHLIN PATENT, DRAINING FREELY. R.T. IN ROOM TO GIVE BREATHING TREATMENT. PT DENIES FURTHER REQUESTS, CALL LIGHT WITHIN REACH.
--- NOTE | 2019-09-23 22:30 | NUR ---
PT CONTINUES TO REPORT ABDOMINAL PAIN, CURRENTLY RATES PAIN 8/10. 1 TAB NORCO GIVEN. PT MORE ALERT AND INTERACTIVE. JELLO AND JUICE PROVIDED PER REQUEST.
--- NOTE | 2019-09-24 00:45 | NUR ---
ASSESSMENT COMPLETED. PT REMAINS MORE ALERT/INTERACTIVE. CURRENTLY RATES ABDOMINAL PAIN 3/10 WHICH SHE STATES IS TOLERABLE. LUNGS CLEAR, DIM IN BASES, REMAINS ON ROOM AIR, I.S. DONE WITH ENCOURAGEMENT. HR REGULAR. BOWEL TONES RARE. DRESSING TO SURGICAL SITE C/D/I. LAUGHLIN PATENT, DRAINING FREELY. IV SITES INTACT, FLUIDS INFUSING WNL. PT REPORTS FEELING HUNGRY, WATER, TEA, AND BROTH PROVIDED. PT DENIES FURTHER REQUESTS AT THIS TIME. CALL LIGHT WITHIN REACH.
--- NOTE | 2019-09-24 02:40 | NUR ---
IN TO CHECK ON PT WHO IS AWAKE AND WATCHING TV. PT STATES THAT HER PAIN IS TOLERABLE, DENIES NEED FOR PAIN MEDICATION. PT IS TOLERATING LIQUID DIET WELL, STATES SHE IS FEELING HUNGRY; OFFERED HER JELLO, BUT SHE DECLINED. LAUGHLIN REMAINS PATENT. NO FURTHER REQUESTS AT THIS TIME, CALL LIGHT WITHIN REACH.
--- NOTE | 2019-09-24 03:48 | NUR ---
PT CALLED TO REQUEST PAIN MEDICATION FOR 6/10 ABDOMINAL PAIN. 2 TABS NORCO GIVEN AT THIS TIME. ASSESSMENT COMPLETED. REMAINS ALERT/ORIENTED. ON ROOM AIR, LUNGS SOUND COARSE THROUGHOUT, COUGH/DEEP BREATHS AND I.S. DONE WITH ENCOURAGEMENT. HR REGULAR. BOWEL TONES RARE. ABDOMINAL DRESSING C/D/I. LAUGHLIN PATENT. IV INTACT AND PATENT, FLUIDS INFUSING WNL. SCD'S IN PLACE. NO FURTHER NEEDS AT THIS TIME, CALL LIGHT WITHIN REACH.
--- NOTE | 2019-09-24 05:50 | NUR ---
IN TO CHECK ON PT, PT STATES ABDOMINAL PAIN HAS IMPROVED TO 4/10 WHICH SHE STATES IS TOLERABLE AT THIS TIME. COFFEE PROVIDED PER REQUEST. PT STATES SHE IS HUNGRY AND HOPES HER DIET WILL BE ADVANCED TODAY.
--- NOTE | 2019-09-24 09:49 | NUR ---
PT SITTING UP IN BED TALKING ON THE PHONE, VITALS WNL AT THIS TIME.
--- NOTE | 2019-09-24 10:50 | NUR ---
FULL REPORT GIVEN TO STEPHANIE MOREJON VIA PHONE, ALL QUESTIONS ANSWERED.
--- NOTE | 2019-09-24 11:05 | NUR ---
PT TRANSFERED TO MED/SURG ROOM 123 VIA CHAIR. PT ABLE TO MOVE FROM BED TO CHAIR WITH ONLY STAND BY ASSISTANCE. PT REMAINS ALERT AND ORIENTED X4. PT REPORTS IMPROVEMENT WITH ABD PAIN TO 5/10, STATES THIS IS TOLERABLE.
--- NOTE | 2019-09-24 11:36 | NUR ---
ALL PT BELONGINGS TRANSFERED TO NEW ROOM 123.
--- NOTE | 2019-09-24 11:49 | NUR ---
Patient arrives from CCU in recliner. Assessment completed. IV fluids infusing at this time. Rates pain 5/10. States she is having burning below incisionsite. Skin tear noted to area to be approximately 0.5 by 0.7 cm. No drainage noted. Patient requests bandaid to site because it is burning when clothing touches it. Bandaid applied. PRN medication given for pain. Denies other needs at this time. Talking on phone at this time.
--- NOTE | 2019-09-24 14:35 | NUR ---
PATIENT IN CHAIR WATCHING TV, VISITOR IN ROOM. CALL LIGHT IN REACH. NO FURTHER NEEDS AT THIS TIME.
--- NOTE | 2019-09-24 19:57 | NUR ---
Pt up in chair, moved self to bed, c/o abd pain, medicated with Dilaudid 1mg IV. Midline abd incision with ollie inplace and on to R low abd, edges well approx, dry, intact. HEA, denies passing gas, no bm, drinking large amounts of fluids, on clear liquids. IV RFA, IVF infusing w/o problems. Was drinking hot tea prior to taking temp temp oral 99.3, 98.7 temporal. Coop with assessment, no c/o n/v. call light at bedside
--- NOTE | 2019-09-24 22:19 | NUR ---
RESTING, ON ROOM AIR, EYES CLOSED, NO DISTRESS
--- NOTE | 2019-09-24 22:34 | NUR ---
C/O 09/15 ABD PAIN, MEDICATED WITH NORCO 2 TABS, REPOSITIONS SELF IN BED
--- NOTE | 2019-09-24 23:52 | NUR ---
Up to br w/o assist, roman c/o lightheadness or n/v. Awake in bed watching tv, ivf infusing w/o problems
--- NOTE | 2019-09-25 00:03 | NUR ---
Up to br minimum of assist. voided, back to bed, C/o abd pain 08/16, medicated with Dilaudid 1mg IV, denies passing gas
--- NOTE | 2019-09-25 01:54 | NUR ---
AWAKE, DECLINES C/O PAIN. WATCHING TV.
--- NOTE | 2019-09-25 02:29 | NUR ---
AMBULATED UP TO ELEVATOR AND BACK, BACK TO ROOM, TOLERATED WELL, COFFEE GIVEN ONREQUESTS, BACK TO BED. IVF INFUSING, NO FURTHER C/O PAIN OR N/V
--- NOTE | 2019-09-25 04:25 | NUR ---
PT RESTING, EYES CLOSED, HAS WALKED HALLWAYS, TOLERATED WELL. DRINING LARGE AMOUNTS OF CLEAR FLUIDS, NO EMESIS. SEMI INDEPENDENT IN ROOM, VOIDING QS CLEAR URINE.ON ROOM AIR, HAS BEEN MEDICATED WITH DILAUDID X2 AND NORCO X1 PER C/O ABD PAIN WITH GOOD PAIN RELIEF. MIDLINE-R ABD ABD INCISION WITH MARLENY IN PLACE, EDGES WELL APROX, DRY. IVF INFUSING W/O PROBLEMS
--- NOTE | 2019-09-25 08:27 | NUR ---
PT REPORT OF PAIN 09/15, REQUESTING PAIN MEDICATION. PT HAS NOT HAD PAIN MEDICATION SINCE LAST NIGHT. GIVEN 1MG IV DILAUDID AND 2 TABS NORCO.
--- NOTE | 2019-09-25 14:42 | NUR ---
PT PUT COMPUTER NUMERICAL CONTROL GRINDER LIGHT TO INFORM THIS RN THAT SHE HAD A BOWEL MOVEMENT. PT STATED THAT SHE HAD TO STRAIN A BIT BUT THAT HER BOWEL MOVEMENT DID NOT HURT. PTS STOOL WAS RUST IN COLOR AND WAS A MIXTURE OF LOOSE AND LIQUID.
--- NOTE | 2019-09-25 15:31 | NUR ---
LEFT A VOICEMAIL FOR . WHEN HE CALLS BACK WILL DISCUSS WITH HIM ABOUT PTS BM
--- NOTE | 2019-09-25 15:43 | NUR ---
RECIEVED A CALL BACK FROM . PT IS TO REMAIN ON A FULL LIQUID DIET UNTIL TOMORROW WHEN COMES TO SEE HER AGAIN. STATED THAT PT IS AHEAD OF SCHEDULE. THIS RN WILL DISCUSS WITH PT WHEN SHE WAKES UP FROM HER NAP
--- NOTE | 2019-09-25 17:51 | NUR ---
IN PTS ROOM TO CHECK ON PT. ASKED PT HER PAIN STATUS. PT STATES SHE IS 5/10. OFFERED PT 1 OR 2 TABS OF NORCO, PER PT REQUEST THIS RN PROVIDED PT WITH 1 TAB OF NORCO.
--- NOTE | 2019-09-25 19:24 | NUR ---
I SET PATIENT UP FOR A SHOWER TODAY. I ASKED HER AGAIN AND SHE SAID NOT TODAY.
--- NOTE | 2019-09-25 19:42 | NUR ---
SHIFT REPORT RECEIVED FROM NURSE LEV. PT UP AND WALKING THE BRYANT WITH IV POLE. PT IS STEADY ON HER FEET AND REPORTS A SECOND BM. PT REPORTS HER PAIN IS BETTER WITH THE PREVIOUSLY GIVEN NORCO. NO FURTHER NEEDS AT THIS TIME.
--- NOTE | 2019-09-25 20:25 | NUR ---
TITLE INSURANCE SALES REPRESENTATIVE ROUNDING NOTE. PT RESTING IN BED. STATES THAT SHE IS FINISHED WITH HER DINNER TRAY, PUDDING LEFT AT BEDSIDE. PT REQUESTS PAIN PILL, PRIMARY RN NOTIFIED. PT DENIES FURTHER NEEDS OR QUESTIONS AT THIS TIME. CALL LIGHT IN REACH. WHITE BOARD UDPATED.
--- NOTE | 2019-09-25 20:49 | NUR ---
ASSESSMENT COMPLETE. PT HAD USED CALL LIGHT AND C/O PAIN 5-6/10 IN LOWER ABDOMEN. SECOND OF 2 NORCO GIVEN AT THIS TIME. LAST DOSE PT WANTED TO TRY JUST ONE NORCO OF 2. VSS. BOWEL TONES HYPOACTIVE ON L ABD. PROVIDED PT WITH WARM BLANKET PT "WANTS TO GET GOOD SLEEP TONIGHT". FRESH ICE GIVEN. NO FURTHER REQUESTS AT THIS TIME.
--- NOTE | 2019-09-26 00:11 | NUR ---
CALL LIGHT ANSWERED. PT REPORTS PAIN OF 7/10 INCISIONAL/ABDOMEN PAIN. PRN NORCO PROVIDED. NO FURTHER NEEDS AT THIS TIME.
--- NOTE | 2019-09-26 01:05 | NUR ---
ROUNDS COMPLETE. PT SLEEPING SLIGHTLY RIGHT LATERAL. NO APPARENT SIGNS OF DISTRESS. CALL LIGHT WITHIN REACH.
--- NOTE | 2019-09-26 02:21 | NUR ---
ROUNDS COMPLETE. PT IS AWAKE, SITTING UP IN BED. PT REQUESTS COFFEE WHICH IS PROVIDED. NO FURTHER REQUESTS AT THIS TIME. CALL LIGHT WITHIN REACH.
--- NOTE | 2019-09-26 05:30 | NUR ---
ASSESSMENT COMPLETE. PT AWAKE IN BED. REPORTS PAIN 6/10 IN ABDOMEN. PRN NORCO PROVIDED PER REQUEST. TEA AND FRESH WATER PER REQUEST. BOWEL TONES ACTIVE.NO OTHER NEEDS AT THIS TIME. CALL LIGHT WITHIN REACH.
--- NOTE | 2019-09-26 05:37 | NUR ---
PT SLEPT OFF AND ON THROUGH NIGHT. BM AT BEGINNING OF SHIFT AND THE FEELING TO HAVE A BM THROUGHOUT SHIFT BUT NO OTHER SUCCESS. BOWEL TONES ARE ACTIVE AT MORNING ASSESSMENT BUT WERE MORE QUIET AT BEGINNING OF SHIFT. PT REPORTS INCISIONAL/ABDOMINAL PAIN WHICH REQUIRED PRN PAIN MEDS. WHEEZING IN RUL LUNGS; RT REPORTED THAT PT REFUSED EVENING BREATHING TREATMENTS. PT MOVES INDEPENDENTLY IN ROOM.
--- NOTE | 2019-09-26 07:19 | NUR ---
recieved report from timothy wayne. pt appears to be resting at this time with respirations noted
--- NOTE | 2019-09-26 09:15 | NUR ---
SPOKE WITH PATIENT IN ROOM. SHE LIVES WITH . THEY ARE BOTH DISABLED. SHE DRIVES, WILL DRIVE HER HOME. SHE USES A WALKING STICK AT TIMES. SHE IS NOT WORRIED ABOUT AFFORDING MEDICATIONS, FOOD OR UTILITIES. SHE FEELS SAFE TO DISCHARGE HOME.
--- NOTE | 2019-09-26 10:32 | NUR ---
PT UP AND TAKING A WALK FOR THE SECOND TIME THIS SHIFT. PT STATING MINOR PAIN WITH MOVEMENT BUT DOES NOT GRIMACE WHEN WALKING, PT ONLY GRIMACES IN PAIN WHEN SHE BENDS AT THE WAIST/ WHEN SHE PUTS PRESSURE ON THE ABDOMEN
--- NOTE | 2019-09-26 10:36 | OR ---
[facility] [address], [place] [address] Signed DATE OF OPERATION: 09/23/2019 SURGEON: Nazanin Champion MD PREOPERATIVE DIAGNOSES: 1. Crohn disease, status post ileectomy. 2. Ileostomy. POSTOPERATIVE DIAGNOSES: 1. Crohn disease, status post ileectomy. 2. Ileostomy. PROCEDURES: 1. Reversal of Caroline ileostomy. 2. Partial colectomy (cecum/ileocecal valve) with stapled hjft-iw-ilbd ileocolonic anastomosis. ESTIMATED BLOOD LOSS: 250 mL. FINDINGS: Kevin had no evidence of any bowel wall thickening or fat wrapping of the remaining terminal ileum nor the right colon. She had a few adhesions inside the abdomen and required lysis and therefore, a little bleeding from the periteneum which we over-sewed with Vicryl suture. INDICATIONS: Kevin is a 59-year-old female, who is known to have Crohn disease affecting her terminal ileum. She had at least 2 strictures. She underwent surgery back in November 2018 and was sewn back together end-to-end. She did well during her office visit, but then later developed a small perforation from Vicryl suture, finally resolved, ended up coming to the hospital a bit septic. She had to have about 15 cm of the terminal ileum resected right up to the ileocecal valve and placement of a Caroline ileostomy in her right lower quadrant. She has recovered very nicely from that. In the meantime, she has lost about 50 pounds. She has had trouble with rapid transit through her small bowel including her magnesium. 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 She just finished up her radiation treatment for that. She therefore, presents for her ileostomy reversal. I had met with Kevin and her in the office. We discussed Crohn's in detail. I gave him a Electronically Signed By: NAZANIN CHAMPION MD 09/24/19 0843 Electronically Signed By: NAZANIN CHAMPION MD 09/26/19 1713 PATIENT NAME: KEVIN ORNELAS OPERATIVE REPORT DATE OF : 64 REPORT #: [id number] PHYSICIAN: NAZANIN CHAMPION MD PCP: ROWAN BUCK MD REPORT IS CONFIDENTIAL AND NOT TO BE RELEASED WITHOUT AUTHORIZATION [facility] [address] [place] [phone] Signed booklet, so they could understand the section of the small intestine that was removed. Our plan was to also removed the cecum including the ileocecal valve in the appendix in order to bring the right colon back together [id number]. In that way, we would completely remove all the terminal ileum including the ileocecal valve, which has been the site of involvement of her Crohn's disease. They understand the expected intraop and postop course, they understand there is risk including, but not limited to bleeding, infection, scarring, change in contour of the skin, damage to bowel, anastomotic leak, as well as recurrent Crohn's disease, and any other unforeseen comorbidities. They had expressed understanding and wished to proceed. DESCRIPTION OF PROCEDURE: I met with Kevin in our preop area. After answering her questions, she was taken in the operating room and placed in the supine position under general endotracheal tube anesthesia. She was given preoperative antibiotics along with subcutaneous heparin. SCDs were utilized. A Shore catheter was then inserted with return of clear yellow urine without difficulty. She was then prepped and draped in the usual sterile fashion. We over-sewed the ileostomy and then made a transverse incision. A transverse elliptical incision around the ileostomy with the help of the #20 blade knife. This was carried down around the tissue bluntly and with the cautery. The entire ileum was just taken down all the way through the abdominal wall. We returned the ileum into the abdomen. We then used her previous periumbilical midline incision and we opened that up sharply with a knife, as well as with the cautery. She did have some adhesions to the midline and had to be taken down with the cautery. Later, she had some omentum down near the bladder that had been bleeding, she prior lost about 250 mL total blood throughout the entire case. At the end the case, we had realized that we were able to over-sew that bleeder with good hemostasis. We had freed up the omentum laterally on both sides and that gave us excellent access to the entire small bowel in the right colon. We freed up the cecum and the right colon along the white line of Toldt to about hepatic flexure; that allowed us to bring the cecum easily up and out of the abdomen. She had some secondary inflammatory changes that cecum, but really no evidence of any bowel wall thickening or fat wrapping of the right colon and/or the terminal ileum. At the first surgery, we saw no evidence of any Crohn's disease affecting her right colon. After this we divided the colon, the right colon just beyond the ileocecal valve with the help of the MICAELA 75 mm linear stapler. We took down the mesocolon with the help of the Pean clamps and 0 Vicryl ties. In this way, we removed the entire cecum, the ileocecal valve, and the appendix all together. Afterwards, we divided the final 8 to 10 cm of the ileum there, back to healthy ileum. Again, the mesentery coming up to that piece of ileum was divided between Pean clamps and 0 Vicryl ties; that piece of ileum was sent off to the lab for evaluation. We then brought the terminal ileum to the proximal right colon in a anuu-ld-lsag manner and held that together with interrupted 3-0 Vicryl sutures along the anti-mesenteric side. We opened up the corners of the staple line and placed this 75 mm stapler inside for anastomosis. After this, we used Electronically Signed By: NAZANIN CHAMPION MD 09/24/19 0843 Electronically Signed By: NAZANIN CHAMPION MD 09/26/19 1713 PATIENT NAME: KEVIN ORNELAS OPERATIVE REPORT DATE OF : 64 REPORT #: [id number] PHYSICIAN: NAZANIN CHAMPION MD PCP: ROWAN BUCK MD REPORT IS CONFIDENTIAL AND NOT TO BE RELEASED WITHOUT AUTHORIZATION [facility] [address] [place], [place] [address] Signed our TA-60 stapler and removed the two prior staple lines and closed the ends of the bowel. We then imbricated the anterior staple line with interrupted 3-0 Vicryl sutures. A couple of tiny bleeders on the small bowel and large bowel are oversewn with 3-0 Vicryl sutures. We closed the mesenteric rent with a running 2-0 Vicryl suture. We then irrigated the abdomen with 2 L of warm antibiotic saline solution, suctioned that out until clear. There was a small rent in the mesentery down the midline and it was easily closed with a running 2-0 Vicryl suture as well. After this, the bowel was returned to its position. Then, omentum was placed back down over the bowel. We closed the midline fascia with interrupted ubbdmb-ty-hfjif #1 PDS sutures. We had closed the fascia of the ileostomy site interiorly and exteriorly with a running 0 Vicryl suture. We then injected local anesthetic into the abdominal wall around the ileostomy site as well as midline incision. The wounds were irrigated and suctioned out until clear. The dermis was reapproximated on both incisions with interrupted 3-0 Monocryl sutures. The skin edges were reapproximated with ollie. Dry gauze and tape were then applied. After this, Kevin was awakened from anesthesia, extubated in the OR, and was taken to recovery room in stable condition. Nazanin Champion MD ALB/MODL /[id number] cc: MD Eron Morrell MD, PH.D. MD Niranjan Bhatia MD Andrew L Bower, MD Copies: RICKIE ESCOBAR MD, JUNO REDDY, LOHITH VEERAPPA MD Electronically Signed By: NAZANIN CHAMPION MD 09/24/19 0843 Electronically Signed By: NAZANIN CHAMPION MD 09/26/19 1713 PATIENT NAME: KEVIN ORNELAS OPERATIVE REPORT DATE OF : 64 REPORT #: [id number] PHYSICIAN: NAZANIN CHAMPION MD PCP: ROWAN BUCK MD REPORT IS CONFIDENTIAL AND NOT TO BE RELEASED WITHOUT AUTHORIZATION [facility] [address] [place] [address] Signed Niranjan Jennings MD, ANDREW L MD ~ Electronically Signed By: NAZANIN CHAMPION MD 09/24/19 0843 Electronically Signed By: NAZANIN CHAMPION MD 09/26/19 1713 PATIENT NAME: KEVIN ORNELAS OPERATIVE REPORT DATE OF : 64 REPORT #: [id number] PHYSICIAN: NAZANIN CHAMPION MD PCP: ROWAN BUCK MD REPORT IS CONFIDENTIAL AND NOT TO BE RELEASED WITHOUT AUTHORIZATION
--- NOTE | 2019-09-26 14:06 | NUR ---
PT ON PHONE, REQUESTED I COME BACK LATER.
--- NOTE | 2019-09-26 19:05 | NUR ---
REPORT RECEIVED FROM MOISÉS RNLEV. PT IN BED, WATCHING TV, IV INFUSING RAC PER MAR.
--- NOTE | 2019-09-26 19:21 | NUR ---
PT WITH 6/10 ABD PAIN, MED WITH NORCO PER MARS. WATCHING TV, DISCUSSED HER SMALL HOUSE (500+) FEET ON 1/2 ACRE, WANTS TO HAVE REARRANGE IT. MARLENY WITH SOME AREAS OF DRIED DRAINAGE, WITH NO SIGNS OF INFECTION. INDEPENDENT WITH AMBULATION, BATHROOM. WILL CALL IF SHE NEEDS SOMETHING.
--- NOTE | 2019-09-26 21:00 | NUR ---
ASSESSMENT COMPLETE. PT REFUSED HER NEB AND INHALER. USING IS, STATES HER PAIN HAS DECREASED, BUT WOULD LIKE TO BE MEDICATED AGAIN BEFORE SHE SETTLES IN FOR THE NIGHT. VOIDING WITHOUT DIFFICULTY, HAS HAD ONE LOOSE BROWN STOOL SINCE 1900. WANTS HER DINNER TRAY LEFT AT BEDSIDE SO SHE CAN EAT ON THE STEAK SOME. ATE MOST EVERYTHING ELSE. DRINKING WATER AT WILL.
--- NOTE | 2019-09-26 22:26 | NUR ---
AMBULATE MULT LAPS, REQUESTED AND RECEIVED CRACKERS AND FRESH COFFEE WITH HALF/HALF. CURRENTLY SITTING ON BED, DRINKING COFFEE AND WATCHING TV.
--- NOTE | 2019-09-26 23:45 | NUR ---
CHECKED ON PT @ 6130. REQUESTED PAIN MEDICATIONS. DRANK THE COFFEE, SAID IT WAS GOOD, IS WATCHING CARTOONS AT THIS TIME. USED BATHROOM SINCE LAST CHECK.
--- NOTE | 2019-09-27 01:54 | NUR ---
CHECKED ON PT, AWAKE AND WATCHING TV. STATES SHE HAS SLEPT OFF AND ON, BUT NOT STAYING ASLEEP. DENIES NEED FOR PAIN.
--- NOTE | 2019-09-27 04:10 | NUR ---
CHECKED ON PT, TV AND LIGHTS ON. PT WATCHING TV. DENIES NEED FOR PAIN MEDICATION AT THIS TIME. SAID SHE SLEPT A LITTLE. ASKED IF THIS IS NORMAL FOR HER, SHE SAID YES. WHEN I HAD THE BAG, I WOULD WAKE UP A MESS FROM THE BAG LEAKING, RUIN EVERYTHING. "I JUST NEED TO LEARN TO SLEEP AGAIN".
--- NOTE | 2019-09-27 06:11 | NUR ---
PT UP IN CHAIR AT BEDSIDE, DRANK COFFEE. COMPLAINED OF 7/10 ABDOMINAL PAIN, MED WITH NORCO. NOTED IV INFILTRATED. WILL LADARIUS.
--- NOTE | 2019-09-27 07:38 | NUR ---
Pt sitting in chair resting, eyes closed, respirations are even and non labored. Pt has no needs at this time. Call light within reach.
--- NOTE | 2019-09-27 07:45 | NUR ---
PATIENT IND. UP IN CHAIR. INDEPENDENT AM CARE IN RESTROOM. REFILLED COFFEE. CALL LIGHT WITHIN REACH. NO FURTHER NEEDS AT THIS TIME.
--- NOTE | 2019-09-27 08:18 | NUR ---
Removed every other vertical staple from abdominal incision per doc order. Twelve total ollie removed. Both vertical and horazontal incisions are well approximated with no drainage noted. Pt tolerated well. Pt states she is ready to discharge home once paperwork is available. No needs at this time. Call light within reach.
[2019-09-27] MEDS ORDERED: NORCO 5-325 TA1 EACH PO (08:50)
--- NOTE | 2019-09-27 14:56 | PATH ---
[facility] [address], [place] [address] Signed SPECIMEN(S): A CECUM WITH APPENDIX SPECIMEN(S): B TERMINAL ILEUM SPECIMEN SOURCE: A. CECUM WITH APPENDIX B. TERMINAL ILEUM CLINICAL HISTORY: A. History of Crohn's disease of small intestine with ileal stricture. B. History of Crohn's. FINAL PATHOLOGIC DIAGNOSIS: A. Cecum with appendix, excision: - Colonic mucosa with mild crypt architectural distortion and focal minimal active inflammation. - Appendix and ileocecal valve with no histopathologic abnormality. - Negative for granulomata or ulcerations. - Negative for dysplasia or malignancy. B. Ileostomy, takedown: - Ileostomy with chronic inflammation and reactive epithelial changes at the ostomy site. - Ileal mucosa negative for active inflammation or granulomata. - Serosal fibrous adhesions and focal post-surgical site changes present. - Negative for dysplasia or malignancy. NAL:cml:C2NR MICROSCOPIC EXAMINATION: Histologic sections of all submitted blocks are examined by light microscopy. These findings, together with the gross examination, support the pathologic diagnosis. GROSS DESCRIPTION: Two specimens are received in two containers, labeled "RC." A. The specimen, labeled "RC,A," and designated on the requisition "cecum with appendix," is received in formalin and consists of a previously opened, unoriented, 7.6 cm long, 5.2 cm in circumference colonic segment with attached ileocecal valve, appendix, and attached adipose 5.5 cm wide. Terminal ileum is not grossly identified. The distal portion of the specimen has a previously incised, 2.4 cm long staple line which is removed and the underlying tissue is inked blue. At the end of the ileocecal valve is multiple embedded ollie that are removed PATIENT NAME: KEVIN ORNELAS PATHOLOGY DATE OF : 64 REPORT #: [id number] PHYSICIAN: HUAN PATHOLOGY PCP: ROWAN BUCK MD REPORT IS CONFIDENTIAL AND NOT TO BE RELEASED WITHOUT AUTHORIZATION [facility] [address] [place] [address], [place] [address] Signed and the underlying tissue is inked green (a definitive staple line is not grossly identified). The colon serosa is prince to dark brown, smooth, and glistening. The colonic mucosa is prince to dark brown, has usual folds, and multiple possible pseudopolyp structures from 0.1 up to 0.4 cm in greatest dimension that grossly appear to involve the blue inked margin. The possible pseudopolyps do not grossly appear to invade past the mucosa. A discrete mass/lesion is not grossly identified. The appendix is 4.2 cm long, 0.7 cm in diameter, and the appendiceal serosa is prince, smooth, and glistening. The appendiceal lumen is lined by prince, grossly unremarkable mucosa and contains white, pasty material. A transmural defect is not grossly identified and fecalith are absent. The attached colonic adipose tissue is palpated for lymph nodes. No abnormally large lymph nodes are grossly identified. Site Inspector sections are submitted as follows: A1-colonic mucosa including perpendicular sections of the blue inked margin A2-colonic mucosa including discoloration and possible pseudopolyps A3-ileocecal valve including green inked margin A4-appendix B. The specimen, labeled "RC, B," and designated on the requisition "terminal ileum," is received in formalin and consists of a previously opened, unoriented, 3.9 cm long, 2.2 cm in diameter segment of bowel. The serosa is prince and diffusely covered with adhesions and creeping fat. One end of the specimen is opened with an attached ring of skin to 0.9 cm wide. The ring of skin is prince and grossly unremarkable. The opposing end is closed by a 3.0 cm staple line which is removed and the underlying tissue is inked black. The bowel mucosa is prince with usual folds and grossly unremarkable. A definitive discrete mass/lesion is not grossly identified. Represented sections are submitted as follows: B1-open end with ring of skin B2-colonic mucosa including the serosal adhesions, serosal fat, and black inked margin AI (under the direct supervision of a pathologist) The Gross Description was prepared using a voice recognition system. The report was reviewed for accuracy; however, sound-alike word errors, addition and/or deletions may occur. If there is any question about this report, please contact Client Services. PATIENT NAME: KEVIN ORNELAS PATHOLOGY DATE OF : 64 REPORT #: [id number] PHYSICIAN: HUAN PATHOLOGY PCP: ROWAN BUCK MD REPORT IS CONFIDENTIAL AND NOT TO BE RELEASED WITHOUT AUTHORIZATION [facility] [address] [place] [address], [place] [address] Signed PERFORMING LABORATORY: The technical component was performed by [facility], [address] [place] [id number] (Bluing Oven Tender: Judith Mcdonnell MD; CLIA# [id number]). [facility], [address] [place] [address] (CLIA# [id number]). Diagnostician: Miguelina Crews MD Pathologist Electronically Signed 09/27/2019 Copies: ~ PATIENT NAME: KEVIN ORNELAS PATHOLOGY DATE OF : 64 REPORT #: [id number] PHYSICIAN: HUAN PATHOLOGY PCP: ROWAN BUCK MD REPORT IS CONFIDENTIAL AND NOT TO BE RELEASED WITHOUT AUTHORIZATION
--- NOTE | 2019-09-28 06:47 | DS ---
[facility] [address] [place], [place] [address] Signed ADMISSION DATE: 09/23/2019 DISCHARGE DATE: 09/27/2019 FINAL DIAGNOSIS: Crohn disease. PROCEDURES: 1. Reversal of ileostomy. 2. Partial colectomy (cecum with ileocecal valve and appendix with stapled aape-eu-zrxb ileum to right colon anastomosis). HISTORY OF PRESENT ILLNESS: Kevin is a 59-year-old female, who had a long history of Crohn disease affecting her terminal ileum. She underwent strictureplasty, but had a leak and had undergone emergent resection of the terminal ilium along with placement of an ileostomy. She has done fine in that regard. She has lost some weight and her magnesium and phosphorus have been off, but she has been following very closely with her internal medicine physician. She was then found to have cancer in her left upper lobe of her lung. She just finished up her radiation treatment. She had presented to the hospital on this occasion for reversal of the ileostomy. HOSPITAL COURSE: Kevin was taken to the operating room on 09/23/2019. We reversed the ileostomy and we resected the cecum including the ileocecal valve and the appendix. The rest of the right colon remains in place. She had a stapled fvhq-xg-acqd anastomosis performed from the ileum to the proximal right colon. She has done well both intraop and postop. She is eating, having good bowel movements and flatus with a completely benign abdominal exam. Both incisions are healing very nicely. At this point, she has reached discharge status. DISCHARGE PLANS AND MEDICATIONS: Kevin will be discharged to home and can resume all her chronic medications including her vitamins, which include her phosphorus and magnesium. She will follow a regular diet as usual. She can perform her activities of daily living including walking up and down stairs and showering bathing as usual. She is not to do any heavy pushing, pulling, or lifting over about 20 pounds. We are going to send her home with a small prescription for hydrocodone. Otherwise, Tylenol and ibuprofen will be fine. Half the ollie will remain in place. I will see her back in the office in one week for surgical followup. She will see her Internal Medicine physician here in the next month or so. She would be redding to follow up with her bowling alley operator also in a few months. I have reviewed this Electronically Signed By: NAZANIN CHAMPION MD 09/28/19 0647 PATIENT NAME: KEVIN ORNELAS DISCHARGE SUMMARY DATE OF : 64 REPORT #: [id number] PHYSICIAN: NAZANIN CHAMPION MD PCP: ROWAN BUCK MD REPORT IS CONFIDENTIAL AND NOT TO BE RELEASED WITHOUT AUTHORIZATION [facility] [address] [place] [id number] Signed with Kevin several days in a row now. She has expressed understanding and wishes to proceed as above. MD EUSEBIO Hardwick/AMBIKAL /[id number] cc: Levy Hernandez MD, PH.D. MD Rowan Morrell MD Andrew L Bower, MD Niranjan Jennings MD Copies: LEVY HERNANDEZ,RICKIE BUCK,ROWAN CHAMPION,NAZANIN Jennings, Niranjan Evans MD ~ Electronically Signed By: NAZANIN CHAMPION MD 09/28/19 0647 PATIENT NAME: KEVIN ORNELAS DISCHARGE SUMMARY DATE OF : 64 REPORT #: [id number] PHYSICIAN: NAZANIN CHAMPION MD PCP: ROWAN BUCK MD REPORT IS CONFIDENTIAL AND NOT TO BE RELEASED WITHOUT AUTHORIZATION
== END 2019-09-27 09:34 | disposition home or self-care (01) | DRG 330 ==
LOC: MS 08-26 06:45 → DSVR 09-23 09:29 → MS 09-23 09:45 → CCU 09-23 14:59 → MS 09-24 11:14
PROVIDERS: ADMIT Colon & Rectal Surgery
PROC: 0DBB0ZZ Excision of Ileum, Open Approach (ICD-10-PCS; principal; 2019-09-23 09:45)
DX: Z43.2 Encounter for attention to ileostomy (principal); K50.00 Crohn's disease of small intestine without complications; C34.12 Malignant neoplasm of upper lobe, left bronchus or lung; F17.210 Nicotine dependence, cigarettes, uncomplicated; J44.9 Chronic obstructive pulmonary disease, unspecified; E53.8 Deficiency of other specified B group vitamins; E55.9 Vitamin D deficiency, unspecified; F31.9 Bipolar disorder, unspecified; R73.03 Prediabetes; K21.9 Gastro-esophageal reflux disease without esophagitis; E83.42 Hypomagnesemia; Z79.51 Long term (current) use of inhaled steroids; Z79.899 Other long term (current) drug therapy
CPT/HCPCS: 00840; 36415; 71045; 80048; 83735; 84100; 84134; 85025; 88304; 88307; 94640; J0330; J0690; J1100; J1170; J1644; J1720; J1885; J2250; J2270; J2310; J2405; J2550; J2704; J2765; J3010; J3475; J7121

== ENCOUNTER 2021-09-25 06:40 | Day surgery (SDC) | payer OTHER ==
[~2021-09-25] VITALS: Ht 165.1 cm; Wt 90.9 kg
[~2021-09-25 06:40] MED LIST changes: +ACID CONTROLLER20 MG PO; +BUDESONIDE EC3 M1 PO; +CHANTIX1 MG PO; +COZAAR50 MG PO; +CYCLOBENZAPRINE5 MG PO; +MAGNESIUM400 MG PO
--- NOTE | 2021-09-25 08:37 | NUR ---
PT ALERT, ORIENTED AND SUPPORTED BY HER ROSS. PT HAS HAD PREVIOUS SCOPES-STATED SHE HAS CRONES DISEASE. PT AND ROSS BOTH HAVE GREAT CONFIDENCE IN DR CHAMPION AND STAFF. ROSS WILL REMAIN HERE FOR DC. PAT HAS HAD PRAYER FOR TODAY ALREADY. GAVE BLESSING, WILL FOLLOW
--- NOTE | 2021-09-25 08:50 | NUR ---
09/25/21 0850 Adrienne Linares 0894 PATIENT ARRIVES TO PACU RESTING WITH EYES CLOSED, DOES NOT RESPOND TO VERBAL STIMULI. RESP EVEN AND UNLABORED, MASK AT 6 LITERS.
--- NOTE | 2021-09-25 11:56 | OR ---
[facility] [address] [place], [place] [address] Signed DATE OF OPERATION: 09/25/2021 SURGEON: Nazanin Champion MD PREOPERATIVE DIAGNOSES: 1. Crohn disease. 2. Ileocecectomy with stapled ahjf-ay-nzlo anastomosis September 2019. POSTOPERATIVE DIAGNOSES: 1. Small aphthous ulcer on terminal ileum next to ileocolonic anastomosis. 2. Colon length 110 cm. PROCEDURE: Colonoscopy with cold biopsies of the terminal ileum and ulcer, mid right colon, transverse colon, left colon, sigmoid colon, and mid rectum. ESTIMATED BLOOD LOSS: None. INDICATIONS: Kevin is a 61-year-old female with a long history of Crohn disease. She thinks it started early in her childhood. I had resected her ileal stricture in 2018. When the Vicryl suture dissolved, she had a pinhole leak. I then had to give her an ileostomy. We went back later and removed the ileum and the cecum and performed a stapled iejw-yy-hgoa anastomosis. She said she has been doing great since that time. She is able to eat and gain her weight back. She made it to her riveter and was started on budesonide. [place] already lives [place] [facility], [place]. Her riveter is actually 1 hour and 30 minutes away. Consequently, she prefers to come and see me for her followup colonoscopy. She has been doing video office consults with her riveter. It looks like she has had colonoscopies back in [address] Pravin Toledo and Dr. Marshal aCll in [place], [place]. 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 That seems to be going well. It looks like her last colonoscopy may have been in [address] Lucero. She apparently had some low-grade inflammatory changes in the colon and rectum. He was unable to intubate the ileum. In the office, I had given her a pamphlet on colonoscopy. She recalls the nature of the test. There is risk including, but not limited to gas bloating, crampy abdominal pain, bleeding, perforation requiring surgery, and missed diagnosis. We also reviewed the need for monitored anesthesia care given her advanced medical issues and her continued smoking. She had expressed understanding and wished to proceed. Electronically Signed By: NAZANIN CHAMPION MD 09/25/21 1156 PATIENT NAME: KEVIN ORNELAS OPERATIVE REPORT DATE OF : 64 REPORT #: [id number] PHYSICIAN: NAZANIN CHAMPION MD PCP: ROWAN BUCK MD REPORT IS CONFIDENTIAL AND NOT TO BE RELEASED WITHOUT AUTHORIZATION [address] [address] Signed PROCEDURE NOTE: Kevin was taken into our endoscopy suite and placed in the left lateral decubitus position. She was given monitored anesthesia care with propofol per our nurse city bailiff. A digital rectal exam was performed and this was unremarkable. There were no external hemorrhoids. No fistulas. She had good sphincter tone. The adult colonoscope had been introduced and advanced quite readily up into the proximal right colon at the anastomosis. Her colon is 110 cm in length. Just to the side of the staple line was a small aphthous inflamed ulcer. We took a biopsy of that and an additional biopsy of the terminal ileum several cm away. We turned the camera and looked up into the terminal ileum short distance and it seemed to be quite unremarkable. There were no inflammatory changes. Her staple line is well healed. The colon itself was completely unremarkable. Her bowel prep was quite good. We took cold biopsies as we withdrew the scope in the mid right colon, transverse colon, left colon, sigmoid colon and mid rectum. Once in the rectum, the scope had been retroflexed, we saw no additional pathology above the anal canal. She had no polyps and no diverticulosis. After this, the gas was suctioned out and the colonoscope removed. Kevin tolerated the procedure quite well. RECOMMENDATIONS: I will see Kevin back in my office in 7 to 14 days to review her biopsy results or she is welcome to review those with her riveter. Nazanin Champion MD ALB/MODL /[id number] cc: MD Niranjan Hardwick MD Katherine Cayetano, MD Juno Choe, MD, PH.D. Electronically Signed By: NAZANIN CHAMPION MD 09/25/21 1156 PATIENT NAME: KEVIN ORNELAS OPERATIVE REPORT DATE OF : 64 REPORT #: [id number] PHYSICIAN: NAZANIN CHAMPION MD PCP: ROWAN BUCK MD REPORT IS CONFIDENTIAL AND NOT TO BE RELEASED WITHOUT AUTHORIZATION [address], [place] [address] Signed Rowan Buck MD Copies: NAZANIN CHAMPION MD, Randy J MD CAYETANO, KATHERINE MD CHOE, JUNO REDDY, LOHITH VEERAPPA MD ~ Electronically Signed By: NAZANIN CHAMPION MD 09/25/21 1156 PATIENT NAME: KEVIN ORNELAS OPERATIVE REPORT DATE OF : 64 REPORT #: [id number] PHYSICIAN: NAZANIN CHAMPION MD PCP: ROWAN BUCK MD REPORT IS CONFIDENTIAL AND NOT TO BE RELEASED WITHOUT AUTHORIZATION
--- NOTE | 2021-09-26 14:39 | PATH ---
[facility] [address] [place], [place] [address] Signed SPECIMEN(S): A TERMINAL ILEUM BIOPSY SPECIMEN(S): B MID ASCENDING/RIGHT COLON BIOPSY SPECIMEN(S): C TRANSVERSE COLON BIOPSY SPECIMEN(S): D DESCENDING/LEFT COLON BIOPSY SPECIMEN(S): E SIGMOID COLON BIOPSY SPECIMEN(S): F MID RECTUM BIOPSY SPECIMEN SOURCE: A. TERMINAL ILEUM BIOPSY B. MID ASCENDING/RIGHT COLON BIOPSY C. TRANSVERSE COLON BIOPSY D. DESCENDING/LEFT COLON BIOPSY E. SIGMOID COLON BIOPSY F. MID RECTUM BIOPSY CLINICAL HISTORY: Ileocecectomy (09/25) for history of Crohn's disease. Post-op: Unremarkable colonoscopy. FINAL PATHOLOGIC DIAGNOSIS: A. Terminal ileum, biopsy: - Small bowel mucosa with gastric surface cell metaplasia and pyloric gland metaplasia. - Negative for active inflammation or granulomas. - Negative for dysplasia or malignancy. B. Colon, mid ascending/right, biopsy: - Colonic mucosa with minimal crypt architectural distortion. - Negative for active inflammation or granulomas. - Negative for dysplasia or malignancy. C. Colon, transverse, biopsy: - Colonic mucosa with minimal crypt architectural distortion. - Negative for active inflammation or granulomas. - Negative for dysplasia or malignancy. D. Colon, descending/left, biopsy: - Colonic mucosa with minimal crypt architectural distortion. - Negative for active inflammation or granulomas. - Negative for dysplasia or malignancy. E. Colon, sigmoid, biopsy: - Colonic mucosa with minimal crypt architectural distortion. - Negative for active inflammation or granulomas. - Negative for dysplasia or malignancy. PATIENT NAME: KEVIN ORNELAS PATHOLOGY DATE OF : 64 REPORT #: [id number] PHYSICIAN: HUAN AREVALO PCP: ROWAN BUCK MD REPORT IS CONFIDENTIAL AND NOT TO BE RELEASED WITHOUT AUTHORIZATION [facility] [address] [place], [place] [address] Signed F. Mid rectum, biopsy: - Colorectal mucosa with minimal crypt architectural distortion. - Negative or active inflammation or granulomas. - Negative for dysplasia or malignancy. COMMENT: The history of Crohn's disease is noted. There is no evidence of active disease within the current biopsies. Continued clinical surveillance is recommended. NAL:cml:C2NR MICROSCOPIC EXAMINATION: Histologic sections of all submitted blocks are examined by light microscopy. These findings, together with the gross examination, support the pathologic diagnosis. GROSS DESCRIPTION: Six specimens are received in six containers labeled with "RC". A. The specimen, labeled "RC, 1," and designated on the requisition "terminal ileum biopsy," is received in formalin and consists of two fragments of pink-prince tissue (0.3 to 0.4 cm in greatest dimension). The specimen is submitted entirely in cassette A1. B. The specimen, labeled "RC, 2," and designated on the requisition "mid ascending/right biopsy," is received in formalin and consists of one fragment of pink-prince tissue (0.4 cm in greatest dimension). The specimen is submitted entirely in cassette B1. C. The specimen, labeled "RC, 3," and designated on the requisition "transverse colon biopsy," is received in formalin and consists of one fragment of pink-prince tissue (0.3 cm in greatest dimension). The specimen is submitted entirely in cassette C1. D. The specimen, labeled "RC, 4," and designated on the requisition "descending/left colon biopsy," is received in formalin and consists of one fragment of pink-prince tissue (0.3 cm in greatest dimension). The specimen is submitted entirely in cassette D1. E. The specimen, labeled "RC, 5," and designated on the requisition "sigmoid colon biopsy," is received in formalin and consists of one fragment of pink-prince tissue (0.3 cm in greatest dimension). The specimen is submitted entirely in cassette E1. F. The specimen, labeled "RC, 6," and designated on the requisition "mid rectum polyp," is received in formalin and consists of one fragment of brown-prince PATIENT NAME: KEVIN ORNELAS PATHOLOGY DATE OF : 64 REPORT #: [id number] PHYSICIAN: HUAN AREVALO PCP: ROWAN BUCK MD REPORT IS CONFIDENTIAL AND NOT TO BE RELEASED WITHOUT AUTHORIZATION [address] [address] Signed tissue (0.3 cm in greatest dimension). The specimen is submitted entirely in cassette F1. AC (under the direct supervision of a pathologist) The Gross Description was prepared using a voice recognition system. The report was reviewed for accuracy; however, sound-alike word errors, addition and/or deletions may occur. If there is any question about this report, please contact Client Services. PERFORMING LABORATORY: The technical component was performed by [facility] [employer], [address] [place] [id number] (CLIA# [id number]). Professional interpretation was performed by [facility], [facility], [address] [address] (CLIA# [id number]). Diagnostician: Miguelina Crews MD Pathologist Electronically Signed 09/26/2021 Copies: ~ PATIENT NAME: KEVIN ORNELAS PATHOLOGY DATE OF : 64 REPORT #: [id number] PHYSICIAN: HUAN PATHOLOGY PCP: ROWAN BUCK MD REPORT IS CONFIDENTIAL AND NOT TO BE RELEASED WITHOUT AUTHORIZATION
== END 2021-09-25 09:17 | disposition home or self-care (01) ==
LOC: OPS 06:40 → DS 06:40 → OPS 08:15 → DS 08:15 → OPS 09:17
PROVIDERS: ATTEND Colon & Rectal Surgery
PROC: 0DBL8ZX Excision of Transverse Colon, Via Natural or Artificial Opening Endoscopic, Diagnostic (ICD-10-PCS; 2021-09-25)
PROC: 0DBN8ZX Excision of Sigmoid Colon, Via Natural or Artificial Opening Endoscopic, Diagnostic (ICD-10-PCS; 2021-09-25)
PROC: 0DBP8ZX Excision of Rectum, Via Natural or Artificial Opening Endoscopic, Diagnostic (ICD-10-PCS; 2021-09-25)
PROC: 0DBF8ZX Excision of Right Large Intestine, Via Natural or Artificial Opening Endoscopic, Diagnostic (ICD-10-PCS; 2021-09-25)
PROC: 0DBG8ZX Excision of Left Large Intestine, Via Natural or Artificial Opening Endoscopic, Diagnostic (ICD-10-PCS; 2021-09-25)
PROC: 0DBB8ZX Excision of Ileum, Via Natural or Artificial Opening Endoscopic, Diagnostic (ICD-10-PCS; principal; 2021-09-25 08:15)
DX: Z12.11 Encounter for screening for malignant neoplasm of colon (principal); K63.3 Ulcer of intestine; K63.89 Other specified diseases of intestine; Z90.49 Acquired absence of other specified parts of digestive tract; J43.9 Emphysema, unspecified; F31.9 Bipolar disorder, unspecified; K50.00 Crohn's disease of small intestine without complications; E66.9 Obesity, unspecified; Z68.32 Body mass index [BMI] 32.0-32.9, adult; I26.99 Other pulmonary embolism without acute cor pulmonale
CPT/HCPCS: J2001; J2704; J7121

== ENCOUNTER 2022-04-01 15:14 | Emergency (ER) | payer OTHER ==
[~2022-04-01] VITALS: Ht 165.1 cm; Wt 90.7 kg
--- NOTE | 2022-04-01 22:10 | EKG ---
[facility] [address] [facility] [place], [place] [address] Signed Normal sinus rhythm Normal ECG When compared with ECG of 19-SEP-2021 09:19, No significant change was found Confirmed by KASANDRA BENNETT MD ([id number]) on 04/01/2022 10:10:24 PM Electronically Signed By: KASANDRA BENNETT MD 04/01/222209 PATIENT NAME: KEVIN ORNELAS Electrocardiogram DATE OF : 64 PHYSICIAN: KASANDRA BENNETT MD REPORT #: [id number] REPORT IS CONFIDENTIAL AND NOT TO BE RELEASED WITHOUT AUTHORIZATION
== END 2022-04-01 17:42 | disposition home or self-care (01) ==
LOC: ED 15:14
DX: G45.9 Transient cerebral ischemic attack, unspecified (principal); J44.9 Chronic obstructive pulmonary disease, unspecified; F17.200 Nicotine dependence, unspecified, uncomplicated; Z91.048 Other nonmedicinal substance allergy status; Z79.899 Other long term (current) drug therapy
CPT/HCPCS: 36415; 70450; 70496; 70498; 71045; 80053; 84484; 85025; 85610; 85730; 93005; 93010; 99284-25; Q9967

== ENCOUNTER 2023-09-23 14:54 | Emergency (ER) | payer OTHER ==
[~2023-09-23] VITALS: Ht 165.1 cm; Wt 81.4 kg
[~2023-09-23 14:54] MED LIST changes: +AMOX TR-K CLV1 EAC1 PO; +DULOXETINE HCL60 MG PO; +K-TAB ER20 MEQ PO; +TRAZODONE HCL50 MG PO; +VALPROIC ACID250 MG PO; +ZITHROMAX250 MG PO
[2023-09-23] MEDS ORDERED: SODIUM CHLORIDE 0.9% 1,000 ML IV ONE (15:45)
[2023-09-23 15:59] LABS: BASOPHILS 0.8 % (0-2); EOSINOPHILS 0.6 % (0-6); HEMATOCRIT 43.5 % (35.0-50.0); HEMOGLOBIN 15.3 g/dL (12.0-18.0); LYMPHOCYTES 35.6 % (24-44); MCHC 35.3 g/dl (30-36); MCV 93.7 fl (81-99); MONOCYTES 5.6 % (0-12); NEUTROPHILS 57.4 % (39-80); PLATELET COUNT 122 K/uL (140-440); RBC 4.65 M/ul (4.3-5.7)
[2023-09-23 16:13] LABS: ALBUMIN 3.8 g/dL (3.4-5.0); ALBUMIN/GLOBULIN RATIO 1.09 (1.1-2.4); ANION GAP 12.3 (7-21); BILIRUBIN, TOTAL 0.8 ng/dL (0.2-1.0); BUN/CREATININE RATIO 12.08 (6.0-28.6); CREATININE, SERUM 0.91 mg/dL (0.55-1.02); POTASSIUM 3.3 mmol/L (3.5-5.1); PROTEIN, TOTAL 7.3 g/dL (6.4-8.2)
[2023-09-23 17:05] VITALS: BP 157/80
== END 2023-09-23 17:05 | disposition home or self-care (01) ==
LOC: ED 14:54
PROVIDERS: Emergency Medicine
DX: K46.9 Unspecified abdominal hernia without obstruction or gangrene (principal); J44.9 Chronic obstructive pulmonary disease, unspecified; F31.9 Bipolar disorder, unspecified; F17.200 Nicotine dependence, unspecified, uncomplicated; Z91.048 Other nonmedicinal substance allergy status; Z79.899 Other long term (current) drug therapy
CPT/HCPCS: 36415; 74177; 80053; 83690; 85025; J7030

== ENCOUNTER 2023-12-20 23:15 | Emergency (ER) | payer OTHER ==
[~2023-12-20] VITALS: Ht 165.1 cm; Wt 84.6 kg
[2023-12-20] MEDS ORDERED: AMLODIPINE BESYL5 MG (23:33)
[2023-12-20] MEDS ORDERED: FOLIC ACID1 MG (23:34)
[2023-12-20] MEDS ORDERED: CYANOCOBAL1000 MCG/M (23:34)
[2023-12-20 23:52] LABS: BASOPHILS 0.7 % (0-2); EOSINOPHILS 0.8 % (0-6); HEMATOCRIT 45.5 % (35.0-50.0); HEMOGLOBIN 15.9 g/dL (12.0-18.0); LYMPHOCYTES 41.2 % (24-44); MCHC 34.9 g/dl (30-36); MCV 97.4 fl (81-99); MONOCYTES 6.9 % (0-12); NEUTROPHILS 50.4 % (39-80); PLATELET COUNT 120 K/uL (140-440); RBC 4.67 M/ul (4.3-5.7); RDW 14.1 (10.5-15.0)
[2023-12-21] LABS: ALBUMIN 3.9 g/dL (3.4-5.0); ALBUMIN/GLOBULIN RATIO 1.08 (1.1-2.4); ANION GAP 13.9 (7-21); BILIRUBIN, TOTAL 0.6 ng/dL (0.2-1.0); BUN/CREATININE RATIO 13.68 (6.0-28.6); CALCIUM 9.5 mg/dL (8.5-10.1); CREATININE, SERUM 0.95 mg/dL (0.55-1.02); POTASSIUM 3.9 mmol/L (3.5-5.1); PROTEIN, TOTAL 7.5 g/dL (6.4-8.2)
[2023-12-21 00:25] LABS: BILIRUBIN, URINE NEGATIVE (negative); BLOOD/HGB, URINE NEGATIVE (Negative); KETONE, URINE NEGATIVE (Negative); LEUK ESTERASE, URINE NEGATIVE (negative); NITRITE, URINE NEGATIVE (negative)
[2023-12-21 00:47] VITALS: BP 130/66
== END 2023-12-21 00:47 | disposition home or self-care (01) ==
LOC: ED 23:15
PROVIDERS: Internal Medicine
DX: R19.5 Other fecal abnormalities (principal); J44.9 Chronic obstructive pulmonary disease, unspecified; K50.90 Crohn's disease, unspecified, without complications; F17.200 Nicotine dependence, unspecified, uncomplicated; Z85.118 Personal history of other malignant neoplasm of bronchus and lung; Z90.49 Acquired absence of other specified parts of digestive tract; Z91.048 Other nonmedicinal substance allergy status; Z79.899 Other long term (current) drug therapy
CPT/HCPCS: 36415; 80053; 81003; 85025; 99284

== ENCOUNTER 2024-01-20 08:40 | Day surgery (SDC) | payer OTHER ==
[2024-01-14 13:24] VITALS: BP 143/87
[~2024-01-20] VITALS: Ht 165.1 cm; Wt 82.7 kg
[~2024-01-20 08:40] MED LIST changes: +AMLODIPINE BESYL5 MG; +CYANOCOBAL1000 MCG/M; +FOLIC ACID1 MG; +IBLOOD GLUCOSE TEST STRIP 1 EA TEST VI PRN; +LACTATED RINGER'S 1,000 ML IV SCH; +LIDOCAINE HCL 1% 5 ML SDV INJ ONE; +MELADOX3 MG PO; +methylPREDNISolone SOD SUCC 40 MG/ML VIAL IV SCH
[2024-01-20 08:53] VITALS: BP 122/68
[2024-01-20] MEDS ORDERED: propofoL 200 MG/20 ML VIAL ONE (10:01)
[2024-01-20] MEDS ORDERED: LACTATED RINGER'S 1,000 ML IV ONE (10:42)
--- NOTE | 2024-01-20 11:07 | NUR ---
01/20/24 1107 Kallie Stringer 1059-PT ARRIVES TO PACU RESTING ON LT SIDE, PT NOT RESPONSIVE TO NOXIOUS STIMULI, OPA IN PLACE AND VSS ON 6L VIA MASK, REU.
[2024-01-20 11:19] VITALS: BP 135/69
--- NOTE | 2024-01-20 12:22 | OR ---
[facility] [address] [place], [place] [address] Signed DATE OF OPERATION: 01/20/2024 SURGEON: Nazanin Champion MD PREOPERATIVE DIAGNOSES: 1. Crohn disease. 2. Change in bowel habits with increased frequency. 3. Pancolitis on recent CT scan of abdomen and pelvis. POSTOPERATIVE DIAGNOSES: 1. Mild diffuse pancolitis. 2. 4 mm polyp at 7 cm or rectum. 3. Ileocolonic anastomosis at 110 cm and distal right colon. PROCEDURE: Colonoscopy with hot biopsy and cold biopsies. ESTIMATED BLOOD LOSS: None. INDICATIONS: Kevin is a 63-year-old female, who has had Crohn disease actually for many years. I met her in 2019 with her stricturing Crohn disease of the ileum. We did remove those areas and put the ilium back together hand-sewn in two layers with Vicryl suture. She came back 15 days later with a small leak with Vicryl suture went through her bowel. We had to give her an ileostomy at that time. She healed up nicely from that. We took her back to surgery in 2019 to reverse the ileostomy and additional 20 inches of the ilium along with her cecum. She now has a stapled antiperistaltic ileocolonic anastomosis to the mid to distal right colon. She went over to our [facility] to see her textile engineer Dr. Niranjan Jennings. She tried Asacol, but felt it gave her a side effect. She quit taking the Asacol. She kept taking her budesonide twice a day. She did notice a change in bowel habits with increased frequency up to 8 to 10 loose bowel movements per day. She said the food was coming straight through her in chunks. She went to the emergency room at [facility] in September 2023. The CT scan showed some mild diffuse colitis and a large broad-based ventral incisional hernia in her lower midline. I helped her with a colonoscopy back in September 2021 and all the biopsies from the colon and ileum were negative at that time. [place] and her live 25 [place] east of [place], [place] It takes her an extra 120 minutes to get all the way over to our [facility]. Consequently, she asks for me to help her as a local general surgeon with her colonoscopies. She had not seen her Electronically Signed By: NAZANIN CHAMPION MD 01/20/24 1222 PATIENT NAME: KEVIN ORNELAS OPERATIVE REPORT DATE OF : 64 REPORT #: [id number] PHYSICIAN: NAZANIN CHAMPION MD PCP: CAYETANO FERNANDEZ DO REPORT IS CONFIDENTIAL AND NOT TO BE RELEASED WITHOUT AUTHORIZATION [facility] [address] [place], [place] [address] Signed textile engineer in two years. She was in no acute distress in the office. She had been in the emergency room previously and was concerned about melena. Her stool sample was guaiac negative. Her physical exam and vital signs were fine. Her textile engineer had increase the budesonide up to t.i.d. Of course, he wants a repeat colonoscopy with multiple biopsies including viral pathology and studies for CMV. At some point down the road Kevin hoping her ventral hernia can be fixed. She understands her Crohn disease needs to be under control before we can fix that large ventral hernia. She is best to have this done at a large hernia center and hopefully not with any mesh at least not touching the bowel. She does have moderately difficult Crohn disease. In the office, I gave her a pamphlet on colonoscopy. Of course, she has been through that before. She understands the nature of the test. There is risk including, but not limited to gas bloating, crampy abdominal pain, bleeding, perforation requiring surgery, and missed diagnosis. We also reviewed the written instructions for the bowel prep line by line. She understands the need for monitored anesthesia care given her frail nature, advanced age and advanced medical issues. She had expressed understanding and wished to proceed. PROCEDURE IN DETAIL: Kevin was taken into our endoscopy suite and placed in the left lateral decubitus position. She was given monitored anesthesia care, propofol infusion per our nurse inside steward/stewardess. A digital rectal exam was performed. No evidence of any fistulous tracts. She has good perianal hygiene. Really no external hemorrhoids. She had good sphincter tone. There were no masses. The adult colonoscope was introduced and advanced under direct visualization of camera. We can see she has mild diffuse inflammation from the anus all the way back up the colon. The anastomosis is right at about 110 cm. It is well healed. There was no ulcerations or exposed ollie. We took a biopsy from the ileum and then we took biopsies throughout the colon for pathologic review. We took some additional biopsies out of her left colon for virology including CMV. Scope was then retroflexed in the rectum, we saw no additional pathology above the anal canal. After this, the gas was suctioned out. The colonoscope removed. The Kevin tolerated the procedure quite well. RECOMMENDATIONS: I will see Kevin back in my office in 7 to 14 days to review her results. Nazanin Champion MD ALB/MODL Electronically Signed By: NAZANIN CHAMPION MD 01/20/24 1222 PATIENT NAME: KEVIN ORNELAS OPERATIVE REPORT DATE OF : 64 REPORT #: [id number] PHYSICIAN: NAZANIN CHAMPION MD PCP: CAYETANO FERNANDEZ DO REPORT IS CONFIDENTIAL AND NOT TO BE RELEASED WITHOUT AUTHORIZATION [address] [place], [place] [address] Signed /[id number] cc: DO Nazanin Torres MD Randy J Geldmacher, MD Copies: CAYETANO FERNANDEZ ANDREW L MD Geldmacher, Randy J MD ~ Electronically Signed By: NAZANIN CHAMPION MD 01/20/24 1222 PATIENT NAME: KEVIN ORNELAS OPERATIVE REPORT DATE OF : 64 REPORT #: [id number] PHYSICIAN: NAZANIN CHAMPION MD PCP: CAYETANO FERNANDEZ DO REPORT IS CONFIDENTIAL AND NOT TO BE RELEASED WITHOUT AUTHORIZATION
--- NOTE | 2024-01-22 10:41 | PATH ---
[facility] [address] [place], [place] [address] Signed SPECIMEN(S): A COLON POLYP AT 7 CM SPECIMEN(S): B TERMINAL ILEUM BIOPSY SPECIMEN(S): C DISTAL ASCENDING COLON BIOPSY SPECIMEN(S): D TRANSVERSE COLON BIOPSY SPECIMEN(S): E DESCENDING COLON BIOPSY SPECIMEN(S): F SIGMOID COLON BIOPSY SPECIMEN(S): G DISTAL RECTUM BIOPSY SPECIMEN(S): H PROXIMAL RECTUM BIOPSY SPECIMEN SOURCE: A. COLON POLYP AT 7 CM B. TERMINAL ILEUM BIOPSY C. DISTAL ASCENDING COLON BIOPSY D. TRANSVERSE COLON BIOPSY E. DESCENDING COLON BIOPSY F. SIGMOID COLON BIOPSY G. DISTAL RECTUM BIOPSY H. PROXIMAL RECTUM BIOPSY CLINICAL HISTORY: Pre-op: Crohn's, postop: Colitis/rectal polyp. Virdogy/CMV on specimen #6; questions call Evelia Neves FINAL PATHOLOGIC DIAGNOSIS: A. Colon polyp at 7 cm: - Hyperplastic polyp, negative for dysplasia. B. Terminal ileum biopsy oh: - Small intestinal mucosa with no significant pathologic abnormalities. - Negative for chronic active inflammation or dysplasia. C. Distal ascending colon biopsy: - Essentially normal colonic mucosa., See comment. - Negative for chronic active inflammation or dysplasia. D. Transverse colon biopsy: - Essentially normal colonic mucosa. See comment. - Negative for chronic active inflammation or dysplasia. E. Descending colon biopsy: - Histologically normal colonic mucosa. - Negative for chronic active inflammation or dysplasia. F. Sigmoid colon biopsy: - Histologically normal colonic mucosa. - Negative for chronic active inflammation or dysplasia. PATIENT NAME: KEVIN ORNELAS PATHOLOGY DATE OF : 64 REPORT #: [id number] PHYSICIAN: HUAN AREVALO PCP: CAYETANO FERNANDEZ DO REPORT IS CONFIDENTIAL AND NOT TO BE RELEASED WITHOUT AUTHORIZATION [facility] [address] [place], [place] [address] Signed G. Distal rectum biopsy: - Normochromic mucosa with submucosal reactive lymphoid follicle. - Negative for chronic active inflammation or dysplasia. H. Proximal rectum biopsy: - Histologically normal colonic mucosa. - Negative for chronic active inflammation or dysplasia. COMMENT: Patient history of Crohn's disease is noted. The terminal ileum biopsy, distal ascending and transverse colon biopsies are essentially normal with mild architectural distortion noted. No chronic active inflammation active inflammation is identified in any of the biopsies. NA MICROSCOPIC EXAMINATION: Histologic sections of all submitted blocks are examined by light microscopy. These findings, together with the gross examination, support the pathologic diagnosis. GROSS DESCRIPTION: A. The specimen, labeled and designated "Cloke, R, colon polyp at 7 cm," is received in formalin and consists of one prince soft tissue fragment, 0.2 cm. Entirely submitted in (A1). B. The specimen, labeled and designated "Cloke, R, terminal ileum biopsy oh," is received in formalin and consists of one prince soft tissue fragment, 0.3 cm. Entirely submitted in (B1). C. The specimen, labeled and designated "Cloke, R, distal ascending colon biopsy," is received in formalin and consists of one prince soft tissue fragment, 0.3 cm. Entirely submitted in (C1). D. The specimen, labeled and designated "Cloke, R, transverse colon biopsy," is received in formalin and consists of one prince soft tissue fragment, 0.3 cm. Entirely submitted in (D1). E. The specimen, labeled and designated "Cloke, R, descending colon biopsy," is received in formalin and consists of one prince soft tissue fragment, 0.2 cm. Entirely submitted in (E1). F. The specimen, labeled and designated "Cloke, R, sigmoid colon biopsy," is received in formalin and consists of one prince soft tissue fragment, 0.3 cm. Entirely submitted in (F1). G. The specimen, labeled and designated "Cloke, R, distal rectum biopsy," is received in formalin and consists of one prince soft tissue fragment, 0.4 cm. PATIENT NAME: KEVIN ORNELAS PATHOLOGY DATE OF : 64 REPORT #: [id number] PHYSICIAN: HUAN AREVALO PCP: CAYETANO FERNANDEZ DO REPORT IS CONFIDENTIAL AND NOT TO BE RELEASED WITHOUT AUTHORIZATION [facility] [address] [place], [place] [address] Signed Entirely submitted in (G1). H. The specimen, labeled and designated "Cloke, R, proximal rectum biopsy," is received in formalin and consists of one prince soft tissue fragment, 0.3 cm. Entirely submitted in (H1). AB (under the direct supervision of a pathologist) The Gross Description was prepared using a voice recognition system. The report was reviewed for accuracy; however, sound-alike word errors, addition and/or deletions may occur. If there is any question about this report, please contact Client Services. ADDITIONAL NOTES: Immunohistochemical and/or in situ hybridization studies if performed in this case included appropriate positive controls that reacted as expected. This test was developed and its performance characteristics determined by [facility]. It has not been cleared or approved by the U.S. Food and Drug Administration. The FDA has determined that such clearance or approval is not necessary. This test is used for clinical purposes. It should not be regarded as investigational or for research. [facility] is certified under the Clinical Laboratory Improvement Amendments of 1988 (CLIA) as qualified to perform high complexity clinical laboratory testing. PERFORMING LABORATORY: Technical component was performed by [facility], [address] [place] [address] (CLIA# [id number]). Professional interpretation was performed by [facility], [address] [place] [address] (CLIA#: [id number]). Diagnostician: Lupe Fajardo MD Pathologist Electronically Signed 01/22/2024 Copies: ~ PATIENT NAME: KEVIN ORNELAS PATHOLOGY DATE OF : 64 REPORT #: [id number] PHYSICIAN: HUAN AREVALO PCP: CAYETANO FERNANDEZ DO REPORT IS CONFIDENTIAL AND NOT TO BE RELEASED WITHOUT AUTHORIZATION
== END 2024-01-20 11:30 | disposition home or self-care (01) ==
LOC: DS 08:40
PROVIDERS: ATTEND Colon & Rectal Surgery
PROC: 0DBE8ZX Excision of Large Intestine, Via Natural or Artificial Opening Endoscopic, Diagnostic (ICD-10-PCS; 2024-01-20)
PROC: 0DBB8ZX Excision of Ileum, Via Natural or Artificial Opening Endoscopic, Diagnostic (ICD-10-PCS; principal; 2024-01-20 10:45)
DX: K50.90 Crohn's disease, unspecified, without complications (principal); K63.5 Polyp of colon; I10 Essential (primary) hypertension; J44.9 Chronic obstructive pulmonary disease, unspecified; F31.9 Bipolar disorder, unspecified; E89.2 Postprocedural hypoparathyroidism; G47.33 Obstructive sleep apnea (adult) (pediatric); F17.210 Nicotine dependence, cigarettes, uncomplicated; Z79.899 Other long term (current) drug therapy; Z91.048 Other nonmedicinal substance allergy status; Z98.0 Intestinal bypass and anastomosis status; Z90.49 Acquired absence of other specified parts of digestive tract
CPT/HCPCS: 00811; J2704; J2919; J7121

== ENCOUNTER 2024-02-08 14:53 | Emergency (ER) | payer OTHER ==
[~2024-02-08] VITALS: Ht 165.1 cm; Wt 105.0 kg
[~2024-02-08 14:53] MED LIST changes: -IBLOOD GLUCOSE TEST STRIP 1 EA TEST VI PRN; -LACTATED RINGER'S 1,000 ML IV SCH; -LIDOCAINE HCL 1% 5 ML SDV INJ ONE; -methylPREDNISolone SOD SUCC 40 MG/ML VIAL IV SCH
[2024-02-08] MEDS ORDERED: HYDROCODONE/ACETA 5/325 TAB PO ONE (17:15)
[2024-02-08] MEDS ORDERED: ONDANSETRON 4 MG TAB ODT SL ONE (17:15)
[2024-02-08] MEDS ORDERED: HYDROCODON-ACE1 EA10 PO (18:56)
[2024-02-08] MEDS ORDERED: ONDANSETRON ODT4 MG PO (18:56)
[2024-02-08 19:03] VITALS: BP 131/72
== END 2024-02-08 19:04 | disposition home or self-care (01) ==
LOC: ED 14:53
DX: M54.50 Low back pain, unspecified (principal); R10.2 Pelvic and perineal pain; J44.9 Chronic obstructive pulmonary disease, unspecified; F17.200 Nicotine dependence, unspecified, uncomplicated; Z91.09 Other allergy status, other than to drugs and biological substances; Z79.899 Other long term (current) drug therapy; W11.XXXA Fall on and from ladder, initial encounter
CPT/HCPCS: 72170; 72220; 99283; A9270

== ENCOUNTER 2024-04-22 09:07 | Emergency (ER) | payer OTHER ==
[~2024-04-22] VITALS: Ht 165.1 cm; Wt 83.5 kg
[2024-04-22] MEDS ORDERED: ondansetron HCL 4 MG/2 ML VIAL IV ONE (09:15)
[2024-04-22] MEDS ORDERED: MORPHINE SULFATE 4 MG/ML VIAL IV ONE (09:15)
[2024-04-22] MEDS ORDERED: SODIUM CHLORIDE 0.9% 1,000 ML IV PRN (09:15)
[2024-04-22 09:20] LABS: BASOPHILS 0.3 % (0-2); EOSINOPHILS 0.3 % (0-6); HEMATOCRIT 44.9 % (35.0-50.0); HEMOGLOBIN 16.1 g/dL (12.0-18.0); LYMPHOCYTES 15.9 % (24-44); MCH 34.2 (27-36); MCHC 35.9 g/dl (30-36); MCV 95.3 fl (81-99); MONOCYTES 6.6 % (0-12); NEUTROPHILS 76.9 % (39-80); PLATELET COUNT 128 K/uL (140-440); RBC 4.72 M/ul (4.3-5.7); RDW 13.2 (10.5-15.0)
[2024-04-22 09:35] LABS: ALBUMIN 3.8 g/dL (3.4-5.0); ALBUMIN/GLOBULIN RATIO 1.06 (1.1-2.4); ANION GAP 13.7 (7-21); BILIRUBIN, TOTAL 0.6 mg/dL (0.2-1.0); BUN/CREATININE RATIO 15.46 (6.0-28.6); CALCIUM 9.4 mg/dL (8.5-10.1); CREATININE, SERUM 0.97 mg/dL (0.55-1.02); POTASSIUM 3.7 mmol/L (3.5-5.1); PROTEIN, TOTAL 7.4 g/dL (6.4-8.2)
[2024-04-22 10:28] LABS: BILIRUBIN, URINE NEGATIVE (negative); BLOOD/HGB, URINE LARGE (Negative); KETONE, URINE NEGATIVE (Negative); LEUK ESTERASE, URINE NEGATIVE (negative); NITRITE, URINE NEGATIVE (negative); PH, URINE 5.5 (5-7)
[2024-04-22 10:33] LABS: EPITHELIAL CELLS, URINE SQUAMOUS 1+ /lpf (0-1+)
[2024-04-22 10:34] LABS: BACTERIA, URINE NONE SEEN /hpf (negative); CASTS, URINE NONE SEEN \\lpf; COLLECTION TYPE, URINE CLEAN CATCH; CRYSTALS, URINE CALCIUM OXALATE 2+ (0-1+); REFLEX CULTURE, URINE No (No)
[2024-04-22 10:49] LABS: AMPHETAMINES, URINE NEGATIVE (NEGATIVE); BARBITURATES, URINE NEGATIVE (NEGATIVE); BENZODIAZEPINE, URINE NEGATIVE (NEGATIVE); BUPRENORPHINE, URINE NEGATIVE (NEGATIVE); CANNABINOID, URINE NEGATIVE (NEGATIVE); COCAINE, URINE NEGATIVE (NEGATIVE); ECSTASY, URINE NEGATIVE (NEGATIVE); FENTANYL, URINE NEGATIVE (NEGATIVE); METHADONE, URINE NEGATIVE (NEGATIVE); OPIATES, URINE POSITIVE (NEGATIVE); OXYCODONE, URINE NEGATIVE (NEGATIVE); PHENCYCLIDINE, URINE NEGATIVE (NEGATIVE)
[2024-04-22 11:10] VITALS: BP 126/75
== END 2024-04-22 11:13 | disposition home or self-care (01) ==
LOC: ED 09:07
PROVIDERS: Emergency Medicine
DX: N20.1 Calculus of ureter (principal); K50.90 Crohn's disease, unspecified, without complications; J44.89 Other specified chronic obstructive pulmonary disease; F17.200 Nicotine dependence, unspecified, uncomplicated; Z90.49 Acquired absence of other specified parts of digestive tract; Z85.118 Personal history of other malignant neoplasm of bronchus and lung; Z91.048 Other nonmedicinal substance allergy status; Z79.899 Other long term (current) drug therapy
CPT/HCPCS: 36415; 74177; 80053; 80307; 81001; 83605; 83690; 85025; 96375; 99284-25; J2270; J2405; J7030; Q9967